=== PATIENT | male | born 1975 | race Caucasian/White ===

== ENCOUNTER 2022-03-07 11:14 | Inpatient (IN) | payer OTHER, SELFPAY ==
[2022-03-07] VITALS (17 sets, daily range): BP systolic 103–161; BP diastolic 59–112; PULSE 95–123; RESP 11–30; TEMP 36.6–37.6; O2SAT 84–98; BMI 68.5; BMI 60.7
--- NOTE | 2022-03-07 11:27 | PC.NURSE ---
CORETTA Isaacs at
--- NOTE | 2022-03-07 11:46 | ECG_ITS ---
APPROVED REPORT Exam: Resting ECG HR:116 bpm ECG Measurements Heart Rate 116 AXES QRSd 102 QRS -34 QT 336 T 86 QTc 405 Conclusion ATRIAL FIBRILLATION WITH RAPID VENTRICULAR RESPONSE LEFT AXIS DEVIATION [QRS AXIS < -30] POSSIBLE ANTERIOR MYOCARDIAL INFARCTION , OF INDETERMINATE AGE [30 ms Q WAVE IN V3/V4, OR R < 0.2 mV IN V4] ABNORMAL ECG UNCONFIRMED REPORT Electronically signed by : Aba Acevedo MD 03/11/2022 10:15:51
--- NOTE | 2022-03-07 11:49 | HMH.EDGENADL ---
ED Disposition Clinical Impression: Septic shock, Cellulitis of leg, right, Rapid atrial fibrillation, Hyperglycemia Disposition: Admitted As Inpatient Condition on Discharge: Serious Referrals: Provider,Referral, [Primary Care Provider] - - Critical Care Critical Care Time: Yes Attestation: On 03/07/22, the high probability of a clinically significant, sudden or life threatening deterioration of the following system(s) required my full and direct attention, intervention and personal management. The time I documented below is in addition to time spent performing reported procedures but includes the following listed in this critical care notation. Total Critical Care Time: 40 Vital system(s) involved:: Circulatory Failure, Shock (Septic) My critical care processes included: Assessment & monitoring of V/S, Initial and Re-exams, Data Review/Interpretation, Coordinating Care, Medication Orders and management, Documentation Medical Decision Making - Tj Inquiry Pt receiving controlled substance: No Vital Signs: 03/07/22 11:15 03/07/22 12:00 03/07/22 12:21 Temperature 99.6 F Temperature Source Oral Pulse Rate 107 H Pulse Rate [Radial] 123 H Respiratory Rate 30 H Blood Pressure 134/85 Blood Pressure [Right Arm] 116/62 Blood Pressure Mean [Right Arm] 80 Blood Pressure Position [Right Arm] Sitting 02 Sat by Pulse Oximetry 98 92 L 84 L Oxygen Delivery Method Room Air Room Air Room Air Oxygen Flow Rate (LPM) 03/07/22 12:22 03/07/22 12:32 03/07/22 13:16 Temperature Temperature Source Pulse Rate 100 H 97 H Pulse Rate [Radial] Respiratory Rate 24 Blood Pressure 155/112 H 122/71 Blood Pressure [Right Arm] Blood Pressure Mean [Right Arm] Blood Pressure Position [Right Arm] 02 Sat by Pulse Oximetry 95 96 98 Oxygen Delivery Method Nasal Cannula Room Air Nasal Cannula Oxygen Flow Rate (LPM) 3 3 03/07/22 13:30 Temperature Temperature Source Pulse Rate 110 H Pulse Rate [Radial] Respiratory Rate 11 L Blood Pressure 131/94 H Blood Pressure [Right Arm] Blood Pressure Mean [Right Arm] Blood Pressure Position [Right Arm] 02 Sat by Pulse Oximetry 98 Oxygen Delivery Method Nasal Cannula Oxygen Flow Rate (LPM) 3 - Lab Data Lab Results 03/07/22 11:36: WBC 10.3, RBC 4.58 L, Hgb 14.5, Hct 44.2, MCV 96.5 H, MCH 31.7 H, MCHC 32.8, RDW 14.6, Plt Count 228, MPV 8.6, Neut % (Auto) 84.5 H, Lymph % (Auto) 8.9 L, [place] % (Auto) 5.5, Eos % (Auto) 0.1, Baso % (Auto) 1.0, Neut # (Auto) 8.7 H, Lymph # (Auto) 0.9, [place] # (Auto) 0.6, Eos # (Auto) 0.0, Baso # (Auto) 0.1 03/07/22 11:36: Sodium 137, Potassium 3.5, Chloride 100, Carbon Dioxide 26, Anion Gap 14.5, BUN 22 H, Creatinine 1.30 H, Estimated Creat Clear 62, Estimated GFR 59, Est GFR ( Amer) 71, Glucose 194 H, Calcium 7.5 L, Total Bilirubin 2.6 H, AST 36, ALT 36, Alkaline Phosphatase 82, Total Protein 7.6, Albumin 3.3 L, Globulin 4.3 H, Albumin/Globulin Ratio 0.8 L 03/07/22 11:36: Lactate 5.0 H 03/07/22 11:36: Procalcitonin 6.66 H 03/07/22 11:49: SARS-CoV-2 (PCR) Not detected, Influenza A Untype (PCR) Not detected, Influenza Type B (PCR) Not detected Result diagrams: 03/07/22 11:36 03/07/22 11:36 Orders (Tests/Meds): ED MEDICATIONS Generic Name Dose Route Start Last Admin Trade Name Freq PRN Reason Stop Dose Admin Diltiazem HCl 60 mg 03/07/22 14:15 Diltiazem 60mg Tablet PO 04/06/22 14:14 Q8H BLANCA Enoxaparin Sodium 40 mg 03/07/22 14:06 Enoxaparin 40mg/0.4ml Syringe SQ 04/06/22 14:05 BID BLANCA Vancomycin HCl 2,250 mg/ 250 mls @ 125 mls/hr 03/07/22 12:15 03/07/22 12:39 Sodium Chloride IV 03/07/22 14:14 125 mls/hr ONCE ONE Administration Ertapenem 1 gm/ Sodium 50 mls @ 100 mls/hr 03/07/22 14:15 Chloride IV 03/21/22 14:14 Q24H BLANCA Discontinued Medications Generic Name Dose Route Start Last Admin Trade Name Freq PRN Reason Stop Dose Admin Lactated Ringer's
[2022-03-07 11:50] LABS: Basophils # 0.1 K/mm3 (0-0.2); Eosinophils % 0.1 % (0.1-12.0); Hematocrit 44.2 % (42.0-52.0); Hemoglobin 14.5 g/dL (14.1-18.0); Lymphocytes # 0.9 K/mm3 (0.7-4.5); Lymphocytes % 8.9 % (10-50); Mean Corpuscular HGB Conc 32.8 g/dL (31.8-35.4); Mean Corpuscular Hemoglobin 31.7 pg (27.0-31.2); Mean Corpuscular Volume 96.5 fl (80-94); Mean Platelet Volume 8.6 fl (7.4-10.4); Monocytes # 0.6 K/mm3 (0.1-1.0); Monocytes % 5.5 % (1.7-9.3); Neutrophils # 8.7 K/mm3 (1.8-7.8); Neutrophils % 84.5 % (37.0-80.0); Platelet Count 228 K/mm3 (142-424); Red Blood Count 4.58 M/mm3 (4.60-6.20); Red Cell Distribution Width 14.6 % (11.5-17.5); White Blood Count 10.3 K/mm3 (4.8-10.8)
--- NOTE | 2022-03-07 11:50 | PC.NURSE ---
Patient states he has no needs at this time; call light within reach
[2022-03-07 11:52] LABS: Coronavirus 19, PCR Not Detected (NotDetected); Influenza A, PCR Not Detected (NotDetected); Influenza B, PCR Not Detected (NotDetected)
[2022-03-07 11:56] LABS: Chloride 100 mmol/L (98-107)
[2022-03-07 11:57] LABS: Potassium 3.5 mmoL/L (3.5-5.1); Sodium 137 mmol/L (136-145)
--- NOTE | 2022-03-07 11:58 | CA_ITS ---
FINAL REPORT TECHNIQUE: Color Doppler, duplex Doppler and compression sonography of the right lower extremity venous system was performed. CLINICAL HISTORY: swelling, pain, redness right leg, Morbid obesity, Afib FINDINGS: There is no evidence of deep venous thrombosis from the level of the groin to the calf. The veins are patent and compressible. IMPRESSION: No evidence of deep venous thrombosis right lower extremity. Reviewed, Interpreted and Dictated by Parminder Arrieta III, MD Transcribed by Christiano Carias Authenticated by Parminder Arrieta III, MD on 03/09/2022 07:11:52 AM [facility]
[2022-03-07 11:59] LABS: Alanine Aminotransferase 36 U/L (12-78); Alkaline Phosphatase 82 U/L (38-126); Anion Gap 14.5 mEq/L (5-15); Aspartate Amino Transferase 36 U/L (17-59); Bilirubin,Total 2.6 mg/dl (0.2-1.3); Blood Urea Nitrogen 22 mg/dl (9-20); Carbon Dioxide 26 mmol/L (22.0-30.0); Creatinine Clearance Estimated 62 mL/min (50-200); Estimated Glomerular Filt Rate 59 ml/min (>60); GFR (African American) 71 ML/MIN (>60)
[2022-03-07 12:00] LABS: Albumin Level 3.3 g/dl (3.5-5.0); Albumin/Globulin Ratio 0.8 (1.1-1.8); Calcium 7.5 mg/dl (8.4-10.2); Globulin 4.3 g/dL (1.3-3.2); Glucose 194 mg/dl (74-100); Total Protein,Serum 7.6 g/dl (6.3-8.2)
--- NOTE | 2022-03-07 12:00 | PC.NURSE ---
RESP CALLED TO [facility] RADIOLOGIC TECHNOLOGIST
[2022-03-07 12:17] LABS: Procalcitonin 6.66 ng/mL (0.0-2.0)
--- NOTE | 2022-03-07 12:21 | XR_ITS ---
PROCEDURE INFORMATION: Exam: XR Chest Exam date and time: 03/07/2022 12:26 PM Age: 47 years old Clinical indication: Shortness of breath; Additional info: SOB TECHNIQUE: Imaging protocol: XR of the chest. Views: 1 view. COMPARISON: No relevant prior studies available. FINDINGS: Lungs: Unremarkable. No consolidation. Pleural spaces: Unremarkable. No pleural effusion. No pneumothorax. Heart/Mediastinum: Unremarkable. No cardiomegaly. Bones/joints: Unremarkable. IMPRESSION: No acute findings.
--- NOTE | 2022-03-07 12:27 | PC.NURSE ---
Radiology bedside at this time.
--- NOTE | 2022-03-07 12:50 | PC.NURSE ---
VASCULAR AT BEDSIDE
--- NOTE | 2022-03-07 12:50 | PC.NURSE ---
VASCULAR AT BEDSIDE
--- NOTE | 2022-03-07 12:58 | PC.NURSE ---
Vascular at BS
--- NOTE | 2022-03-07 13:01 | PC.NURSE ---
Tech is bedside doing venous doppler US.
--- NOTE | 2022-03-07 13:16 | PC.NURSE ---
called pile driver operator helper for Dr. Argueta for possible inpatient admission on patient.
--- NOTE | 2022-03-07 13:22 | PC.NURSE ---
Family brought in an overnight bag for the patient. Patient resting in bed at this time. nothing needed. call light within reach.
--- NOTE | 2022-03-07 13:35 | PC.NURSE ---
REPAGED DR GRIMES
--- NOTE | 2022-03-07 13:39 | PC.NURSE ---
called double surface operator again about re-paging Dr. Argueta. Awaiting call back at this time.
--- NOTE | 2022-03-07 13:47 | PC.NURSE ---
Still awaiting call back from Dr. Argueta; Radio Time Buyer called back here to see if had called back yet, but he hasn't she said that she was going to page him again.
--- NOTE | 2022-03-07 13:56 | PC.NURSE ---
Textile Designer called back to state that she paged Dr. Argueta again, stated that if we didn't hear from him in the next 15 mins to call her back and she would try something different in getting in touch with him. Dr. Corbin made aware.
--- NOTE | 2022-03-07 13:57 | PC.NURSE ---
Dr. Argueta returned call to the ER at this time. Speaking with Dr. Corbin
--- NOTE | 2022-03-07 14:09 | PC.NURSE ---
Called powerhouse operator for admission. she stated she would call back once she got to the office.
--- NOTE | 2022-03-07 14:12 | PC.NURSE ---
Cahrito meat supervisor called back and took information about needing bed for inpatient admission. stated she would get a bed. Telemetry bed
--- NOTE | 2022-03-07 14:15 | HMH.PHAVTE ---
[facility] Pharmacy VTE Monitoring - Patient Demographics Admission date: 03/07/22 Report Date: 03/07/22 Time: 14:15 Allergies/Adverse Reactions: Patient Allergies No Known Allergies Allergy (Verified 03/07/22 11:36) Height: 1.68 m Weight: 192.777 kg Patient Problems: Current Active Problems Septic shock (Acute) Cellulitis of leg, right (Acute) Rapid atrial fibrillation (Acute) Hyperglycemia (Acute) - VTE Risk Labs: VTE Related Lab Results Hgb 14.5 g/dL (14.1-18.0) 03/07/22 11:36 Hct 44.2 % (42.0-52.0) 03/07/22 11:36 Plt Count 228 K/mm3 (142-424) 03/07/22 11:36 BUN 22 mg/dl (9-20) H 03/07/22 11:36 Creatinine 1.30 mg/dl (0.66-1.25) H 03/07/22 11:36 Estimated Creat Clear 62 mL/min (50-200) 03/07/22 11:36 Was VTE Risk Assessment Performed: No Clinical Trial Participant: No - Prophylaxis VTE Prophylaxis Ordered?: Yes Types of VTE Prophylaxis: TEDS Knee High, Pharmacological Location of Applied Device: Bilateral Lower Extremeties Pharmacologic Type: Enoxaparin
--- NOTE | 2022-03-07 14:16 | HMH.PHACONS ---
- Pharmacy Consult Date: 03/07/22 Time: 14:16 Referring provider: DR SEGURA Reason for Consult:: VANCOMYCIN DOSING CONSULT Allergies and ADEs:: Allergies Allergy/AdvReac Type Severity Reaction Status Date / Time No Known Allergies Allergy Verified 03/07/22 11:36 Home Medications:: Home Medications Medication Instructions Recorded Confirmed Type No Known Home Medications 03/07/22 03/07/22 History Height: 1.68 m Weight: 192.777 kg Laboratory Results:: Laboratory Results - last 24 hr 03/07/22 11:36: WBC 10.3, RBC 4.58 L, Hgb 14.5, Hct 44.2, MCV 96.5 H, MCH 31.7 H, MCHC 32.8, RDW 14.6, Plt Count 228, MPV 8.6, Neut % (Auto) 84.5 H, Lymph % (Auto) 8.9 L, [place] % (Auto) 5.5, Eos % (Auto) 0.1, Baso % (Auto) 1.0, Neut # (Auto) 8.7 H, Lymph # (Auto) 0.9, [place] # (Auto) 0.6, Eos # (Auto) 0.0, Baso # (Auto) 0.1 03/07/22 11:36: Sodium 137, Potassium 3.5, Chloride 100, Carbon Dioxide 26, Anion Gap 14.5, BUN 22 H, Creatinine 1.30 H, Estimated Creat Clear 62, Estimated GFR 59, Est GFR ( Amer) 71, Glucose 194 H, Calcium 7.5 L, Total Bilirubin 2.6 H, AST 36, ALT 36, Alkaline Phosphatase 82, Total Protein 7.6, Albumin 3.3 L, Globulin 4.3 H, Albumin/Globulin Ratio 0.8 L 03/07/22 11:36: Lactate 5.0 H 03/07/22 11:36: Procalcitonin 6.66 H 03/07/22 11:49: SARS-CoV-2 (PCR) Not detected, Influenza A Untype (PCR) Not detected, Influenza Type B (PCR) Not detected Assessment and Plan - Assessment and plan all Dx Assessment and Plan for all problems:: Pharmacokinetic dosing service Objective: Age: 47 yo Serum creatinine: 1.3 mg/dL Height: 66.0 Inches Weight (kg): 192.77 Diagnosis: CELLULITIS Assessment: IBW (kg): 63.80 Dosing wt(kg): 115.4 Estimated Creatinine clearance (ml/min): 112.2 CRCL method: Cockcroft and Gault using adjusted body weight Drug selected: Vancomycin Loading dose (mg): Vd (liters): 80.8 (factor used: 0.7 L/kg) Ryan (hr-1): 0.098 Half life (hrs): 7.07 CLvanco=?? 7.918 L/hr Recommended dose: 2250 mg Interval: 12 hrs Infusion time (hrs): 2.0 Predicted peak (mcg/mL): 36.6 Predicted trough (mcg/mL): 13.74 Adjusted body weight was selected for vancomycin dosing. To switch back, select the total body weight option above. Recommendations: Give Vancomycin 2250 mg q 12 hrs with an expected Cpeak of 36.6 mcg/ml and an expected Ctrough of 13.74 mcg/ml AUC 0-24 /BHARATI Data: BHARATI 0.5 mcg/mL:?? AUC/BHARATI:? 1136.7 BHARATI 1.0 mcg/mL:?? AUC/BHARATI:? 568.3 --------- BHARATI 1.5 mcg/mL:?? AUC/BHARATI:? 378.9 BHARATI 2.0 mcg/mL:?? AUC/BHARATI:? 284.2 Thank you for the consult, will continue to follow.
[2022-03-07 15:44] LABS: Reflex Lactic Add Lactic Reflex
--- NOTE | 2022-03-07 15:59 | PC.NURSE ---
Med surg staff down here to transport patient upstairs to inpatient room.
[2022-03-07 16:45] LABS: Lactic Acid Follow Up (RFLX 1) 1.4 mmol/L (0.7-2.1)
--- NOTE | 2022-03-07 17:44 | PC.NURSE ---
PT IS RESTING IN BED. NO COMPLAINTS OF DISCOMFORT. ALERT AND ORIENTED X4. LUNG SOUNDS DIMINISHED. ABDOMEN LARGE /SOFT WITH HYPOACTIVE BOWEL SOUNDS. REDNESS/SWELLING NOTED TO RLE. O2 SATURATION HAS MAINTAINED 90-95% ON 3 L NC. VSS. WILL CONTINUE TO MONITOR.
[2022-03-08] VITALS (10 sets, daily range): BP systolic 132–170; BP diastolic 74–94; PULSE 80–125; RESP 1–26; TEMP 36.4–37.2; O2SAT 83–100; BMI 60.7
--- NOTE | 2022-03-08 06:47 | PC.NURSE ---
pt has rested t/o shift, has been a fib on tele, HR increased to 120-130 and sustained, production assembler notified, new orders received and carried out, pt states that he has sleep apnea but doesn't wear his cpap at home, O2 sats have been 92-96 and is currently on 4L NC
[2022-03-08 07:19] LABS: POC Glucose,Bedside 195 (70-110)
[2022-03-08 07:40] LABS: MANUAL DIFFERENTIAL MANUAL DIFFERENTIAL (MANUAL DIFF)
--- NOTE | 2022-03-08 07:49 | HMH.HP ---
*Admission Date: 03/07/22 *Chief complaint: Reddness and swelling of right leg *History of present illness: 47 year old former patient of Dr. Jose Tomas who presented to [facility] ER yesterday complaining of a several day history of chills and nausea associated with some swelling and redness of the right leg. Patient stated he had not had any medical care in the past 5 years. He has a history of cellulitis of both legs and had taken Eliquis due to A. fib. History obtained from discussion with the ER doctor as patient is obtunded at this time and can not answer questions. [facility] History Medical History: Reports:: Atrial Fibrillation, Hyperlipidemia, Hypertension Denies:: Cancer, Diabetes Mellitus Type 1, Diabetes Mellitus Type 2, MRSA *Have you ever received a pneumonia vaccine?: No *Have you received a flu vaccine this season?: No Other Medical History: Reports: Other (sleep apnea, obesity) Amputation: No Fractures: No - *Social History Last grade of school completed: Advanced degree Smoking Status: Never smoker Alcohol Intake: never *Occupational Status:: unemployed Housing: house Household Members: family *Travel in the last 8 weeks: None Family Hx:: Unable to obtain Review of Systems - Review of Systems Review of systems:: unable to obtain - *Neurologic Reports headache(s) Meds Home Medications Medication Instructions Recorded Confirmed Type No Known Home Medications 03/07/22 03/07/22 History Allergies Allergy/AdvReac Type Severity Reaction Status Date / Time No Known Allergies Allergy Verified 03/07/22 11:36 Exam Vital signs and Labs for Last 24 Hours: Temp Pulse Resp BP Pulse Ox 99.0 F 117 H 26 H 170/94 H 92 L 03/08/22 04:00 03/08/22 04:00 03/08/22 04:00 03/08/22 04:00 03/08/22 04:00 Laboratory Results - last 24 hr 03/07/22 11:36: WBC 10.3, RBC 4.58 L, Hgb 14.5, Hct 44.2, MCV 96.5 H, MCH 31.7 H, MCHC 32.8, RDW 14.6, Plt Count 228, MPV 8.6, Neut % (Auto) 84.5 H, Lymph % (Auto) 8.9 L, [place] % (Auto) 5.5, Eos % (Auto) 0.1, Baso % (Auto) 1.0, Neut # (Auto) 8.7 H, Lymph # (Auto) 0.9, [place] # (Auto) 0.6, Eos # (Auto) 0.0, Baso # (Auto) 0.1 03/07/22 11:36: Sodium 137, Potassium 3.5, Chloride 100, Carbon Dioxide 26, Anion Gap 14.5, BUN 22 H, Creatinine 1.30 H, Estimated Creat Clear 62, Estimated GFR 59, Est GFR ( Amer) 71, Glucose 194 H, Calcium 7.5 L, Total Bilirubin 2.6 H, AST 36, ALT 36, Alkaline Phosphatase 82, Total Protein 7.6, Albumin 3.3 L, Globulin 4.3 H, Albumin/Globulin Ratio 0.8 L 03/07/22 11:36: Lactate 5.0 H 03/07/22 11:36: Procalcitonin 6.66 H 03/07/22 11:49: SARS-CoV-2 (PCR) Not detected, Influenza A Untype (PCR) Not detected, Influenza Type B (PCR) Not detected 03/07/22 16:05: Lactate 1.4 03/08/22 07:09: POC Glucose 195 H Vital Signs - 24 hr 03/07/22 11:15 03/07/22 12:00 03/07/22 12:21 Temperature 99.6 F Pulse Rate 107 H Pulse Rate [Radial] 123 H Respiratory Rate 30 H Blood Pressure 134/85 Blood Pressure [Right Arm] 116/62 02 Sat by Pulse Oximetry 98 92 L 84 L 03/07/22 12:22 03/07/22 12:32 03/07/22 13:16 Temperature Pulse Rate 100 H 97 H Pulse Rate [Radial] Respiratory Rate 24 Blood Pressure 155/112 H 122/71 Blood Pressure [Right Arm] 02 Sat by Pulse Oximetry 95 96 98 03/07/22 13:30 03/07/22 14:00 03/07/22 14:31 Temperature Pulse Rate 110 H 102 H 115 H Pulse Rate [Radial] Respiratory Rate 11 L 20 Blood Pressure 131/94 H 114/77 121/81 Blood Pressure [Right Arm] 02 Sat by Pulse Oximetry 98 95 96 03/07/22 15:01 03/07/22 15:30 03/07/22 16:00 Temperature 99.7 F H Pulse Rate 116 H 109 H Pulse Rate [Radial] 114 H Respiratory Rate 22 Blood Pressure 103/59 L 109/68 L Blood Pressure [Right Arm] 125/69 02 Sat by Pulse Oximetry 95 92 L 95 03/07/22 16:02 03/07/22 16:22 03/07/22 16:46 Temperature 98 F Pulse Rate 104 H 100 H 108 H Pulse Rate [Radial] Respiratory Rate 24 Blood Pressure 125/69 125/69
[2022-03-08 08:01] LABS: Basophils # 0.1 K/mm3 (0-0.2); Basophils % 0.6 % (0.1-2.0); Eosinophils # 0.1 K/mm3 (0.0-0.4); Eosinophils % 0.3 % (0.1-12.0); Hematocrit 40.4 % (42.0-52.0); Lymphocytes # 0.9 K/mm3 (0.7-4.5); Lymphocytes % 6.1 % (10-50); Mean Corpuscular HGB Conc 32.1 g/dL (31.8-35.4); Mean Corpuscular Hemoglobin 30.6 pg (27.0-31.2); Mean Corpuscular Volume 95.2 fl (80-94); Mean Platelet Volume 9.3 fl (7.4-10.4); Monocytes % 6.4 % (1.7-9.3); Neutrophils # 13.2 K/mm3 (1.8-7.8); Neutrophils % 86.5 % (37.0-80.0); Platelet Count 261 K/mm3 (142-424); Red Blood Count 4.24 M/mm3 (4.60-6.20); Red Cell Distribution Width 14.4 % (11.5-17.5); White Blood Count 15.2 K/mm3 (4.8-10.8)
[2022-03-08 08:25] LABS: Chloride 103 mmol/L (98-107); Sodium 138 mmol/L (136-145)
[2022-03-08 08:26] LABS: Potassium 5.1 mmoL/L (3.5-5.1)
[2022-03-08 08:28] LABS: Blood Urea Nitrogen 22 mg/dl (9-20); Creatinine Clearance Estimated 81 mL/min (50-200); Estimated Glomerular Filt Rate 79 ml/min (>60); GFR (African American) 96 ML/MIN (>60)
[2022-03-08 08:29] LABS: Calcium 7.4 mg/dl (8.4-10.2); Carbon Dioxide 29 mmol/L (22.0-30.0); Glucose 202 mg/dl (74-100)
[2022-03-08 08:36] LABS: Anion Gap 11.1 mEq/L (5-15)
[2022-03-08 10:10] LABS: Lymphocytes % 7 % (10-50); Monocytes % 7 % (2-9); Neutrophils % 86 % (42-76); Total Cells Counted 100
[2022-03-08 10:11] LABS: Platelet Estimate Normal; RBC Morphology Normal
[2022-03-08 10:34] LABS: Hemoglobin 14.2 g/dL (14.1-18.0)
[2022-03-08 12:20] LABS: ABG Base Excess 2.1 mmol/L (-2.4-2.3); ABG HCO3 32.6 mmhg (22.0-26.0); ABG Oxygen Saturation 76 % (90-100); ABG TCO2 36.3 mmhg (23-27)
[2022-03-08 12:22] LABS: Allen's Test Acceptable
[2022-03-08 12:23] LABS: Source Left Radial
[2022-03-08 12:31] LABS: ABG PH 7.05 mmol/L (7.35-7.45)
[2022-03-08 12:32] LABS: ABG PCO2 120.5 mmhg (35.0-45.0); ABG PO2 40.3 mmhg (80-100)
[2022-03-08 14:42] LABS: Microscopic, Urine URINE MICROSCOPIC (MICROSCOPIC)
[2022-03-08 14:44] LABS: Appearance,Urine CLOUDY (Clear); Blood, Urine 3+ (Negative); Color,Urine YELLOW (Yellow); Glucose,Urine (UA) TRACE (Negative); Ketones,Urine Negative (Negative); Leukocyte Esterase,Urine Negative (Negative); Nitrate,Urine Negative (Negative); PH,Urine 5.5 (5.0-8.5); Protein,Urine 1+ (Negative); Specific Gravity, Urine >= 1.030 (1.005-1.030)
[2022-03-08 14:47] LABS: Bilirubin,Urine 1+ (Negative)
[2022-03-08 15:02] LABS: Amorphous Sediment,Urine 1+ /lpf; Bacteria,Urine 1+ /lpf; Squamous Epithelial Cell,Urine Occasional #/hpf (0-5); WBC,Urine Occasional #/hpf (0-3)
[2022-03-08 15:35] LABS: ABG Base Excess -1.8 mmol/L (-2.4-2.3); ABG HCO3 27.2 mmhg (22.0-26.0); ABG Oxygen Saturation 99 % (90-100); ABG PO2 133.3 mmhg (80-100); ABG TCO2 29.8 mmhg (23-27)
[2022-03-08 15:38] LABS: Oxygen 80% %
[2022-03-08 15:39] LABS: Allen's Test Acceptable; Source Left Radial; Vent Rate 20
[2022-03-08 15:40] LABS: ABG PCO2 82.2 mmhg (35.0-45.0); ABG PH 7.14 mmol/L (7.35-7.45)
[2022-03-09] VITALS (8 sets, daily range): BP systolic 110–140; BP diastolic 65–87; PULSE 78–99; RESP 20–24; TEMP 36.4–37.2; O2SAT 96–100; BMI 61.2; BMI 60.9
[2022-03-09 01:27] LABS: Vancomycin,Trough 31.8 ug/mL (5.0-10.0)
--- NOTE | 2022-03-09 01:30 | PC.NURSE ---
Nightwatch contacted at this time with vanc trough result, stated to hold 0100 dose
--- NOTE | 2022-03-09 04:48 | PC.NURSE ---
pt has rested well t/o shift, bipap has remained in place t/o shift, O2 sats 96-98%, telemetry shows a.fib, HR 84-99, no complaints of pain or SOA this shift, river remains in place, 375 mL out so far this shift
[2022-03-09 07:19] LABS: MANUAL DIFFERENTIAL MANUAL DIFFERENTIAL (MANUAL DIFF)
[2022-03-09 09:24] LABS: Basophils # 0.1 K/mm3 (0-0.2); Basophils % 0.5 % (0.1-2.0); Eosinophils % 0.2 % (0.1-12.0); Hematocrit 41.3 % (42.0-52.0); Hemoglobin 13.4 g/dL (14.1-18.0); Lymphocytes # 0.8 K/mm3 (0.7-4.5); Lymphocytes % 7.4 % (10-50); Mean Corpuscular HGB Conc 32.5 g/dL (31.8-35.4); Mean Corpuscular Hemoglobin 31.2 pg (27.0-31.2); Mean Corpuscular Volume 96.2 fl (80-94); Mean Platelet Volume 8.2 fl (7.4-10.4); Monocytes # 0.7 K/mm3 (0.1-1.0); Monocytes % 6.4 % (1.7-9.3); Neutrophils # 9.1 K/mm3 (1.8-7.8); Neutrophils % 85.6 % (37.0-80.0); Platelet Count 199 K/mm3 (142-424); Red Cell Distribution Width 14.2 % (11.5-17.5); White Blood Count 10.7 K/mm3 (4.8-10.8)
--- NOTE | 2022-03-09 09:27 | HMH.ACPN2 ---
<Shital Mcpherson - Last Filed: 03/09/22 09:27> Internal Medicine - PN: Subj *Date: 03/09/22 *Time: 09:27 Interval history: Patient remains on BiPAP with an FiO2 of 60%. He states he is not short of breath and is not having any pain. Laboratory data this morning showed an improved white blood cell count of 10,700 with a hemoglobin of 13.4 hematocrit 41.3. O2 sats have been 98% on the BiPAP. Exam Vital signs and Labs for Last 24 Hours: Temp Pulse Resp BP Pulse Ox 97.6 F 78 20 112/87 98 03/09/22 08:00 03/09/22 08:00 03/09/22 08:00 03/09/22 08:00 03/09/22 08:00 Laboratory Results - last 24 hr 03/08/22 06:44: Hgb 14.2, Total Counted 100, Neutrophils % (Manual) 86 H, Lymphocytes % (Manual) 7 L, Monocytes % (Manual) 7, Platelet Estimate Normal, RBC Morphology Normal 03/08/22 12:15: Specimen Source Left radial, O2 % 3lnc, ABG pH 7.05 L*, ABG pCO2 120.5 H, ABG pO2 40.3 L, ABG HCO3 32.6 H, ABG Total CO2 36.3 H, ABG O2 Saturation 76 L*, ABG Base Excess 2.1, [place] Test Acceptable 03/08/22 14:31: Urine Color Yellow, Urine Appearance Cloudy, Urine pH 5.5, Ur Specific Jean >= 1.030, Urine Protein 1+, Urine Glucose (UA) Trace, Urine Ketones Negative, Urine Blood 3+, Urine Nitrate Negative, Urine Bilirubin 1+ A, Urine Urobilinogen 4.0, Ur Leukocyte Esterase Negative, Urine RBC 5-10, Urine WBC Occasional, Ur Squamous Epith Cells Occasional, Amorphous Sediment 1+, Urine Bacteria 1+ 03/08/22 15:32: Specimen Source Left radial, O2 % 80%, ABG pH 7.14 L*, ABG pCO2 82.2 H, ABG pO2 133.3 H, ABG HCO3 27.2 H, ABG Total CO2 29.8 H, ABG O2 Saturation 99, ABG Base Excess -1.8, [place] Test Acceptable, Vent Rate 20 03/09/22 00:23: Vancomycin Trough 31.8 H 03/09/22 08:45: WBC 10.7 D, RBC 4.30 L, Hgb 13.4 L, Hct 41.3 L, MCV 96.2 H, MCH 31.2, MCHC 32.5, RDW 14.2, Plt Count 199, MPV 8.2, Neut % (Auto) 85.6 H, Lymph % (Auto) 7.4 L, [place] % (Auto) 6.4, Eos % (Auto) 0.2, Baso % (Auto) 0.5, Neut # (Auto) 9.1 H, Lymph # (Auto) 0.8, [place] # (Auto) 0.7, Eos # (Auto) 0.0, Baso # (Auto) 0.1 I & O for Last 24 hours: Intake & Output 03/06/22 03/07/22 03/08/22 03/09/22 11:59 11:59 11:59 11:59 Intake Total 1549 / 1549 1993 Output Total 100 / 100 775 / 775 Balance 1449 / 1449 1219 / 1219 Weight 425 lb 378 lb 1.484 oz 380 lb 11.813 oz Microbiology Reports for the Last 24 Hours: Microbiology 03/08/22 15:10 Groin - Drainage Gram Stain - Final - Constitutional no acute distress Comments: Awakens easily during assessment but then sleeps when left alone. - *Routine Respiratory Exam Present: CTA bilaterally (Anteriorly and posteriorly) Comments: Remains on BiPAP - *Routine Cardiovascular Exam Present: irregular rhythm Comments: Monitor showing atrial fib with a controlled ventricular response in the 70s - *Routine Abdominal Exam Present: normoactive bowel sounds, obese. Absent: tenderness Comments: Draining wound in left pannus. - *Routine Extremities Exam Present: edema (Bilateral legs) Comments: Discoloration of left lower leg. Right lower extremity with erythema and multiple abrasive-like wounds. Right foot also with erythema. - *Routine Neurological Exam Present: alert, altered mental status Assessment and Plan (1) HTN (hypertension) Status: Acute Category: Medical Code(s): I10 - Essential (primary) hypertension (2) Septic shock Status: Acute Category: Medical Code(s): A41.9 - Sepsis, unspecified organism; R65.21 - Severe sepsis with septic shock (3) Cellulitis of leg, right Status: Acute Category: Medical Code(s): L03.115 - Cellulitis of right lower limb (4) Rapid atrial fibrillation Status: Acute Category: Medical Code(s): I48.91 - Unspecified atrial fibrillation (5) Hyperglycemia Status: Acute Category: Medical Code(s): R73.9 - Hyperglycemia, unspecified (6) Respiratory acidosis Status: Acute Category: Medical Code(s): E87.2 - Acidosis (7) Mor
[2022-03-09 09:41] LABS: Chloride 101 mmol/L (98-107); Potassium 4.8 mmoL/L (3.5-5.1); Sodium 136 mmol/L (136-145)
[2022-03-09 09:44] LABS: Anion Gap 10.8 mEq/L (5-15); Blood Urea Nitrogen 36 mg/dl (9-20); Carbon Dioxide 29 mmol/L (22.0-30.0); Creatinine Clearance Estimated 38 mL/min (50-200); Estimated Glomerular Filt Rate 34 ml/min (>60); GFR (African American) 41 ML/MIN (>60)
[2022-03-09 09:45] LABS: Calcium 7.1 mg/dl (8.4-10.2); Glucose 124 mg/dl (74-100)
[2022-03-09 13:38] LABS: Hypochromasia 1+; Lymphocytes % 14 % (10-50); Macrocytosis 1+; Monocytes % 4 % (2-9); Neutrophils % 82 % (42-76); Platelet Estimate Normal; Total Cells Counted 100
[2022-03-09 21:52] LABS: Anion Gap 7.3 mEq/L (5-15); Blood Urea Nitrogen 39 mg/dl (9-20); Calcium 7.5 mg/dl (8.4-10.2); Carbon Dioxide 31 mmol/L (22.0-30.0); Chloride 100 mmol/L (98-107); Creatinine Clearance Estimated 26 mL/min (50-200); Estimated Glomerular Filt Rate 22 ml/min (>60); GFR (African American) 26 ML/MIN (>60); Glucose 108 mg/dl (74-100); Potassium 4.3 mmoL/L (3.5-5.1); Sodium 134 mmol/L (136-145)
[2022-03-09 22:14] LABS: Vancomycin,Trough 21.3 ug/mL (5.0-10.0)
--- NOTE | 2022-03-09 22:18 | PC.NURSE ---
nightwatch contacted at this time about vanc trough, stated to hold dose for 2200
[2022-03-10] VITALS (9 sets, daily range): BP systolic 122–154; BP diastolic 63–84; PULSE 70–95; RESP 18–22; TEMP 36.3–36.8; O2SAT 93–100; BMI 61.2
--- NOTE | 2022-03-10 05:20 | PC.NURSE ---
pt has rested t/o shift, has remained on Bipap with O2 sats 93-100%, pt has some edema noted to BUE and BLE, RLE is very red, scaly and swollen, telemetry continues to show a. fib with a rate of 81-92, pt has not complained of pain or SOA this shift, river remains in place with 500 mL out so far this shift
[2022-03-10 07:20] LABS: Basophils # 0.1 K/mm3 (0-0.2); Basophils % 0.8 % (0.1-2.0); Mean Corpuscular HGB Conc 31.8 g/dL (31.8-35.4); Monocytes # 0.5 K/mm3 (0.1-1.0); Red Cell Distribution Width 14.3 % (11.5-17.5)
[2022-03-10 07:22] LABS: Chloride 100 mmol/L (98-107); Potassium 4.1 mmoL/L (3.5-5.1); Sodium 133 mmol/L (136-145)
[2022-03-10 07:25] LABS: Alanine Aminotransferase 13 U/L (12-78); Albumin Level 2.5 g/dl (3.5-5.0); Albumin/Globulin Ratio 0.7 (1.1-1.8); Alkaline Phosphatase 75 U/L (38-126); Anion Gap 7.1 mEq/L (5-15); Aspartate Amino Transferase 23 U/L (17-59); Bilirubin,Total 1.3 mg/dl (0.2-1.3); Blood Urea Nitrogen 44 mg/dl (9-20); Carbon Dioxide 30 mmol/L (22.0-30.0); Creatinine Clearance Estimated 24 mL/min (50-200); Estimated Glomerular Filt Rate 20 ml/min (>60); GFR (African American) 24 ML/MIN (>60); Globulin 3.5 g/dL (1.3-3.2)
[2022-03-10 07:26] LABS: Calcium 7.2 mg/dl (8.4-10.2); Eosinophils % 0.5 % (0.1-12.0); Glucose 99 mg/dl (74-100); Hematocrit 38.6 % (42.0-52.0); Lymphocytes % 13.1 % (10-50); Mean Corpuscular Hemoglobin 31.2 pg (27.0-31.2); Mean Corpuscular Volume 98.1 fl (80-94); Mean Platelet Volume 7.8 fl (7.4-10.4); Monocytes % 6.8 % (1.7-9.3); Neutrophils % 78.8 % (37.0-80.0); Platelet Count 218 K/mm3 (142-424); Red Blood Count 3.93 M/mm3 (4.60-6.20); White Blood Count 7.7 K/mm3 (4.8-10.8)
[2022-03-10 07:29] LABS: Hemoglobin 12.3 g/dL (14.1-18.0)
--- NOTE | 2022-03-10 08:33 | HMH.ACPN2 ---
<Shital Mcpherson - Last Filed: 03/10/22 08:33> Internal Medicine - PN: Subj *Date: 03/10/22 *Time: 08:33 Interval history: Patient states he is not short of breath. He denies pain. He is hungry and wants to eat. Remains on BiPAP with FiO2 at 60%. He has a Marie catheter to bedside drainage. Exam Vital signs and Labs for Last 24 Hours: Temp Pulse Resp BP Pulse Ox 97.4 F L 82 19 142/78 H 100 03/10/22 08:00 03/10/22 08:00 03/10/22 08:00 03/10/22 08:00 03/10/22 08:00 Laboratory Results - last 24 hr 03/09/22 08:45: WBC 10.7 D, RBC 4.30 L, Hgb 13.4 L, Hct 41.3 L, MCV 96.2 H, MCH 31.2, MCHC 32.5, RDW 14.2, Plt Count 199, MPV 8.2, Neut % (Auto) 85.6 H, Lymph % (Auto) 7.4 L, [place] % (Auto) 6.4, Eos % (Auto) 0.2, Baso % (Auto) 0.5, Neut # (Auto) 9.1 H, Lymph # (Auto) 0.8, [place] # (Auto) 0.7, Eos # (Auto) 0.0, Baso # (Auto) 0.1, Total Counted 100, Neutrophils % (Manual) 82 H, Lymphocytes % (Manual) 14, Monocytes % (Manual) 4, Platelet Estimate Normal, Hypochromasia 1+, Macrocytosis 1+ 03/09/22 08:45: Sodium 136, Potassium 4.8, Chloride 101, Carbon Dioxide 29, Anion Gap 10.8, BUN 36 H D, Creatinine 2.10 H D, Estimated Creat Clear 38, Estimated GFR 34 L, Est GFR ( Amer) 41 L D, Glucose 124 H, Calcium 7.1 L 03/09/22 21:32: Sodium 134 L, Potassium 4.3, Chloride 100, Carbon Dioxide 31 H, Anion Gap 7.3, BUN 39 H, Creatinine 3.10 H D, Estimated Creat Clear 26, Estimated GFR 22 L, Est GFR ( Amer) 26 L D, Glucose 108 H, Calcium 7.5 L 03/09/22 21:32: Vancomycin Trough 21.3 H 03/10/22 06:54: WBC 7.7 D, RBC 3.93 L, Hgb 12.3 L, Hct 38.6 L, MCV 98.1 H, MCH 31.2, MCHC 31.8, RDW 14.3, Plt Count 218, MPV 7.8, Neut % (Auto) 78.8, Lymph % (Auto) 13.1, [place] % (Auto) 6.8, Eos % (Auto) 0.5, Baso % (Auto) 0.8, Neut # (Auto) 6.0, Lymph # (Auto) 1.0, [place] # (Auto) 0.5, Eos # (Auto) 0.0, Baso # (Auto) 0.1 03/10/22 06:54: Sodium 133 L, Potassium 4.1, Chloride 100, Carbon Dioxide 30, Anion Gap 7.1, BUN 44 H, Creatinine 3.30 H, Estimated Creat Clear 24, Estimated GFR 20 L, Est GFR ( Amer) 24 L, Glucose 99, Calcium 7.2 L, Total Bilirubin 1.3, AST 23 D, ALT 13 D, Alkaline Phosphatase 75, Total Protein 6.0 L, Albumin 2.5 L, Globulin 3.5 H, Albumin/Globulin Ratio 0.7 L I & O for Last 24 hours: Intake & Output 03/07/22 03/08/22 03/09/22 03/10/22 11:59 11:59 11:59 11:59 Intake Total 1549 / 1549 2354 / 2354 2841 / 2841 Output Total 100 / 100 775 / 775 500 / 500 Balance 1449 / 1449 1579 / 1579 2341 / 2341 Weight 425 lb 378 lb 1.484 oz 379 lb 3.121 oz 380 lb 11.813 oz Microbiology Reports for the Last 24 Hours: Microbiology 03/08/22 15:10 Groin - Drainage Gram Stain - Final 03/08/22 15:10 Groin - Drainage Wound Culture - Preliminary NO GROWTH AFTER 24 HOURS 03/07/22 11:40 Blood Blood Culture - Preliminary NO GROWTH AFTER 48 HOURS 03/07/22 11:40 Blood Blood Culture - Preliminary NO GROWTH AFTER 48 HOURS - Constitutional no acute distress, morbidly obese - *Routine Respiratory Exam Present: CTA bilaterally (Anteriorly bilaterally) - *Routine Cardiovascular Exam Present: irregular rhythm - *Routine Abdominal Exam Present: normoactive bowel sounds, obese. Absent: tenderness - *Routine Extremities Exam Comments: May be slight erythema of the right leg. Appears more localized. Sores noted on both legs. - *Routine Skin Exam Present: lesions (On anterior abdomen), wounds (Left skin fold inguinal wound continues to drain. Area is erythemic. Padding in place) - *Routine Neurological Exam Present: alert Assessment and Plan (1) HTN (hypertension) Status: Acute Category: Medical Code(s): I10 - Essential (primary) hypertension (2) Septic shock Status: Acute Category: Medical Code(s): A41.9 - Sepsis, unspecified organism; R65.21 - Severe sepsis with septic shock (3) Cellulitis of leg, right Status: Acut
[2022-03-10 08:34] LABS: Vancomycin,Trough 17.6 ug/mL (5.0-10.0)
--- NOTE | 2022-03-10 09:02 | PC.NURSE ---
Try to wean pt to high flow 40L/80% he desated to 78%. Returned pt to bipap. Reducing the pt ipap and epap throughout the day to wean him off the bipap.
--- NOTE | 2022-03-10 10:07 | HMH.PHACONS ---
- Pharmacy Consult Date: 03/10/22 Time: 10:07 Referring provider: DR. GRIMES Reason for Consult:: VANCOMYCIN LEVELS AND DOSE CHANGE Allergies and ADEs:: Allergies Allergy/AdvReac Type Severity Reaction Status Date / Time No Known Allergies Allergy Verified 03/07/22 11:36 Home Medications:: Home Medications Medication Instructions Recorded Confirmed Type No Known Home Medications 03/07/22 03/07/22 History Height: 1.68 m Weight: 172.7 kg Laboratory Results:: Laboratory Results - last 24 hr 03/09/22 08:45: Total Counted 100, Neutrophils % (Manual) 82 H, Lymphocytes % (Manual) 14, Monocytes % (Manual) 4, Platelet Estimate Normal, Hypochromasia 1+, Macrocytosis 1+ 03/09/22 21:32: Sodium 134 L, Potassium 4.3, Chloride 100, Carbon Dioxide 31 H, Anion Gap 7.3, BUN 39 H, Creatinine 3.10 H D, Estimated Creat Clear 26, Estimated GFR 22 L, Est GFR ( Amer) 26 L D, Glucose 108 H, Calcium 7.5 L 03/09/22 21:32: Vancomycin Trough 21.3 H 03/10/22 06:50: Vancomycin Trough 17.6 H 03/10/22 06:54: WBC 7.7 D, RBC 3.93 L, Hgb 12.3 L, Hct 38.6 L, MCV 98.1 H, MCH 31.2, MCHC 31.8, RDW 14.3, Plt Count 218, MPV 7.8, Neut % (Auto) 78.8, Lymph % (Auto) 13.1, [place] % (Auto) 6.8, Eos % (Auto) 0.5, Baso % (Auto) 0.8, Neut # (Auto) 6.0, Lymph # (Auto) 1.0, [place] # (Auto) 0.5, Eos # (Auto) 0.0, Baso # (Auto) 0.1 03/10/22 06:54: Sodium 133 L, Potassium 4.1, Chloride 100, Carbon Dioxide 30, Anion Gap 7.1, BUN 44 H, Creatinine 3.30 H, Estimated Creat Clear 24, Estimated GFR 20 L, Est GFR ( Amer) 24 L, Glucose 99, Calcium 7.2 L, Total Bilirubin 1.3, AST 23 D, ALT 13 D, Alkaline Phosphatase 75, Total Protein 6.0 L, Albumin 2.5 L, Globulin 3.5 H, Albumin/Globulin Ratio 0.7 L Medical History: Reports:: Atrial Fibrillation, Hyperlipidemia, Hypertension Denies:: Cancer, Diabetes Mellitus Type 1, Diabetes Mellitus Type 2, MRSA Assessment and Plan (1) HTN (hypertension) Status: Acute Category: Medical Code(s): I10 - Essential (primary) hypertension (2) Septic shock Status: Acute Category: Medical Code(s): A41.9 - Sepsis, unspecified organism; R65.21 - Severe sepsis with septic shock (3) Cellulitis of leg, right Status: Acute Category: Medical Code(s): L03.115 - Cellulitis of right lower limb (4) Rapid atrial fibrillation Status: Acute Category: Medical Code(s): I48.91 - Unspecified atrial fibrillation (5) Hyperglycemia Status: Acute Category: Medical Code(s): R73.9 - Hyperglycemia, unspecified (6) Respiratory acidosis Status: Acute Category: Medical Code(s): E87.2 - Acidosis (7) Morbid obesity Status: Acute Category: Medical Code(s): E66.01 - Morbid (severe) obesity due to excess calories (8) Open wound of abdominal wall Status: Acute Category: Medical Code(s): S31.109A - Unspecified open wound of abdominal wall, unspecified quadrant without penetration into peritoneal cavity, initial encounter (9) ROXANA (acute kidney injury) Status: Acute Category: Medical Code(s): N17.9 - Acute kidney failure, unspecified - Assessment and plan all Dx Assessment and Plan for all problems:: Age: 47 yo Serum creatinine: 3.3 mg/dL Height: 66.1 Inches Weight (kg): 172.7 Assessment: IBW (kg): 64.03 Dosing wt(kg): 172.7 Estimated Creatinine clearance (ml/min): 24.5 CRCL method: Cockcroft and Gault using ibw(default). Drug selected: Vancomycin Loading dose (mg): 0 Vd (liters): 138.2 (factor used: 0.8 L/kg) Ryan (hr-1): 0.025 Half life (hrs): 27.73 Recommended dose: 1750 mg Interval: 24 hrs Infusion time (hrs): 2.0 Predicted peak (mcg/mL): 27.4 Predicted trough (mcg/mL): 15.81 Total body weight is being used for vancomycin dosing. Renal function is stable [ ] /unstable [ X ] Recommendations: Patient's last vancomycin dose was given on 03/08/22 about 1300. Level
[2022-03-11] VITALS (12 sets, daily range): BP systolic 107–161; BP diastolic 61–84; PULSE 65–80; RESP 7–26; TEMP 36.3–36.9; O2SAT 99–100
--- NOTE | 2022-03-11 04:50 | PC.NURSE ---
Pt has rested most of the shift. Remains on bipap with O2 98-100%. HR has ranged from 70-95. Pt has voiced no c/o of SOA, or pain. Cleansed inguinal wound and BLE with hibiclens. Pt has had 1,200ml in output so far this shift.
[2022-03-11 07:21] LABS: Basophils # 0.1 K/mm3 (0-0.2); Basophils % 1.2 % (0.1-2.0); Eosinophils # 0.1 K/mm3 (0.0-0.4); Hematocrit 36.8 % (42.0-52.0); Hemoglobin 11.9 g/dL (14.1-18.0); Lymphocytes # 0.9 K/mm3 (0.7-4.5); Lymphocytes % 12.8 % (10-50); Mean Corpuscular HGB Conc 32.3 g/dL (31.8-35.4); Mean Corpuscular Hemoglobin 31.4 pg (27.0-31.2); Mean Corpuscular Volume 97.3 fl (80-94); Mean Platelet Volume 7.8 fl (7.4-10.4); Monocytes # 0.4 K/mm3 (0.1-1.0); Monocytes % 5.8 % (1.7-9.3); Neutrophils # 5.3 K/mm3 (1.8-7.8); Neutrophils % 79.1 % (37.0-80.0); Platelet Count 248 K/mm3 (142-424); Red Blood Count 3.78 M/mm3 (4.60-6.20); Red Cell Distribution Width 14.3 % (11.5-17.5); White Blood Count 6.7 K/mm3 (4.8-10.8)
[2022-03-11 07:47] LABS: Chloride 100 mmol/L (98-107); Potassium 3.9 mmoL/L (3.5-5.1); Sodium 132 mmol/L (136-145)
[2022-03-11 07:50] LABS: Anion Gap 8.9 mEq/L (5-15); Blood Urea Nitrogen 47 mg/dl (9-20); Carbon Dioxide 27 mmol/L (22.0-30.0); Creatinine Clearance Estimated 22 mL/min (50-200); Estimated Glomerular Filt Rate 18 ml/min (>60); GFR (African American) 22 ML/MIN (>60); Glucose 83 mg/dl (74-100)
--- NOTE | 2022-03-11 08:42 | HMH.ACPN2 ---
<Shital Mcpherson - Last Filed: 03/11/22 08:42> Internal Medicine - PN: Subj *Date: 03/11/22 *Time: 08:42 Interval history: Patient feels she is doing okay this morning. He denies shortness of breath. He remains on BiPAP at 60% FiO2. He continues to be hungry. Weaning was did yesterday but he did not tolerate. PO 2 today is 100% on 60% FiO2. He continues with Marie catheter to bedside drainage. He has had an improved urinary output. Laboratory data this morning show a hemoglobin 11.9 hematocrit 36.8 white blood cell count normal at 6700. Blood chemistries show sodium 132 potassium 3.9 BUN is 47 and creatinine has increased to 3.6. Exam Vital signs and Labs for Last 24 Hours: Temp Pulse Resp BP Pulse Ox 97.9 F 77 26 H 161/84 H 100 03/11/22 08:00 03/11/22 08:00 03/11/22 08:00 03/11/22 08:00 03/11/22 08:00 Laboratory Results - last 24 hr 03/11/22 06:34: WBC 6.7, RBC 3.78 L, Hgb 11.9 L, Hct 36.8 L, MCV 97.3 H, MCH 31.4 H, MCHC 32.3, RDW 14.3, Plt Count 248, MPV 7.8, Neut % (Auto) 79.1, Lymph % (Auto) 12.8, [place] % (Auto) 5.8, Eos % (Auto) 1.0, Baso % (Auto) 1.2, Neut # (Auto) 5.3, Lymph # (Auto) 0.9, [place] # (Auto) 0.4, Eos # (Auto) 0.1, Baso # (Auto) 0.1 03/11/22 06:34: Sodium 132 L, Potassium 3.9, Chloride 100, Carbon Dioxide 27, Anion Gap 8.9, BUN 47 H, Creatinine 3.60 H, Estimated Creat Clear 22, Estimated GFR 18 L*, Est GFR ( Amer) 22 L, Glucose 83, Calcium 7.0 L I & O for Last 24 hours: Intake & Output 04/17/22 04/18/22 04/19/22 04/20/22 11:59 11:59 11:59 11:59 Intake Total 1549 / 1549 2354 / 2354 2841 / 2841 6215 / 6215 Output Total 100 / 100 775 / 775 500 / 500 1550 / 1550 Balance 1449 / 1449 1579 / 1579 2341 / 2341 4665 / 4665 Weight 378 lb 1.484 oz 379 lb 3.121 oz 380 lb 11.813 oz Microbiology Reports for the Last 24 Hours: Microbiology 03/08/22 15:10 Groin - Drainage Gram Stain - Final 03/08/22 15:10 Groin - Drainage Wound Culture - Preliminary - Constitutional no acute distress, obese - *Routine Respiratory Exam Present: CTA bilaterally - *Routine Cardiovascular Exam Present: RRR Comments: Monitor continues to show atrial flutter with controlled ventricular response in the 70s. - *Routine Abdominal Exam Present: normoactive bowel sounds, obese. Absent: tenderness - *Routine Extremities Exam Present: edema (Bilateral leg) - *Routine Skin Exam Present: erythema Comments: Wound in left groin appears paper cleaner and was less than 3 erythema today. Right lower extremity also with more localized erythema. He has bilateral leg edema. - *Routine Neurological Exam Present: alert, oriented X3 Assessment and Plan (1) HTN (hypertension) Status: Acute Category: Medical Code(s): I10 - Essential (primary) hypertension (2) Septic shock Status: Acute Category: Medical Code(s): A41.9 - Sepsis, unspecified organism; R65.21 - Severe sepsis with septic shock (3) Cellulitis of leg, right Status: Acute Category: Medical Code(s): L03.115 - Cellulitis of right lower limb (4) Rapid atrial fibrillation Status: Acute Category: Medical Code(s): I48.91 - Unspecified atrial fibrillation (5) Hyperglycemia Status: Acute Category: Medical Code(s): R73.9 - Hyperglycemia, unspecified (6) Respiratory acidosis Status: Acute Category: Medical Code(s): E87.2 - Acidosis (7) Morbid obesity Status: Acute Category: Medical Code(s): E66.01 - Morbid (severe) obesity due to excess calories (8) Open wound of abdominal wall Status: Acute Category: Medical Code(s): S31.109A - Unspecified open wound of abdominal wall, unspecified quadrant without penetration into peritoneal cavity, initial encounter (9) ROXANA (acute kidney injury) Status: Acute Category: Medical Code(s): N17.9 - Acute kidney failure, unspecified - Assessment and plan all Dx Assessment and Plan for all problems:: Continue with current pulmonary care. Pul
--- NOTE | 2022-03-11 09:29 | HMH.PULMCON ---
*Admission Date: 03/07/22 *Reason for consult:: Acute hypoxic hypercarbic respiratory failure *History of present illness: Mr. Grant is a 47-year-old male presented to the ER on 03/07/2022 complaining of subjective fevers chills along with swelling and redness in lower extremity, has been managed for cellulitis since then and also found to be in hypercarbic respiratory failure, patient on BiPAP since admission no follow-up ABGs available to review from 03/08 and pulmonary was called for further management today. [facility] History Medical History: Reports:: Atrial Fibrillation, Hyperlipidemia, Hypertension Denies:: Cancer, Diabetes Mellitus Type 1, Diabetes Mellitus Type 2, MRSA *Have you ever received a pneumonia vaccine?: No *Have you received a flu vaccine this season?: No Other Medical History: Reports: Other (sleep apnea, obesity) Amputation: No Fractures: No - *Social History Last grade of school completed: Advanced degree Smoking Status: Never smoker Alcohol Intake: never *Occupational Status:: unemployed Housing: house Household Members: family *Travel in the last 8 weeks: None Family Hx:: Unable to obtain ROS - Review of Systems Limited given patient was placed on BiPAP. Denies any significant respiratory distress. Complains of lower extremity pain. - Card Reports shortness of breath, Reports shortness of breath with activity - Resp Respiratory: Reports chest congestion, Reports dyspnea on exertion - GI Gastrointestingal: Denies: abdominal pain - [place] Musculoskeletal: Reports back pain, Reports muscle aches - Psych Denies thoughts of hurting/killing others, Denies thoughts of hurting/killing yourself Meds Home Medications Medication Instructions Recorded Confirmed Type No Known Home Medications 03/07/22 03/07/22 History Allergies Allergy/AdvReac Type Severity Reaction Status Date / Time No Known Allergies Allergy Verified 03/07/22 11:36 Exam - Constitutional Constitutional:: Absent: no acute distress - HENMT Exam HENMT: Present: normocephalic - Eye Exam Eyes:: Present: normal appearance both eyes and related structures - Neck Exam Neck:: Present: normal visual inspection - Respiratory Exam Respiratory:: Present: respiratory distress, decreased breath sounds. Absent: wheezing - Cardiovascular Exam Cardiac:: Present: S1, S2 - GI Exam GI:: Present: soft, obese - Skin Exam Skin: Present: diaphoresis - Neurological Exam Neurological: Present: alert, awake - Extremities Exam Extremities: Present: no cyanosis, no clubbing Internal Medicine - CN: Reslt - Labs CBC & Chem 7: 03/11/22 06:34 03/11/22 06:34 Labs: Short CBC 03/11/22 Range/Units 06:34 WBC 6.7 (4.8-10.8) K/mm3 Hgb 11.9 L (14.1-18.0) g/dL Hct 36.8 L (42.0-52.0) % Plt Count 248 (142-424) K/mm3 BMP 03/11/22 06:34 Sodium 132 L Potassium 3.9 Chloride 100 Carbon Dioxide 27 BUN 47 H Creatinine 3.60 H Glucose 83 Calcium 7.0 L - ABG Interpretation ABG results: 03/08/22 03/08/22 12:15 15:32 ABG pH 7.05 L* 7.14 L* ABG pCO2 120.5 H 82.2 H ABG pO2 40.3 L 133.3 H ABG HCO3 32.6 H 27.2 H ABG Total CO2 36.3 H 29.8 H ABG O2 Saturation 76 L* 99 ABG Base Excess 2.1 -1.8 Assessment and Plan (1) HTN (hypertension) Status: Acute Category: Medical Code(s): I10 - Essential (primary) hypertension (2) Septic shock Status: Acute Category: Medical Code(s): A41.9 - Sepsis, unspecified organism; R65.21 - Severe sepsis with septic shock (3) Cellulitis of leg, right Status: Acute Category: Medical Code(s): L03.115 - Cellulitis of right lower limb (4) Rapid atrial fibrillation Status: Acute Category: Medical Code(s): I48.91 - Unspecified atrial fibrillation (5) Hyperglycemia Status: Acute Category: Medical Code(s): R73.9 - Hyperglycemia, unspecified (6) Respiratory acidosis Status: Acute Category: Medica
--- NOTE | 2022-03-11 09:32 | XR_ITS ---
FINAL REPORT CLINICAL HISTORY: Hypoxia COMPARISON: March 07, 2022 FINDINGS: SINGLE VIEW CHEST The heart size is enlarged. The mediastinum is within normal limits. There is a worsening bibasilar atelectasis or pneumonia. There is no evidence of pneumothorax. The bony thorax is intact. IMPRESSION: Worsening bibasilar atelectasis or pneumonia. Reviewed, Interpreted and Dictated by Parminder Arrieta III, MD Transcribed by Christiano Carias Authenticated by Parminder Arrieta III, MD on 03/11/2022 10:51:24 AM [facility]
--- NOTE | 2022-03-11 11:05 | DIET.NUTRFU ---
RD rounded with Dr. farmer today, patient continues on BiPap and unable to off long enough for meals. Hasent been drinking much either. Continues on IVF
--- NOTE | 2022-03-11 11:06 | DIET.NUTRFU ---
RD rounded with Dr. Argueta today, patient continues on BiPap and unable to be off long enough for meals. Hasn't been drinking much either. Continues on IVF for hydration needs and ABT tx for infection. Pulmonary consult in place. Renal albs continue to elevated at BUN 47/Cr 3.6 with GFR 18L. Wt is up 2kg possibly d/t fluid, BLE edema. Receiving topical tx for cellulites and scaly skin on R LE. Urine output yesterday was good at 1550ml. Will continue to follow meal intake/tolerates oral intake
[2022-03-11 12:03] LABS: ABG Base Excess -2.6 mmol/L (-2.4-2.3); ABG HCO3 24.3 mmhg (22.0-26.0); ABG Oxygen Saturation 98 % (90-100); ABG PH 7.27 mmol/L (7.35-7.45); ABG PO2 101.5 mmhg (80-100)
[2022-03-11 12:07] LABS: ABG Methemoglobin 0.3 % (0.4-1.5); Chloride, Arterial 100 mmol/L (98-107); Sodium Arterial 131 mmol/L (137-145)
[2022-03-11 12:08] LABS: Lactate Arterial 1.1 mmol/L (0.4-2.0)
[2022-03-11 12:09] LABS: Allen's Test ACCEPTABLE; Oxygen 40 %; Pressure Support BIPAP 18/12; Source Left Radial
[2022-03-11 12:12] LABS: Vancomycin,Trough 25.4 ug/mL (5.0-10.0)
--- NOTE | 2022-03-11 12:17 | PC.NURSE ---
Notified Meir in pharmacy that pt's vanc trough was 25.4, he instructed not give the vanc at this time
--- NOTE | 2022-03-11 13:00 | PC.NURSE ---
RESP CARE NOTE: Pt settings increased per Dr Jeong, IPAP 22 cmH2O, EPAP 12 cmH2O to aid in Hypercapnia and Hypoxia. Will continue to monitor.
--- NOTE | 2022-03-11 13:10 | P.CONPHA_ITS ---
- Pharmacy Consult Date: 03/11/22 Time: 13:10 Referring provider: DR. GRIMES Reason for Consult:: VANCOMYCIN TROUGH LEVEL Allergies and ADEs:: Allergies Allergy/AdvReac Type Severity Reaction Status Date / Time No Known Allergies Allergy Verified 03/07/22 11:36 Home Medications:: Home Medications Medication Instructions Recorded Confirmed Type No Known Home Medications 03/07/22 03/07/22 History Height: 1.68 m Weight: 172.7 kg Laboratory Results:: Laboratory Results - last 24 hr 03/11/22 06:34: WBC 6.7, RBC 3.78 L, Hgb 11.9 L, Hct 36.8 L, MCV 97.3 H, MCH 31.4 H, MCHC 32.3, RDW 14.3, Plt Count 248, MPV 7.8, Neut % (Auto) 79.1, Lymph % (Auto) 12.8, [place] % (Auto) 5.8, Eos % (Auto) 1.0, Baso % (Auto) 1.2, Neut # (Auto) 5.3, Lymph # (Auto) 0.9, [place] # (Auto) 0.4, Eos # (Auto) 0.1, Baso # (Auto) 0.1 03/11/22 06:34: Sodium 132 L, Potassium 3.9, Chloride 100, Carbon Dioxide 27, Anion Gap 8.9, BUN 47 H, Creatinine 3.60 H, Estimated Creat Clear 22, Estimated GFR 18 L*, Est GFR ( Amer) 22 L, Glucose 83, Calcium 7.0 L 03/11/22 09:32: Specimen Source Left radial, O2 % 40, ABG pH 7.27 L, ABG pCO2 54.0 H, ABG pO2 101.5 H, ABG HCO3 24.3, ABG Total CO2 26.0, ABG O2 Saturation 98, ABG Base Excess -2.6 L, [place] Test Acceptable 03/11/22 10:40: Vancomycin Trough 25.4 H Medical History: Reports:: Atrial Fibrillation, Hyperlipidemia, Hypertension Denies:: Cancer, Diabetes Mellitus Type 1, Diabetes Mellitus Type 2, MRSA Assessment and Plan (1) HTN (hypertension) Status: Acute Category: Medical Code(s): I10 - Essential (primary) hypertension (2) Septic shock Status: Acute Category: Medical Code(s): A41.9 - Sepsis, unspecified organism; R65.21 - Severe sepsis with septic shock (3) Cellulitis of leg, right Status: Acute Category: Medical Code(s): L03.115 - Cellulitis of right lower limb (4) Rapid atrial fibrillation Status: Acute Category: Medical Code(s): I48.91 - Unspecified atrial fibrillation (5) Hyperglycemia Status: Acute Category: Medical Code(s): R73.9 - Hyperglycemia, unspecified (6) Respiratory acidosis Status: Acute Category: Medical Code(s): E87.2 - Acidosis (7) Morbid obesity Status: Acute Category: Medical Code(s): E66.01 - Morbid (severe) obesity due to excess calories (8) Open wound of abdominal wall Status: Acute Category: Medical Code(s): S31.109A - Unspecified open wound of abdominal wall, unspecified quadrant without penetration into peritoneal cavity, initial encounter (9) ROXANA (acute kidney injury) Status: Acute Category: Medical Code(s): N17.9 - Acute kidney failure, unspecified (10) Hypercapnic respiratory failure Status: Acute Category: Medical Code(s): J96.92 - Respiratory failure, unspecified with hypercapnia - Assessment and plan all Dx Assessment and Plan for all problems:: BASED ON PATIENT FACTORS AND VANCOMYCIN TROUGH LEVEL OF 25.4 TODAY, WILL HOLD TODAY'S DOSE AND OBTAIN TROUGH LEVEL TOMORROW PRIOR TO DOSE. AT THAT POINT PHARMACY WILL ADJUST DOSE APPROPRIATE. -CHRIS YBARRA PHARMD
--- NOTE | 2022-03-11 18:50 | PC.NURSE ---
Pt has rested in bed all shift. Hibiclens applied to area of cellulitis on RLE up to the groin and to left side of groin fold. BLE are scaly. He's remained on bipap all shift. No change from morning assessment. No complaints verbalized. Bed locked and in the lowest position, call light within reach.
[2022-03-12] VITALS (14 sets, daily range): BP systolic 133–171; BP diastolic 79–89; PULSE 48–80; RESP 20–23; TEMP 36.6–38.1; O2SAT 98–100
--- NOTE | 2022-03-12 02:02 | PC.NURSE ---
0000 Hibiclens applied to area of cellulitis on RLE up to the groin and to left side of groin fold.
[2022-03-12 07:08] LABS: Basophils # 0.1 K/mm3 (0-0.2); Basophils % 1.3 % (0.1-2.0); Eosinophils # 0.1 K/mm3 (0.0-0.4); Eosinophils % 0.9 % (0.1-12.0); Hematocrit 37.6 % (42.0-52.0); Hemoglobin 11.9 g/dL (14.1-18.0); Lymphocytes % 16.4 % (10-50); Mean Corpuscular HGB Conc 31.8 g/dL (31.8-35.4); Mean Corpuscular Hemoglobin 31.2 pg (27.0-31.2); Mean Corpuscular Volume 98.3 fl (80-94); Mean Platelet Volume 8.3 fl (7.4-10.4); Monocytes # 0.3 K/mm3 (0.1-1.0); Monocytes % 5.4 % (1.7-9.3); Neutrophils # 4.4 K/mm3 (1.8-7.8); Neutrophils % 75.9 % (37.0-80.0); Platelet Count 259 K/mm3 (142-424); Red Blood Count 3.82 M/mm3 (4.60-6.20); Red Cell Distribution Width 14.4 % (11.5-17.5); White Blood Count 5.8 K/mm3 (4.8-10.8)
[2022-03-12 07:18] LABS: Chloride 102 mmol/L (98-107); Potassium 3.8 mmoL/L (3.5-5.1); Sodium 132 mmol/L (136-145)
[2022-03-12 07:20] LABS: Blood Urea Nitrogen 53 mg/dl (9-20); Creatinine Clearance Estimated 23 mL/min (50-200); Estimated Glomerular Filt Rate 19 ml/min (>60); GFR (African American) 23 ML/MIN (>60)
[2022-03-12 07:21] LABS: Alanine Aminotransferase 12 U/L (12-78); Albumin Level 2.5 g/dl (3.5-5.0); Albumin/Globulin Ratio 0.7 (1.1-1.8); Alkaline Phosphatase 77 U/L (38-126); Anion Gap 11.8 mEq/L (5-15); Aspartate Amino Transferase 29 U/L (17-59); Carbon Dioxide 22 mmol/L (22.0-30.0); Globulin 3.5 g/dL (1.3-3.2); Glucose 77 mg/dl (74-100)
--- NOTE | 2022-03-12 08:56 | HMH.ACPN2 ---
Internal Medicine - PN: Subj *Date: 03/12/22 *Time: 08:56 Interval history: Patient with no new complaints today. Exam Vital signs and Labs for Last 24 Hours: Temp Pulse Resp BP Pulse Ox 98.4 F 73 21 160/79 H 100 03/12/22 08:00 03/12/22 08:00 03/12/22 08:00 03/12/22 08:00 03/12/22 08:00 Laboratory Results - last 24 hr 03/11/22 09:32: Specimen Source Left radial, O2 % 40, ABG pH 7.27 L, ABG pCO2 54.0 H, ABG pO2 101.5 H, ABG HCO3 24.3, ABG Total CO2 26.0, ABG O2 Saturation 98, ABG Base Excess -2.6 L, Wilmar Test Acceptable 03/11/22 10:40: Vancomycin Trough 25.4 H 03/12/22 06:26: WBC 5.8, RBC 3.82 L, Hgb 11.9 L, Hct 37.6 L, MCV 98.3 H, MCH 31.2, MCHC 31.8, RDW 14.4, Plt Count 259, MPV 8.3, Neut % (Auto) 75.9, Lymph % (Auto) 16.4, [place] % (Auto) 5.4, Eos % (Auto) 0.9, Baso % (Auto) 1.3, Neut # (Auto) 4.4, Lymph # (Auto) 1.0, [place] # (Auto) 0.3, Eos # (Auto) 0.1, Baso # (Auto) 0.1 03/12/22 06:26: Sodium 132 L, Potassium 3.8, Chloride 102, Carbon Dioxide 22, Anion Gap 11.8, BUN 53 H, Creatinine 3.50 H, Estimated Creat Clear 23, Estimated GFR 19 L*, Est GFR ( Amer) 23 L, Glucose 77, Calcium 7.0 L, Total Bilirubin 1.0, AST 29 D, ALT 12, Alkaline Phosphatase 77, Total Protein 6.0 L, Albumin 2.5 L, Globulin 3.5 H, Albumin/Globulin Ratio 0.7 L Vital Signs - 24 hr 03/11/22 12:00 03/11/22 16:00 03/11/22 18:54 Temperature 98.5 F 97.5 F L Pulse Rate 70 70 70 Pulse Rate [Radial] 71 65 Respiratory Rate 16 22 Blood Pressure [Right Arm] 107/61 L 136/84 02 Sat by Pulse Oximetry 100 100 03/11/22 20:00 03/11/22 22:04 03/12/22 00:00 Temperature 98.2 F 98.3 F Pulse Rate 70 70 Pulse Rate [Radial] 73 48 L Respiratory Rate 20 20 Blood Pressure [Right Arm] 135/77 133/82 02 Sat by Pulse Oximetry 100 100 99 03/12/22 01:14 03/12/22 04:00 03/12/22 06:11 Temperature 98.1 F Pulse Rate 70 72 80 Pulse Rate [Radial] 74 Respiratory Rate 20 Blood Pressure [Right Arm] 148/84 H 02 Sat by Pulse Oximetry 100 03/12/22 08:00 Temperature 98.4 F Pulse Rate Pulse Rate [Radial] 73 Respiratory Rate 21 Blood Pressure [Right Arm] 160/79 H 02 Sat by Pulse Oximetry 100 I & O for Last 24 hours: Intake & Output 03/09/22 03/10/22 03/11/22 03/12/22 23:59 23:59 23:59 23:59 Intake Total 3944 / 3944 3901 / 3901 5814 / 5814 Output Total 375 / 875 500 / 1700 3375 / 4075 1750 / 1750 Balance 3569 / 3069 3401 / 2201 2439 / 1739 -1750 / -1750 Weight 379 lb 3.121 oz 380 lb 11.813 oz Microbiology Reports for the Last 24 Hours: Microbiology 03/08/22 15:10 Groin - Drainage Gram Stain - Final 03/08/22 15:10 Groin - Drainage Wound Culture - Preliminary Gram Positive Cocci Gram Positive Cocci#2 - Constitutional no acute distress - *Routine Respiratory Exam Present: rhonchi (few). Absent: wheezes - *Routine Cardiovascular Exam Present: RRR - *Routine Extremities Exam Present: edema - *Routine Skin Exam Present: rash (redness on right leg has improved minimally) Assessment and Plan (1) HTN (hypertension) Status: Acute Category: Medical Code(s): I10 - Essential (primary) hypertension (2) Septic shock Status: Acute Category: Medical Code(s): A41.9 - Sepsis, unspecified organism; R65.21 - Severe sepsis with septic shock (3) Cellulitis of leg, right Status: Acute Category: Medical Code(s): L03.115 - Cellulitis of right lower limb (4) Rapid atrial fibrillation Status: Acute Category: Medical Code(s): I48.91 - Unspecified atrial fibrillation (5) Hyperglycemia Status: Acute Category: Medical Code(s): R73.9 - Hyperglycemia, unspecified (6) Respiratory acidosis Status: Acute Category: Medical Code(s): E87.2 - Acidosis (7) Morbid obesity Status: Acute Category: Medical Code(s): E66.01 - Morbid (severe) obesity due to excess calories (8) Open wound of abdominal wall Status: Ac
--- NOTE | 2022-03-12 09:24 | HMH.PULMPN ---
Internal Medicine - PN: Subj *Date: 03/12/22 *Time: 11:47 Interval history: Patient admits improvement in his symptoms. Appears more awake than yesterday. No new respiratory complaints Exam - Constitutional Constitutional:: Present: no acute distress, comfortable - HENMT Exam HENMT: Present: normocephalic - Eye Exam Eyes:: Present: normal appearance both eyes and related structures - Neck Exam Neck:: Present: normal visual inspection - Respiratory Exam Respiratory:: Present: able to speak in complete sentences, respiratory distress, decreased breath sounds - Cardiovascular Exam Cardiac:: Present: S1, S2 - GI Exam GI:: Present: soft, obese - Skin Exam Skin: Present: warm - Neurological Exam Neurological: Present: awake. Absent: alert, normal cognition - Extremities Exam Extremities: Present: no cyanosis Assessment and Plan (1) HTN (hypertension) Status: Acute Category: Medical Code(s): I10 - Essential (primary) hypertension (2) Septic shock Status: Acute Category: Medical Code(s): A41.9 - Sepsis, unspecified organism; R65.21 - Severe sepsis with septic shock (3) Cellulitis of leg, right Status: Acute Category: Medical Code(s): L03.115 - Cellulitis of right lower limb (4) Rapid atrial fibrillation Status: Acute Category: Medical Code(s): I48.91 - Unspecified atrial fibrillation (5) Hyperglycemia Status: Acute Category: Medical Code(s): R73.9 - Hyperglycemia, unspecified (6) Respiratory acidosis Status: Acute Category: Medical Code(s): E87.2 - Acidosis (7) Morbid obesity Status: Acute Category: Medical Code(s): E66.01 - Morbid (severe) obesity due to excess calories (8) Open wound of abdominal wall Status: Acute Category: Medical Code(s): S31.109A - Unspecified open wound of abdominal wall, unspecified quadrant without penetration into peritoneal cavity, initial encounter (9) ROXANA (acute kidney injury) Status: Acute Category: Medical Code(s): N17.9 - Acute kidney failure, unspecified (10) Hypercapnic respiratory failure Status: Acute Category: Medical Code(s): J96.92 - Respiratory failure, unspecified with hypercapnia - Assessment and plan all Dx Assessment and Plan for all problems:: #Acute on Chronic hypercarbic respiratory failure: Mr. Grant is a 47-year-old male presented to the ER on 03/07/2022 complaining of subjective fevers chills along with swelling and redness in lower extremity, has been managed for cellulitis since then and also found to be in hypercarbic respiratory failure, patient on BiPAP since admission no follow-up ABGs available to review from 03/08 and pulmonary was called for further management today. Chest x-ray admission left lower lobe pulmonary disease, no follow-up imaging available for review. No respiratory cultures available for review Patient has been receiving vancomycin and ertapenem. Patient on my initial examinaiton appears somnolent, however appropriately responding to questions and following commands but denies any smoking history. Denies any prior respiratory complaints. No prior history of asthma. Saturating 100% on 60% FiO2. chest x-ray worsening lower lobe airspace disease/atelectasis. Interval update: Continue to remain on BiPAP with no issues with oxygenation. Afebrile. Currently receiving vancomycin and ertapenem was escalated to meropenem. ABG from yesterday continue to show respiratory acidosis improving from prior. Have discussed with the patient's brother this morning, patient is baseline sedentary and has been somnolent for very long time. It is likely this patient is having severe sleep apnea and will need noninvasive ventilator therapy when lying down or with sleep upon discharge and needing close sleep clinic follow-up for further management. Plan: -Continue BiPAP, mask and settings changed. Improved VT and MV. -Continue meropenem x7 days for possible pneumonia. Meropenem can be we
--- NOTE | 2022-03-12 11:33 | HMH.OTEV ---
OT Inpatient Evaluation Rehab OT IP Evaluation Start: 03/12/22 10:27 Freq: ONCE Status: Complete Protocol: Document 03/12/22 11:15 [facility] CENTERKristien (Rec: 03/12/22 11:32 [facility] [id number]) Rehab OT IP Assessment Subjective History Pt oriented x 3 on arrival. Pt agreeable to engage in therapy evalaution. Pt admitted via ED on 03/07/22 due to Septic shock, Cellulitis of leg, right, Rapid atrial fibrillation, Hyperglycemia. Pt reports prior to being in the hospital he lived at home with his mother and uncle. Pt claims he was able to complete all ADLs and IADLs independently. However, pt also reports he did not ambulate (for over 6 years). He used a rolling chair to get around his house, but was able to transfer himself from surface to surface. Subjective I could do what I needed. Pt required max assist x 2 to complete bed mobility and go from supine to sitting at eob. While sitting pt required mod/max assist to maintain sitting position. Max assist x 2 required to go from sitting to supine. Objective Patient Orientation Person,Place,Birthday Upper Extremity Gross ROM Mod Limitation 50% Shoulder ROM Limitations Muscle Weakness Elbow ROM Limitations Muscle Weakness Wrist Limitations of Range of Motion Muscle Weakness Bed Mobility bed mobility-scooting,bed mobility - supine/sit,bed mobility - rolling Assist Level Maximum x 2 (75% assist) Rehab OT IP prob,goals,plan Problems Date of Evaluation: 03/12/22 OT IP Problems Bed Mobility,Transfers,Gait, Balance,Self care,Safety Rehab Potential Rehab Potential Good Equipment Needs Assistive Devices Wheelchair Plan OT Plan Frequency BID Duration LOS Discharge Goals Bed Mobility Ability Assistance x1 Sit to Stand Chair Transfer Ability Moderate x 1 (50% assist) Chair Transfer Ability Maximum x 1 (75% assist)
--- NOTE | 2022-03-12 11:42 | PC.WOUNDNOTE ---
LLE LLE LLE RLE
--- NOTE | 2022-03-12 11:43 | HMH.PTEV ---
Physical Therapy Evaluation Rehab PT IP Evaluation Start: 03/12/22 10:27 Freq: .once Status: Active Protocol: Document 03/12/22 11:37 PWSURYA (Rec: 03/12/22 11:43 [email or web address] [id number]) Subjective/History History History This is the initial IP PT evaluation for Mulugeta Grant. Pt is a 47 y/p male admitted to [facility] for sepsis and severe respiratory issues. Pt also has cellulitis of RLE. Subjective Subjective Pt s/o TTP along R lower leg and pain in R hip w/ mvmnt. Pt reports to therapist he has not ambulated in 6 years, due to arthritis and he uses an office chair to scoot around his house. Pt was difficult to understand due to Bi-Pap volume Rehab PT IP Eval Objective Appearance Patient Behavior Cooperative,Fatigued Patient Orientation Place,Name,Birthday Difficulty following instructions none Speech Pattern Appropriate,Artificially Ventilated Ambulation Patient Able to Ambulate No Balance Ability to Arise Unable Sitting Balance Leans or slides in chair Dynamic Sitting Balance Ability Poor Transfers Bed Transfer Ability Maximum x 2 (75% assist) Rehab PT IP prob,goals,plan Problems Date of Evaluation: 03/12/22 PT IP Problems Bed Mobility,Transfers,Gait, Balance,Self care,Safety Rehab Potential Rehab Potential Fair Plan PT Intervention Plan Bed Mobility,Transfers, Therapeutic Exercise PT Plan Frequency BID Duration LOS Discharge Goals Bed Transfer Ability Maximum x 2 (75% assist) Discharge Plan PT Discharge Plan Pt will need skilled rehab to allow return to PLOF and PLOI. Without skilled therapy pt is at risk for coninued loss of function and loss of self care. Pt is also at risk for wounds. G -code Required No Eval Complexity Eval Charge Codes 07914 - High Complexity PHYSICIAN CERTIFICATION: I certify the specified therapy services for Mulugeta Grant are required, authorized, and reviewed every 30 days.
--- NOTE | 2022-03-12 11:50 | HMH.PTWOUND ---
Rehab Inpt Wound Evaluation Rehab IP Wound Evaluation Start: 03/12/22 10:27 Freq: ONCE Status: Active Protocol: Document 03/12/22 11:47 PWSURYA (Rec: 03/12/22 11:50 PWSURYA [id number]) Rehab PT Wound Assessment Patient Status Premedicated Prior to Dressing Change No Subjective Subjective Pt c/o TTP along R lower leg - pt has large area of cellulitis w/ multiple blister w/ purulent cloudy fluid, errythemia and edema Wound Right Lower Leg Wound Type cellulitis Is This a Chronic Wound Yes Wound Bed Appearance Blisters Wound Margins Description Indistinct Surrounding Tissue Appearance Bright Red,Dark Red Edema Degree 4+ Query Text:1+ Trace, Barely Detectable, Rebound 15-30 seconds 2+ Moderate, Slight Indentation, Rebound 10-20 seconds 3+ Deep, Deeper Indentation, Rebound > 30 seconds 4+ Very Deep, Rebound > 60 seconds Edema Appearance Tight,Stretched Looking,Open Sores,Red,Purple Surrounding Tissue Temperature Hot Wound Drainage Description Purulent Drainage Amount Large Dressing Status Open to Air Primary Dressing Medicated Gauze Pad Comment vaseline gauze Wound Secondary Dressing Type Gauze Roll/Wrap Comment kerlix Wound Debridement Amount of Tissue None Removed Dressing Change Date 03/12/22 Dressing Change Patient Tolerance Tolerated Poorly Plan/Recommendation Comment No debridement necessary - nursing to provide PRN or daily dressing changes - Wound care will continue to be available for consult for dressing recommendations and care. Eval Complexity Eval Charge Codes 62320 - High Complexity PHYSICIAN CERTIFICATION: I certify the specified therapy services for Mulugeta Grant are required, authorized, and reviewed every 30 days.
--- NOTE | 2022-03-12 13:13 | P.CONPHA_ITS ---
- Pharmacy Consult Date: 03/12/22 Time: 13:13 Referring provider: DR. GRIMES Reason for Consult:: VANCOMYCIN LEVEL AND DOSING CHANGE Allergies and ADEs:: Allergies Allergy/AdvReac Type Severity Reaction Status Date / Time No Known Allergies Allergy Verified 03/07/22 11:36 Home Medications:: Home Medications Medication Instructions Recorded Confirmed Type No Known Home Medications 03/07/22 03/07/22 History Height: 1.68 m Weight: 172.7 kg Laboratory Results:: Laboratory Results - last 24 hr 03/12/22 06:26: WBC 5.8, RBC 3.82 L, Hgb 11.9 L, Hct 37.6 L, MCV 98.3 H, MCH 31.2, MCHC 31.8, RDW 14.4, Plt Count 259, MPV 8.3, Neut % (Auto) 75.9, Lymph % (Auto) 16.4, [place] % (Auto) 5.4, Eos % (Auto) 0.9, Baso % (Auto) 1.3, Neut # (Auto) 4.4, Lymph # (Auto) 1.0, [place] # (Auto) 0.3, Eos # (Auto) 0.1, Baso # (Auto) 0.1 03/12/22 06:26: Sodium 132 L, Potassium 3.8, Chloride 102, Carbon Dioxide 22, Anion Gap 11.8, BUN 53 H, Creatinine 3.50 H, Estimated Creat Clear 23, Estimated GFR 19 L*, Est GFR ( Amer) 23 L, Glucose 77, Calcium 7.0 L, Total Bilirubin 1.0, AST 29 D, ALT 12, Alkaline Phosphatase 77, Total Protein 6.0 L, Albumin 2.5 L, Globulin 3.5 H, Albumin/Globulin Ratio 0.7 L 03/12/22 10:51: Vancomycin Trough 19.0 H Medical History: Reports:: Atrial Fibrillation, Hyperlipidemia, Hypertension Denies:: Cancer, Diabetes Mellitus Type 1, Diabetes Mellitus Type 2, MRSA Assessment and Plan (1) HTN (hypertension) Status: Acute Category: Medical Code(s): I10 - Essential (primary) hypertension (2) Septic shock Status: Acute Category: Medical Code(s): A41.9 - Sepsis, unspecified organism; R65.21 - Severe sepsis with septic shock (3) Cellulitis of leg, right Status: Acute Category: Medical Code(s): L03.115 - Cellulitis of right lower limb (4) Rapid atrial fibrillation Status: Acute Category: Medical Code(s): I48.91 - Unspecified atrial fibrillation (5) Hyperglycemia Status: Acute Category: Medical Code(s): R73.9 - Hyperglycemia, unspecified (6) Respiratory acidosis Status: Acute Category: Medical Code(s): E87.2 - Acidosis (7) Morbid obesity Status: Acute Category: Medical Code(s): E66.01 - Morbid (severe) obesity due to excess calories (8) Open wound of abdominal wall Status: Acute Category: Medical Code(s): S31.109A - Unspecified open wound of abdominal wall, unspecified quadrant without penetration into peritoneal cavity, initial encounter (9) ROXANA (acute kidney injury) Status: Acute Category: Medical Code(s): N17.9 - Acute kidney failure, unspecified (10) Hypercapnic respiratory failure Status: Acute Category: Medical Code(s): J96.92 - Respiratory failure, unspecified with hypercapnia - Assessment and plan all Dx Assessment and Plan for all problems:: RECOMMEND HOLDING VANCOMYCIN FOR ANOTHER 24H AT THIS TIME. VANCOMCYIN TROUGH LEVEL WAS 19.0 MCG/ML THIS AM. LEVEL IS DOWN FROM THE 25.4 MCG/ML YESTERDAY AT 48H POST INFUSION. WILL RECHECK VANCOMYCIN LEVEL AND CRCL TOMORROW BEFORE DOSE DUE TO POOR RENAL FUNCTION.
--- NOTE | 2022-03-12 14:27 | DIET.NUTRFU ---
RD consulted secondary to jason score, patient has scaly breakdown to R calf. Receiving tx, cleansing tx. Patient continues on BiPap, unable to eat and get his nutrition. Continues on IVF for hydration. Once diet upgraded will evaluate rosalia need of supplements.
--- NOTE | 2022-03-12 18:13 | PC.NURSE ---
Pt has been stable this shift. MIVF d/c per MD Jeong. Dressing applied to RLE by PT this shift. Dressing is vasoline gauze and then wrapped in kerlix. No drainage noted from area. Telfa applied to rt inguinal fold wound. Towel applied to abd fold to keep area dry. Pt has been NPO this shift. Active bowel sounds, no BM noted. Pt has diuresed 3+ liters this shift. No other acute changes or complaints, will continue to monitor.
[2022-03-13] VITALS (12 sets, daily range): BP systolic 114–160; BP diastolic 66–96; PULSE 65–103; RESP 18–22; TEMP 36–37.5; O2SAT 97–100
--- NOTE | 2022-03-13 01:20 | PC.NURSE ---
0110 Hibiclens applied to area of cellulites on RLE up to the groin and to left side of groin fold. Dressing (Vaseline gauze with kerlix) applied to RLE. No drainage noted from area. Patient tolerated well.
--- NOTE | 2022-03-13 08:12 | HMH.ACPN2 ---
Internal Medicine - PN: Subj *Date: 03/13/22 *Time: 08:12 Interval history: Patient with no new complaints today. Exam Vital signs and Labs for Last 24 Hours: Temp Pulse Resp BP Pulse Ox 96.8 F L 80 20 154/96 H 100 03/13/22 04:00 03/13/22 06:04 03/13/22 04:00 03/13/22 04:00 03/13/22 06:04 Laboratory Results - last 24 hr 03/12/22 10:51: Vancomycin Trough 19.0 H Vital Signs - 24 hr 03/12/22 11:07 03/12/22 12:00 03/12/22 15:43 Temperature 97.8 F 98.5 F Pulse Rate 76 77 Pulse Rate [Radial] 76 73 Respiratory Rate 23 20 Blood Pressure [Right Arm] 171/89 H 149/86 H 02 Sat by Pulse Oximetry 99 98 03/12/22 16:00 03/12/22 17:35 03/12/22 20:00 Temperature 100.6 F H Pulse Rate 80 75 80 Pulse Rate [Radial] 72 Respiratory Rate 20 Blood Pressure [Right Arm] 146/89 H 02 Sat by Pulse Oximetry 99 03/12/22 23:13 03/13/22 00:00 03/13/22 04:00 Temperature 98.9 F 96.8 F L Pulse Rate 80 76 Pulse Rate [Radial] 68 77 Respiratory Rate 20 20 Blood Pressure [Right Arm] 114/84 154/96 H 02 Sat by Pulse Oximetry 98 98 100 03/13/22 06:04 Temperature Pulse Rate 80 Pulse Rate [Radial] Respiratory Rate Blood Pressure [Right Arm] 02 Sat by Pulse Oximetry 100 I & O for Last 24 hours: Intake & Output 03/10/22 03/11/22 03/12/22 03/13/22 23:59 23:59 23:59 23:59 Intake Total 3901 / 3901 5814 / 5814 100 / 100 Output Total 500 / 1700 3375 / 4075 3750 / 5350 2099 / 2099 Balance 3401 / 2201 2439 / 1739 -3650 / -5250 -2099 / Weight 380 lb 11.813 oz Microbiology Reports for the Last 24 Hours: Microbiology 03/07/22 11:40 Blood Blood Culture - Final NO GROWTH AFTER 5 DAYS 03/07/22 11:40 Blood Blood Culture - Final NO GROWTH AFTER 5 DAYS 03/08/22 15:10 Groin - Drainage Gram Stain - Final 03/08/22 15:10 Groin - Drainage Wound Culture - Final Corynebacterium amycolatum - Constitutional no acute distress - *Routine Respiratory Exam Present: rhonchi (occasional), diminished air movement. Absent: wheezes - *Routine Cardiovascular Exam Present: RRR - *Routine Extremities Exam Present: edema (both legs). Absent: cyanosis, clubbing - *Routine Skin Exam Comments: dressing in place over wounds on right leg Assessment and Plan (1) HTN (hypertension) Status: Acute Category: Medical Code(s): I10 - Essential (primary) hypertension (2) Septic shock Status: Acute Category: Medical Code(s): A41.9 - Sepsis, unspecified organism; R65.21 - Severe sepsis with septic shock (3) Cellulitis of leg, right Status: Acute Category: Medical Code(s): L03.115 - Cellulitis of right lower limb (4) Rapid atrial fibrillation Status: Acute Category: Medical Code(s): I48.91 - Unspecified atrial fibrillation (5) Hyperglycemia Status: Acute Category: Medical Code(s): R73.9 - Hyperglycemia, unspecified (6) Respiratory acidosis Status: Acute Category: Medical Code(s): E87.2 - Acidosis (7) Morbid obesity Status: Acute Category: Medical Code(s): E66.01 - Morbid (severe) obesity due to excess calories (8) Open wound of abdominal wall Status: Acute Category: Medical Code(s): S31.109A - Unspecified open wound of abdominal wall, unspecified quadrant without penetration into peritoneal cavity, initial encounter (9) ROXANA (acute kidney injury) Status: Acute Category: Medical Code(s): N17.9 - Acute kidney failure, unspecified (10) Hypercapnic respiratory failure Status: Acute Category: Medical Code(s): J96.92 - Respiratory failure, unspecified with hypercapnia - Assessment and plan all Dx Assessment and Plan for all problems:: Plan to wean off of Bipap today.
--- NOTE | 2022-03-13 08:16 | HMH.PULMPN ---
Internal Medicine - PN: Subj *Date: 03/13/22 *Time: 11:27 Interval history: No acute respiratory vents overnight. Weaned to room air this morning. Saturating well. Exam - Constitutional Constitutional:: Present: no acute distress, comfortable - HENMT Exam HENMT: Present: normocephalic - Eye Exam Eyes:: Present: normal appearance both eyes and related structures - Neck Exam Neck:: Present: normal visual inspection - Respiratory Exam Respiratory:: Present: able to speak in complete sentences, decreased breath sounds. Absent: crackles, wheezing - Cardiovascular Exam Cardiac:: Present: regular rhythm - GI Exam GI:: Present: soft - Skin Exam Skin: Present: warm, no rash - Neurological Exam Neurological: Present: alert, awake - Extremities Exam Extremities: Present: no cyanosis, no clubbing Assessment and Plan (1) HTN (hypertension) Status: Acute Category: Medical Code(s): I10 - Essential (primary) hypertension (2) Septic shock Status: Acute Category: Medical Code(s): A41.9 - Sepsis, unspecified organism; R65.21 - Severe sepsis with septic shock (3) Cellulitis of leg, right Status: Acute Category: Medical Code(s): L03.115 - Cellulitis of right lower limb (4) Rapid atrial fibrillation Status: Acute Category: Medical Code(s): I48.91 - Unspecified atrial fibrillation (5) Hyperglycemia Status: Acute Category: Medical Code(s): R73.9 - Hyperglycemia, unspecified (6) Respiratory acidosis Status: Acute Category: Medical Code(s): E87.2 - Acidosis (7) Morbid obesity Status: Acute Category: Medical Code(s): E66.01 - Morbid (severe) obesity due to excess calories (8) Open wound of abdominal wall Status: Acute Category: Medical Code(s): S31.109A - Unspecified open wound of abdominal wall, unspecified quadrant without penetration into peritoneal cavity, initial encounter (9) ROXANA (acute kidney injury) Status: Acute Category: Medical Code(s): N17.9 - Acute kidney failure, unspecified (10) Hypercapnic respiratory failure Status: Acute Category: Medical Code(s): J96.92 - Respiratory failure, unspecified with hypercapnia - Assessment and plan all Dx Assessment and Plan for all problems:: #Acute on Chronic hypercarbic respiratory failure: Mr. Grant is a 47-year-old male presented to the ER on 03/07/2022 complaining of subjective fevers chills along with swelling and redness in lower extremity, has been managed for cellulitis since then and also found to be in hypercarbic respiratory failure, patient on BiPAP since admission no follow-up ABGs available to review from 03/08 and pulmonary was called for further management today. Chest x-ray admission left lower lobe pulmonary disease, no follow-up imaging available for review. No respiratory cultures available for review Patient has been receiving vancomycin and ertapenem. Patient on my initial examinaiton appears somnolent, however appropriately responding to questions and following commands but denies any smoking history. Denies any prior respiratory complaints. No prior history of asthma. Saturating 100% on 60% FiO2. chest x-ray worsening lower lobe airspace disease/atelectasis. Interval update: Patient respiratory status and mentation continued to improve. He was weaned to room air this morning. It is likely this patient is having ROBIN/OHS and will need noninvasive ventilator therapy when lying down or with sleep. Upon discharge he needs close sleep clinic follow-up for further evaluation for ROBIN and management. Plan: -Continue oxygen on as-needed basis, weaned to room air this morning -Continue BiPAP at 14/, RR20 and FiO2 30% while supine and asleep -Continue meropenem x7 days for possible pneumonia. Meropenem can be weaned to cefepime as no evidence of multidrug-resistant organisms at this point. Day 6 of vancomycin. Thank you for involving pulmonary in this patient care. We will continue to follow
--- NOTE | 2022-03-13 09:07 | PC.NURSE ---
Noted IV was red and puffy around site, pt stated it Has hurting. Iv noted to be infiltrated, removed catheters and applied a dressing. Attempted to obtain new IV access with no success, notified dr farmer office for PICC line consult. Pt currently eating breakfast with no complaints at this time.
--- NOTE | 2022-03-13 09:59 | XR_ITS ---
FINAL REPORT CLINICAL HISTORY: Confirm PICC line placement COMPARISON: 03/11/2022 FINDINGS: SINGLE-VIEW CHEST There is cardiomegaly. The mediastinum is normal. Right PICC line tip terminates in the mid SVC. There are left base opacities which are stable, may represent atelectasis or pneumonia. There is no pneumothorax. IMPRESSION: Right PICC line terminates in the mid SVC. Stable atelectasis or pneumonia. Reviewed, Interpreted and Dictated by Parminder Arrieta III, MD Transcribed by Shital Null Authenticated by Parminder Arrieta III, MD on 03/13/2022 12:49:04 PM [facility]
--- NOTE | 2022-03-13 10:23 | PC.NURSE ---
Notified Infusion for order for PICC line insertion
[2022-03-13 11:32] LABS: Vancomycin,Trough 16.3 ug/mL (5.0-10.0)
[2022-03-13 12:23] LABS: Chloride 105 mmol/L (98-107); Potassium 3.6 mmoL/L (3.5-5.1); Sodium 137 mmol/L (136-145)
[2022-03-13 12:26] LABS: Anion Gap 11.6 mEq/L (5-15); Blood Urea Nitrogen 57 mg/dl (9-20); Calcium 7.5 mg/dl (8.4-10.2); Carbon Dioxide 24 mmol/L (22.0-30.0); Creatinine Clearance Estimated 20 mL/min (50-200); Estimated Glomerular Filt Rate 16 ml/min (>60); GFR (African American) 19 ML/MIN (>60); Glucose 117 mg/dl (74-100)
--- NOTE | 2022-03-13 13:06 | SW/DCPLANNER ---
Addendum entered by [facility] 03/20/22 09:38: The plan for this patient is to discharge home today. Patient stated that he prefers to discharge home via family vehicle. Addendum entered by [facility] 03/19/22 14:34: Patient and his mother engaged in conversation today regarding discharge plans. I spoke with patient and his mother and they have decided to discharge home once medically stable for discharge. I will continue to follow up with patient and MD. Addendum entered by [facility] 03/18/22 15:47: [facility] has denied this patient. Shira with [facility] has stated that she can accept this patient but not till mid of next week. Addendum entered by [facility] 03/18/22 15:21: Currently the following facilities are reviewing patient information: Bj [facility], [facility] (I have asked to review again), [facility] (I have asked to review again), [facility], [facility] and [facility]. I will continue to follow up with patient, facilities and MD. Addendum entered by [facility] 03/17/22 14:13: At this time the following facilities have denied this patient: [facility], [facility], [facility] and [facility]. I am currently waiting to hear back from [facility] and [facility]. Addendum entered by [facility] 03/16/22 15:35: Patient information has also been faxed to the following facilities: [facility] and [facility]. I have a message out to [facility], [facility], [facility] in [place] and [facility]. Addendum entered by [facility] 03/16/22 14:34: Patient is now agreeable to placement at this time. Breonna dhillon/ [facility] does not have any beds available. Jessy dhillon/ [facility] has requested that patient information be faxed at this time. I will follow up with Jessy once patient information is reviewed. Original Note: I spoke with this patient regarding discharge plans. Patient stated that she resides at home with his mother and nephew. Patient stated that he is able to care for himself at home: transfer from bed to wheelchair and is able to bathe himself at home independently. I did discuss placement options with this patient for MARTA pending: patient stated that he intends on returning home at time of discharge. I also discussed with patient the possible need for IV antibiotics at time of discharge. I explained the different options of receiving IV antibiotics: return to [facility] outpatient daily vs placement: patient stated that he would prefer to return to [facility] daily if IV antibiotics are needed at time of discharge. Patient did confirm that he would have daily transportation if needed. I will continue to follow up with this patient until medically stable for discharge. Discharge date is unknown at this time.
--- NOTE | 2022-03-13 13:22 | HMH.PHACONS ---
- Pharmacy Consult Date: 03/13/22 Time: 13:22 Referring provider: DR. GRIMES Reason for Consult:: VANCOMYCIN LEVELS Allergies and ADEs:: Allergies Allergy/AdvReac Type Severity Reaction Status Date / Time No Known Allergies Allergy Verified 03/07/22 11:36 Home Medications:: Home Medications Medication Instructions Recorded Confirmed Type No Known Home Medications 03/07/22 03/07/22 History Height: 1.68 m Weight: 172.7 kg Laboratory Results:: Laboratory Results - last 24 hr 03/13/22 10:24: Sodium 137, Potassium 3.6, Chloride 105, Carbon Dioxide 24, Anion Gap 11.6, BUN 57 H, Creatinine 4.10 H, Estimated Creat Clear 20, Estimated GFR 16 L*, Est GFR ( Amer) 19 L*, Glucose 117 H, Calcium 7.5 L 03/13/22 10:24: Vancomycin Trough 16.3 H Medical History: Reports:: Atrial Fibrillation, Hyperlipidemia, Hypertension Denies:: Cancer, Diabetes Mellitus Type 1, Diabetes Mellitus Type 2, MRSA Assessment and Plan (1) HTN (hypertension) Status: Acute Category: Medical Code(s): I10 - Essential (primary) hypertension (2) Septic shock Status: Acute Category: Medical Code(s): A41.9 - Sepsis, unspecified organism; R65.21 - Severe sepsis with septic shock (3) Cellulitis of leg, right Status: Acute Category: Medical Code(s): L03.115 - Cellulitis of right lower limb (4) Rapid atrial fibrillation Status: Acute Category: Medical Code(s): I48.91 - Unspecified atrial fibrillation (5) Hyperglycemia Status: Acute Category: Medical Code(s): R73.9 - Hyperglycemia, unspecified (6) Respiratory acidosis Status: Acute Category: Medical Code(s): E87.2 - Acidosis (7) Morbid obesity Status: Acute Category: Medical Code(s): E66.01 - Morbid (severe) obesity due to excess calories (8) Open wound of abdominal wall Status: Acute Category: Medical Code(s): S31.109A - Unspecified open wound of abdominal wall, unspecified quadrant without penetration into peritoneal cavity, initial encounter (9) ROXANA (acute kidney injury) Status: Acute Category: Medical Code(s): N17.9 - Acute kidney failure, unspecified (10) Hypercapnic respiratory failure Status: Acute Category: Medical Code(s): J96.92 - Respiratory failure, unspecified with hypercapnia - Assessment and plan all Dx Assessment and Plan for all problems:: PATIENT'S VANCOMYCIN LEVELS WITH VANCOMYCIN DOSE OF 1750 MG GIVEN ON 03/10 WERE: 25.4 MCG/ML AT 24 HR POST INFUSION 03/11/22 19.0 MCG/ML AT 48 HR POST INFUSION 03/12/22 16.3 MCG/ML AT 72 HR POST INFUSION 03/13/22 DOSE WILL CONTINUE TO BE HELD AT THIS TIME DUE TO DECREASE IN CLEARANCE AND INCREASE IN SRCR TO 4.10 MG/DL TODAY. WHILE LEVEL IS NOT ELEVATED AT THIS POINT, CONCERNED WITH RE-DOSING AT THIS TIME DUE TO WORSENING CRCL. WILL RECHECK LEVEL WITH TOMORROW MORNING'S AM LABS TO DETERMINE IF DOSE CAN BE GIVEN TOMORROW. VANCOMCYIN LEVEL AND BMP ORDERED FOR 0600 ON 03/14/22.
--- NOTE | 2022-03-13 17:09 | PC.NURSE ---
Pt has had minimal complaints today. No need for pain medication. Pt dressing changed today, cleaned right leg with hibiclens then applied Vaseline gauze and kerlex to wounds, pt tolerated fairly. Pt continues to be on 3-4L NC and tolerating well. PICC line insertion today, PICC flushes well and draws back blood. VSS, call light in reach, will continue to monitor.
[2022-03-14] VITALS (13 sets, daily range): BP systolic 136–170; BP diastolic 70–98; PULSE 80–107; RESP 18–25; TEMP 36.7–37.5; O2SAT 89–97; BMI 61.2
--- NOTE | 2022-03-14 03:00 | PC.NURSE ---
Pt started shift on 4L NC and tolerated well. Bipap reapplied to patient before going to bed. Patient tolerating Bipap. Dressing changed per orders after bath this evening. No complaints of pain. PICC flushes well and draws back blood fluids infusing per mar. VSS, call light in reach, will continue to monitor.
--- NOTE | 2022-03-14 04:37 | PC.NURSE ---
Pt started shift on 4L NC and tolerated well sating low 90's. Dressing changed per orders after bath this evening. Medicated per jan for pain. PICC flushes well and draws back blood fluids infusing per mar. VSS, call light in reach, will continue to monitor.
[2022-03-14 06:32] LABS: Chloride 109 mmol/L (98-107); Potassium 3.8 mmoL/L (3.5-5.1); Sodium 139 mmol/L (136-145)
[2022-03-14 06:35] LABS: Anion Gap 7.8 mEq/L (5-15); Blood Urea Nitrogen 54 mg/dl (9-20); Calcium 7.4 mg/dl (8.4-10.2); Carbon Dioxide 26 mmol/L (22.0-30.0); Creatinine Clearance Estimated 20 mL/min (50-200); Estimated Glomerular Filt Rate 16 ml/min (>60); GFR (African American) 19 ML/MIN (>60); Glucose 177 mg/dl (74-100)
[2022-03-14 06:59] LABS: Vancomycin,Trough 13.1 ug/mL (5.0-10.0)
[2022-03-14 07:19] LABS: ABG Base Excess -2.8 mmol/L (-2.4-2.3); ABG HCO3 22.6 mmhg (22.0-26.0); ABG Oxygen Saturation 94 % (90-100); ABG PCO2 40.2 mmhg (35.0-45.0); ABG PH 7.37 mmol/L (7.35-7.45); ABG PO2 71.3 mmhg (80-100); ABG TCO2 23.8 mmhg (23-27)
[2022-03-14 07:21] LABS: Allen's Test Acceptable; Oxygen 4 LNC %; Source Left Radial
--- NOTE | 2022-03-14 08:42 | HMH.ACPN2 ---
Internal Medicine - PN: Subj *Date: 03/14/22 *Time: 08:42 Interval history: Pt weaned off of Bipap yesterday, PICC line was placed, he has no new complaints today. Exam Vital signs and Labs for Last 24 Hours: Temp Pulse Resp BP Pulse Ox 98.2 F 97 H 18 136/70 96 03/14/22 07:45 03/14/22 07:45 03/14/22 07:45 03/14/22 07:45 03/14/22 07:45 Laboratory Results - last 24 hr 03/13/22 10:24: Sodium 137, Potassium 3.6, Chloride 105, Carbon Dioxide 24, Anion Gap 11.6, BUN 57 H, Creatinine 4.10 H, Estimated Creat Clear 20, Estimated GFR 16 L*, Est GFR ( Amer) 19 L*, Glucose 117 H, Calcium 7.5 L 03/13/22 10:24: Vancomycin Trough 16.3 H 03/14/22 06:10: Vancomycin Trough 13.1 H 03/14/22 06:10: Sodium 139, Potassium 3.8, Chloride 109 H, Carbon Dioxide 26, Anion Gap 7.8, BUN 54 H, Creatinine 4.00 H, Estimated Creat Clear 20, Estimated GFR 16 L*, Est GFR ( Amer) 19 L*, Glucose 177 H D, Calcium 7.4 L 03/14/22 07:05: Specimen Source Left radial, O2 % 4 lnc, ABG pH 7.37, ABG pCO2 40.2, ABG pO2 71.3 L, ABG HCO3 22.6, ABG Total CO2 23.8, ABG O2 Saturation 94, ABG Base Excess -2.8 L, Wilmar Test Acceptable Vital Signs - 24 hr 03/13/22 11:49 03/13/22 12:00 03/13/22 16:00 Temperature 99.2 F 99.5 F Pulse Rate 88 100 H Pulse Rate [Radial] 99 H 89 Respiratory Rate 22 22 Blood Pressure [Right Arm] 160/70 H 157/77 H 02 Sat by Pulse Oximetry 97 97 03/13/22 19:12 03/13/22 20:00 03/14/22 00:00 Temperature 98.6 F 98.1 F Pulse Rate 88 96 H 80 Pulse Rate [Radial] 103 H 97 H Respiratory Rate 18 20 Blood Pressure [Right Arm] 134/66 156/98 H 02 Sat by Pulse Oximetry 98 98 96 03/14/22 04:00 03/14/22 06:01 03/14/22 07:45 Temperature 98.5 F 98.2 F Pulse Rate 100 H 100 H Pulse Rate [Radial] 103 H 97 H Respiratory Rate 21 18 Blood Pressure [Right Arm] 144/87 H 136/70 02 Sat by Pulse Oximetry 97 97 96 I & O for Last 24 hours: Intake & Output 03/11/22 03/12/22 03/13/22 03/14/22 23:59 23:59 23:59 23:59 Intake Total 5814 / 5814 100 / 100 645 / 645 300 / 300 Output Total 3375 / 4075 3750 / 5350 2100 / 3850 1750 / 1750 Balance 2439 / 1739 -3650 / -5250 -1455 / -3205 -1450 / -1450 Weight 380 lb 11.813 oz - Constitutional no acute distress - *Routine HEENT Exam Head: Present: normocephalic Eye: Present: EOMI, PERRL ENT: Present: mucous membranes moist - *Routine Neck Exam Present: supple. Absent: lymphadenopathy - *Routine Respiratory Exam Present: CTA bilaterally, distant breath sounds - *Routine Cardiovascular Exam Present: RRR - *Routine Abdominal Exam Present: soft, normoactive bowel sounds, obese. Absent: tenderness - *Routine Extremities Exam Absent: cyanosis, clubbing, edema - *Routine Skin Exam Present: warm, rash (dressings in place over right leg wounds) - *Routine Neurological Exam Present: alert, oriented X3 Assessment and Plan (1) HTN (hypertension) Status: Acute Category: Medical Code(s): I10 - Essential (primary) hypertension (2) Septic shock Status: Acute Category: Medical Code(s): A41.9 - Sepsis, unspecified organism; R65.21 - Severe sepsis with septic shock (3) Cellulitis of leg, right Status: Acute Category: Medical Code(s): L03.115 - Cellulitis of right lower limb (4) Rapid atrial fibrillation Status: Acute Category: Medical Code(s): I48.91 - Unspecified atrial fibrillation (5) Hyperglycemia Status: Acute Category: Medical Code(s): R73.9 - Hyperglycemia, unspecified (6) Respiratory acidosis Status: Acute Category: Medical Code(s): E87.2 - Acidosis (7) Morbid obesity Status: Acute Category: Medical Code(s): E66.01 - Morbid (severe) obesity due to excess calories (8) Open wound of abdominal wall Status: Acute Category: Medical Code(s): S31.109A - Unspecified open wound of abdominal wall, unspecified quadrant without penetration into peritoneal cavity, initial encounter (9) ROXANA (acute kid
--- NOTE | 2022-03-14 09:29 | HMH.PHACONS ---
- Pharmacy Consult Date: 03/14/22 Time: 09:29 Referring provider: Reason for Consult:: VANCOMYCIN LEVEL Allergies and ADEs:: Allergies Allergy/AdvReac Type Severity Reaction Status Date / Time No Known Allergies Allergy Verified 03/07/22 11:36 Home Medications:: Home Medications Medication Instructions Recorded Confirmed Type No Known Home Medications 03/07/22 03/07/22 History Height: 1.68 m Weight: 172.7 kg Laboratory Results:: Laboratory Results - last 24 hr 03/13/22 10:24: Sodium 137, Potassium 3.6, Chloride 105, Carbon Dioxide 24, Anion Gap 11.6, BUN 57 H, Creatinine 4.10 H, Estimated Creat Clear 20, Estimated GFR 16 L*, Est GFR ( Amer) 19 L*, Glucose 117 H, Calcium 7.5 L 03/13/22 10:24: Vancomycin Trough 16.3 H 03/14/22 06:10: Vancomycin Trough 13.1 H 03/14/22 06:10: Sodium 139, Potassium 3.8, Chloride 109 H, Carbon Dioxide 26, Anion Gap 7.8, BUN 54 H, Creatinine 4.00 H, Estimated Creat Clear 20, Estimated GFR 16 L*, Est GFR ( Amer) 19 L*, Glucose 177 H D, Calcium 7.4 L 03/14/22 07:05: Specimen Source Left radial, O2 % 4 lnc, ABG pH 7.37, ABG pCO2 40.2, ABG pO2 71.3 L, ABG HCO3 22.6, ABG Total CO2 23.8, ABG O2 Saturation 94, ABG Base Excess -2.8 L, Wilmar Test Acceptable Medical History: Reports:: Atrial Fibrillation, Hyperlipidemia, Hypertension Denies:: Cancer, Diabetes Mellitus Type 1, Diabetes Mellitus Type 2, MRSA Assessment and Plan (1) HTN (hypertension) Status: Acute Category: Medical Code(s): I10 - Essential (primary) hypertension (2) Septic shock Status: Acute Category: Medical Code(s): A41.9 - Sepsis, unspecified organism; R65.21 - Severe sepsis with septic shock (3) Cellulitis of leg, right Status: Acute Category: Medical Code(s): L03.115 - Cellulitis of right lower limb (4) Rapid atrial fibrillation Status: Acute Category: Medical Code(s): I48.91 - Unspecified atrial fibrillation (5) Hyperglycemia Status: Acute Category: Medical Code(s): R73.9 - Hyperglycemia, unspecified (6) Respiratory acidosis Status: Acute Category: Medical Code(s): E87.2 - Acidosis (7) Morbid obesity Status: Acute Category: Medical Code(s): E66.01 - Morbid (severe) obesity due to excess calories (8) Open wound of abdominal wall Status: Acute Category: Medical Code(s): S31.109A - Unspecified open wound of abdominal wall, unspecified quadrant without penetration into peritoneal cavity, initial encounter (9) ROXANA (acute kidney injury) Status: Acute Category: Medical Code(s): N17.9 - Acute kidney failure, unspecified (10) Hypercapnic respiratory failure Status: Acute Category: Medical Code(s): J96.92 - Respiratory failure, unspecified with hypercapnia - Assessment and plan all Dx Assessment and Plan for all problems:: - Assessment and plan all Dx Assessment and Plan for all problems:: PATIENT'S VANCOMYCIN LEVELS WITH VANCOMYCIN DOSE OF 1750 MG GIVEN ON 03/10 WERE: 25.4 MCG/ML AT 24 HR POST INFUSION 03/11/22 19.0 MCG/ML AT 48 HR POST INFUSION 03/12/22 16.3 MCG/ML AT 72 HR POST INFUSION 03/13/22 DOSE WILL CONTINUE TO BE HELD AT THIS TIME DUE TO DECREASE IN CLEARANCE AND INCREASE IN SRCR TO 4.10 MG/DL TODAY. WHILE LEVEL IS NOT ELEVATED AT THIS POINT, CONCERNED WITH RE-DOSING AT THIS TIME DUE TO WORSENING CRCL. WILL RECHECK LEVEL WITH TOMORROW MORNING'S AM LABS TO DETERMINE IF DOSE CAN BE GIVEN TOMORROW. VANCOMCYIN LEVEL AND BMP ORDERED FOR 0600 ON 03/14/22. 03/14/22-VANCOMYCIN LEVEL AT 0600 WAS 13.1 MCG/ML. RECOMMEND HOLDING AT THIS TIME AND RECHECKING IN THE AM DUE TO PATIENT'S RENAL FUNCTION AT THIS TIME. SRCR 4.00 MG/DL THIS AM.
--- NOTE | 2022-03-14 16:41 | PC.NURSE ---
1430- RLE and groin washed w/ hibiclens. New dressing applied. Pt tolerated fair. 1445- Pt PICC line dressing was changed using sterile technique. Pt tolerated well, PICC line able to flush and has blood return. Site initialed and dated by NEY Crook
--- NOTE | 2022-03-14 16:44 | PC.NURSE ---
Pt has been on room air majority of the day, o2 sats >90%. Marie draining cloudy, dark yellow urine w/ sediment. Family has been in and out of room all day. Pt was asked if he wanted to get OOB this shift but has refused. No other acute changes or complaints.
[2022-03-15] VITALS (15 sets, daily range): BP systolic 126–151; BP diastolic 77–93; PULSE 84–120; RESP 20–22; TEMP 37.2–38.4; O2SAT 93–97; BMI 61.2
--- NOTE | 2022-03-15 04:12 | PC.NURSE ---
No acute episodes or changes thus far during my shift. Pt has been on RA while awake and tolerating well with O2 sat >90%. Pt wearing bipap when sleeping. Dressing changed to RLL and groin per order. Pt has had no c/o of pain this shift. Voiding per river catheter with adequate urine output (see I&O). BP at beginning of shift was on the higher side - but came down after evening dose of diltiazem. Pt is being monitored via tele and continuous pulse ox. Pt has been A-fib on monitor w/ rate between 90-109. IVF infusing per order. No complaints or needs at this time. Call light in reach.
--- NOTE | 2022-03-15 06:35 | HMH.ACPN2 ---
Internal Medicine - PN: Subj *Date: 03/15/22 *Time: 06:35 Interval history: Pt with no new complaints today. Exam Vital signs and Labs for Last 24 Hours: Temp Pulse Resp BP Pulse Ox 100.1 F H 114 H 20 146/87 H 94 L 03/15/22 04:00 03/15/22 06:31 03/15/22 04:00 03/15/22 04:00 03/15/22 06:31 Laboratory Results - last 24 hr 03/14/22 06:10: Vancomycin Trough 13.1 H 03/14/22 06:10: Sodium 139, Potassium 3.8, Chloride 109 H, Carbon Dioxide 26, Anion Gap 7.8, BUN 54 H, Creatinine 4.00 H, Estimated Creat Clear 20, Estimated GFR 16 L*, Est GFR ( Amer) 19 L*, Glucose 177 H D, Calcium 7.4 L 03/14/22 07:05: Specimen Source Left radial, O2 % 4 lnc, ABG pH 7.37, ABG pCO2 40.2, ABG pO2 71.3 L, ABG HCO3 22.6, ABG Total CO2 23.8, ABG O2 Saturation 94, ABG Base Excess -2.8 L, Wilmar Test Acceptable Vital Signs - 24 hr 03/14/22 07:45 03/14/22 08:00 03/14/22 11:09 Temperature 98.2 F 99.2 F Pulse Rate 99 H Pulse Rate [Radial] 97 H 82 Respiratory Rate 18 18 Blood Pressure [Right Arm] 136/70 137/76 02 Sat by Pulse Oximetry 96 95 03/14/22 12:00 03/14/22 13:16 03/14/22 15:11 Temperature 99.5 F Pulse Rate 89 107 H Pulse Rate [Radial] 100 H Respiratory Rate 18 Blood Pressure [Right Arm] 165/91 H 02 Sat by Pulse Oximetry 89 L 93 L 03/14/22 16:00 03/14/22 19:02 03/14/22 20:00 Temperature 98.9 F Pulse Rate 100 H 97 H 100 H Pulse Rate [Radial] 100 H Respiratory Rate 20 Blood Pressure [Right Arm] 170/95 H 02 Sat by Pulse Oximetry 90 L 93 L 03/15/22 00:00 03/15/22 04:00 03/15/22 06:31 Temperature 99.3 F 100.1 F H Pulse Rate 109 H 109 H 114 H Pulse Rate [Radial] 105 H 106 H Respiratory Rate 21 20 Blood Pressure [Right Arm] 140/93 H 146/87 H 02 Sat by Pulse Oximetry 93 L 94 L 94 L I & O for Last 24 hours: Intake & Output 03/12/22 03/13/22 03/14/22 03/15/22 23:59 23:59 23:59 23:59 Intake Total 100 / 100 645 / 645 780 / 900 120 / 120 Output Total 3750 / 5350 2100 / 3850 2875 / 3475 600 / 600 Balance -3650 / -5250 -1455 / -3205 -2095 / -2575 -480 / -480 Weight 380 lb 11.813 oz 380 lb 11.813 oz - Constitutional no acute distress - *Routine Respiratory Exam Present: distant breath sounds. Absent: rhonchi, wheezes - *Routine Cardiovascular Exam Present: RRR - *Routine Skin Exam Comments: dressings in place over right leg wounds Assessment and Plan (1) HTN (hypertension) Status: Acute Category: Medical Code(s): I10 - Essential (primary) hypertension (2) Septic shock Status: Acute Category: Medical Code(s): A41.9 - Sepsis, unspecified organism; R65.21 - Severe sepsis with septic shock (3) Cellulitis of leg, right Status: Acute Category: Medical Code(s): L03.115 - Cellulitis of right lower limb (4) Rapid atrial fibrillation Status: Acute Category: Medical Code(s): I48.91 - Unspecified atrial fibrillation (5) Hyperglycemia Status: Acute Category: Medical Code(s): R73.9 - Hyperglycemia, unspecified (6) Respiratory acidosis Status: Acute Category: Medical Code(s): E87.2 - Acidosis (7) Morbid obesity Status: Acute Category: Medical Code(s): E66.01 - Morbid (severe) obesity due to excess calories (8) Open wound of abdominal wall Status: Acute Category: Medical Code(s): S31.109A - Unspecified open wound of abdominal wall, unspecified quadrant without penetration into peritoneal cavity, initial encounter (9) ROXANA (acute kidney injury) Status: Acute Category: Medical Code(s): N17.9 - Acute kidney failure, unspecified (10) Hypercapnic respiratory failure Status: Acute Category: Medical Code(s): J96.92 - Respiratory failure, unspecified with hypercapnia - Assessment and plan all Dx Assessment and Plan for all problems:: No change in treatment, continue antibiotics and wound care.
--- NOTE | 2022-03-15 07:21 | PC.NURSE ---
Dr. Reagan called d/t to pt sustaining 112-117 on monitor, A-fib. Orders received.
--- NOTE | 2022-03-15 07:50 | PC.NURSE ---
Paged Pharmacist weapons and tactics instructor for night watch
[2022-03-15 08:02] LABS: Chloride 110 mmol/L (98-107); Potassium 4.1 mmoL/L (3.5-5.1); Sodium 140 mmol/L (136-145)
[2022-03-15 08:05] LABS: Anion Gap 8.1 mEq/L (5-15); Blood Urea Nitrogen 51 mg/dl (9-20); Calcium 7.4 mg/dl (8.4-10.2); Carbon Dioxide 26 mmol/L (22.0-30.0); Creatinine Clearance Estimated 22 mL/min (50-200); Estimated Glomerular Filt Rate 18 ml/min (>60); GFR (African American) 21 ML/MIN (>60); Glucose 166 mg/dl (74-100)
--- NOTE | 2022-03-15 08:05 | PC.NURSE ---
Called and spoke with dale MEDRANO. He is going to put the order in for me once I get it I will give medication.
[2022-03-15 08:27] LABS: Vancomycin,Trough 9.8 ug/mL (5.0-10.0)
--- NOTE | 2022-03-15 09:17 | P.CONPHA_ITS ---
- Pharmacy Consult Date: 03/15/22 Time: 09:17 Referring provider: DR. GRIMES Reason for Consult:: VANCOMYCIN DOSING Allergies and ADEs:: Allergies Allergy/AdvReac Type Severity Reaction Status Date / Time No Known Allergies Allergy Verified 03/07/22 11:36 Home Medications:: Home Medications Medication Instructions Recorded Confirmed Type No Known Home Medications 03/07/22 03/07/22 History Height: 1.68 m Weight: 172.7 kg Laboratory Results:: Laboratory Results - last 24 hr 03/15/22 06:20: Sodium 140, Potassium 4.1, Chloride 110 H, Carbon Dioxide 26, Anion Gap 8.1, BUN 51 H, Creatinine 3.70 H, Estimated Creat Clear 22, Estimated GFR 18 L*, Est GFR ( Amer) 21 L, Glucose 166 H, Calcium 7.4 L 03/15/22 06:20: Vancomycin Trough 9.8 Medical History: Reports:: Atrial Fibrillation, Hyperlipidemia, Hypertension Denies:: Cancer, Diabetes Mellitus Type 1, Diabetes Mellitus Type 2, MRSA Assessment and Plan (1) HTN (hypertension) Status: Acute Category: Medical Code(s): I10 - Essential (primary) hypertension (2) Septic shock Status: Acute Category: Medical Code(s): A41.9 - Sepsis, unspecified organ ism; R65.21 - Severe sepsis with septic shock (3) Cellulitis of leg, right Status: Acute Category: Medical Code(s): L03.115 - Cellulitis of right lower limb (4) Rapid atrial fibrillation Status: Acute Category: Medical Code(s): I48.91 - Unspecified atrial fibrillation (5) Hyperglycemia Status: Acute Category: Medical Code(s): R73.9 - Hyperglycemia, unspecified (6) Respiratory acidosis Status: Acute Category: Medical Code(s): E87.2 - Acidosis (7) Morbid obesity Status: Acute Category: Medical Code(s): E66.01 - Morbid (severe) obesity due to excess calories (8) Open wound of abdominal wall Status: Acute Category: Medical Code(s): S31.109A - Unspecified open wound of abdominal wall, unspecified quadrant without penetration into peritoneal cavity, initial encounter (9) ROXANA (acute kidney injury) Status: Acute Category: Medical Code(s): N17.9 - Acute kidney failure, unspecified (10) Hypercapnic respiratory failure Status: Acute Category: Medical Code(s): J96.92 - Respiratory failure, unspecified with hypercapnia - Assessment and plan all Dx Assessment and Plan for all problems:: PATIENT'S VANCOMYCIN LEVELS WITH VANCOMYCIN DOSE OF 1750 MG GIVEN ON 03/10 WERE: 25.4 MCG/ML AT 24 HR POST INFUSION 03/11/22 19.0 MCG/ML AT 48 HR POST INFUSION 03/12/22 16.3 MCG/ML AT 72 HR POST INFUSION 03/13/22 DOSE WILL CONTINUE TO BE HELD AT THIS TIME DUE TO DECREASE IN CLEARANCE AND INCREASE IN SRCR TO 4.10 MG/DL TODAY. WHILE LEVEL IS NOT ELEVATED AT THIS POINT, CONCERNED WITH RE-DOSING AT THIS TIME DUE TO WORSENING CRCL. WILL RECHECK LEVEL WITH TOMORROW MORNING'S AM LABS TO DETERMINE IF DOSE CAN BE GIVEN TOMORROW. VANCOMCYIN LEVEL AND BMP ORDERED FOR 0600 ON 03/14/22. 03/14/22-VANCOMYCIN LEVEL AT 0600 WAS 13.1 MCG/ML. RECOMMEND HOLDING AT THIS TIME AND RECHECKING IN THE AM DUE TO PATIENT'S RENAL FUNCTION AT THIS TIME. SRCR 4.00 MG/DL THIS AM. 03/15/22-VANCOMYCIN LEVEL AT 0600 THIS AM WAS 9.8 MG/ML. RECOMMEND RESTARTING VANCOMYCIN 1750 MG Q72H THIS AM.
--- NOTE | 2022-03-15 09:49 | PC.NURSE ---
Spoke with Dr. Reagan. Pt's blood sugar via lab chemistry and been a little high. I did a finger stick at 0940 and it was 198. He wanted to order a A1C on the pt. He is aware of pts trending glucose labs.
[2022-03-15 10:51] LABS: Hemoglobin A1C 6.4 % (4.0-6.0)
[2022-03-15 15:13] LABS: ABG Base Excess -0.8 mmol/L (-2.4-2.3); ABG HCO3 23.8 mmhg (22.0-26.0); ABG Oxygen Saturation 94 % (90-100); ABG PCO2 38.2 mmhg (35.0-45.0); ABG PH 7.41 mmol/L (7.35-7.45)
[2022-03-15 15:14] LABS: Oxygen RA %
[2022-03-15 15:15] LABS: Allen's Test Acceptable; Source Left Radial
[2022-03-16] VITALS (10 sets, daily range): BP systolic 144–173; BP diastolic 89–96; PULSE 92–112; RESP 20–24; TEMP 36.5–37.4; O2SAT 93–97; BMI 61.2
--- NOTE | 2022-03-16 05:27 | PC.NURSE ---
Pt is A&O x 4. On room air while awake and sitting up. Pt is being monitored via tele and continuous pulse ox. Pt has been controlled A-fib on monitor. O2 sat >90 on room air while awake. Pt wore bipap tonight while sleeping. Pt did take bipap off early this morning and fell asleep with no O2 on, O2 sat dropped to 85%. Placed pt on his 2 L NC, oxygen came back up >90%. Hibiclens wash to RLL and open area on L groin - drsgs changed per order. Pt is voiding per river cath with good urine output. IV infusing per order via PICC line. PICC flushes well and draws blood with ease. No other needs or complaints voiced at this time. Call light in reach.
[2022-03-16 06:40] LABS: Basophils # 0.1 K/mm3 (0-0.2); Basophils % 0.4 % (0.1-2.0); Eosinophils # 0.1 K/mm3 (0.0-0.4); Eosinophils % 0.7 % (0.1-12.0); Hematocrit 35.2 % (42.0-52.0); Hemoglobin 11.3 g/dL (14.1-18.0); Lymphocytes # 0.9 K/mm3 (0.7-4.5); Lymphocytes % 7.9 % (10-50); Mean Corpuscular HGB Conc 32.1 g/dL (31.8-35.4); Mean Corpuscular Hemoglobin 29.8 pg (27.0-31.2); Mean Corpuscular Volume 92.9 fl (80-94); Mean Platelet Volume 6.8 fl (7.4-10.4); Monocytes # 0.8 K/mm3 (0.1-1.0); Monocytes % 7.3 % (1.7-9.3); Neutrophils # 9.3 K/mm3 (1.8-7.8); Neutrophils % 83.7 % (37.0-80.0); Platelet Count 327 K/mm3 (142-424); Red Blood Count 3.78 M/mm3 (4.60-6.20); Red Cell Distribution Width 13.9 % (11.5-17.5); White Blood Count 11.2 K/mm3 (4.8-10.8)
[2022-03-16 07:00] LABS: Chloride 111 mmol/L (98-107); Sodium 140 mmol/L (136-145)
[2022-03-16 07:01] LABS: Potassium 4.8 mmoL/L (3.5-5.1)
[2022-03-16 07:03] LABS: Blood Urea Nitrogen 50 mg/dl (9-20); Creatinine Clearance Estimated 22 mL/min (50-200); Estimated Glomerular Filt Rate 18 ml/min (>60); GFR (African American) 22 ML/MIN (>60)
[2022-03-16 07:04] LABS: Anion Gap 7.8 mEq/L (5-15); Calcium 8.2 mg/dl (8.4-10.2); Carbon Dioxide 26 mmol/L (22.0-30.0); Glucose 158 mg/dl (74-100)
--- NOTE | 2022-03-16 08:30 | HMH.ACPN2 ---
<Shital Mcpherson - Last Filed: 03/16/22 08:30> Internal Medicine - PN: Subj *Date: 03/16/22 *Time: 08:30 Interval history: States breathing is going okay. Feels he is eating without difficulty. He denies pain. He slept last night. CBC this morning shows white count 11,200. Blood chemistries with a sodium of 140 and potassium of 4.8. Exam Vital signs and Labs for Last 24 Hours: Temp Pulse Resp BP Pulse Ox 99.4 F 101 H 20 152/89 H 96 03/16/22 04:00 03/16/22 05:49 03/16/22 04:00 03/16/22 04:00 03/16/22 05:49 Laboratory Results - last 24 hr 03/15/22 06:20: Vancomycin Trough 9.8 03/15/22 06:30: Hemoglobin A1c 6.4 H 03/15/22 15:00: Specimen Source Left radial, O2 % Ra, ABG pH 7.41, ABG pCO2 38.2, ABG pO2 69.0 L, ABG HCO3 23.8, ABG Total CO2 25.0, ABG O2 Saturation 94, ABG Base Excess -0.8, Wilmar Test Acceptable 03/16/22 06:30: WBC 11.2 H, RBC 3.78 L, Hgb 11.3 L, Hct 35.2 L, MCV 92.9, MCH 29.8, MCHC 32.1, RDW 13.9, Plt Count 327, MPV 6.8 L, Neut % (Auto) 83.7 H, Lymph % (Auto) 7.9 L, Benson % (Auto) 7.3, Eos % (Auto) 0.7, Baso % (Auto) 0.4, Neut # (Auto) 9.3 H, Lymph # (Auto) 0.9, Benson # (Auto) 0.8, Eos # (Auto) 0.1, Baso # (Auto) 0.1 03/16/22 06:30: Sodium 140, Potassium 4.8, Chloride 111 H, Carbon Dioxide 26, Anion Gap 7.8, BUN 50 H, Creatinine 3.60 H, Estimated Creat Clear 22, Estimated GFR 18 L*, Est GFR ( Amer) 22 L, Glucose 158 H, Calcium 8.2 L I & O for Last 24 hours: Intake & Output 03/13/22 03/14/22 03/15/22 03/16/22 11:59 11:59 11:59 11:59 Intake Total 100 / 100 945 / 945 2280 / 2280 1979 / 1979 Output Total 4100 / 4100 1750 / 1750 2225 / 2225 1875 / 1875 Balance -4000 / -4000 -805 / -805 55 / 55 105 / 105 Weight 380 lb 11.813 oz 380 lb 11.813 oz 380 lb 11.813 oz - Constitutional no acute distress Comments: Lying comfortably in the bed. - *Routine Respiratory Exam Present: CTA bilaterally, diminished air movement (Posteriorly bilaterally) - *Routine Cardiovascular Exam Present: RRR - *Routine Abdominal Exam Present: normoactive bowel sounds, obese. Absent: tenderness - *Routine Extremities Exam Present: edema Comments: Right lower extremity with clean dressing. Much less erythema. - *Routine Skin Exam Comments: Has lower abdominal erythema. Wound in left groin area is minimal and without erythema or drainage. - *Routine Neurological Exam Present: alert, oriented X3 Assessment and Plan (1) HTN (hypertension) Status: Acute Category: Medical Code(s): I10 - Essential (primary) hypertension (2) Septic shock Status: Acute Category: Medical Code(s): A41.9 - Sepsis, unspecified organism; R65.21 - Severe sepsis with septic shock (3) Cellulitis of leg, right Status: Acute Category: Medical Code(s): L03.115 - Cellulitis of right lower limb (4) Rapid atrial fibrillation Status: Acute Category: Medical Code(s): I48.91 - Unspecified atrial fibrillation (5) Hyperglycemia Status: Acute Category: Medical Code(s): R73.9 - Hyperglycemia, unspecified (6) Respiratory acidosis Status: Acute Category: Medical Code(s): E87.2 - Acidosis (7) Morbid obesity Status: Acute Category: Medical Code(s): E66.01 - Morbid (severe) obesity due to excess calories (8) Open wound of abdominal wall Status: Acute Category: Medical Code(s): S31.109A - Unspecified open wound of abdominal wall, unspecified quadrant without penetration into peritoneal cavity, initial encounter (9) ROXANA (acute kidney injury) Status: Acute Category: Medical Code(s): N17.9 - Acute kidney failure, unspecified (10) Hypercapnic respiratory failure Status: Acute Category: Medical Code(s): J96.92 - Respiratory failure, unspecified with hypercapnia - Assessment and plan all Dx Assessment and Plan for all problems:: Increase in white blood cell count today. We will continue current pulmonary care. <Hilario Argueta - Last Filed: 03/16/22 08:58>
--- NOTE | 2022-03-16 09:12 | HMH.PULMPN ---
Internal Medicine - PN: Subj *Date: 03/16/22 *Time: 12:53 Interval history: No acute respiratory events overnight. Exam - Constitutional Constitutional:: Present: no acute distress, comfortable - HENMT Exam HENMT: Present: normocephalic - Eye Exam Eyes:: Present: normal appearance both eyes and related structures - Neck Exam Neck:: Present: normal visual inspection - Respiratory Exam Respiratory:: Present: able to speak in complete sentences, no respiratory distress, decreased breath sounds - Cardiovascular Exam Cardiac:: Present: S1, S2 - GI Exam GI:: Present: soft, obese - Skin Exam Skin: Present: warm - Neurological Exam Neurological: Present: alert, awake, normal cognition - Extremities Exam Extremities: Present: no cyanosis Assessment and Plan (1) HTN (hypertension) Status: Acute Category: Medical Code(s): I10 - Essential (primary) hypertension (2) Septic shock Status: Acute Category: Medical Code(s): A41.9 - Sepsis, unspecified organism; R65.21 - Severe sepsis with septic shock (3) Cellulitis of leg, right Status: Acute Category: Medical Code(s): L03.115 - Cellulitis of right lower limb (4) Rapid atrial fibrillation Status: Acute Category: Medical Code(s): I48.91 - Unspecified atrial fibrillation (5) Hyperglycemia Status: Acute Category: Medical Code(s): R73.9 - Hyperglycemia, unspecified (6) Respiratory acidosis Status: Acute Category: Medical Code(s): E87.2 - Acidosis (7) Morbid obesity Status: Acute Category: Medical Code(s): E66.01 - Morbid (severe) obesity due to excess calories (8) Open wound of abdominal wall Status: Acute Category: Medical Code(s): S31.109A - Unspecified open wound of abdominal wall, unspecified quadrant without penetration into peritoneal cavity, initial encounter (9) ROXANA (acute kidney injury) Status: Acute Category: Medical Code(s): N17.9 - Acute kidney failure, unspecified (10) Hypercapnic respiratory failure Status: Acute Category: Medical Code(s): J96.92 - Respiratory failure, unspecified with hypercapnia - Assessment and plan all Dx Assessment and Plan for all problems:: #Acute on Chronic hypercarbic respiratory failure: Mr. Grant is a 47-year-old male presented to the ER on 03/07/2022 complaining of subjective fevers chills along with swelling and redness in lower extremity, has been managed for cellulitis since then and also found to be in hypercarbic respiratory failure, patient on BiPAP since admission no follow-up ABGs available to review from 03/08 and pulmonary was called for further management today. Chest x-ray admission left lower lobe pulmonary disease, no follow-up imaging available for review. No respiratory cultures available for review Patient has been receiving vancomycin and ertapenem. Patient on my initial examinaiton appears somnolent, however appropriately responding to questions and following commands but denies any smoking history. Denies any prior respiratory complaints. No prior history of asthma. Saturating 100% on 60% FiO2. chest x-ray worsening lower lobe airspace disease/atelectasis. Patient BiPAP settings changed that eventually improved, weaned to room air. Patient has been relatively stable on room air. He continued to receive BiPAP at night. ABG during the daytime did not show any evidence of hypercarbic respiratory failure. Interval update: Patient continued to use BiPAP at night. Saturating 98% on 2 L, weaned to room air. Patient upon further questioning stated that he has been using nocturnal noninvasive ventilatory therapy for the last 6 to [address] 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 However he recently received a new NIV machine without any supplies and has not been using it for the last month which might be contributing to his current hypercarbic respiratory failure admission. Plan: -Continue oxygen on as-needed basis, weaned to room air this
--- NOTE | 2022-03-16 10:57 | DIET.NUTRFU ---
Addendum entered by Gayatri Bronson RD, LD 03/16/22 12:29: Upon visit patient had his lunch at bedside. Reported he ate a good breakfast with cereal, eggs, toast and juice. Reviewed carbohydrates and portion sizes. Patient indicated breakfast is best meal. Left handouts and encouraged follow as needed Original Note: RD reviewed meal intake, only consuming 25% of most meals. Currently on cardiac diet, had A1c pulled 03/15 at 6.44 with elevated BS >150 last couple days. No dx of DM previous, he is prediabetic and would benefit form diet changes. He is morbid obese at 172kg. Will change diet and offer diet education.
--- NOTE | 2022-03-16 14:35 | PC.NURSE ---
patient requested pain medication. stated he was hurting all over. after giving patient medication dressing changed on r leg. tolerated well. started to sleep and noticed a decrease in o2 sats into the low 80s. placed 2l back on patient at this time.
--- NOTE | 2022-03-16 14:46 | CARE MANAGER ---
Addendum entered by Shannon Cross RN 03/19/22 14:50: Sonya in pulmonology states the original order came from Dr. Winchester in [place] and the supplies will need to be renewed through them. I contacted Dr. Winchester' office and they state they haven't seen the patient in 4 years and would have to establish him as a new patient before they could order anything. Let Sonya know so she could pass information to Dr. Jeong that patient would not have supplies for his BiPap when he goes home. Original Note: Patient states that he has BIPAP and no supplies. Contacted [facility] who stated that they need updated demographics and a new order. Relayed message to Dr. Damian's office and sent updated demographic sheet. CORETTA Weiner
--- NOTE | 2022-03-16 14:47 | PC.NURSE ---
patient has done okay this shift. a little teary eyed after pt worked with him. did require pain medication after that. encouraged to turn, but is slightly resistant. needs assistance with movement of legs. redness noted to groin and folds. small area with telfa placed to under skin fold on left side. dressing changed cleaned with hibiclense and vaseline dressing placed over area and kerlex wrapped. redness is minimal to that part of leg. rings out as needed. lung novak diminished. o2 while asleep. did speak with case management about possible placement. vitals stable. river continues to drain dark urine
[2022-03-17] VITALS (7 sets, daily range): BP systolic 138–169; BP diastolic 80–95; PULSE 65–110; RESP 18–22; TEMP 36.5–37.1; O2SAT 94–98; BMI 61.3
[2022-03-17 06:31] LABS: Chloride 110 mmol/L (98-107); Sodium 139 mmol/L (136-145)
[2022-03-17 06:32] LABS: Potassium 5.1 mmoL/L (3.5-5.1)
[2022-03-17 06:34] LABS: Blood Urea Nitrogen 51 mg/dl (9-20); Creatinine Clearance Estimated 24 mL/min (50-200); Estimated Glomerular Filt Rate 19 ml/min (>60); GFR (African American) 23 ML/MIN (>60)
[2022-03-17 06:35] LABS: Anion Gap 8.1 mEq/L (5-15); Calcium 8.1 mg/dl (8.4-10.2); Carbon Dioxide 26 mmol/L (22.0-30.0); Glucose 149 mg/dl (74-100)
[2022-03-17 07:14] LABS: Vancomycin,Trough 14.3 ug/mL (5.0-10.0)
--- NOTE | 2022-03-17 08:57 | HMH.ACPN2 ---
Internal Medicine - PN: Subj *Date: 03/17/22 *Time: 08:57 Interval history: Patient with no new complaints today, he has been considering his rehab options. Exam Vital signs and Labs for Last 24 Hours: Temp Pulse Resp BP Pulse Ox 98.2 F 97 H 18 149/88 H 97 03/17/22 04:00 03/17/22 04:00 03/17/22 04:00 03/17/22 04:00 03/17/22 05:55 Laboratory Results - last 24 hr 03/17/22 06:13: Vancomycin Trough 14.3 H 03/17/22 06:13: Sodium 139, Potassium 5.1, Chloride 110 H, Carbon Dioxide 26, Anion Gap 8.1, BUN 51 H, Creatinine 3.40 H, Estimated Creat Clear 24, Estimated GFR 19 L*, Est GFR ( Amer) 23 L, Glucose 149 H, Calcium 8.1 L Vital Signs - 24 hr 03/16/22 12:00 03/16/22 13:10 03/16/22 16:00 Temperature 98.3 F 99.0 F Pulse Rate 100 H 98 H Pulse Rate [Radial] 101 H 112 H Respiratory Rate 24 24 Blood Pressure [Right Arm] 157/96 H 154/91 H 02 Sat by Pulse Oximetry 96 96 03/16/22 19:55 03/16/22 20:00 03/16/22 23:45 Temperature 99.3 F Pulse Rate 92 H 105 H Pulse Rate [Radial] 97 H Respiratory Rate 20 Blood Pressure [Right Arm] 157/91 H 02 Sat by Pulse Oximetry 93 L 94 L 97 03/17/22 00:00 03/17/22 04:00 03/17/22 05:55 Temperature 98.6 F 98.2 F Pulse Rate Pulse Rate [Radial] 108 H 97 H Respiratory Rate 20 18 Blood Pressure [Right Arm] 138/84 149/88 H 02 Sat by Pulse Oximetry 97 98 97 I & O for Last 24 hours: Intake & Output 03/14/22 03/15/22 03/16/22 03/17/22 23:59 23:59 23:59 23:59 Intake Total 780 / 900 2280 / 2280 2988 / 2988 1534 / 1534 Output Total 2875 / 3475 2325 / 2975 2350 / 3550 1200 / 1200 Balance -2095 / -2575 -45 / -695 638 / -562 334 / 334 Weight 380 lb 11.813 oz 380 lb 11.813 oz 380 lb 11.813 oz 381 lb 9.922 oz Microbiology Reports for the Last 24 Hours: Microbiology 03/12/22 10:30 Nose - Nasal MRSA Culture - Final Negative - Constitutional no acute distress - *Routine HEENT Exam Head: Present: normocephalic Eye: Present: EOMI, PERRL ENT: Present: mucous membranes moist - *Routine Neck Exam Present: supple. Absent: lymphadenopathy - *Routine Respiratory Exam Present: distant breath sounds - *Routine Cardiovascular Exam Present: RRR - *Routine Abdominal Exam Present: soft, normoactive bowel sounds. Absent: tenderness - *Routine Extremities Exam Absent: cyanosis, clubbing, edema - *Routine Skin Exam Present: warm, rash (much less redness on the right leg) - *Routine Neurological Exam Present: alert, oriented X3 Assessment and Plan (1) HTN (hypertension) Status: Acute Category: Medical Code(s): I10 - Essential (primary) hypertension (2) Septic shock Status: Acute Category: Medical Code(s): A41.9 - Sepsis, unspecified organism; R65.21 - Severe sepsis with septic shock (3) Cellulitis of leg, right Status: Acute Category: Medical Code(s): L03.115 - Cellulitis of right lower limb (4) Rapid atrial fibrillation Status: Acute Category: Medical Code(s): I48.91 - Unspecified atrial fibrillation (5) Hyperglycemia Status: Acute Category: Medical Code(s): R73.9 - Hyperglycemia, unspecified (6) Respiratory acidosis Status: Acute Category: Medical Code(s): E87.2 - Acidosis (7) Morbid obesity Status: Acute Category: Medical Code(s): E66.01 - Morbid (severe) obesity due to excess calories (8) Open wound of abdominal wall Status: Acute Category: Medical Code(s): S31.109A - Unspecified open wound of abdominal wall, unspecified quadrant without penetration into peritoneal cavity, initial encounter (9) ROXANA (acute kidney injury) Status: Acute Category: Medical Code(s): N17.9 - Acute kidney failure, unspecified (10) Hypercapnic respiratory failure Status: Acute Category: Medical Code(s): J96.92 - Respiratory failure, unspecified with hypercapnia - Assessment and plan all Dx Assessment and Plan for all problems:: Sarai
--- NOTE | 2022-03-17 09:15 | HMH.PULMPN ---
Internal Medicine - PN: Subj *Date: 03/17/22 *Time: 12:24 Interval history: No acute respiratory events overnight Exam - Constitutional Constitutional:: Present: no acute distress - HENMT Exam HENMT: Present: normocephalic - Eye Exam Eyes:: Present: normal appearance both eyes and related structures - Neck Exam Neck:: Present: normal visual inspection - Respiratory Exam Respiratory:: Present: able to speak in complete sentences, no respiratory distress, decreased breath sounds - Cardiovascular Exam Cardiac:: Present: S1, S2 - GI Exam GI:: Present: soft - Skin Exam Skin: Present: warm - Neurological Exam Neurological: Present: alert, awake - Extremities Exam Extremities: Present: no cyanosis, no clubbing Assessment and Plan (1) HTN (hypertension) Status: Acute Category: Medical Code(s): I10 - Essential (primary) hypertension (2) Septic shock Status: Acute Category: Medical Code(s): A41.9 - Sepsis, unspecified organism; R65.21 - Severe sepsis with septic shock (3) Cellulitis of leg, right Status: Acute Category: Medical Code(s): L03.115 - Cellulitis of right lower limb (4) Rapid atrial fibrillation Status: Acute Category: Medical Code(s): I48.91 - Unspecified atrial fibrillation (5) Hyperglycemia Status: Acute Category: Medical Code(s): R73.9 - Hyperglycemia, unspecified (6) Respiratory acidosis Status: Acute Category: Medical Code(s): E87.2 - Acidosis (7) Morbid obesity Status: Acute Category: Medical Code(s): E66.01 - Morbid (severe) obesity due to excess calories (8) Open wound of abdominal wall Status: Acute Category: Medical Code(s): S31.109A - Unspecified open wound of abdominal wall, unspecified quadrant without penetration into peritoneal cavity, initial encounter (9) ROXANA (acute kidney injury) Status: Acute Category: Medical Code(s): N17.9 - Acute kidney failure, unspecified (10) Hypercapnic respiratory failure Status: Acute Category: Medical Code(s): J96.92 - Respiratory failure, unspecified with hypercapnia - Assessment and plan all Dx Assessment and Plan for all problems:: #Acute on Chronic hypercarbic respiratory failure: # H/O ROBIN Mr. Grant is a 47-year-old male presented to the ER on 03/07/2022 complaining of subjective fevers chills along with swelling and redness in lower extremity, has been managed for cellulitis since then and also found to be in hypercarbic respiratory failure, patient on BiPAP since admission no follow-up ABGs available to review from 03/08 and pulmonary was called for further management today. Chest x-ray admission left lower lobe pulmonary disease, no follow-up imaging available for review. No respiratory cultures available for review Patient has been receiving vancomycin and ertapenem. Patient on my initial examinaiton appears somnolent, however appropriately responding to questions and following commands but denies any smoking history. Denies any prior respiratory complaints. No prior history of asthma. Saturating 100% on 60% FiO2. chest x-ray worsening lower lobe airspace disease/atelectasis. Patient BiPAP settings changed that eventually improved, weaned to room air. Patient has been relatively stable on room air. He continued to receive BiPAP at night. ABG during the daytime did not show any evidence of hypercarbic respiratory failure. 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 Sleep study not available for review at this point of time. Plan: -Daytime ABG to evaluate for OHS -Continue oxygen on as-needed basis -trolley worker following with the DME to provide adequate supplies for his noninvasive ventilation -For pneumonia, recommend to wean antibiotics to levofloxacin to complete a total of 7-day course from initiation of meropenem. However patient has also been receiving antibiotics for cellulitis, will defer final antibiotic regimen to
--- NOTE | 2022-03-17 10:02 | PC.NURSE ---
per dr. jarquin instructed that patient was to remain OFF of bipap tonight. if desats can place on a couple of liters o2
--- NOTE | 2022-03-17 14:32 | PC.NURSE ---
patient has done okay this shift. did require pain medication after being up in chair, received a bath and had dressing change to r leg. has remained on room air as of now. has had no other complaints noted. did sit up in chair for a couple of hours via lift in room. rings out as needed. picc in place, noted dressing change on 03/14. vitals stable. states appetite has been poor.
[2022-03-18] VITALS (10 sets, daily range): BP systolic 142–173; BP diastolic 77–98; PULSE 90–107; RESP 18–22; TEMP 36.7–37.7; O2SAT 94–100; BMI 61.2
--- NOTE | 2022-03-18 05:06 | PC.NURSE ---
pt rested well t/o the night. pt had no complaints of pain this shift. pt has remained on RA, and sats have been 94-95%. Marie catheter draining yellow clear urine, has had 2150 mls out so far this shift.
[2022-03-18 06:51] LABS: Basophils # 0.1 K/mm3 (0-0.2); Basophils % 0.4 % (0.1-2.0); Eosinophils # 0.2 K/mm3 (0.0-0.4); Eosinophils % 1.8 % (0.1-12.0); Hemoglobin 11.3 g/dL (14.1-18.0); Lymphocytes % 9.4 % (10-50); Mean Corpuscular HGB Conc 32.3 g/dL (31.8-35.4); Mean Corpuscular Hemoglobin 29.9 pg (27.0-31.2); Mean Corpuscular Volume 92.6 fl (80-94); Mean Platelet Volume 7.3 fl (7.4-10.4); Monocytes # 0.7 K/mm3 (0.1-1.0); Monocytes % 6.8 % (1.7-9.3); Neutrophils # 8.8 K/mm3 (1.8-7.8); Neutrophils % 81.6 % (37.0-80.0); Platelet Count 304 K/mm3 (142-424); Red Blood Count 3.78 M/mm3 (4.60-6.20); Red Cell Distribution Width 13.4 % (11.5-17.5); White Blood Count 10.7 K/mm3 (4.8-10.8)
[2022-03-18 06:53] LABS: Chloride 108 mmol/L (98-107); Potassium 5.4 mmoL/L (3.5-5.1); Sodium 138 mmol/L (136-145)
[2022-03-18 06:56] LABS: Anion Gap 8.4 mEq/L (5-15); Blood Urea Nitrogen 47 mg/dl (9-20); Calcium 8.3 mg/dl (8.4-10.2); Carbon Dioxide 27 mmol/L (22.0-30.0); Creatinine Clearance Estimated 26 mL/min (50-200); Estimated Glomerular Filt Rate 22 ml/min (>60); GFR (African American) 26 ML/MIN (>60); Glucose 137 mg/dl (74-100)
--- NOTE | 2022-03-18 08:05 | HMH.ACPN ---
Internal Medicine - PN: Subj *Date: 03/18/22 *Time: 08:05 Exam Vital signs and Labs for Last 24 Hours: Temp Pulse Resp BP Pulse Ox 98.3 F 96 H 20 142/94 H 95 03/18/22 07:37 03/18/22 07:37 03/18/22 07:37 03/18/22 07:37 03/18/22 07:37 Laboratory Results - last 24 hr 03/18/22 06:25: WBC Cancelled, Corrected WBC Cancelled, RBC Cancelled, Hgb Cancelled, Hct Cancelled, MCV Cancelled, MCH Cancelled, MCHC Cancelled, RDW Cancelled, Plt Count Cancelled, MPV Cancelled, Neut % (Auto) Cancelled, Lymph % (Auto) Cancelled, [place] % (Auto) Cancelled, Eos % (Auto) Cancelled, Baso % (Auto) Cancelled, Neut # (Auto) Cancelled, Lymph # (Auto) Cancelled, [place] # (Auto) Cancelled, Eos # (Auto) Cancelled, Baso # (Auto) Cancelled, Total Counted Cancelled, Neutrophils % (Manual) Cancelled, Band Neutrophils % Cancelled, Lymphocytes % (Manual) Cancelled, Atypical Lymphs % Cancelled, Monocytes % (Manual) Cancelled, Eosinophils % (Manual) Cancelled, Basophils % (Manual) Cancelled, Metamyelocytes % Cancelled, Myelocytes % Cancelled, Promyelocytes % Cancelled, Blast Cells % Cancelled, Nucleated RBCs Cancelled, Differential Comment Cancelled, Hypersegmented Neuts Cancelled, Toxic Granulation Cancelled, Toxic Vacuolation Cancelled, Dohle Bodies Cancelled, Saloni Rods Cancelled, Platelet Estimate Cancelled, Giant Platelets Cancelled, RBC Morphology Cancelled, Polychromasia Cancelled, Hypochromasia Cancelled, Poikilocytosis Cancelled, Basophilic Stippling Cancelled, Anisocytosis Cancelled, Microcytosis Cancelled, Macrocytosis Cancelled, Spherocytes Cancelled, Pappenheimer Bodies Cancelled, Sickle Cells Cancelled, Target Cells Cancelled, Tear Drop Cells Cancelled, Ovalocytes Cancelled, Stomatocytes Cancelled, Helmet Cells Cancelled, [place] Bodies Cancelled, [place] Rings Cancelled, Karen Cells Cancelled, Acanthocytes (Spur) Cancelled, Rouleaux Cancelled, Schistocytes Cancelled 03/18/22 06:25: Sodium 138, Potassium 5.4 H, Chloride 108 H, Carbon Dioxide 27, Anion Gap 8.4, BUN 47 H, Creatinine 3.10 H, Estimated Creat Clear 26, Estimated GFR 22 L, Est GFR ( Amer) 26 L, Glucose 137 H, Calcium 8.3 L 03/18/22 06:25: WBC 10.7, RBC 3.78 L, Hgb 11.3 L, Hct 35.0 L, MCV 92.6, MCH 29.9, MCHC 32.3, RDW 13.4, Plt Count 304, MPV 7.3 L, Neut % (Auto) 81.6 H, Lymph % (Auto) 9.4 L, [place] % (Auto) 6.8, Eos % (Auto) 1.8, Baso % (Auto) 0.4, Neut # (Auto) 8.8 H, Lymph # (Auto) 1.0, [place] # (Auto) 0.7, Eos # (Auto) 0.2, Baso # (Auto) 0.1 I & O for Last 24 hours: Intake & Output 03/15/22 03/16/22 03/17/22 03/18/22 23:59 23:59 23:59 23:59 Intake Total 2280 / 2280 2988 / 2988 3417 / 3417 1718 / 1718 Output Total 2325 / 2975 2350 / 3550 2600 / 3300 1750 / 1750 Balance -45 / -695 638 / -562 817 / 117 -32 / -32 Weight 172.7 kg 172.7 kg 173.1 kg 172.8 kg Assessment and Plan (1) HTN (hypertension) Status: Acute Category: Medical Code(s): I10 - Essential (primary) hypertension (2) Septic shock Status: Acute Category: Medical Code(s): A41.9 - Sepsis, unspecified organism; R65.21 - Severe sepsis with septic shock (3) Cellulitis of leg, right Status: Acute Category: Medical Code(s): L03.115 - Cellulitis of right lower limb (4) Rapid atrial fibrillation Status: Acute Category: Medical Code(s): I48.91 - Unspecified atrial fibrillation (5) Hyperglycemia Status: Acute Category: Medical Code(s): R73.9 - Hyperglycemia, unspecified (6) Respiratory acidosis Status: Acute Category: Medical Code(s): E87.2 - Acidosis (7) Morbid obesity Status: Acute Category: Medical Code(s): E66.01 - Morbid (severe) obesity due to excess calories (8) Open wound of abdominal wall Status: Acute Category: Medical Code(s): S31.109A - Unspecified open wound of abdominal wall, unspecified quadrant without penetration into peritoneal cavity, initial encounter (9) ROXANA (acute kidney injury) Status: Acute Category: Medical Code(s): N17.9 - Acute kidney failur
--- NOTE | 2022-03-18 08:21 | HMH.ACPN2 ---
<Shital Mcpherson - Last Filed: 03/18/22 08:21> Internal Medicine - PN: Subj *Date: 03/18/22 *Time: 08:21 Interval history: Using the left patient was moved to bedside chair. He has had cramping since this activity. He is eating his usual. Bowels have not moved. He continues with Marie catheter bedside drainage. He denies shortness of breath and chest pain. Laboratory data this morning shows normal white blood cell count at 10,700 with a hemoglobin of 11.3 hematocrit of 35. Chemistries: sodium is 138 and potassium is 5.4 with chloride 108. Renal function has had some improvement with a BUN is 47 and creatinine is 3.10. Exam Vital signs and Labs for Last 24 Hours: Temp Pulse Resp BP Pulse Ox 98.3 F 96 H 20 142/94 H 95 03/18/22 07:37 03/18/22 07:37 03/18/22 07:37 03/18/22 07:37 03/18/22 07:37 Laboratory Results - last 24 hr 03/18/22 06:25: WBC Cancelled, Corrected WBC Cancelled, RBC Cancelled, Hgb Cancelled, Hct Cancelled, MCV Cancelled, MCH Cancelled, MCHC Cancelled, RDW Cancelled, Plt Count Cancelled, MPV Cancelled, Neut % (Auto) Cancelled, Lymph % (Auto) Cancelled, [place] % (Auto) Cancelled, Eos % (Auto) Cancelled, Baso % (Auto) Cancelled, Neut # (Auto) Cancelled, Lymph # (Auto) Cancelled, [place] # (Auto) Cancelled, Eos # (Auto) Cancelled, Baso # (Auto) Cancelled, Total Counted Cancelled, Neutrophils % (Manual) Cancelled, Band Neutrophils % Cancelled, Lymphocytes % (Manual) Cancelled, Atypical Lymphs % Cancelled, Monocytes % (Manual) Cancelled, Eosinophils % (Manual) Cancelled, Basophils % (Manual) Cancelled, Metamyelocytes % Cancelled, Myelocytes % Cancelled, Promyelocytes % Cancelled, Blast Cells % Cancelled, Nucleated RBCs Cancelled, Differential Comment Cancelled, Hypersegmented Neuts Cancelled, Toxic Granulation Cancelled, Toxic Vacuolation Cancelled, Dohle Bodies Cancelled, Saloni Rods Cancelled, Platelet Estimate Cancelled, Giant Platelets Cancelled, RBC Morphology Cancelled, Polychromasia Cancelled, Hypochromasia Cancelled, Poikilocytosis Cancelled, Basophilic Stippling Cancelled, Anisocytosis Cancelled, Microcytosis Cancelled, Macrocytosis Cancelled, Spherocytes Cancelled, Pappenheimer Bodies Cancelled, Sickle Cells Cancelled, Target Cells Cancelled, Tear Drop Cells Cancelled, Ovalocytes Cancelled, Stomatocytes Cancelled, Helmet Cells Cancelled, [place]ug[place] Bodies Cancelled, [place] Rings Cancelled, Karen Cells Cancelled, Acanthocytes (Spur) Cancelled, Rouleaux Cancelled, Schistocytes Cancelled 03/18/22 06:25: Sodium 138, Potassium 5.4 H, Chloride 108 H, Carbon Dioxide 27, Anion Gap 8.4, BUN 47 H, Creatinine 3.10 H, Estimated Creat Clear 26, Estimated GFR 22 L, Est GFR ( Amer) 26 L, Glucose 137 H, Calcium 8.3 L 03/18/22 06:25: WBC 10.7, RBC 3.78 L, Hgb 11.3 L, Hct 35.0 L, MCV 92.6, MCH 29.9, MCHC 32.3, RDW 13.4, Plt Count 304, MPV 7.3 L, Neut % (Auto) 81.6 H, Lymph % (Auto) 9.4 L, [place] % (Auto) 6.8, Eos % (Auto) 1.8, Baso % (Auto) 0.4, Neut # (Auto) 8.8 H, Lymph # (Auto) 1.0, [place] # (Auto) 0.7, Eos # (Auto) 0.2, Baso # (Auto) 0.1 I & O for Last 24 hours: Intake & Output 03/15/22 03/16/22 03/17/22 03/18/22 11:59 11:59 11:59 11:59 Intake Total 2280 / 2280 2099 / 2099 3885 / 3885 2618 / 2618 Output Total 2225 / 2225 2275 / 2275 3500 / 3500 2150 / 2150 Balance 55 / 55 -175 / -175 385 / 385 468 / 468 Weight 380 lb 11.813 oz 380 lb 11.813 oz 381 lb 9.922 oz 380 lb 15.34 oz - Constitutional no acute distress Comments: On his side completing breakfast. Appears comfortable - *Routine Respiratory Exam Present: CTA bilaterally - *Routine Cardiovascular Exam Present: RRR - *Routine Abdominal Exam Present: normoactive bowel sounds, obese. Absent: tenderness - *Routine Extremities Exam Present: edema. Absent: calf tenderness Comments: Less erythema and edema of the right lower extremity. - *Routine Neurological Exam Present: alert, oriented X3 Assessment and Plan (1) HTN (hypertension) Status: Acu
--- NOTE | 2022-03-18 09:27 | HMH.PULMPN ---
Internal Medicine - PN: Subj *Date: 03/18/22 *Time: 10:51 Interval history: No acute respiratory events overnight. Exam - Constitutional Constitutional:: Present: no acute distress, comfortable - HENMT Exam HENMT: Present: normocephalic - Eye Exam Eyes:: Present: normal appearance both eyes and related structures - Neck Exam Neck:: Present: normal visual inspection - Respiratory Exam Respiratory:: Present: able to speak in complete sentences, no respiratory distress, decreased breath sounds - Cardiovascular Exam Cardiac:: Present: S1, S2 - GI Exam GI:: Present: soft - Skin Exam Skin: Present: warm - Neurological Exam Neurological: Present: alert, awake - Extremities Exam Extremities: Present: no cyanosis, no clubbing Assessment and Plan (1) HTN (hypertension) Status: Acute Category: Medical Code(s): I10 - Essential (primary) hypertension (2) Septic shock Status: Acute Category: Medical Code(s): A41.9 - Sepsis, unspecified organism; R65.21 - Severe sepsis with septic shock (3) Cellulitis of leg, right Status: Acute Category: Medical Code(s): L03.115 - Cellulitis of right lower limb (4) Rapid atrial fibrillation Status: Acute Category: Medical Code(s): I48.91 - Unspecified atrial fibrillation (5) Hyperglycemia Status: Acute Category: Medical Code(s): R73.9 - Hyperglycemia, unspecified (6) Respiratory acidosis Status: Acute Category: Medical Code(s): E87.2 - Acidosis (7) Morbid obesity Status: Acute Category: Medical Code(s): E66.01 - Morbid (severe) obesity due to excess calories (8) Open wound of abdominal wall Status: Acute Category: Medical Code(s): S31.109A - Unspecified open wound of abdominal wall, unspecified quadrant without penetration into peritoneal cavity, initial encounter (9) ROXANA (acute kidney injury) Status: Acute Category: Medical Code(s): N17.9 - Acute kidney failure, unspecified (10) Hypercapnic respiratory failure Status: Acute Category: Medical Code(s): J96.92 - Respiratory failure, unspecified with hypercapnia - Assessment and plan all Dx Assessment and Plan for all problems:: #Acute on Chronic hypercarbic respiratory failure - resolved: # H/O ROBIN # HAP Mr. Grant is a 47-year-old male presented to the ER on 03/07/2022 complaining of subjective fevers chills along with swelling and redness in lower extremity, has been managed for cellulitis since then and also found to be in hypercarbic respiratory failure, patient on BiPAP since admission no follow-up ABGs available to review from 03/08 and pulmonary was called for further management today. Chest x-ray admission left lower lobe pulmonary disease, no follow-up imaging available for review. No respiratory cultures available for review Patient has been receiving vancomycin and ertapenem. Patient on my initial examinaiton appears somnolent, however appropriately responding to questions and following commands but denies any smoking history. Denies any prior respiratory complaints. No prior history of asthma. Saturating 100% on 60% FiO2. chest x-ray worsening lower lobe airspace disease/atelectasis. Patient BiPAP settings changed that eventually improved, weaned to room air. Patient has been relatively stable on room air. He continued to receive BiPAP at night. ABG during the daytime did not show any evidence of hypercarbic respiratory failure. Patient using home AutoPap for his obstructive sleep apnea, prescribed by his bariatric nurse. Sleep study not available for review at this point of time. Interval update: No acute respiratory events overnight. Completed 7-day course of antibiotics with no need of further antibiotics from pulmonary standpoint for this patient's pneumonia. 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
[2022-03-18 10:54] LABS: Vancomycin,Trough 10.8 ug/mL (5.0-10.0)
--- NOTE | 2022-03-18 12:49 | HMH.PHACONS ---
- Pharmacy Consult Date: 03/18/22 Time: 12:50 Referring provider: DR. GRIMES Reason for Consult:: VANCOMCYIN LEVEL Allergies and ADEs:: Allergies Allergy/AdvReac Type Severity Reaction Status Date / Time No Known Allergies Allergy Verified 03/07/22 11:36 Home Medications:: Home Medications Medication Instructions Recorded Confirmed Type No Known Home Medications 03/07/22 03/07/22 History Height: 1.68 m Weight: 172.8 kg Laboratory Results:: Laboratory Results - last 24 hr 03/18/22 06:25: WBC Cancelled, Corrected WBC Cancelled, RBC Cancelled, Hgb Cancelled, Hct Cancelled, MCV Cancelled, MCH Cancelled, MCHC Cancelled, RDW Cancelled, Plt Count Cancelled, MPV Cancelled, Neut % (Auto) Cancelled, Lymph % (Auto) Cancelled, [place] % (Auto) Cancelled, Eos % (Auto) Cancelled, Baso % (Auto) Cancelled, Neut # (Auto) Cancelled, Lymph # (Auto) Cancelled, [place] # (Auto) Cancelled, Eos # (Auto) Cancelled, Baso # (Auto) Cancelled, Total Counted Cancelled, Neutrophils % (Manual) Cancelled, Band Neutrophils % Cancelled, Lymphocytes % (Manual) Cancelled, Atypical Lymphs % Cancelled, Monocytes % (Manual) Cancelled, Eosinophils % (Manual) Cancelled, Basophils % (Manual) Cancelled, Metamyelocytes % Cancelled, Myelocytes % Cancelled, Promyelocytes % Cancelled, Blast Cells % Cancelled, Nucleated RBCs Cancelled, Differential Comment Cancelled, Hypersegmented Neuts Cancelled, Toxic Granulation Cancelled, Toxic Vacuolation Cancelled, Dohle Bodies Cancelled, Saloni Rods Cancelled, Platelet Estimate Cancelled, Giant Platelets Cancelled, RBC Morphology Cancelled, Polychromasia Cancelled, Hypochromasia Cancelled, Poikilocytosis Cancelled, Basophilic Stippling Cancelled, Anisocytosis Cancelled, Microcytosis Cancelled, Macrocytosis Cancelled, Spherocytes Cancelled, Pappenheimer Bodies Cancelled, Sickle Cells Cancelled, Target Cells Cancelled, Tear Drop Cells Cancelled, Ovalocytes Cancelled, Stomatocytes Cancelled, Helmet Cells Cancelled, Nugent-[place] Bodies Cancelled, [place] Rings Cancelled, [place] Cells Cancelled, Acanthocytes (Spur) Cancelled, Rouleaux Cancelled, Schistocytes Cancelled 03/18/22 06:25: Sodium 138, Potassium 5.4 H, Chloride 108 H, Carbon Dioxide 27, Anion Gap 8.4, BUN 47 H, Creatinine 3.10 H, Estimated Creat Clear 26, Estimated GFR 22 L, Est GFR ( Amer) 26 L, Glucose 137 H, Calcium 8.3 L 03/18/22 06:25: WBC 10.7, RBC 3.78 L, Hgb 11.3 L, Hct 35.0 L, MCV 92.6, MCH 29.9, MCHC 32.3, RDW 13.4, Plt Count 304, MPV 7.3 L, Neut % (Auto) 81.6 H, Lymph % (Auto) 9.4 L, [place] % (Auto) 6.8, Eos % (Auto) 1.8, Baso % (Auto) 0.4, Neut # (Auto) 8.8 H, Lymph # (Auto) 1.0, [place] # (Auto) 0.7, Eos # (Auto) 0.2, Baso # (Auto) 0.1 03/18/22 09:45: Vancomycin Trough 10.8 H Medical History: Reports:: Atrial Fibrillation, Hyperlipidemia, Hypertension Denies:: Cancer, Diabetes Mellitus Type 1, Diabetes Mellitus Type 2, MRSA Assessment and Plan (1) HTN (hypertension) Status: Acute Category: Medical Code(s): I10 - Essential (primary) hypertension (2) Septic shock Status: Acute Category: Medical Code(s): A41.9 - Sepsis, unspecified organism; R65.21 - Severe sepsis with septic shock (3) Cellulitis of leg, right Status: Acute Category: Medical Code(s): L03.115 - Cellulitis of right lower limb (4) Rapid atrial fibrillation Status: Acute Category: Medical Code(s): I48.91 - Unspecified atrial fibrillation (5) Hyperglycemia Status: Acute Category: Medical Code(s): R73.9 - Hyperglycemia, unspecified (6) Respiratory acidosis Status: Acute Category: Medical Code(s): E87.2 - Acidosis (7) Morbid obesity Status: Acute Category: Medical Code(s): E66.01 - Morbid (severe) obesity due to excess calories (8) Open wound of abdominal wall Status: Acute Category: Medical Code(s): S31.109A - Unspecified open wound of abdominal wall, unspecified quadrant without penetration into peritoneal cavity, initial encounter (9) ROXANA (acute kid
--- NOTE | 2022-03-18 14:23 | PC.NURSE ---
Pt is alert and oriented x4. Lungs are clear but diminished. He's tolerated RA with O2 saturations measuring > 95%. His river is draining to gravity at bedside. 1800 mls of clear, pale urine out thus far. Dressing change done this morning with assist from John Paniagua RN. Open area to left groin fold cleansed w/hibiclens and covered with dry gauze. Rt groin fold and redness to upper thigh/groin cleansed with hibiclens and dried. RLE cleansed w/hibiclens, covered with vaseline gauze and kerlix. He was pre medicated with prn morphine due to extreme pain with movement; leg pad and lift used. Pt tolerated well. He's been afebrile and denied any complaints. Bed is locked and in the lowest position, call light in reach.
[2022-03-19] VITALS (8 sets, daily range): BP systolic 107–159; BP diastolic 75–86; PULSE 75–100; RESP 15–21; TEMP 36.6–37.3; O2SAT 94–98; BMI 61.2
--- NOTE | 2022-03-19 01:00 | PC.NURSE ---
Placed patient on 2L NC at this time due to o2 sats remaining mid to high 80s.
[2022-03-19 06:46] LABS: Chloride 108 mmol/L (98-107)
[2022-03-19 06:47] LABS: Potassium 5.6 mmoL/L (3.5-5.1); Sodium 139 mmol/L (136-145)
[2022-03-19 06:49] LABS: Blood Urea Nitrogen 46 mg/dl (9-20); Creatinine Clearance Estimated 27 mL/min (50-200); Estimated Glomerular Filt Rate 22 ml/min (>60); GFR (African American) 27 ML/MIN (>60)
[2022-03-19 06:50] LABS: Anion Gap 8.6 mEq/L (5-15); Calcium 8.5 mg/dl (8.4-10.2); Carbon Dioxide 28 mmol/L (22.0-30.0); Glucose 141 mg/dl (74-100)
--- NOTE | 2022-03-19 08:42 | HMH.ACPN2 ---
<Chacha Trivedi - Last Filed: 03/19/22 08:42> Internal Medicine - PN: Subj *Date: 03/19/22 *Time: 08:42 Interval history: Patient denies any pain today. He states he did eat some breakfast this morning. His oxygen apparently dropped during the night and he had oxygen placed. Exam Vital signs and Labs for Last 24 Hours: Temp Pulse Resp BP Pulse Ox 97.9 F 86 16 130/75 96 03/19/22 08:00 03/19/22 08:00 03/19/22 08:00 03/19/22 08:00 03/19/22 08:00 Laboratory Results - last 24 hr 03/18/22 09:45: Vancomycin Trough 10.8 H 03/19/22 05:47: Sodium 139, Potassium 5.6 H, Chloride 108 H, Carbon Dioxide 28, Anion Gap 8.6, BUN 46 H, Creatinine 3.00 H, Estimated Creat Clear 27, Estimated GFR 22 L, Est GFR ( Amer) 27 L, Glucose 141 H, Calcium 8.5 I & O for Last 24 hours: Intake & Output 03/16/22 03/17/22 03/18/22 03/19/22 11:59 11:59 11:59 11:59 Intake Total 2100 / 2100 3885 / 3885 2618 / 2618 1008 / 1008 Output Total 2275 / 2275 3500 / 3500 2150 / 2150 5200 / 5200 Balance -175 / -175 385 / 385 468 / 468 -4192 / -4192 Weight 380 lb 11.813 oz 381 lb 9.922 oz 380 lb 15.34 oz 380 lb 15.34 oz - Constitutional no acute distress - *Routine Respiratory Exam Present: CTA bilaterally - *Routine Cardiovascular Exam Present: RRR - *Routine Abdominal Exam Present: soft, normoactive bowel sounds. Absent: tenderness - *Routine Extremities Exam Present: edema (Less edema bilaterally). Absent: cyanosis, clubbing - *Routine Skin Exam Present: warm. Absent: rash - *Routine Neurological Exam Present: alert, oriented X3 Assessment and Plan (1) HTN (hypertension) Status: Acute Category: Medical Code(s): I10 - Essential (primary) hypertension (2) Septic shock Status: Acute Category: Medical Code(s): A41.9 - Sepsis, unspecified organism; R65.21 - Severe sepsis with septic shock (3) Cellulitis of leg, right Status: Acute Category: Medical Code(s): L03.115 - Cellulitis of right lower limb (4) Rapid atrial fibrillation Status: Acute Category: Medical Code(s): I48.91 - Unspecified atrial fibrillation (5) Hyperglycemia Status: Acute Category: Medical Code(s): R73.9 - Hyperglycemia, unspecified (6) Respiratory acidosis Status: Acute Category: Medical Code(s): E87.2 - Acidosis (7) Morbid obesity Status: Acute Category: Medical Code(s): E66.01 - Morbid (severe) obesity due to excess calories (8) Open wound of abdominal wall Status: Acute Category: Medical Code(s): S31.109A - Unspecified open wound of abdominal wall, unspecified quadrant without penetration into peritoneal cavity, initial encounter (9) ROXANA (acute kidney injury) Status: Acute Category: Medical Code(s): N17.9 - Acute kidney failure, unspecified (10) Hypercapnic respiratory failure Status: Acute Category: Medical Code(s): J96.92 - Respiratory failure, unspecified with hypercapnia - Assessment and plan all Dx Assessment and Plan for all problems:: We will try to wean oxygen today. Will discuss further care with Dr. Argueta. <Hilario Argueta - Last Filed: 03/19/22 08:57> Internal Medicine - PN: Subj *Date: 03/19/22 *Time: 08:55 Exam Vital signs and Labs for Last 24 Hours: Temp Pulse Resp BP Pulse Ox 97.9 F 86 16 130/75 96 03/19/22 08:00 03/19/22 08:00 03/19/22 08:00 03/19/22 08:00 03/19/22 08:00 Laboratory Results - last 24 hr 03/18/22 09:45: Vancomycin Trough 10.8 H 03/19/22 05:47: Sodium 139, Potassium 5.6 H, Chloride 108 H, Carbon Dioxide 28, Anion Gap 8.6, BUN 46 H, Creatinine 3.00 H, Estimated Creat Clear 27, Estimated GFR 22 L, Est GFR ( Amer) 27 L, Glucose 141 H, Calcium 8.5 I & O for Last 24 hours: Intake & Output 04/2503/17/22 03/18/22 03/19/22 23:59 23:59 23:59 23:59 Intake Total 2988 / 2988 3417 / 3417 2726 / 2726 Output Total 2350 / 3550 2600 / 3300 4350 / 5550 2600 / 2600 Balance 638 / -562 817 / 117
--- NOTE | 2022-03-19 10:32 | HMH.PULMPN ---
Internal Medicine - PN: Subj *Date: 03/19/22 *Time: 10:32 Interval history: No acute respiratory events overnight. Patient have not used his BiPAP. Nocturnal hypoxia episodes noted. Patient denies any respiratory distress. Exam - Constitutional Constitutional:: Present: no acute distress, comfortable - HENMT Exam HENMT: Present: normocephalic - Eye Exam Eyes:: Present: normal appearance both eyes and related structures - Neck Exam Neck:: Present: normal visual inspection - Respiratory Exam Respiratory:: Present: able to speak in complete sentences, normal respiratory effort, decreased breath sounds. Absent: wheezing - Cardiovascular Exam Cardiac:: Present: S1, S2 - GI Exam GI:: Present: soft - Skin Exam Skin: Present: warm - Neurological Exam Neurological: Present: alert, awake - Extremities Exam Extremities: Present: no cyanosis, no clubbing, no edema - Psychiatric Exam Psychiatric: Present: normal affect Assessment and Plan (1) HTN (hypertension) Status: Acute Category: Medical Code(s): I10 - Essential (primary) hypertension (2) Septic shock Status: Acute Category: Medical Code(s): A41.9 - Sepsis, unspecified organism; R65.21 - Severe sepsis with septic shock (3) Cellulitis of leg, right Status: Acute Category: Medical Code(s): L03.115 - Cellulitis of right lower limb (4) Rapid atrial fibrillation Status: Acute Category: Medical Code(s): I48.91 - Unspecified atrial fibrillation (5) Hyperglycemia Status: Acute Category: Medical Code(s): R73.9 - Hyperglycemia, unspecified (6) Respiratory acidosis Status: Acute Category: Medical Code(s): E87.2 - Acidosis (7) Morbid obesity Status: Acute Category: Medical Code(s): E66.01 - Morbid (severe) obesity due to excess calories (8) Open wound of abdominal wall Status: Acute Category: Medical Code(s): S31.109A - Unspecified open wound of abdominal wall, unspecified quadrant without penetration into peritoneal cavity, initial encounter (9) ROXANA (acute kidney injury) Status: Acute Category: Medical Code(s): N17.9 - Acute kidney failure, unspecified (10) Hypercapnic respiratory failure Status: Acute Category: Medical Code(s): J96.92 - Respiratory failure, unspecified with hypercapnia - Assessment and plan all Dx Assessment and Plan for all problems:: #Acute on Chronic hypercarbic respiratory failure - resolved: # H/O ROBIN # HAP Mr. Grant is a 47-year-old male presented to the ER on 03/07/2022 complaining of subjective fevers chills along with swelling and redness in lower extremity, has been managed for cellulitis since then and also found to be in hypercarbic respiratory failure, patient on BiPAP since admission no follow-up ABGs available to review from 03/08 and pulmonary was called for further management today. Chest x-ray admission left lower lobe pulmonary disease, no follow-up imaging available for review. No respiratory cultures available for review Patient has been receiving vancomycin and ertapenem. Patient on my initial examinaiton appears somnolent, however appropriately responding to questions and following commands but denies any smoking history. Denies any prior respiratory complaints. No prior history of asthma. Saturating 100% on 60% FiO2. chest x-ray worsening lower lobe airspace disease/atelectasis. Patient BiPAP settings changed that eventually improved, weaned to room air. Patient has been relatively stable on room air. He continued to receive BiPAP at night. ABG during the daytime did not show any evidence of hypercarbic respiratory failure. 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 Sleep study not available for review at this point of time. Completed 7-day course of antibiotics with no need of further antibiotics from pulmonary standpoint for this patient's pneumonia. Plan: -Daytime ABG todayto evaluate for OHS -Con
[2022-03-19 16:18] LABS: ABG Base Excess -1.5 mmol/L (-2.4-2.3); ABG HCO3 23.7 mmhg (22.0-26.0); ABG Oxygen Saturation 91 % (90-100); ABG PCO2 41.7 mmhg (35.0-45.0); ABG PH 7.37 mmol/L (7.35-7.45); ABG PO2 59.6 mmhg (80-100)
[2022-03-19 16:22] LABS: Allen's Test Acceptable; Oxygen 3L NC %; Source Right Radial
--- NOTE | 2022-03-19 18:41 | PC.NURSE ---
aox4, has tolerated ra well this shift. denies n/v/d. has not voiced any complaints of pain
[2022-03-20] VITALS: PULSE 95
[2022-03-20 01:47] VITALS: RESP 20
--- NOTE | 2022-03-20 03:39 | PC.NURSE ---
Pt a&o, no complaints of n/v/d. Dressing change to right lower leg this shift, patient tolerated well.
[2022-03-20 04:00] VITALS: BP 146/88; PULSE 81; PULSE 95; RESP 18; TEMP 37.4; O2SAT 99
[2022-03-20 05:00] VITALS: BMI 61.2
[2022-03-20 06:00] LABS: Basophils # 0.1 K/mm3 (0-0.2); Basophils % 1.1 % (0.1-2.0); Eosinophils # 0.2 K/mm3 (0.0-0.4); Hematocrit 33.3 % (42.0-52.0); Hemoglobin 10.9 g/dL (14.1-18.0); Lymphocytes # 1.1 K/mm3 (0.7-4.5); Lymphocytes % 10.4 % (10-50); Mean Corpuscular HGB Conc 32.7 g/dL (31.8-35.4); Mean Corpuscular Hemoglobin 30.9 pg (27.0-31.2); Mean Corpuscular Volume 94.5 fl (80-94); Mean Platelet Volume 7.6 fl (7.4-10.4); Monocytes # 0.7 K/mm3 (0.1-1.0); Monocytes % 6.3 % (1.7-9.3); Neutrophils # 8.2 K/mm3 (1.8-7.8); Neutrophils % 80.1 % (37.0-80.0); Platelet Count 285 K/mm3 (142-424); Red Blood Count 3.53 M/mm3 (4.60-6.20); Red Cell Distribution Width 13.9 % (11.5-17.5); White Blood Count 10.3 K/mm3 (4.8-10.8)
[2022-03-20 06:08] LABS: Chloride 108 mmol/L (98-107); Sodium 139 mmol/L (136-145)
[2022-03-20 06:11] LABS: Anion Gap 8.3 mEq/L (5-15); Blood Urea Nitrogen 49 mg/dl (9-20); Calcium 8.5 mg/dl (8.4-10.2); Carbon Dioxide 28 mmol/L (22.0-30.0); Creatinine Clearance Estimated 28 mL/min (50-200); Estimated Glomerular Filt Rate 23 ml/min (>60); GFR (African American) 28 ML/MIN (>60); Glucose 118 mg/dl (74-100); Potassium 5.3 mmoL/L (3.5-5.1)
[2022-03-20 08:00] VITALS: BP 159/97; PULSE 93; RESP 20; TEMP 37; O2SAT 95
--- NOTE | 2022-03-20 08:26 | HMH.ACPN2 ---
<Chacha Trivedi - Last Filed: 03/20/22 08:26> Internal Medicine - PN: Subj *Date: 03/20/22 *Time: 08:26 Interval history: Patient states he is feeling better today. His Marie was removed and he is urinating. He is eating well and sleeping well. He is off of oxygen with satisfactory room air sats. He wants to go home. Exam Vital signs and Labs for Last 24 Hours: Temp Pulse Resp BP Pulse Ox 99.3 F 81 18 146/88 H 99 03/20/22 04:00 03/20/22 04:00 03/20/22 04:00 03/20/22 04:00 03/20/22 04:00 Laboratory Results - last 24 hr 03/19/22 16:00: Specimen Source Right radial, O2 % 3l nc, ABG pH 7.37, ABG pCO2 41.7, ABG pO2 59.6 L, ABG HCO3 23.7, ABG Total CO2 25.0, ABG O2 Saturation 91, ABG Base Excess -1.5, [place] Test Acceptable 03/20/22 05:52: Sodium 139, Potassium 5.3 H, Chloride 108 H, Carbon Dioxide 28, Anion Gap 8.3, BUN 49 H, Creatinine 2.90 H, Estimated Creat Clear 28, Estimated GFR 23 L, Est GFR ( Amer) 28 L, Glucose 118 H, Calcium 8.5 03/20/22 05:52: WBC 10.3, RBC 3.53 L, Hgb 10.9 L, Hct 33.3 L, MCV 94.5 H, MCH 30.9, MCHC 32.7, RDW 13.9, Plt Count 285, MPV 7.6, Neut % (Auto) 80.1 H, Lymph % (Auto) 10.4, [place] % (Auto) 6.3, Eos % (Auto) 2.0, Baso % (Auto) 1.1, Neut # (Auto) 8.2 H, Lymph # (Auto) 1.1, [place] # (Auto) 0.7, Eos # (Auto) 0.2, Baso # (Auto) 0.1 I & O for Last 24 hours: Intake & Output 03/17/22 03/18/22 03/19/22 03/20/22 11:59 11:59 11:59 11:59 Intake Total 3885 / 3885 2618 / 2618 1008 / 1008 360 / 360 Output Total 3500 / 3500 2150 / 2150 5200 / 5200 2500 / 2500 Balance 385 / 385 468 / 468 -4192 / -4192 -2140 / -2140 Weight 381 lb 9.922 oz 380 lb 15.34 oz 380 lb 15.34 oz 380 lb 15.34 oz - Constitutional no acute distress - *Routine Respiratory Exam Present: CTA bilaterally - *Routine Cardiovascular Exam Present: RRR - *Routine Abdominal Exam Present: soft, normoactive bowel sounds. Absent: tenderness - *Routine Extremities Exam Present: edema (Bilateral lower extremities, slightly less, bandage on the right lower leg). Absent: cyanosis, clubbing - *Routine Skin Exam Present: warm. Absent: rash - *Routine Neurological Exam Present: alert, oriented X3 Assessment and Plan (1) HTN (hypertension) Status: Acute Category: Medical Code(s): I10 - Essential (primary) hypertension (2) Septic shock Status: Acute Category: Medical Code(s): A41.9 - Sepsis, unspecified organism; R65.21 - Severe sepsis with septic shock (3) Cellulitis of leg, right Status: Acute Category: Medical Code(s): L03.115 - Cellulitis of right lower limb (4) Rapid atrial fibrillation Status: Acute Category: Medical Code(s): I48.91 - Unspecified atrial fibrillation (5) Hyperglycemia Status: Acute Category: Medical Code(s): R73.9 - Hyperglycemia, unspecified (6) Respiratory acidosis Status: Acute Category: Medical Code(s): E87.2 - Acidosis (7) Morbid obesity Status: Acute Category: Medical Code(s): E66.01 - Morbid (severe) obesity due to excess calories (8) Open wound of abdominal wall Status: Acute Category: Medical Code(s): S31.109A - Unspecified open wound of abdominal wall, unspecified quadrant without penetration into peritoneal cavity, initial encounter (9) ROXANA (acute kidney injury) Status: Acute Category: Medical Code(s): N17.9 - Acute kidney failure, unspecified (10) Hypercapnic respiratory failure Status: Acute Category: Medical Code(s): J96.92 - Respiratory failure, unspecified with hypercapnia - Assessment and plan all Dx Assessment and Plan for all problems:: Patient is stable to be discharged home today. He will have to go by ambulance. He has refused a rehab bed. <Hilario Argueta - Last Filed: 03/20/22 08:48> Internal Medicine - PN: Subj *Date: 03/20/22 *Time: 08:47 Exam Vital signs and Labs for Last 24 Hours: Temp Pulse Resp BP Pulse Ox 99.3 F 81 18 146/88 H 99 03/20/22 04:00 03/20/22 0
--- NOTE | 2022-03-20 09:19 | HMH.PULMPN ---
Internal Medicine - PN: Subj *Date: 03/20/22 *Time: 10:42 Interval history: No acute respiratory events overnight Exam - Constitutional Constitutional:: Present: no acute distress, comfortable - HENMT Exam HENMT: Present: normocephalic - Eye Exam Eyes:: Present: normal appearance both eyes and related structures - Neck Exam Neck:: Present: normal visual inspection - Respiratory Exam Respiratory:: Present: able to speak in complete sentences, no respiratory distress - Cardiovascular Exam Cardiac:: Present: S1, S2 - GI Exam GI:: Present: soft, obese - Skin Exam Skin: Present: warm - Neurological Exam Neurological: Present: alert, awake, normal cognition Assessment and Plan (1) HTN (hypertension) Status: Acute Category: Medical Code(s): I10 - Essential (primary) hypertension (2) Septic shock Status: Acute Category: Medical Code(s): A41.9 - Sepsis, unspecified organism; R65.21 - Severe sepsis with septic shock (3) Cellulitis of leg, right Status: Acute Category: Medical Code(s): L03.115 - Cellulitis of right lower limb (4) Rapid atrial fibrillation Status: Acute Category: Medical Code(s): I48.91 - Unspecified atrial fibrillation (5) Hyperglycemia Status: Acute Category: Medical Code(s): R73.9 - Hyperglycemia, unspecified (6) Respiratory acidosis Status: Acute Category: Medical Code(s): E87.2 - Acidosis (7) Morbid obesity Status: Acute Category: Medical Code(s): E66.01 - Morbid (severe) obesity due to excess calories (8) Open wound of abdominal wall Status: Acute Category: Medical Code(s): S31.109A - Unspecified open wound of abdominal wall, unspecified quadrant without penetration into peritoneal cavity, initial encounter (9) ROXANA (acute kidney injury) Status: Acute Category: Medical Code(s): N17.9 - Acute kidney failure, unspecified (10) Hypercapnic respiratory failure Status: Acute Category: Medical Code(s): J96.92 - Respiratory failure, unspecified with hypercapnia - Assessment and plan all Dx Assessment and Plan for all problems:: #Acute on Chronic hypercarbic respiratory failure - resolved: # H/O ROBIN #OHS Mr. Grant is a 47-year-old male presented to the ER on 03/07/2022 complaining of subjective fevers chills along with swelling and redness in lower extremity, has been managed for cellulitis since then and also found to be in hypercarbic respiratory failure, patient on BiPAP since admission no follow-up ABGs available to review from 03/08 and pulmonary was called for further management today. Chest x-ray admission left lower lobe pulmonary disease, no follow-up imaging available for review. No respiratory cultures available for review Patient has been receiving vancomycin and ertapenem. Patient on my initial examinaiton appears somnolent, however appropriately responding to questions and following commands but denies any smoking history. Denies any prior respiratory complaints. No prior history of asthma. Saturating 100% on 60% FiO2. chest x-ray worsening lower lobe airspace disease/atelectasis. Patient BiPAP settings changed that eventually improved, weaned to room air. Daytime ABG from 03/08 on 03/11 showed hypercarbic respiratory failure concerning for obesity hypoventilation syndrome that have improved with BiPAP therapy. Etiology of this patient's hypercarbic respiratory failure is likely a combination of obesity hypoventilation syndrome along with possible obstructive sleep apnea. Patient previously was initiated on CPAP at 15/5 auto for his sleep apnea. Plan: -Initiate auto level CPAP for his obesity hypoventilation syndrome (07/09). Please schedule a sleep clinic follow-up postdischarge -Continue oxygen on as-needed basis -health service worker following with the DME to provide adequate supplies for his noninvasive ventilation. Previously receiving CPAP order from [facility]. Thank you for involving pulmonary in
--- NOTE | 2022-03-23 21:47 | HMH.DCSUM ---
General - General Admission date:: 03/07/22 Discharge date: 03/20/22 HPI HPI: 47 year old former patient of Dr. Jose Tomas who presented to [facility] ER yesterday complaining of a several day history of chills and nausea associated with some swelling and redness of the right leg. Patient stated he had not had any medical care in the past 5 years. He has a history of cellulitis of both legs and had taken Eliquis due to A. fib. History obtained from discussion with the ER doctor as patient is obtunded at this time and can not answer questions. Hospital Course Hospital Course: An ABG was ordered due to the patient's sedation. It showed a respiratory acidosis and he was started on BiPAP. He was also started on IV antibiotics. His heart rate was controlled with Cardizem. He had a venous Doppler showing no evidence of DVT. His mental status did improve with BiPAP and his oxygen levels improved as well. His blood culture showed no growth. He was started on Hibiclens washes of the inguinal wound, right and left legs, and abdomen. Respiratory try to wean his BiPAP, but he did not tolerate this. Pulmonology was therefore consulted. The ambulatory care coordinator ordered a repeat chest x-ray which showed worsening lower lobe airspace disease/atelectasis. He changed his BiPAP settings and recommended a change from ertapenem to meropenem. The patient continued to receive vancomycin and meropenem. Repeat ABGs showed respiratory acidosis improving from prior ABGs. Pulmonology felt the patient likely had severe sleep apnea and would need invasive ventilator therapy when lying down or with sleep upon discharge. The patient was finally weaned to room air and removed from BiPAP. Pulmonology wanted to continue BiPAP while supine and asleep. He had another chest x-ray on 03/13/2022 after a PICC line was placed for continued IV antibiotics. He was continued on antibiotics and wound care. His cellulitis improved as did his mentation. His oxygen was weaned and he was saturating 98% on 2 L. The patient did state that he had been using nocturnal noninvasive ventilatory therapy for the last 6 to [address] Rowe, building maintenance custodian from [place]. He had recently received a new NIV machine without any supplies and had not been using it for the past month. Pulmonology felt this might be contributing to his current hypercarbic respiratory failure. He was going to contact [facility] regarding the patient's noninvasive ventilation therapy status. He felt the patient could be weaned to Levaquin to complete a 7-day course from initiation of meropenem. The patient was able to be weaned to room air. He continued to receive BiPAP at night. By 03/18/2022, a lift was used to move him to a bedside chair. He did have some cramping after that activity. His IV fluids were decreased as his oral intake had improved. Dr. Argueta discussed discharge planning with the patient and his mother. His Marie was removed and he was able to urinate. He and his mother decided he wanted to go home. He refused a rehab bed. He had to be transported by ambulance and will follow up with pulmonology. He completed his antibiotic course. Objective Vital signs: Temp Pulse Resp BP Pulse Ox 98.6 F 93 H 20 159/97 H 95 03/20/22 08:00 03/20/22 08:00 03/20/22 08:00 03/20/22 08:00 03/20/22 08:00 Narrative: - Constitutional obtunded Comments: Will awaken to voice but goes back to sleep - *Routine HEENT Exam Head: Present: normocephalic Eye: Present: PERRL ENT: Present: mucous membranes moist - *Routine Neck Exam Present: supple - *Routine Respiratory Exam Present: rhonchi, wheezes Comments: tachypenic - *Routine Cardiovascular Exam Present: tachycardia, irregular rhythm - *Routine Abdominal Exam Present: obese. Absent: guarding - *Routine Rectal Exam Rectal:: deferred - *Routine Genitalia Exam Genitalia:: deferred - *Routine Extremities Exam Pr
== END 2022-03-20 12:42 | disposition home or self-care (01) | DRG 871 ==
LOC: ER 14:09 → 2ND 03-08 00:54
PROVIDERS: Family Medicine; Internal Medicine Pulmonary Disease; Admitting Provider Family Medicine; Emergency Provider Emergency Medicine; Visit Provider Family Medicine
DX: A41.9 Sepsis, unspecified organism (principal); J96.02 Acute respiratory failure with hypercapnia; R65.21 Severe sepsis with septic shock; L03.115 Cellulitis of right lower limb; Z68.44 Body mass index [BMI] 60.0-69.9, adult; N17.9 Acute kidney failure, unspecified; E87.2 Acidosis; I10 Essential (primary) hypertension; E66.01 Morbid (severe) obesity due to excess calories; E78.5 Hyperlipidemia, unspecified; G47.30 Sleep apnea, unspecified; R73.9 Hyperglycemia, unspecified; S31.109A Unspecified open wound of abdominal wall, unspecified quadrant without penetration into peritoneal cavity, initial encounter; Y95 Nosocomial condition; I48.91 Unspecified atrial fibrillation
CPT/HCPCS: 36415; 36569; 71045; 80048; 80051; 80053; 80202; 81001; 82803; 82962; 83036; 83050; 83605; 84145; 85007; 85014; 85018; 85025; 85048; 85049; 87040; 87070; 87077; 87081; 87205; 93005; 93971; 94640; 94660; 94761; 96365; 96367; 96375; 97110; 97163; 97166; 97530; 97535; 99291; C1751; C9803; G0238; J1335; J2185; J2405; J3370; U0003; U0005

== ENCOUNTER 2022-03-20 15:42 | Observation (INO) | payer OTHER, SELFPAY ==
[2022-03-20] VITALS (10 sets, daily range): BP systolic 134–184; BP diastolic 90–105; PULSE 90–108; RESP 16–22; TEMP 36.7–37.1; O2SAT 96–98; BMI 64.5; BMI 60.2
--- NOTE | 2022-03-20 16:03 | CT_ITS ---
PROCEDURE INFORMATION: Exam: CT Head Without Contrast Exam date and time: 03/20/2022 4:13 PM Age: 47 years old Clinical indication: Injury or trauma; Fall; Blunt trauma (contusions or hematomas); Additional info: Fall on blood thinner TECHNIQUE: Imaging protocol: Computed tomography of the head without contrast. Radiation optimization: All CT scans at this facility use at least one of these dose optimization techniques: automated exposure control; mA and/or kV adjustment per patient size (includes targeted exams where dose is matched to clinical indication); or iterative reconstruction. COMPARISON: No relevant prior studies available. FINDINGS: Brain: No acute intracranial hemorrhage, cerebral edema, or midline shift. Cerebral ventricles: No hydrocephalus. Paranasal sinuses: There is no acute sinusitis. Mastoid air cells: Visualized mastoid air cells are well aerated. Orbital cavities: The visualized orbits appear unremarkable. Bones/joints: No acute fracture. Soft tissues: Unremarkable. IMPRESSION: No acute intracranial abnormality.
--- NOTE | 2022-03-20 16:03 | CT_ITS ---
PROCEDURE INFORMATION: Exam: CT Cervical Spine Without Contrast Exam date and time: 03/20/2022 4:15 PM Age: 47 years old Clinical indication: Injury or trauma; Fall; Blunt trauma; Additional info: Fall on blood thinner TECHNIQUE: Imaging protocol: Computed tomography images of the cervical spine without contrast. Radiation optimization: All CT scans at this facility use at least one of these dose optimization techniques: automated exposure control; mA and/or kV adjustment per patient size (includes targeted exams where dose is matched to clinical indication); or iterative reconstruction. COMPARISON: CT HEAD/BRAIN WO CON 03/20/2022 4:13 PM FINDINGS: Limitations: The study is limited due to patient body habitus. Bones/joints: No acute fracture. Normal alignment. Discs/Spinal canal/Neural foramina: Mild degenerative changes of the cervical spine are present. There is no definite severe spinal canal stenosis. Lungs: Lung apices are clear. Soft tissues: Unremarkable. IMPRESSION: 1. Mildly limited exam due to patient body habitus 2. No definite acute cervical spine abnormality
--- NOTE | 2022-03-20 16:03 | CT_ITS ---
PROCEDURE INFORMATION: Exam: CT Pelvis Without Contrast; Skeletal Exam date and time: 03/20/2022 4:18 PM Age: 47 years old Clinical indication: Injury or trauma; Fall; Blunt trauma (contusions or hematomas); Right; Hip; Additional info: Fall on bt's, right hip pain TECHNIQUE: Imaging protocol: Computed tomography images of the pelvis without contrast. Exam focused on the skeletal structures. Radiation optimization: All CT scans at this facility use at least one of these dose optimization techniques: automated exposure control; mA and/or kV adjustment per patient size (includes targeted exams where dose is matched to clinical indication); or iterative reconstruction. COMPARISON: CA VENOUS DOPPLER LE RT 03/07/2022 12:58 PM FINDINGS: Mild bilateral hip osteoarthritis. Mild degenerative changes of the bilateral sacroiliac joints. No acute fracture, dislocation, or aggressive osseous lesion. No acute findings in the visualized intra-abdominal/pelvic organs. Incidental note of a horseshoe kidney, a anatomical variant. No acute soft tissue findings are appreciated. IMPRESSION: No acute skeletal pathology.
--- NOTE | 2022-03-20 16:05 | XR_ITS ---
PROCEDURE INFORMATION: Exam: XR Chest Exam date and time: 03/20/2022 4:25 PM Age: 47 years old Clinical indication: Injury or trauma; Fall; Blunt trauma (contusions or hematomas); Additional info: Fall, SOA TECHNIQUE: Imaging protocol: XR of the chest. Views: 1 view. COMPARISON: CR XR CHEST PORTABLE PICC PLAC 03/13/2022 11:24 AM FINDINGS: Crowding due to low lung volumes. No acute interstitial or airspace disease. No pleural effusion or pneumothorax. Cardiomediastinal silhouette is magnified due to technique. Patent central airways. No acute skeletal abnormality or aggressive osseous lesion. IMPRESSION: No acute thoracic pathology.
[2022-03-20 17:19] LABS: Basophils # 0.1 K/mm3 (0-0.2); Eosinophils # 0.1 K/mm3 (0.0-0.4); Eosinophils % 1.1 % (0.1-12.0); Hematocrit 36.4 % (42.0-52.0); Lymphocytes # 0.8 K/mm3 (0.7-4.5); Lymphocytes % 6.4 % (10-50); Mean Corpuscular HGB Conc 32.9 g/dL (31.8-35.4); Mean Corpuscular Hemoglobin 30.9 pg (27.0-31.2); Mean Corpuscular Volume 93.9 fl (80-94); Monocytes # 0.8 K/mm3 (0.1-1.0); Monocytes % 6.2 % (1.7-9.3); Neutrophils # 10.3 K/mm3 (1.8-7.8); Neutrophils % 85.4 % (37.0-80.0); Platelet Count 340 K/mm3 (142-424); Red Blood Count 3.88 M/mm3 (4.60-6.20); Red Cell Distribution Width 13.8 % (11.5-17.5); White Blood Count 12.1 K/mm3 (4.8-10.8)
[2022-03-20 17:20] LABS: MANUAL DIFFERENTIAL MANUAL DIFFERENTIAL (MANUAL DIFF)
[2022-03-20 17:26] LABS: Hemoglobin 10.5 g/dL (14.1-18.0); INR 1.26 (0.9-1.1)
[2022-03-20 17:27] LABS: Alanine Aminotransferase 23 U/L (12-78); Albumin Level 3.1 g/dl (3.5-5.0); Albumin/Globulin Ratio 0.6 (1.1-1.8); Alkaline Phosphatase 79 U/L (38-126); Anion Gap 11.1 mEq/L (5-15); Aspartate Amino Transferase 35 U/L (17-59); Blood Urea Nitrogen 48 mg/dl (9-20); Calcium 8.6 mg/dl (8.4-10.2); Carbon Dioxide 29 mmol/L (22.0-30.0); Chloride 104 mmol/L (98-107); Creatinine Clearance Estimated 29 mL/min (50-200); Estimated Glomerular Filt Rate 24 ml/min (>60); GFR (African American) 29 ML/MIN (>60); Globulin 4.9 g/dL (1.3-3.2); Glucose 144 mg/dl (74-100); Potassium 5.1 mmoL/L (3.5-5.1); Sodium 139 mmol/L (136-145)
[2022-03-20 17:52] LABS: Troponin I < 0.01 ng/ml (0.00-0.034)
[2022-03-20 18:00] LABS: Lymphocytes % 13 % (10-50); Monocytes % 2 % (2-9); Neutrophils % 85 % (42-76); Platelet Estimate Normal; RBC Morphology Normal; Total Cells Counted 100
[2022-03-20 19:54] LABS: Troponin I < 0.01 ng/ml (0.00-0.034)
--- NOTE | 2022-03-20 19:59 | HMH.EDGENADL ---
ED Disposition Clinical Impression: Atrial fibrillation with RVR Fall Qualifiers: Encounter type: initial encounter Qualified Code(s): W19.XXXA - Unspecified fall, initial encounter Disposition: Admitted As Inpatient Condition on Discharge: Good Referrals: Provider,Referral, [Primary Care Provider] - - Critical Care Critical Care Time: No Attestation: On 03/20/22, the high probability of a clinically significant, sudden or life threatening deterioration of the following system(s) required my full and direct attention, intervention and personal management. The time I documented below is in addition to time spent performing reported procedures but includes the following listed in this critical care notation. Medical Decision Making - Medical Records Medical records reviewed: Yes: I reviewed the patient's medical records. - Tj Inquiry Pt receiving controlled substance: No Vital Signs: 03/20/22 15:42 03/20/22 16:32 03/20/22 17:03 Temperature 98.1 F Temperature Source Oral Pulse Rate 90 100 H Pulse Rate [Left Radial] 100 H Respiratory Rate 20 16 21 Blood Pressure 160/94 H 171/92 H Blood Pressure [Right Arm] 176/105 H Blood Pressure Mean 111 Blood Pressure Mean [Right Arm] 128 Blood Pressure Source [Right Arm] Automatic Cuff Blood Pressure Position [Right Arm] Sitting 02 Sat by Pulse Oximetry 96 97 98 Oxygen Delivery Method Room Air 03/20/22 17:31 03/20/22 18:00 03/20/22 18:31 Temperature Temperature Source Pulse Rate 92 H 99 H 97 H Pulse Rate [Left Radial] Respiratory Rate 16 16 Blood Pressure 183/98 H 184/98 H 160/96 H Blood Pressure [Right Arm] Blood Pressure Mean 120 140 127 Blood Pressure Mean [Right Arm] Blood Pressure Source [Right Arm] Blood Pressure Position [Right Arm] 02 Sat by Pulse Oximetry 97 97 98 Oxygen Delivery Method - Lab Data Lab Results 03/20/22 17:04: WBC 12.1 H, RBC 3.88 L, Hgb 10.5 L, Hct 36.4 L, MCV 93.9, MCH 30.9, MCHC 32.9, RDW 13.8, Plt Count 340, MPV 8.0, Neut % (Auto) 85.4 H, Lymph % (Auto) 6.4 L, [place] % (Auto) 6.2, Eos % (Auto) 1.1, Baso % (Auto) 1.0, Neut # (Auto) 10.3 H, Lymph # (Auto) 0.8, [place] # (Auto) 0.8, Eos # (Auto) 0.1, Baso # (Auto) 0.1, Total Counted 100, Neutrophils % (Manual) 85 H, Lymphocytes % (Manual) 13, Monocytes % (Manual) 2, Platelet Estimate Normal, RBC Morphology Normal 03/20/22 17:04: PT 14.0 H, INR 1.26 H 03/20/22 17:04: Sodium 139, Potassium 5.1, Chloride 104, Carbon Dioxide 29, Anion Gap 11.1, BUN 48 H, Creatinine 2.80 H, Estimated Creat Clear 29, Estimated GFR 24 L, Est GFR ( Amer) 29 L, Glucose 144 H D, Calcium 8.6, Total Bilirubin 1.0, AST 35, ALT 23, Alkaline Phosphatase 79, Troponin I < 0.01, Total Protein 8.0 D, Albumin 3.1 L, Globulin 4.9 H, Albumin/Globulin Ratio 0.6 L 03/20/22 19:17: Troponin I < 0.01 Result diagrams: 03/20/22 17:04 03/20/22 17:04 Orders (Tests/Meds): ED MEDICATIONS Generic Name Dose Route Start Last Admin Trade Name Freq PRN Reason Stop Dose Admin Diltiazem HCl 180 mg 03/21/22 20:53 Diltiazem Hcl 180mg Cap.Er.24h PO 03/21/22 20:54 ONCE ONE Ondansetron HCl 4 mg 03/20/22 16:08 Ondansetron 4mg/2ml Vial IV 04/19/22 16:07 Q6 PRN Nausea And Vomiting Discontinued Medications Generic Name Dose Route Start Last Admin Trade Name Freq PRN Reason Stop Dose Admin Diltiazem HCl 20 mg 03/20/22 20:10 03/20/22 20:15 Diltiazem 125mg/25ml Vial IV 03/20/22 20:11 20 mg ONCE ONE Administration Metoprolol Tartrate 5 mg 03/20/22 20:55 03/20/22 20:58 Metoprolol Tartrate 5mg/5ml Vial IV 03/20/22 20:56 5 mg ONCE ONE Administration Morphine Sulfate 4 mg 03/20/22 16:07 03/20/22 17:07 Morphine 4mg/Ml Syringe IV 03/20/22 16:08 4 mg ONCE ONE Administration ORDERS Category Date Time Status Rapid PCR Covid and Flu A/B Stat Lab 03/20/22 20:38 Ordered Troponin I Q3H Lab 03/20/22 22:15 Ordered EC
--- NOTE | 2022-03-20 20:07 | ECG_ITS ---
APPROVED REPORT Exam: Resting ECG HR:131 bpm ECG Measurements Heart Rate 131 AXES QRSd 102 QRS -39 QT 289 T 59 QTc 366 Conclusion ATRIAL FIBRILLATION WITH RAPID VENTRICULAR RESPONSE LEFT AXIS DEVIATION [QRS AXIS < -30] MODERATE VOLTAGE CRITERIA FOR LVH, CONSIDER NORMAL VARIANT [MEETS CRITERIA IN ONE OF: R(aVL), S(V1), R(V5), R(V5/V6)+S(V1)] POSSIBLE ANTERIOR MYOCARDIAL INFARCTION , OF INDETERMINATE AGE [30 ms Q WAVE IN V3/V4, OR R < 0.2 mV IN V4] ABNORMAL ECG UNCONFIRMED REPORT Electronically signed by : Aba Acevedo MD 03/22/2022 20:15:12
[2022-03-20 22:08] LABS: Coronavirus 19, PCR Not Detected (NotDetected); Influenza A, PCR Not Detected (NotDetected); Influenza B, PCR Not Detected (NotDetected)
--- NOTE | 2022-03-20 22:59 | PC.NURSE ---
patient up to floor via stretcher @ this time.
[2022-03-21] VITALS (13 sets, daily range): BP systolic 141–201; BP diastolic 86–132; PULSE 80–100; RESP 18–23; TEMP 36.7–37; O2SAT 95–100; BMI 60.2
--- NOTE | 2022-03-21 05:45 | PC.NURSE ---
Pt a + o x4. Pt tolerating RA well while awake with sats >95%. When asleep, pt will drop down into 70s. MD notified, Bipap ordered PRN. Pt agreeable to wear Bipap while asleep. Pt has not voiced any concerns to staff. Call light within reach.
--- NOTE | 2022-03-21 08:44 | PC.NURSE ---
Spoke with Dr. Argueta and made him aware of the Pt's BP. He was going to give him some medication. I am waiting on it to be brought up by pharmacy.
--- NOTE | 2022-03-21 09:16 | HMH.HP ---
*Admission Date: 03/20/22 *Chief complaint: Right hip pain after falling *History of present illness: Patient is a 47 year old male who was discharged from [facility] yesterday after being hospitalized for over a week with cellulitis of right leg, Morbid obesity and A. fib with RVR. He was brought to [facility] ER yesterday afternoon after falling at home. He had been home from the hospital for about 3 hours when he was trying to transfer from a chair to his couch. He was unable to complete the transfer and fell to the floor. His mother was unable to help him up so she called 911 for assistance. Patient reports having right hip pain after falling and had movement in all extremities. Prior to patient's hospital discharge yesterday he was offered half-way rehab and a facility had agreed to accept him but he refused the service. He now says he is reconsidering that decision and wants to discuss placement options with care management. [facility] History Medical History: Reports:: Atrial Fibrillation, Hyperlipidemia, Hypertension, Renal Insufficiency Denies:: Cancer, Diabetes Mellitus Type 1, Diabetes Mellitus Type 2, MRSA *Have you ever received a pneumonia vaccine?: No *Have you received a flu vaccine this season?: No Other Medical History: Reports: Other (sleep apnea, morbid obesity) Amputation: No Fractures: No - *Social History Last grade of school completed: Advanced degree Smoking Status: Never smoker Alcohol Intake: never *Occupational Status:: unemployed Housing: house Household Members: family *Travel in the last 8 weeks: None Family Hx:: Unable to obtain Review of Systems - Constitutional Denies chills, Denies fever(s) - Eyes Denies double vision - ENT Denies dry mouth - *Cardiovascular Denies chest pain - *Respiratory Denies cough - *Gastrointestinal Denies abdominal pain - *Genitourinary Denies difficulty urinating - *Musculoskeletal Reports joint pain - Integumentary/Breasts Reports dry skin, Reports wounds (legs and left inguinal fold) - *Neurologic Denies abnormal hearing - Psychiatric Denies behavioral changes Meds Home Medications Medication Instructions Recorded Confirmed Type Rivaroxaban [Xarelto 15mg tablet] 15 mg PO QPMWITHMEAL 03/20/22 03/20/22 History dilTIAZem HCL [Cardizem 180mg ER 180 mg PO DAILY 03/20/22 03/20/22 History capsule] Allergies Allergy/AdvReac Type Severity Reaction Status Date / Time No Known Allergies Allergy Verified 03/07/22 11:36 Exam Vital signs and Labs for Last 24 Hours: Temp Pulse Resp BP Pulse Ox 98.1 F 81 23 201/132 H 100 03/21/22 08:00 03/21/22 08:00 03/21/22 08:00 03/21/22 08:00 03/21/22 08:00 Laboratory Results - last 24 hr 03/20/22 17:04: WBC 12.1 H, RBC 3.88 L, Hgb 10.5 L, Hct 36.4 L, MCV 93.9, MCH 30.9, MCHC 32.9, RDW 13.8, Plt Count 340, MPV 8.0, Neut % (Auto) 85.4 H, Lymph % (Auto) 6.4 L, [place] % (Auto) 6.2, Eos % (Auto) 1.1, Baso % (Auto) 1.0, Neut # (Auto) 10.3 H, Lymph # (Auto) 0.8, [place] # (Auto) 0.8, Eos # (Auto) 0.1, Baso # (Auto) 0.1, Total Counted 100, Neutrophils % (Manual) 85 H, Lymphocytes % (Manual) 13, Monocytes % (Manual) 2, Platelet Estimate Normal, RBC Morphology Normal 03/20/22 17:04: PT 14.0 H, INR 1.26 H 03/20/22 17:04: Sodium 139, Potassium 5.1, Chloride 104, Carbon Dioxide 29, Anion Gap 11.1, BUN 48 H, Creatinine 2.80 H, Estimated Creat Clear 29, Estimated GFR 24 L, Est GFR ( Amer) 29 L, Glucose 144 H D, Calcium 8.6, Total Bilirubin 1.0, AST 35, ALT 23, Alkaline Phosphatase 79, Troponin I < 0.01, Total Protein 8.0 D, Albumin 3.1 L, Globulin 4.9 H, Albumin/Globulin Ratio 0.6 L 03/20/22 19:17: Troponin I < 0.01 03/20/22 22:00: SARS-CoV-2 (PCR) Not detected, Influenza A Untype (PCR) Not detected, Influenza Type B (PCR) Not detected Vital Signs - 24 hr 03/20/22 15:42 03/20/22 16:32 03/20/22 17:03 Temperature 98.1 F Pulse Rate 90 100 H Pulse Rate [Left Radial] 100 H Respiratory Rate 20
--- NOTE | 2022-03-21 09:33 | HMH.PHAVTE ---
[facility] Pharmacy VTE Monitoring - Patient Demographics Admission date: 03/20/22 Report Date: 03/21/22 Time: 09:33 Allergies/Adverse Reactions: Patient Allergies No Known Allergies Allergy (Verified 03/07/22 11:36) Height: 1.68 m Weight: 170 kg Patient Problems: Current Active Problems HTN (hypertension) (Acute) Morbid obesity (Acute) Open wound of abdominal wall (Acute) ROXANA (acute kidney injury) (Acute) Atrial fibrillation with RVR (Acute) Fall (Acute) A-fib (Acute) Debility (Acute) - VTE Risk Labs: VTE Related Lab Results Hgb 10.5 g/dL (14.1-18.0) L 03/20/22 17:04 Hct 36.4 % (42.0-52.0) L 03/20/22 17:04 Plt Count 340 K/mm3 (142-424) 03/20/22 17:04 PT 14.0 seconds (10.1-12.5) H 03/20/22 17:04 INR 1.26 (0.9-1.1) H 03/20/22 17:04 BUN 48 mg/dl (9-20) H 03/20/22 17:04 Creatinine 2.80 mg/dl (0.66-1.25) H 03/20/22 17:04 Estimated Creat Clear 29 mL/min (50-200) 03/20/22 17:04 - Prophylaxis VTE Prophylaxis Ordered?: Yes Types of VTE Prophylaxis: TEDS Knee High Location of Applied Device: Bilateral Lower Extremeties
--- NOTE | 2022-03-21 09:33 | HMH.PHAINT ---
MEDICATION RECONCILIATION COMPLETED ON PATIENT USING DISCHARGE SUMMARY FROM PREVIOUS ADMISSION. -CHRIS YBARRA, VALENCIAD
--- NOTE | 2022-03-21 10:35 | PC.NURSE ---
Paged Dr. Argueta to verify if he wanted me to still give medication.
--- NOTE | 2022-03-21 13:27 | PC.NURSE ---
Changed Pt's dressing on his right leg. Cleaned it with hib, and wrapped it in kerlix. There is dome weeping coming from the leg. We did a bed change and placed a wendy under the leg.
--- NOTE | 2022-03-21 13:46 | PC.NURSE ---
Addendum entered by Dayanna Henderson RN 03/21/22 13:48: The time of the call with Dr. Mahoney was 1215. Original Note: Spoke with Dr. mahoney He wanted me to still give the one time dose of the cardizem. I told him that the pts BP was 154/86.
[2022-03-22] VITALS (8 sets, daily range): BP systolic 146–175; BP diastolic 80–96; PULSE 76–94; RESP 16–26; TEMP 36.4–37.2; O2SAT 95–99
--- NOTE | 2022-03-22 05:47 | PC.NURSE ---
Patient is A/O x3. Pt has remained on RA while awake with O2 sats >90%, placed on bipap to sleep and tolerated well. Pt's dressing to right leg is C/D/I. Pt has voiced no c/o of N/V or SOA this shift. Tolerated a full bed bath, and linen change.
--- NOTE | 2022-03-22 08:35 | HMH.ACPN2 ---
Internal Medicine - PN: Subj *Date: 03/22/22 *Time: 08:35 Interval history: Patient with no new complaints today. Exam Vital signs and Labs for Last 24 Hours: Temp Pulse Resp BP Pulse Ox 97.5 F L 80 24 146/96 H 99 03/22/22 08:00 03/22/22 08:00 03/22/22 08:00 03/22/22 08:00 03/22/22 08:00 Vital Signs - 24 hr 03/21/22 10:18 03/21/22 10:35 03/21/22 12:00 Temperature 98.2 F Pulse Rate 90 Pulse Rate [Left Radial] 94 H Respiratory Rate 20 Blood Pressure [Right Arm] 154/86 H 172/96 H 02 Sat by Pulse Oximetry 95 97 03/21/22 15:30 03/21/22 16:00 03/21/22 19:21 Temperature 98.2 F 98.6 F Pulse Rate 83 Pulse Rate [Left Radial] 82 86 Respiratory Rate 20 18 Blood Pressure [Right Arm] 175/94 H 180/95 H 02 Sat by Pulse Oximetry 98 03/21/22 20:00 03/22/22 00:00 03/22/22 04:00 Temperature 98.7 F 98.5 F Pulse Rate 80 90 90 Pulse Rate [Left Radial] 88 76 Respiratory Rate 16 19 Blood Pressure [Right Arm] 165/80 H 163/94 H 02 Sat by Pulse Oximetry 96 99 03/22/22 07:03 03/22/22 08:00 Temperature 97.5 F L Pulse Rate Pulse Rate [Left Radial] 80 Respiratory Rate 24 Blood Pressure [Right Arm] 146/96 H 02 Sat by Pulse Oximetry 98 99 I & O for Last 24 hours: Intake & Output 03/19/22 03/20/22 03/21/22 03/22/22 23:59 23:59 23:59 23:59 Intake Total 720 / 720 480 / 480 Output Total 2400 / 3150 750 / 750 Balance -1680 / -2430 -270 / -270 Weight 374 lb 12.573 oz 374 lb 12.573 oz - Constitutional no acute distress - *Routine HEENT Exam Head: Present: normocephalic Eye: Present: EOMI, PERRL ENT: Present: mucous membranes moist - *Routine Neck Exam Present: supple. Absent: lymphadenopathy - *Routine Respiratory Exam Present: CTA bilaterally - *Routine Cardiovascular Exam Present: RRR - *Routine Abdominal Exam Present: soft, normoactive bowel sounds. Absent: tenderness - *Routine Extremities Exam Present: edema (both legs). Absent: cyanosis, clubbing - *Routine Skin Exam Present: warm, wounds (on right leg) - *Routine Neurological Exam Present: alert, oriented X3 Assessment and Plan (1) Debility Status: Acute Category: Medical Code(s): R53.81 - Other malaise (2) Atrial fibrillation with RVR Status: Acute Category: Medical Code(s): I48.91 - Unspecified atrial fibrillation (3) Fall Status: Acute Qualifiers: Encounter type: initial encounter Qualified Code(s): W19.XXXA - Unspecified fall, initial encounter Category: Medical Code(s): W19.XXXA - Unspecified fall, initial encounter (4) ROXANA (acute kidney injury) Status: Acute Category: Medical Code(s): N17.9 - Acute kidney failure, unspecified (5) HTN (hypertension) Status: Acute Category: Medical Code(s): I10 - Essential (primary) hypertension (6) Morbid obesity Status: Acute Category: Medical Code(s): E66.01 - Morbid (severe) obesity due to excess calories (7) Open wound of abdominal wall Status: Acute Category: Medical Code(s): S31.109A - Unspecified open wound of abdominal wall, unspecified quadrant without penetration into peritoneal cavity, initial encounter - Assessment and plan all Dx Assessment and Plan for all problems:: BP elevated overnight, will raise diltiazem dose today.
--- NOTE | 2022-03-22 17:07 | PC.NURSE ---
PT IS SITTING UP IN THE CHAIR (PER LIFT). ALERT AND ORIENTED X4. EATING AND DRINKING WELL. AFIB ON TELEMETRY. LUNG SOUND CLEAR. ABDOMEN SOFT/OBESE WITH HYPOACTIVE BOWEL SOUNDS. DRESSING NOTED TO THE RLE. 3+ PITTING EDEMA NOTED BLE. REDNESS NOTED TO THE BUTTOCKS/SKIN FOLDS. SMALL AREA NOTED TO THE LEFT GROIN. WILL CONTINUE TO MONITOR.
[2022-03-23] VITALS (9 sets, daily range): BP systolic 132–160; BP diastolic 77–101; PULSE 62–92; RESP 15–26; TEMP 36.7–37; O2SAT 94–99; BMI 59.9; BMI 59.8
--- NOTE | 2022-03-23 04:33 | PC.NURSE ---
Patient alert and oriented x4 this shift. Right leg wound dressing c/d/i, patient placed on bipap to sleep and is tolerating well. Patient on room air prior to sleep and maintained O2 sats >90%. No c/o pain or discomfort.
[2022-03-23 06:45] LABS: Basophils # 0.1 K/mm3 (0-0.2); Basophils % 1.3 % (0.1-2.0); Eosinophils # 0.1 K/mm3 (0.0-0.4); Eosinophils % 2.4 % (0.1-12.0); Hematocrit 33.8 % (42.0-52.0); Lymphocytes # 1.2 K/mm3 (0.7-4.5); Lymphocytes % 19.4 % (10-50); Mean Corpuscular HGB Conc 32.6 g/dL (31.8-35.4); Mean Corpuscular Hemoglobin 31.1 pg (27.0-31.2); Mean Corpuscular Volume 95.3 fl (80-94); Mean Platelet Volume 7.9 fl (7.4-10.4); Monocytes # 0.4 K/mm3 (0.1-1.0); Neutrophils # 4.3 K/mm3 (1.8-7.8); Neutrophils % 70.9 % (37.0-80.0); Platelet Count 262 K/mm3 (142-424); Red Blood Count 3.54 M/mm3 (4.60-6.20); Red Cell Distribution Width 13.9 % (11.5-17.5)
[2022-03-23 06:56] LABS: Anion Gap 11.6 mEq/L (5-15); Blood Urea Nitrogen 47 mg/dl (9-20); Calcium 8.4 mg/dl (8.4-10.2); Carbon Dioxide 27 mmol/L (22.0-30.0); Chloride 106 mmol/L (98-107); Creatinine Clearance Estimated 32 mL/min (50-200); Estimated Glomerular Filt Rate 28 ml/min (>60); GFR (African American) 33 ML/MIN (>60); Glucose 111 mg/dl (74-100); Potassium 4.6 mmoL/L (3.5-5.1); Sodium 140 mmol/L (136-145)
--- NOTE | 2022-03-23 08:31 | HMH.ACPN2 ---
<Shital Mcpherson - Last Filed: 03/23/22 08:31> Internal Medicine - PN: Subj *Date: 03/23/22 *Time: 08:31 Interval history: States his hips are sore. He slept with BiPAP on last night. Denies shortness of breath and chest pain. Thinks his bowels have not moved in 2 weeks. Exam Vital signs and Labs for Last 24 Hours: Temp Pulse Resp BP Pulse Ox 98.5 F 92 H 18 143/101 H 99 03/23/22 04:00 03/23/22 04:00 03/23/22 04:00 03/23/22 04:00 03/23/22 04:00 Laboratory Results - last 24 hr 03/23/22 06:25: WBC 6.0 D, RBC 3.54 L, Hgb 11.0 L, Hct 33.8 L, MCV 95.3 H, MCH 31.1, MCHC 32.6, RDW 13.9, Plt Count 262, MPV 7.9, Neut % (Auto) 70.9, Lymph % (Auto) 19.4, [place] % (Auto) 6.0, Eos % (Auto) 2.4, Baso % (Auto) 1.3, Neut # (Auto) 4.3, Lymph # (Auto) 1.2, [place] # (Auto) 0.4, Eos # (Auto) 0.1, Baso # (Auto) 0.1 03/23/22 06:25: Sodium 140, Potassium 4.6, Chloride 106, Carbon Dioxide 27, Anion Gap 11.6, BUN 47 H, Creatinine 2.50 H, Estimated Creat Clear 32, Estimated GFR 28 L, Est GFR ( Amer) 33 L, Glucose 111 H, Calcium 8.4 I & O for Last 24 hours: Intake & Output 03/20/22 03/21/22 03/22/22 03/23/22 11:59 11:59 11:59 11:59 Intake Total 240 / 240 960 / 960 840 / 840 Output Total 1050 / 1050 2950 / 2950 2475 / 2475 Balance -810 / -810 -1989 / -1989 -1635 / -1635 Weight 374 lb 12.573 oz 373 lb 0.354 oz - Constitutional no acute distress - *Routine Respiratory Exam Present: CTA bilaterally - *Routine Cardiovascular Exam Present: RRR - *Routine Abdominal Exam Present: normoactive bowel sounds, obese. Absent: tenderness - *Routine Extremities Exam Present: edema (Improved) - *Routine Skin Exam Present: erythema (Groin areas: Dry rash on right lower extremity.) - *Routine Neurological Exam Present: alert, oriented X3 Assessment and Plan (1) Debility Status: Acute Category: Medical Code(s): R53.81 - Other malaise (2) Atrial fibrillation with RVR Status: Acute Category: Medical Code(s): I48.91 - Unspecified atrial fibrillation (3) Fall Status: Acute Qualifiers: Encounter type: initial encounter Qualified Code(s): W19.XXXA - Unspecified fall, initial encounter Category: Medical Code(s): W19.XXXA - Unspecified fall, initial encounter (4) ROXANA (acute kidney injury) Status: Acute Category: Medical Code(s): N17.9 - Acute kidney failure, unspecified (5) HTN (hypertension) Status: Acute Category: Medical Code(s): I10 - Essential (primary) hypertension (6) Morbid obesity Status: Acute Category: Medical Code(s): E66.01 - Morbid (severe) obesity due to excess calories (7) Open wound of abdominal wall Status: Acute Category: Medical Code(s): S31.109A - Unspecified open wound of abdominal wall, unspecified quadrant without penetration into peritoneal cavity, initial encounter (8) Cellulitis and abscess of right leg Status: Acute Category: Medical Code(s): L03.115 - Cellulitis of right lower limb; L02.415 - Cutaneous abscess of right lower limb (9) Constipation Status: Acute Category: Medical Code(s): K59.00 - Constipation, unspecified - Assessment and plan all Dx Assessment and Plan for all problems:: Wound care. MiraLAX. Care management has been consulted. <Hilario Argueta - Last Filed: 03/23/22 09:07> Internal Medicine - PN: Subj *Date: 03/23/22 *Time: 09:06 Exam Vital signs and Labs for Last 24 Hours: Temp Pulse Resp BP Pulse Ox 98.5 F 92 H 18 143/101 H 99 03/23/22 04:00 03/23/22 04:00 03/23/22 04:00 03/23/22 04:00 03/23/22 04:00 Laboratory Results - last 24 hr 03/23/22 06:25: WBC 6.0 D, RBC 3.54 L, Hgb 11.0 L, Hct 33.8 L, MCV 95.3 H, MCH 31.1, MCHC 32.6, RDW 13.9, Plt Count 262, MPV 7.9, Neut % (Auto) 70.9, Lymph % (Auto) 19.4, [place] % (Auto) 6.0, Eos % (Auto) 2.4, Baso % (Auto) 1.3, Neut # (Auto) 4.3, Lymph # (Auto) 1.2, [place] # (Auto) 0.4, Eos # (Auto) 0.1, Baso # (Auto) 0.1 03/23/22 06:2
--- NOTE | 2022-03-23 10:18 | SW/DCPLANNER ---
Addendum entered by [facility] 03/25/22 09:53: The plan for this patient is to discharge to [facility] level of care today. COVID swab has been collected and is negative. I have faxed discharge summary and COVID swab to [facility]. I did attempt to contact Jigna: no answer at this time/VM left. Addendum entered by [facility] 03/24/22 11:51: Per Jigna dhillon/ [facility] this patient will require a COVID swab prior to discharge tomorrow. Jigna has asked that all medications be sent to [facility] in [facility] aside from narcotics. I have also informed Aditi w/ EMS that this patient will need transportation tomorrow. Aditi stated a transport truck will be available. Addendum entered by [facility] 03/24/22 08:01: Jigna with [facility] has stated they will purchase CPAP supplies for this patient. Addendum entered by [facility] 03/23/22 15:54: I spoke with Talya at [facility] regarding CPAP machine at home. Talya stated that order was received but due to patient going to LTC facility they could not bill for mask and [facility] would need to cover expense for mask. Talya with [facility] stated that she will call and speak with Jigna from [facility]. I will continue to follow up with: patient, MD, [facility] and [facility]. The reason why mask was not delivered last week at discharge was because patient did not answer [facility] phone call or call them back. Addendum entered by [facility] 03/23/22 15:36: Jigna with [facility] has stated that she can accept this patient on Wednesday. I will update patient regarding situation and MD in the AM. Addendum entered by [facility] 03/23/22 12:57: Updated patient information has been faxed to [facility]. Original Note: I spoke with [facility] this AM: she has stated that she will call me back regarding a bed for this patient after morning rounds. I will follow up with patient once I hear back from [facility]ign[facility].
[2022-03-24] VITALS (8 sets, daily range): BP systolic 118–155; BP diastolic 77–96; PULSE 73–90; RESP 18–21; TEMP 36.4–36.9; O2SAT 94–99; BMI 54.9
--- NOTE | 2022-03-24 03:00 | PC.NURSE ---
No acute events occurred. Patient remains in controlled A-fib on telemetry.
--- NOTE | 2022-03-24 08:38 | HMH.ACPN2 ---
<Shital Mcpherson - Last Filed: 03/24/22 08:38> Internal Medicine - PN: Subj *Date: 03/24/22 *Time: 08:38 Interval history: States he is doing okay this morning. Is already eaten breakfast. He was also up in a chair yesterday via left and tolerated well. He states after he sits up for a while his left hip and knee hurt. He denies chest pain and shortness of breath. Bowels did move x3 yesterday. Wound care being. Exam Vital signs and Labs for Last 24 Hours: Temp Pulse Resp BP Pulse Ox 97.8 F 89 18 141/96 H 99 03/24/22 04:00 03/24/22 04:00 03/24/22 04:00 03/24/22 04:00 03/24/22 04:00 I & O for Last 24 hours: Intake & Output 03/21/22 03/22/22 03/23/22 03/24/22 11:59 11:59 11:59 11:59 Intake Total 240 / 240 960 / 960 1080 / 1080 600 / 600 Output Total 1050 / 1050 2950 / 2950 3300 / 3300 2049 / 2049 Balance -810 / -810 -1990 / -1989 -2220 / -2220 -1450 / -1450 Weight 374 lb 12.573 oz 372 lb 9.299 oz 341 lb 14.991 oz - Constitutional no acute distress - *Routine Respiratory Exam Present: CTA bilaterally - *Routine Cardiovascular Exam Present: irregular rhythm Comments: Monitor shows atrial fibrillation - *Routine Abdominal Exam Present: soft, normoactive bowel sounds. Absent: tenderness - *Routine Extremities Exam Present: edema - *Routine Skin Exam Present: rash (Right lower leg with drying rash. Minimal erythema.) - *Routine Neurological Exam Present: alert, oriented X3 Assessment and Plan (1) Debility Status: Acute Category: Medical Code(s): R53.81 - Other malaise (2) Atrial fibrillation with RVR Status: Acute Category: Medical Code(s): I48.91 - Unspecified atrial fibrillation (3) Fall Status: Acute Qualifiers: Encounter type: initial encounter Qualified Code(s): W19.XXXA - Unspecified fall, initial encounter Category: Medical Code(s): W19.XXXA - Unspecified fall, initial encounter (4) ROXANA (acute kidney injury) Status: Acute Category: Medical Code(s): N17.9 - Acute kidney failure, unspecified (5) HTN (hypertension) Status: Acute Category: Medical Code(s): I10 - Essential (primary) hypertension (6) Morbid obesity Status: Acute Category: Medical Code(s): E66.01 - Morbid (severe) obesity due to excess calories (7) Open wound of abdominal wall Status: Acute Category: Medical Code(s): S31.109A - Unspecified open wound of abdominal wall, unspecified quadrant without penetration into peritoneal cavity, initial encounter (8) Cellulitis and abscess of right leg Status: Acute Category: Medical Code(s): L03.115 - Cellulitis of right lower limb; L02.415 - Cutaneous abscess of right lower limb (9) Constipation Status: Acute Category: Medical Code(s): K59.00 - Constipation, unspecified - Assessment and plan all Dx Assessment and Plan for all problems:: Continue wound care. Out of bed today. Plan is for patient to be discharged tomorrow a.m. to rehab facility. <Hilario Argueta - Last Filed: 03/24/22 08:48> Internal Medicine - PN: Subj *Date: 03/24/22 *Time: 08:47 Exam Vital signs and Labs for Last 24 Hours: Temp Pulse Resp BP Pulse Ox 97.8 F 89 18 141/96 H 99 03/24/22 04:00 03/24/22 04:00 03/24/22 04:00 03/24/22 04:00 03/24/22 04:00 I & O for Last 24 hours: Intake & Output 03/21/22 03/22/22 03/23/22 03/24/22 23:59 23:59 23:59 23:59 Intake Total 720 / 720 1320 / 1320 840 / 840 Output Total 2400 / 3150 2425 / 3700 3875 / 4125 650 / 650 Balance -1680 / -2430 -1105 / -2380 -3035 / -3285 -650 / -650 Weight 374 lb 12.573 oz 372 lb 9.299 oz 341 lb 14.991 oz Assessment and Plan (1) Debility Status: Acute Category: Medical Code(s): R53.81 - Other malaise (2) Atrial fibrillation with RVR Status: Acute Category: Medical Code(s): I48.91 - Unspecified atrial fibrillation (3) Fall Status: Acute Qualifiers: Encounter type: initial encounte
--- NOTE | 2022-03-24 10:04 | HMH.PTEV ---
Physical Therapy Evaluation Rehab PT IP Evaluation Start: 03/24/22 08:49 Freq: ONCE Status: Active Protocol: Document 03/24/22 09:59 CECIL (Rec: 03/24/22 10:04 PHOLAURA [id number]) Subjective/History History History 47 yowm adm to [facility] with a-fib. He lives with his mother and was non-ambulatory prior to adm for ~ past 4 yrs. Subjective Subjective Pt reports feeling some better today, but R hip and knee remain sore after fall at home prior to adm. Rehab PT IP Eval Objective Appearance Patient Behavior Appropriate Patient Orientation Person,Place,Time Difficulty following instructions none Speech Pattern Clear Ambulation Patient Able to Ambulate No Balance Ability to Arise Able, uses arms to help Sitting Balance Steady, safe Dynamic Sitting Balance Ability Fair Transfers Bed Transfer Ability Moderate x 1 (50% assist) Rehab PT IP prob,goals,plan Problems Date of Evaluation: 03/24/22 PT IP Problems Bed Mobility,Transfers,Self care Rehab Potential Rehab Potential Good Plan PT Intervention Plan Bed Mobility,Transfers,Self care PT Plan Frequency BID Duration LOS Discharge Goals Bed Transfer Ability Minimal x 2 (25% assist) Discharge Plan PT Discharge Plan Pt is most appropriate for rehab placement once medically stable. If he does return home he will be at EXTREME risk for further falls, wounds , or debility. G -code Required No Eval Complexity Eval Charge Codes 48720 - High Complexity PHYSICIAN CERTIFICATION: I certify the specified therapy services for Mulugeta Grant are required, authorized, and reviewed every 30 days.
--- NOTE | 2022-03-24 10:10 | HMH.OTEV ---
OT Inpatient Evaluation Rehab OT IP Evaluation Start: 03/24/22 08:49 Freq: ONCE Status: Complete Protocol: Document 03/24/22 10:[address] [facility] (Rec: 03/24/22 10:[address] [facility] [id number]) Rehab OT IP Assessment Subjective History Pt oriented x 3 on arrival. Pt agreeable to engage in therapy evaluations. Pt was seen previously by therapy ( last week) upon first hospital admission. Pt was discharged home with family and had a fall resulting in a re- admission to hospital. Pt was re-admitted on 03/20/22. Prior to being in the hospital pt lived at home with mother and uncle. Pt has been non ambulatory for 6 years and used a wheelchair/rolling chair to get around his home. Pt claims he was able to complete sliding transfers independently. Pt also reports he was able to complete all ADLs and IADLs in his home independently. Subjective I had a fall as soon as I got home. Pt resting in bed. Pt polite and cooperative. Pt completed bed mobility and went from supine to sitting at eob with mod assist. Pt was able to sit at eob with good static sitting balance for ~3 minutes with cga. Pt then required mod assist to go from sitting to supine. Pt was left with call blanco and all other needs in reach. Objective Patient Orientation Person,Place,Birthday Upper Extremity Gross ROM WFL Bed Mobility bed mobility-scooting,bed mobility - supine/sit,bed mobility - rolling Assist Level Moderate x 2 (50% assist) Rehab OT IP prob,goals,plan Problems Date of Evaluation: 03/24/22 OT IP Problems Bed Mobility,Transfers,Balance ,Self care,Safety Rehab Potential Rehab Potential Good Equipment Needs Assistive Devices
--- NOTE | 2022-03-24 14:07 | PC.NURSE ---
Pt is alert and oriented x4. He's utilized a urinal with assist x1. Dressing to RLE changed this morning. Leg cleansed with hibiclens and covered with kerlix. Nystatin applied to excoriation in skin folds. He's been Sinus arrhythmia on telemetry. No complaints voiced as of yet. Bed locked and in the the lowest position, call light within reach.
[2022-03-24 18:40] LABS: Coronavirus 19, PCR Not Detected (NotDetected); Influenza A, PCR Not Detected (NotDetected); Influenza B, PCR Not Detected (NotDetected)
[2022-03-25] VITALS: BP 153/97; PULSE 70; PULSE 72; RESP 22; TEMP 37.3; O2SAT 100
[2022-03-25 02:00] VITALS: RESP 20; RESP 21
[2022-03-25 04:00] VITALS: BP 130/91; PULSE 75; PULSE 80; RESP 26; TEMP 37.2; O2SAT 99
--- NOTE | 2022-03-25 04:22 | PC.NURSE ---
Patient is alert and oriented x4, was placed on bipap and tolerating well. Patient received a bedbath, nystatin applied cream applied excoriation in folds, right lower leg cleansed with hibiclens and wrapped in kerlex. No c/o of pain, call light in reach and working appropriately.
[2022-03-25 04:33] VITALS: BMI 58.8
[2022-03-25 06:00] VITALS: RESP 20; RESP 22
--- NOTE | 2022-03-25 07:43 | HMH.ACPN2 ---
<Shital Mcpherson - Last Filed: 03/25/22 07:43> Internal Medicine - PN: Subj *Date: 03/25/22 *Time: 07:43 Interval history: Patient slept and had a good night. He denies shortness of breath. He continues to use BiPAP at night. He is eating without difficulty. He continues with the right hip and leg pain at times. Exam Vital signs and Labs for Last 24 Hours: Temp Pulse Resp BP Pulse Ox 98.9 F 75 26 H 130/91 H 99 03/25/22 04:00 03/25/22 04:00 03/25/22 04:00 03/25/22 04:00 03/25/22 04:00 Laboratory Results - last 24 hr 03/24/22 18:29: SARS-CoV-2 (PCR) Not detected, Influenza A Untype (PCR) Not detected, Influenza Type B (PCR) Not detected I & O for Last 24 hours: Intake & Output 03/22/22 03/23/22 03/24/22 03/25/22 11:59 11:59 11:59 11:59 Intake Total 960 / 960 1080 / 1080 840 / 840 640 / 640 Output Total 2950 / 2950 3300 / 3300 2500 / 2500 2600 / 2600 Balance -1989 / -1989 -2219 / -2219 -1659 / -1659 -1959 / -1959 Weight 372 lb 9.299 oz 341 lb 14.991 oz 365 lb 11.95 oz - Constitutional no acute distress, morbidly obese - *Routine Respiratory Exam Present: CTA bilaterally - *Routine Cardiovascular Exam Present: irregular rhythm (Remains in atrial fibrillation with a controlled ventricular response) - *Routine Abdominal Exam Present: soft, normoactive bowel sounds, obese. Absent: tenderness - *Routine Extremities Exam Present: edema (Bilateral lower extremities much improved). Absent: calf tenderness - *Routine Skin Exam Present: erythema (Abdominal folds. Area is dry.), rash (Right lower leg; minimal erythema and dry scales.) - *Routine Neurological Exam Present: alert, oriented X3 Assessment and Plan (1) Debility Status: Acute Category: Medical Code(s): R53.81 - Other malaise (2) Atrial fibrillation with RVR Status: Acute Category: Medical Code(s): I48.91 - Unspecified atrial fibrillation (3) Fall Status: Acute Qualifiers: Encounter type: initial encounter Qualified Code(s): W19.XXXA - Unspecified fall, initial encounter Category: Medical Code(s): W19.XXXA - Unspecified fall, initial encounter (4) ROXANA (acute kidney injury) Status: Acute Category: Medical Code(s): N17.9 - Acute kidney failure, unspecified (5) HTN (hypertension) Status: Acute Category: Medical Code(s): I10 - Essential (primary) hypertension (6) Morbid obesity Status: Acute Category: Medical Code(s): E66.01 - Morbid (severe) obesity due to excess calories (7) Open wound of abdominal wall Status: Acute Category: Medical Code(s): S31.109A - Unspecified open wound of abdominal wall, unspecified quadrant without penetration into peritoneal cavity, initial encounter (8) Cellulitis and abscess of right leg Status: Acute Category: Medical Code(s): L03.115 - Cellulitis of right lower limb; L02.415 - Cutaneous abscess of right lower limb (9) Constipation Status: Acute Category: Medical Code(s): K59.00 - Constipation, unspecified - Assessment and plan all Dx Assessment and Plan for all problems:: Patient to be discharged to care home facility today for ongoing rehab. See discharge summary. <Hilario Argueta - Last Filed: 03/25/22 09:19> Internal Medicine - PN: Subj *Date: 03/25/22 *Time: 09:18 Exam Vital signs and Labs for Last 24 Hours: Temp Pulse Resp BP Pulse Ox 98.9 F 75 26 H 130/91 H 99 03/25/22 04:00 03/25/22 04:00 03/25/22 04:00 03/25/22 04:00 03/25/22 04:00 Laboratory Results - last 24 hr 03/24/22 18:29: SARS-CoV-2 (PCR) Not detected, Influenza A Untype (PCR) Not detected, Influenza Type B (PCR) Not detected I & O for Last 24 hours: Intake & Output 03/22/22 03/23/22 03/24/22 03/25/22 23:59 23:59 23:59 23:59 Intake Total 1320 / 1320 840 / 840 880 / 880 Output Total 2425 / 3700 3875 / 4125 2900 / 3200 800 / 800 Balance -1105 / -2380 -3035 / -3285 -2019 / -232 -800 / -800 Weight 372
--- NOTE | 2022-03-25 07:48 | HMH.DCSUM ---
General - General Admission date:: 03/20/22 <Hilario Argueta - 03/25/22 09:25> 03/20/22 <Shital Mcpherson - 03/25/22 08:16> Discharge date: 03/25/22 <Shital Mcpherson - 03/25/22 08:16> HPI HPI: Patient is a 47 year old male who was discharged from [facility] yesterday after being hospitalized for over a week with cellulitis of right leg, Morbid obesity and A. fib with RVR. He was brought to [facility] ER yesterday afternoon after falling at home. He had been home from the hospital for about 3 hours when he was trying to transfer from a chair to his couch. He was unable to complete the transfer and fell to the floor. His mother was unable to help him up so she called 911 for assistance. Patient reports having right hip pain after falling and had movement in all extremities. Prior to patient's hospital discharge yesterday he was offered shelter rehab and a facility had agreed to accept him but he refused the service. He now says he is reconsidering that decision and wants to discuss placement options with care management. <Shital Mcpherson - 03/25/22 08:16> Hospital Course Hospital Course: On admission patient had multiple imaging procedures which were all negative for fracture.See reports. Blood pressure and heart rate were elevated. He remained in atrial fibrillation. Diltiazem was increased. Patient did complain of some hip soreness. He continued to use his BiPAP at night and denied shortness of breath and chest pain. His bowels did eventually move. He was voiding QS. He was up in a chair using the lift machine. Laboratory data remained stable. Care management worked with patient on admission for placement at his request. On 03/25/2022 bed was obtained at [facility]. On this date he was stable for discharge. Patient will need the following ongoing care: 1 BiPAP at night. 2 oxygen as needed 3 wound care to right lower extremity?wash with Hibiclens daily and apply lotion for dry skin. 4 wound care for erythema of abdominal skin folds.?To wash with Hibiclens daily and use nystatin cream twice daily until redness resolved. 5 up in a chair daily--will need to use a lift. 6 PT and OT for muscle strengthening of arms and legs (especially in arms since he does mostly transfers at home). He has not walked in years. He states he cannot bear weight. Patient has lost weight during his 2 admissions. He will need to be on a regular controlled diet for ongoing weight loss. Medications as per medication reconciliation list. He will be followed by physician at [facility]. Please also refer to previous discharge summary from admission 03/07 to 03/20/2022. <Shital Mcpherson - 03/25/22 08:19> Objective Vital signs: Temp Pulse Resp BP Pulse Ox 98.9 F 75 26 H 130/91 H 99 03/25/22 04:00 03/25/22 04:00 03/25/22 04:00 03/25/22 04:00 03/25/22 04:00 <Hilario Argueta - 03/25/22 09:25> Temp Pulse Resp BP Pulse Ox 98.9 F 75 26 H 130/91 H 99 03/25/22 04:00 03/25/22 04:00 03/25/22 04:00 03/25/22 04:00 03/25/22 04:00 <Sihtal Mcpherson - 03/25/22 08:16> Narrative: Exam Vital signs and Labs for Last 24 Hours: Temp Pulse Resp BP Pulse Ox 98.9 F 75 26 H 130/91 H 99 03/25/22 04:00 03/25/22 04:00 03/25/22 04:00 03/25/22 04:00 03/25/22 04:00 Laboratory Results - last 24 hr 03/24/22 18:29: SARS-CoV-2 (PCR) Not detected, Influenza A Untype (PCR) Not detected, Influenza Type B (PCR) Not detected I & O for Last 24 hours: Intake & Output 03/22/22 03/23/22 03/24/22 03/25/22 11:59 11:59 11:59 11:59 Intake Total 960 / 960 1080 / 1080 840 / 840 640 / 640 Output Total 2950 / 2950 3300 / 3300 2500 / 2500 2600 / 2600 Balance -1989 / -1989 -2219 / -2219 -1659 / -1659 -1959 / -1959 Weight 372 lb 9.299 oz 341 lb 14.991 oz 365 lb 11.95 oz - Constitutional no acute distress, morbidly obese - *Routine Respiratory Exam Present: CTA bilaterally - *Routine Cardiovascular
[2022-03-25 08:00] VITALS: BP 147/94; PULSE 83; PULSE 84; RESP 20; TEMP 36.7; O2SAT 97
--- NOTE | 2022-03-26 15:56 | CARE MANAGER ---
Contacted Bj Trotter related to patient's follow up from hospital discharge. Shalonda states he has settled in well and denies any questions or concerns at this time.
== END 2022-03-25 11:55 ==
LOC: ER 21:40 → 2ND 22:06
PROVIDERS: Admitting Provider Family Medicine; Emergency Provider Emergency Medicine; Visit Provider Family Medicine
DX: L02.415 Cutaneous abscess of right lower limb (principal); L03.115 Cellulitis of right lower limb; I48.91 Unspecified atrial fibrillation; Z20.822 Contact with and (suspected) exposure to COVID-19; I10 Essential (primary) hypertension; E78.5 Hyperlipidemia, unspecified; E66.01 Morbid (severe) obesity due to excess calories; Z68.43 Body mass index [BMI] 50.0-59.9, adult; N17.9 Acute kidney failure, unspecified; K59.00 Constipation, unspecified; L53.8 Other specified erythematous conditions; W07.XXXA Fall from chair, initial encounter; Y92.019 Unspecified place in single-family (private) house as the place of occurrence of the external cause
CPT/HCPCS: 36415; 70450; 71045; 72125; 72192; 80048; 80053; 84484; 85007; 85025; 85610; 93005; 94660; 96375; 97110; 97163; 97166; 99285; C9803; G0378; U0003; U0005

== ENCOUNTER → 2022-06-02 10:15 | Outpatient (CLI) | payer OTHER, SELFPAY ==
--- NOTE | 2022-06-02 | CA_ITS ---
APPROVED REPORT Exam: Pharmacologic Technologist: Sweta Pyle, Ht: 5 ft 6 in Wt: 330 lbs BSA: 2.47 m2 HR: 67 bpm BP: 152/87 mmHg Rhythm: AFIB, LOW VOLTAGE QRS, POOR R WAVE PROGRESSION Medical History Medical History: HTN Medications: Irbesartan,,,,, Acetaminophen,,,,, DilTiazem,,,,, RIvaROXABAN,,,,, NYstatin,,,,, PolyethYLENE GLYCOL,,,,, Allergies: No known drug allergies Cardiac Risk Factors: HTN, Smoking Stress Test Details Test: LEXISCAN HR Resting HR: 64 bpm Max Heart Rate (APMHR): 171.792762 bpm Max HR Achieved: 97 bpm Target HR (85% APMHR): 145.249653 bpm % of APMHR: 56.73 Recovery HR: 74 bpm BP Resting BP: 152/87 mmHg Max BP: 152/87 mmHg ECG Resting ECG: AFIB, LOW VOLTAGE QRS, POOR R WAVE PROGRESSION Clinical Exercise duration: 04:00 min Highest Stage Achieved: Stress ECG Conclusion PT HAD MILD STOMACH DISCOMFORT. NO CP. AFIB THROUGHOUT. NO SIGNIFICANT CHANGES. UNREMARKABLE LEXISCAN STRESS. MYOVIEW IMAGES REPORTED SEPARATELY. Test Summary . . . . . Stop exercise at 04:00 . . . . Electronically signed by : Jairo Rodríguez MD 06/02/2022 20:06:52
--- NOTE | 2022-06-02 10:19 | CA_ITS ---
APPROVED REPORT EXAM: Comprehensive 2D, Doppler, and color-flow Echocardiogram Women'S Soccer Coach: Carmela Scott RDCS Ht: 5 ft 6 in Wt: 335lbs BSA: 2.49 BP: 150/97 mmHg Indications: SOA,EDEMA,MORBID OBESITY,EDEMA THIS IS AN EXTREMELY LIMITED EXAM SECONDARY TO HIS OBESITY WITH LIMITED IMAGES M-Mode Dimensions RVDd 2.18 cm (0.9-2.6) LA Diam 3.15 cm (1.9-4.0) LVDd 3.87 cm (3.5-5.7) Ao Diam 3.91 cm (2.0-3.7) LVDs 2.50 cm (3.5-5.7) IVSd 2.18 cm (0.6-1.1) PWd 1.09 cm (0.6-1.1) EF (Teich) 65.50% FS 35.40% EDV (Teich) 64.70 mL ESV (Teich) 22.30 mL Conclusion Technically difficult echocardiogram due to patient factors and poor acoustic windows, valvular structures endocardium is poorly visualized. Largely preserved left ventricular systolic function, estimated ejection fraction 55%. No significant pericardial effusion noted. Electronically signed by : Jairo Rodríguez MD 06/02/2022 19:10:47
--- NOTE | 2022-06-02 10:51 | NM_ITS ---
APPROVED REPORT Exam: Nuclear Stress Test Indication: chest pain,,short of breath Patient Location: Outpatient Stress Tech: Sweta Pyle [facility] Tech:Charity Barrera, ARRT, RT (R)(N) Ht: 5 ft 6 in Wt: 335 lbs HR: 64 bpm BP: 152/87 mmHg BSA: 2.49 m2 TID: 1.51 BMI: 54.0 History: chest pain,,short of breath Procedure: Patient received a 0.4 mg of intravenous Lexiscan, resting heart rate 64 bpm, resting blood pressure 152/87 mmHg, with Lexiscan maximum heart rate achived was 97 bpm which is Less than 85 % of the maximum predicted heart rate and blood pressure was 152/87 mmHg. pt was unable to lay on his belly for prone images. Electrocardiogram Resting electrocardiogram shows atrial fibrillation with Lexiscan there is less than 1.[address] segment depression from the baseline EKG. The EKG portion of the Lexiscan is nondiagnostic. Cardiac Stress and Resting SPECT Images: Cardiac Stress and Resting SPECT images were obtained using technetium 99m Myoview 30.9 mCi stress and 10.90 mCi at rest. Gated SPECT analysis of segmental wall motion and calculation of the ejection fraction also done. Cardiac stress and rest SPECT images show uniform myocardial activity without segmental perfusion abnormality, however there is transient ischemic dilatation of the left ventricle seen. Computer derived ejection fraction is 52% with no regional wall motion abnormality, right ventricle is normal size and contractility. Conclusion: 1. The EKG portion of the Lexiscan is nondiagnostic. 2. No scintigraphic evidence of reversible ischemia seen, there is transient ischemic dilatation of the left ventricle seen, raising the concerns for balanced ischemia or multivessel coronary artery disease, computer derived ejection fraction 52% with no regional wall motion abnormality, right ventricle is normal size and contractility. 3. Abnormal Lexiscan Myoview study. Electronically signed by : Jairo Rodríguez MD 06/02/2022 20:11:05
--- NOTE | 2022-06-02 13:29 | HMH.ITSHM ---
Current Home Medications as stated by this patient Mulugeta Grant or telephone services sales representative. []RIVAROXABAN MIRALAX IRBESARTAN DILTIAZEM NYSTATIN ACETAMINOPHEN
== END ==
PROVIDERS: PCP Family Medicine; Visit Provider Nurse Practitioner
DX: R06.00 Dyspnea, unspecified (principal); R07.89 Other chest pain; R42 Dizziness and giddiness; I48.20 Chronic atrial fibrillation, unspecified; I10 Essential (primary) hypertension; E66.01 Morbid (severe) obesity due to excess calories; R94.31 Abnormal electrocardiogram [ECG] [EKG]
CPT/HCPCS: 78452; 93017; 93306; A9502; J2785

== ENCOUNTER → 2022-06-15 16:18 | Outpatient (CLI) | payer OTHER, SELFPAY ==
[2022-06-15 17:05] LABS: Basophils # 0.1 K/mm3 (0-0.2); Basophils % 0.8 % (0.1-2.0); Eosinophils # 0.2 K/mm3 (0.0-0.4); Eosinophils % 2.2 % (0.1-12.0); Hematocrit 37.7 % (42.0-52.0); Hemoglobin 12.6 g/dL (14.1-18.0); Lymphocytes # 1.6 K/mm3 (0.7-4.5); Lymphocytes % 20.9 % (10-50); Mean Corpuscular HGB Conc 33.3 g/dL (31.8-35.4); Mean Corpuscular Hemoglobin 30.5 pg (27.0-31.2); Mean Corpuscular Volume 91.8 fl (80-94); Mean Platelet Volume 7.1 fl (7.4-10.4); Monocytes # 0.4 K/mm3 (0.1-1.0); Monocytes % 5.3 % (1.7-9.3); Neutrophils # 5.3 K/mm3 (1.8-7.8); Neutrophils % 70.8 % (37.0-80.0); Platelet Count 310 K/mm3 (142-424); Red Blood Count 4.11 M/mm3 (4.60-6.20); Red Cell Distribution Width 13.4 % (11.5-17.5); White Blood Count 7.5 K/mm3 (4.8-10.8)
[2022-06-15 17:33] LABS: Anion Gap 10.4 mEq/L (5-15); Blood Urea Nitrogen 19 mg/dl (9-20); Calcium 8.7 mg/dl (8.4-10.2); Carbon Dioxide 27 mmol/L (22.0-30.0); Chloride 110 mmol/L (98-107); Estimated Glomerular Filt Rate 64 ml/min (>60); GFR (African American) 78 ML/MIN (>60); Glucose 109 mg/dl (74-100); Potassium 4.4 mmoL/L (3.5-5.1); Sodium 143 mmol/L (136-145)
== END ==
PROVIDERS: PCP Family Medicine; Visit Provider Nurse Practitioner Family
DX: U07.1 COVID-19 (principal); R06.00 Dyspnea, unspecified; I20.9 Angina pectoris, unspecified; R94.39 Abnormal result of other cardiovascular function study
CPT/HCPCS: 36415; 80048; 85025; C9803; U0003; U0005

== ENCOUNTER 2022-06-16 08:50 | Day surgery (SDC) | payer OTHER, SELFPAY ==
[2022-06-16] VITALS (12 sets, daily range): BP systolic 126–156; BP diastolic 73–102; PULSE 48–91; RESP 15–18; O2SAT 94–98; BMI 54.1
--- NOTE | 2022-06-16 07:14 | IR_ITS ---
APPROVED REPORT Patient Location: Out[facility] Cashier: LEONARD Ren RT (R) PROCEDURES Left heart catheterization Left ventriculogram Selective coronary angiogram INDICATION Angina pectoris, Abnormal Myoview Informed consent was obtained prior to the procedure. COMPLICATIONS None Estimated Blood Loss: Less than 10 mls TECHNIQUE One percent lidocaine used to anesthetize the right anterior aspect of the wrist. The right radial artery was accessed via the Seldinger technique. A 6 Malay sheath was placed in the right radial artery. 2.5 mg of verapamil, 800 mcg of nitroglycerin, 1mg Lidocaine and 5000 U Heparin were given through the arterial sheath. The papa catheter was also used to perform left heart catheterization, left ventriculogram and selective coronary angiogram. At the end of the procedure the sheath was removed good hemostasis was achieved using Traclet band, patient was transferred to the postop holding area in stable condition. ANGIOGRAPHIC RESULTS The left main artery Normal The left anterior descending artery Mild proximal mid vessel 10% luminal irregularities The circumflex artery Codominant with mild 10% diffuse luminal regularities The right coronary artery Codominant with mild diffuse 10% luminal regularities The BANDA ventriculogram reveals Preserved at 60% The left ventricular end-diastolic pressure Severely elevated at 30 mmHg IMPRESSION Mild nonflow limiting coronary disease Evidence of severe diastolic dysfunction PLAN 1. Risk factor modification 2. Medical management 3. Treatment of diastolic dysfunction Electronically signed by : Sabas Jackson MD 06/18/2022 12:24:59
== END 2022-06-16 14:09 | disposition home or self-care (01) ==
LOC: CATHLAB 08:52
PROVIDERS: PCP Family Medicine; Visit Provider Internal Medicine
DX: I25.118 Atherosclerotic heart disease of native coronary artery with other forms of angina pectoris (principal); I48.20 Chronic atrial fibrillation, unspecified; I10 Essential (primary) hypertension; Z79.899 Other long term (current) drug therapy
CPT/HCPCS: 93458; 99152; C1725; C1760; C1769; J1644; Q9967

== ENCOUNTER → 2022-06-23 09:08 | Outpatient (CLI) | payer OTHER, SELFPAY ==
[2022-06-23 10:03] LABS: Basophils # 0.2 K/mm3 (0-0.2); Basophils % 1.2 % (0.1-2.0); Eosinophils # 0.1 K/mm3 (0.0-0.4); Eosinophils % 0.9 % (0.1-12.0); Hematocrit 45.3 % (42.0-52.0); Hemoglobin 14.4 g/dL (14.1-18.0); Lymphocytes # 2.3 K/mm3 (0.7-4.5); Lymphocytes % 18.6 % (10-50); Mean Corpuscular HGB Conc 31.7 g/dL (31.8-35.4); Mean Corpuscular Hemoglobin 30.8 pg (27.0-31.2); Mean Corpuscular Volume 97.1 fl (80-94); Mean Platelet Volume 7.4 fl (7.4-10.4); Monocytes # 0.9 K/mm3 (0.1-1.0); Monocytes % 7.1 % (1.7-9.3); Neutrophils % 72.2 % (37.0-80.0); Platelet Count 401 K/mm3 (142-424); Red Blood Count 4.66 M/mm3 (4.60-6.20); White Blood Count 12.5 K/mm3 (4.8-10.8)
[2022-06-23 10:32] LABS: Alanine Aminotransferase 28 U/L (12-78); Albumin Level 4.1 g/dl (3.5-5.0); Alkaline Phosphatase 104 U/L (38-126); Anion Gap 15.5 mEq/L (5-15); Aspartate Amino Transferase 29 U/L (17-59); Bilirubin,Direct 0.7 mg/dl (0.0-0.4); Bilirubin,Indirect 1.8 mg/dL (0.0-0.9); Bilirubin,Total 2.5 mg/dl (0.2-1.3); Bilirubin,Unconjugated 1.9 mg/dL (0.0-1.1); Blood Urea Nitrogen 26 mg/dl (9-20); Calcium 9.5 mg/dl (8.4-10.2); Carbon Dioxide 25 mmol/L (22.0-30.0); Chloride 103 mmol/L (98-107); Chol/HDL Ratio 5.7 (1-3.5); Cholesterol 234 mg/dl (140-200); Estimated Glomerular Filt Rate 46 ml/min (>60); GFR (African American) 56 ML/MIN (>60); Glucose 151 mg/dl (74-100); HDL Cholesterol 41 mg/dl (40-60); Magnesium 1.8 mg/dl (1.6-2.3); Potassium 4.5 mmoL/L (3.5-5.1); Sodium 139 mmol/L (136-145); Total Protein,Serum 8.6 g/dl (6.3-8.2); Triglycerides 154 mg/dl (30-150); VLDL Cholesterol 31 mg/dL (0-40)
[2022-06-23 10:43] LABS: Direct LDL Cholesterol 129.47 mg/dL (100-129)
== END ==
PROVIDERS: PCP Family Medicine; Visit Provider Nurse Practitioner
DX: I10 Essential (primary) hypertension (principal); E78.5 Hyperlipidemia, unspecified
CPT/HCPCS: 36415; 80048; 80061; 80076; 83735; 85025

== ENCOUNTER → 2022-09-15 11:13 | Outpatient (CLI) | payer OTHER, SELFPAY ==
--- NOTE | 2022-09-15 11:19 | US_ITS ---
FINAL REPORT CLINICAL HISTORY: discoloration of BLE,HTN,HLD,OBESITY,BLE PAIN, FINDINGS: COMPLETE ANKLE/BRACHIAL INDICES BILATERAL Complete ankle brachial indices were obtained. The right RICHY is 1.0. The left RICHY is 1.0. IMPRESSION: Normal ABIs bilaterally. Reviewed, Interpreted and Dictated by Parminder Arrieta III, MD Transcribed by Shital Null Authenticated and [facility]
== END ==
PROVIDERS: PCP Family Medicine; Visit Provider Nurse Practitioner
DX: L81.9 Disorder of pigmentation, unspecified (principal); I73.9 Peripheral vascular disease, unspecified; I10 Essential (primary) hypertension; E66.01 Morbid (severe) obesity due to excess calories; M79.604 Pain in right leg; M79.605 Pain in left leg
CPT/HCPCS: 93923

== ENCOUNTER → 2022-10-23 11:36 | Outpatient (CLI) | payer OTHER, SELFPAY ==
[2022-10-23 13:37] LABS: Anion Gap 14.2 mEq/L (5-15); Blood Urea Nitrogen 23 mg/dl (9-20); Calcium 9.4 mg/dl (8.4-10.2); Carbon Dioxide 29 mmol/L (22.0-30.0); Chloride 100 mmol/L (98-107); Estimated Glomerular Filt Rate 54 ml/min (>60); GFR (African American) 65 ML/MIN (>60); Glucose 172 mg/dl (74-100); Potassium 4.2 mmoL/L (3.5-5.1); Sodium 139 mmol/L (136-145)
== END ==
PROVIDERS: PCP Family Medicine; Visit Provider Physician Assistant
DX: R06.00 Dyspnea, unspecified (principal); I10 Essential (primary) hypertension; I25.10 Atherosclerotic heart disease of native coronary artery without angina pectoris; I48.20 Chronic atrial fibrillation, unspecified; R94.31 Abnormal electrocardiogram [ECG] [EKG]
CPT/HCPCS: 36415; 80048

== ENCOUNTER → 2022-10-27 11:03 | Outpatient (CLI) | payer OTHER, SELFPAY ==
[2022-10-27 11:12] LABS: Microscopic, Urine URINE MICROSCOPIC (MICROSCOPIC)
[2022-10-27 11:34] LABS: Appearance,Urine CLEAR (Clear); Bilirubin,Urine Negative (Negative); Blood, Urine 2+ (Negative); Color,Urine YELLOW (Yellow); Glucose,Urine (UA) Negative (Negative); Ketones,Urine Negative (Negative); Leukocyte Esterase,Urine 2+ (Negative); Nitrate,Urine POSITIVE (Negative); PH,Urine 6.5 (5.0-8.5); Protein,Urine Negative (Negative)
[2022-10-27 11:47] LABS: Basophils # 0.1 K/mm3 (0-0.2); Basophils % 1.3 % (0.1-2.0); Eosinophils # 0.3 K/mm3 (0.0-0.4); Eosinophils % 3.1 % (0.1-12.0); Hemoglobin 14.9 g/dL (14.1-18.0); Lymphocytes % 20.7 % (10-50); Mean Corpuscular HGB Conc 32.4 g/dL (31.8-35.4); Mean Corpuscular Hemoglobin 31.7 pg (27.0-31.2); Mean Corpuscular Volume 97.8 fl (80-94); Mean Platelet Volume 7.4 fl (7.4-10.4); Monocytes # 0.5 K/mm3 (0.1-1.0); Monocytes % 4.8 % (1.7-9.3); Neutrophils # 6.9 K/mm3 (1.8-7.8); Neutrophils % 70.2 % (37.0-80.0); Platelet Count 308 K/mm3 (142-424); Red Cell Distribution Width 13.4 % (11.5-17.5); White Blood Count 9.8 K/mm3 (4.8-10.8)
[2022-10-27 11:55] LABS: Creatinine,Urine Random 184 mg/dL (Not Estab.)
[2022-10-27 12:06] LABS: Bacteria,Urine 4+ /lpf; Squamous Epithelial Cell,Urine Occasional #/hpf (0-5); WBC,Urine TNTC #/hpf (0-3)
[2022-10-27 12:33] LABS: Anion Gap 13.4 mEq/L (5-15); Blood Urea Nitrogen 27 mg/dl (9-20); Calcium 9.5 mg/dl (8.4-10.2); Carbon Dioxide 29 mmol/L (22.0-30.0); Chloride 102 mmol/L (98-107); Estimated Glomerular Filt Rate 50 ml/min (>60); GFR (African American) 60 ML/MIN (>60); Glucose 168 mg/dl (74-100); Phosphorous 3.7 mg/dl (2.5-4.5); Potassium 4.4 mmoL/L (3.5-5.1); Sodium 140 mmol/L (136-145)
[2022-10-27 12:51] LABS: 25-OH Vitamin D, Total < 12.8 ng/mL (30-100)
== END ==
PROVIDERS: PCP Family Medicine; Visit Provider Internal Medicine Nephrology
DX: N28.9 Disorder of kidney and ureter, unspecified (principal); E55.9 Vitamin D deficiency, unspecified
CPT/HCPCS: 36415; 80069; 81001; 82306; 82570; 83970; 84155; 85025; 87086; 87088; 87186

== ENCOUNTER → 2022-11-02 15:09 | Outpatient (POV) | payer OTHER, SELFPAY | PROVIDERS: Visit Provider Internal Medicine Nephrology | DX: Z00.00 Encounter for general adult medical examination without abnormal findings (principal) ==

== ENCOUNTER 2022-12-18 10:43 | Emergency (ER) | payer OTHER, SELFPAY ==
[2022-12-18 10:43] VITALS: BP 121/84; PULSE 78; RESP 20; TEMP 37.1; O2SAT 97; BMI 56.5
[2022-12-18 11:00] VITALS: BP 143/65; PULSE 86; RESP 20; TEMP 36.6; O2SAT 98; BMI 56.5
--- NOTE | 2022-12-18 11:12 | EXP.UTC ---
Discharge Plan Disposition Patient Disposition: Home, Self-Care Condition: Good Prescriptions Prescriptions: New prednisone [prednisone] 20 mg tablet 20 mg PO BID 5 Days Qty: 10 0RF albuterol sulfate [Ventolin HFA] 90 mcg/actuation HFA aerosol inhaler 2 puffs inhalation QIDP PRN (Reason: Wheezing) 30 Days Qty: 1 0RF amoxicillin-pot clavulanate 875-125 mg Tablet 1 tab PO Q12H Qty: 20 0RF No Action rivaroxaban 15 mg tablet 15 mg PO QPMWITHMEAL Qty: 30 3RF acetaminophen 325 MG tablet 650 mg PO Q6HP PRN (Reason: Fever Or Mild Pain) 0RF polyethylene glycol 3350 17 GM powder in packet 17 gm PO DAILYP PRN (Reason: Constipation) 0RF nystatin 30 GM cream 0 gm TP BID 0RF probenecid-colchicine 500-0.5 mg tablet 1 tab PO DAILY Label Comments: TAKE ONE TABLET BY MOUTH EVERY DAY diltiazem HCl 180 mg capsule,extended release 24hr See Rx Instructions .ROUTE .COMPLEX Rx Instructions: TAKE TWO CAPSULES BY MOUTH EVERY DAY bumetanide 1 mg tablet 1 mg PO DAILY irbesartan 150 mg tablet 150 mg PO DAILY Referrals Follow up/Referrals: Hilario Argueta MD [Primary Care Provider] - See instructions Activity Restrictions/Add. Instructions Additional Instructions/Restrictions: Your COVID test is pending. Please act as if this is positive and isolate yourself until proven otherwise. Clinical Impressions Clinical Impression: Sinusitis Instructions Patient Instructions: DI for Sinusitis Discharge ED Provider: Shellie Keller [facility] [place] General Stated complaint: SOA Chest congestion drainage weakness headache Mode of Arrival: Ambulatory Source of Information: Patient Limitations: No Limitations Time Seen by Provider: 12/18/22 11:13 Description of Symptoms (Recalled from Triage Doc. by RN): feels like cannot take a full breath, cough, MARQUIS, and loss of taste. HEENT Symptoms (Recalled from RN notes): Yes Resp Symptoms (Recalled from RN notes): No Skin Symptoms (Recalled from RN notes): No MS Symptoms (Recalled from RN notes): No Functional Status (Recalled from RN notes): n/a History of Present Illness Provider Complaint: Cough, chest congestion, sore throat, headache X 3-4 days. Has had mild congestion and cough for 3 weeks prior. Has multiple medical comorbidities including CAD and HTN. Onset (ago): day(s) (4) Location: chest Relieving factors: none Exacerbating factors: none Associated symptoms: shortness of breath Treatments prior to arrival: none Related Data Home Medications Medication Instructions Recorded Confirmed bumetanide 1 mg tablet 1 mg PO DAILY . 12/18/22 12/18/22 diltiazem HCl 180 mg See Rx Instructions .Route 12/18/22 12/18/22 capsule,extended release 24 hr .COMPLEX . irbesartan 150 mg tablet 150 mg PO DAILY . 12/18/22 12/18/22 probenecid 500 mg-colchicine 0.5 1 tab PO DAILY . 12/18/22 12/18/22 mg tablet Previous Rx's Medication Instructions Recorded acetaminophen 325 mg tablet 650 mg PO Q6HP PRN Fever Or Mild 03/25/22 Pain nystatin 100,000 unit/gram topical 0 gm topical BID 03/25/22 cream polyethylene glycol 3350 17 gram 17 gm PO DAILYP PRN Constipation 03/25/22 oral powder packet rivaroxaban 15 mg tablet 15 mg PO QPMWITHMEAL BLOOD THINNER 06/23/22 FOR AFIB #30 tabs albuterol sulfate 90 mcg/actuation 2 puffs inhalation QIDP PRN 12/18/22 aerosol inhaler (Ventolin HFA) Wheezing 30 days #1 ea amoxicillin 875 mg-potassium 1 tab PO Q12H #20 tabs 12/18/22 clavulanate 125 mg tablet prednisone 20 mg tablet 20 mg PO BID 5 days #10 tabs 12/18/22 Allergies Allergy/AdvReac Type Severity Reaction Status Date / Time lasix Allergy Intermediate Rash Uncoded 12/18/22 11:09 Worker's Comp Is this a Worker's Comp case?: No [facility] Disclaimer: The information contained in this section may have been updated after the patient was seen, as this information can be updated by other users. Medical History (Review
[2022-12-18 11:15] LABS: UTC Influenza A Antigen Negative (Negative); UTC Influenza B Antigen Negative (Negative)
[2022-12-18 11:31] VITALS: BP 143/65; PULSE 86; RESP 20; TEMP 36.6; O2SAT 98
== END 2022-12-18 11:31 | disposition home or self-care (01) ==
PROVIDERS: Emergency Provider Physician Assistant; PCP Family Medicine
DX: U07.1 COVID-19 (principal); J32.9 Chronic sinusitis, unspecified; R06.02 Shortness of breath; R09.89 Other specified symptoms and signs involving the circulatory and respiratory systems; R53.1 Weakness; R51.9 Headache, unspecified
CPT/HCPCS: 87804; C9803; U0003; U0005

== ENCOUNTER → 2023-02-22 10:21 | Outpatient (CLI) | payer OTHER, SELFPAY ==
[2023-02-22 10:27] LABS: Microscopic, Urine URINE MICROSCOPIC (MICROSCOPIC)
[2023-02-22 11:11] LABS: Appearance,Urine CLOUDY (Clear); Bilirubin,Urine Negative (Negative); Blood, Urine 2+ (Negative); Color,Urine YELLOW (Yellow); Glucose,Urine (UA) Negative (Negative); Ketones,Urine Negative (Negative); Leukocyte Esterase,Urine 2+ (Negative); Nitrate,Urine POSITIVE (Negative); Protein,Urine TRACE (Negative); Specific Gravity, Urine 1.025 (1.005-1.030); Urobilinogen,Urine 0.2 EU/dl (0.2)
[2023-02-22 11:13] LABS: Hematocrit 46.3 % (42.0-52.0); Hemoglobin 15.3 g/dL (14.1-18.0); Mean Corpuscular Volume 96.8 fl (80-94); Platelet Count 269 K/mm3 (142-424); Red Blood Count 4.78 M/mm3 (4.60-6.20); Red Cell Distribution Width 13.4 % (11.5-17.5); White Blood Count 8.5 K/mm3 (4.8-10.8)
[2023-02-22 11:26] LABS: Creatinine,Urine Random 252 mg/dL (Not Estab.)
[2023-02-22 11:32] LABS: Bacteria,Urine 4+ /lpf; WBC,Urine TNTC #/hpf (0-3)
[2023-02-22 11:33] LABS: Squamous Epithelial Cell,Urine Occasional #/hpf (0-5)
[2023-02-22 11:53] LABS: Albumin Level 4.1 g/dl (3.5-5.0); Blood Urea Nitrogen 17 mg/dl (9-20); Calcium 8.9 mg/dl (8.4-10.2); Carbon Dioxide 29 mmol/L (22.0-30.0); Chloride 97 mmol/L (98-107); Estimated Glomerular Filt Rate 54 ml/min (>60); GFR (African American) 65 ML/MIN (>60); Glucose 176 mg/dl (74-100); Phosphorous 3.5 mg/dl (2.5-4.5); Sodium 135 mmol/L (136-145)
[2023-02-22 12:08] LABS: 25-OH Vitamin D, Total < 12.8 ng/mL (30-100)
== END ==
PROVIDERS: PCP Family Medicine; Visit Provider Internal Medicine Nephrology
DX: N17.9 Acute kidney failure, unspecified (principal); N18.30 Chronic kidney disease, stage 3 unspecified; E55.9 Vitamin D deficiency, unspecified
CPT/HCPCS: 36415; 80069; 81001; 82306; 82570; 84155; 85014; 85018; 85048; 85049; 87086; 87088; 87186

== ENCOUNTER 2023-04-29 13:57 | Inpatient (IN) | payer OTHER, SELFPAY ==
[2023-04-29] VITALS (12 sets, daily range): BP systolic 101–156; BP diastolic 57–87; PULSE 70–111; RESP 12–22; TEMP 36.4–37; O2SAT 90–99; BMI 59.9; BMI 58.7
--- NOTE | 2023-04-29 13:53 | ECG_ITS ---
APPROVED REPORT Exam: Resting ECG HR:116 bpm ECG Measurements Heart Rate 116 AXES QRSd 91 QRS -50 QT 329 T 72 QTc 398 Conclusion ATRIAL FIBRILLATION WITH RAPID VENTRICULAR RESPONSE LEFT ANTERIOR FASCICULAR BLOCK [QRS AXIS <= -45, QR IN I, RS IN II] POSSIBLE ANTERIOR MYOCARDIAL INFARCTION , PROBABLY OLD [30 ms Q WAVE IN V3/V4, OR R < 0.2 mV IN V4] ABNORMAL ECG UNCONFIRMED REPORT Electronically signed by : Aba Acevedo MD 04/30/2023 08:30:41
--- NOTE | 2023-04-29 14:00 | HMH.EDSOB ---
Discharge Plan Disposition Patient Disposition: Admitted Condition: Fair Clinical Impressions Clinical Impression: Community acquired pneumonia Pneumonia Qualifiers: Pneumonia type: due to unspecified organism Laterality: unspecified laterality Lung location: lower lobe of lung Qualified Code(s): J18.9 - Pneumonia, unspecified organism Discharge ED Provider: Cinthya Guzman Resp/SOB HPI General Chief Complaint: Shortness of Breath/Dyspnea Stated Complaint: soa Time Seen by Provider: 04/29/23 14:00 History of Present Illness The patient presents to the emergency department complaining of several days of shortness of breath with nonproductive coughing. He has a history of atrial fibrillation. He has not taken his diltiazem today. He is also on Xarelto. He denies chest pain. MD Complaint: shortness of breath Related Data Home Medications Medication Instructions Recorded Confirmed bumetanide 1 mg tablet 1 mg PO DAILY . 12/18/22 04/13/23 diltiazem HCl 180 mg See Rx Instructions .Route 12/18/22 04/13/23 capsule,extended release 24 hr .COMPLEX . irbesartan 150 mg tablet 150 mg PO DAILY . 12/18/22 04/13/23 probenecid 500 mg-colchicine 0.5 1 tab PO DAILY . 12/18/22 04/13/23 mg tablet Previous Rx's Medication Instructions Recorded acetaminophen 325 mg tablet 650 mg PO Q6HP PRN Fever Or Mild 03/25/22 Pain polyethylene glycol 3350 17 gram 17 gm PO DAILYP PRN Constipation 03/25/22 oral powder packet rivaroxaban 15 mg tablet 15 mg PO QPMWITHMEAL BLOOD THINNER 06/23/22 FOR AFIB #30 tabs albuterol sulfate 90 mcg/actuation 2 puffs inhalation QIDP PRN 12/18/22 aerosol inhaler (Ventolin HFA) Wheezing 30 days #1 ea prednisone 20 mg tablet 20 mg PO BID 5 days #10 tabs 12/18/22 azithromycin 250 mg tablet 250 mg PO DAILY 4 days #4 tabs 04/29/23 Allergies Allergy/AdvReac Type Severity Reaction Status Date / Time furosemide [From Lasix] Allergy Intermediate Rash Verified 04/29/23 14:08 [facility] Disclaimer: The information contained in this section may have been updated after the patient was seen, as this information can be updated by other users. Medical History (Updated 04/29/23 @ 17:13 by Cinthya Guzman MD) Abnormal electrocardiography Chest pain Dizziness Dyspnea Dyspnea on exertion History of 2019 novel coronavirus disease (COVID-19) Obstructive sleep apnea syndrome Surgical History (Updated 04/13/23 @ 11:33 by Gabriela Ott) History of surgery on lower extremity Family History Other COPD (chronic obstructive pulmonary disease) Diabetes Hypertension Social History (Updated 04/13/23 @ 11:31 by Gabriela Ott) Smoking Status: Never smoker alcohol intake: never current occupational status: unemployed Travel in the last 8 weeks: None household members: family housing: house current occupational exposures/hazards: No caffeine: Yes ROS Obtained: Yes All systems reviewed & no additional complaints except as documented Physical Exam General General appearance: alert Head Head exam: atraumatic Eye Eye exam: Present normal appearance ENT ENT exam: Present normal exam Neck Neck exam: Present normal inspection and full ROM; Absent tenderness or meningismus Chest Chest inspection: Present normal inspection and symmetric chest wall rise; Absent tenderness Respiratory Respiratory exam: Present normal lung sounds bilaterally; Absent respiratory distress or accessory muscle use Cardiovascular Cardiovascular exam: Present tachycardia, irregular rhythm and normal heart sounds; Absent regular rate or normal rhythm Abdominal Exam Abdominal exam: Present soft, normal bowel sounds and other (Obese); Absent distention, tenderness, heel tap sign, Mendoza's sign, Rovsing's sign, tenderness at McBurney's Point or mass Extremities Exam Extremities exam: Present normal inspection, full ROM, edema (Trace pitting) and other (All 4 extremities are
--- NOTE | 2023-04-29 14:04 | XR_ITS ---
FINAL REPORT CLINICAL HISTORY: Shortness of breath COMPARISON: 03/20/2022 FINDINGS: Mild right basilar atelectasis. Left lung is clear. There is no evidence of effusion or pneumothorax. Mediastinum is unremarkable. Heart size is normal. IMPRESSION: Mild right basilar atelectasis. Reviewed, Interpreted and Dictated by Nargis Dempsey MD Transcribed by Alma Vance Authenticated and [facility]
[2023-04-29 14:17] LABS: Basophils # 0.1 K/mm3 (0-0.2); Basophils % 0.7 % (0.1-2.0); Eosinophils # 0.1 K/mm3 (0.0-0.4); Eosinophils % 0.9 % (0.1-12.0); Hematocrit 46.7 % (42.0-52.0); Hemoglobin 14.6 g/dL (14.1-18.0); Lymphocytes # 2.5 K/mm3 (0.7-4.5); Lymphocytes % 18.9 % (10-50); Mean Corpuscular HGB Conc 31.3 g/dL (31.8-35.4); Mean Corpuscular Hemoglobin 30.7 pg (27.0-31.2); Mean Corpuscular Volume 98.1 fl (80-94); Mean Platelet Volume 7.8 fl (7.4-10.4); Monocytes % 7.5 % (1.7-9.3); Neutrophils # 9.5 K/mm3 (1.8-7.8); Neutrophils % 71.9 % (37.0-80.0); Platelet Count 321 K/mm3 (142-424); Red Blood Count 4.76 M/mm3 (4.60-6.20); Red Cell Distribution Width 13.5 % (11.5-17.5); White Blood Count 13.2 K/mm3 (4.8-10.8)
--- NOTE | 2023-04-29 14:23 | PC.NURSE ---
artificial insemination technician @ BS for XR
[2023-04-29 14:27] LABS: Chloride 99 mmol/L (98-107)
[2023-04-29 14:28] LABS: Potassium 4.5 mmoL/L (3.5-5.1); Sodium 141 mmol/L (136-145)
[2023-04-29 14:31] LABS: Anion Gap 16.5 mEq/L (5-15); Blood Urea Nitrogen 41 mg/dl (9-20); Calcium 8.8 mg/dl (8.4-10.2); Carbon Dioxide 30 mmol/L (22.0-30.0); Creatinine Clearance Estimated 42 mL/min (50-200); Estimated Glomerular Filt Rate 38 ml/min (>60); GFR (African American) 46 ML/MIN (>60); Glucose 153 mg/dl (74-100)
[2023-04-29 14:40] LABS: NT Pro Brain Natriuretic Pep. 674 pg/mL (0-125)
[2023-04-29 14:44] LABS: Troponin I < 0.01 ng/ml (0.00-0.034)
--- NOTE | 2023-04-29 15:41 | PC.NURSE ---
pt resting, oxygen sat 71, pt placed on 4 l nc, MD aware, pt denies any soa or issues at this time.
--- NOTE | 2023-04-29 17:54 | PC.NURSE ---
Rounded on patient; call blanco within reach of patient. Gave patient a grape juice.
--- NOTE | 2023-04-29 18:16 | PC.NURSE ---
has been paged
--- NOTE | 2023-04-29 18:17 | PC.NURSE ---
Attempted to wean patient on to RA @ rest. Patients sat's dropped to 88%. MD notified. Placed patient back on 4L of NC sat's back up to 95%
--- NOTE | 2023-04-29 18:19 | PC.NURSE ---
on the phone with
[2023-04-29 18:39] LABS: Troponin I < 0.01 ng/ml (0.00-0.034)
--- NOTE | 2023-04-29 18:41 | PC.NURSE ---
Attempted to mushtaq report on patient; Houses stated orders were not in and COVID swab was not resulted therefore not able to give report at this time
--- NOTE | 2023-04-29 18:41 | PC.NURSE ---
Meal tray provided.
[2023-04-29 18:42] LABS: Coronavirus 19, PCR Not Detected (NotDetected); Influenza A, PCR Not Detected (NotDetected); Influenza B, PCR Not Detected (NotDetected)
--- NOTE | 2023-04-29 18:43 | PC.NURSE ---
Rounded on patient; updated on plan. Provided a tray
--- NOTE | 2023-04-29 19:07 | PC.NURSE ---
Spoke with Rhianna Cobian about transfer orders, orders were transferred while on the phone and appeared ok. While going over orders it was noted that several had cancelled on transfer. I spoke with Rhianna Cobian again verified that it was ok to reorder the ones that were cancelled on transfer. orders: admit observation for hypoxia with possible pna, oxygen 4L NC titrate to keep > 92%, activity order and intermittent pneumatic device all reordered
--- NOTE | 2023-04-29 19:40 | PC.NURSE ---
Pt arrived to floor via stretcher @ 193
[2023-04-30] VITALS (11 sets, daily range): BP systolic 104–146; BP diastolic 48–87; PULSE 74–116; RESP 18–24; TEMP 36.1–36.7; O2SAT 92–98; BMI 58.8
--- NOTE | 2023-04-30 08:10 | EXP.HP ---
History of Present Illness *Admission Date: 04/30/23 *Reason for visit:: Shortness of breath and cough *History of present illness: Mr. Grant is a 48-year-old male with a history of chronic atrial fibrillation, hypertension, arthritis, kidney disease, and obesity who presented to [facility] emergency room yesterday via ambulance due to shortness of breath and cough. He reports having a fever a few days ago which has now resolved. He has a nonproductive cough. Due to the shortness of breath and increase in cough he decided he needed to be seen. He apparently had an appointment with [facility] in the future but currently was on no medicine or treatment for his respiratory infection. With evaluation in the emergency room he was found to have a white count of 13,000. O2 sats in the emergency room did drop to 71% and he was placed on oxygen. Nursing did try to wean him at which time his O2 sats did decrease to 88%. Since admission O2 sats ranged from 98 to 94%. He was given a DuoNeb treatment in the ambulance which he felt helped. Due to his decrease in O2 sats he was admitted for further evaluation and treatment. He was felt to have a pneumonia. He has experienced some nausea but no vomiting. He was able to eat a little breakfast this morning. He did sleep a little. Cough is about the same. He feels he has fluid in the bottom of his lungs. He denies chest pain. He is unaware of his atrial fibs. He has been on Xarelto for long-term. O2 is at 4 L today with O2 sats at 94%. 04/29/2023 CXR FINDINGS: Mild right basilar atelectasis.? Left lung is clear.? There is no evidence of effusion or pneumothorax.? Mediastinum is unremarkable.? ? Heart size is normal. IMPRESSION: Mild right basilar atelectasis. [facility] Disclaimer: The information contained in this section may have been updated after the patient was seen, as this information can be updated by other users. Medical History (Updated 04/30/23 @ 09:18 by Hilario Argeuta MD) A-fib Abnormal electrocardiography Arthritis Chest pain Chronic kidney disease (CKD) Dizziness Dyspnea Dyspnea on exertion History of 2019 novel coronavirus disease (COVID-19) HTN (hypertension) Morbid obesity Obstructive sleep apnea syndrome Surgical History (Updated 04/30/23 @ 08:33 by Shital Mcpherson APRN) History of right knee joint replacement History of surgery on lower extremity Family History (Updated 04/30/23 @ 08:34 by Shital Mcpherson APRN) Diabetes COPD (chronic obstructive pulmonary disease) Cancer Hypertension Stroke Social History (Updated 04/29/23 @ 20:01 by Mica Mota RN) Smoking Status: Never smoker alcohol intake: never current occupational status: unemployed Travel in the last 8 weeks: None household members: family housing: house current occupational exposures/hazards: No caffeine: Yes Review of Systems Constitutional Constitutional: Reports fatigue, Reports fever(s), Reports headache(s) and Reports poor appetite Eyes Eyes: Denies change in vision ENT Ears, Nose, Mouth, and Throat: Reports dizziness, Reports otalgia (right), Reports headache(s), Denies sore throat and Denies vertigo *Cardiovascular Cardiovascular: Reports acrocyanosis (bilateral lower legs), Denies chest pain, Reports dyspnea, Reports irregular heart rhythm and Reports pedal edema (bilateral) *Respiratory Respiratory: Reports chest congestion, Reports cough, Reports dyspnea, Denies excessive phlegm production and Denies hemoptysis *Gastrointestinal Gastrointestinal: Denies abdominal pain, Denies hematemesis, Reports nausea and Denies vomiting *Genitourinary Genitourinary: Denies difficulty urinating and Reports oliguria *Musculoskeletal Musculoskeletal: Denies myalgias *Neurologic Neurologic: Denies behavioral changes, Denies convulsions, Reports dizziness, Reports headache(s) and Denies vertigo Psychiatric Psychiatric: Denies behavioral changes E
--- NOTE | 2023-04-30 09:09 | PC.NURSE ---
COURTESY TECH NOTE; ROUNDED ON PT 0800, PT DENIED NEED FOR DRINK, ASSISTANCE WITH RESTROOM, NEED TO REPOSITION. CALL LIGHT WITHIN REACH, NO FURTHER REQUESTS AT THIS TIME Mathew MARTINS, JESSICA
--- NOTE | 2023-04-30 14:35 | PC.NURSE ---
COURTESY TECH NOTE; ROUNDED ON PT 1430, PT SLEEPING AT THIS TIME, CALL LIGHT WITHIN REACH, NO FURTHER REQUESTS Mathew MARTINS, SRNA
--- NOTE | 2023-04-30 16:23 | PC.NURSE ---
A&OX4. HAS BEEN WEANED TO 3LNC, TOLERATING WELL AT THIS TIME. DID COLLECT SPUTUM FROM PATIENT. MIDLINE PLACED THIS SHIFT, TOLERATED WELL. PT STATES HE HAS HAD TO HAVE ONE BEFORE. +2 PITTING EDEMA TO BLE, ALONG WITH DISCOLORATION. PT HAS HAD NO OTHER NEEDS OR C/O THUS FAR THIS SHIFT. VSS.
[2023-05-01] VITALS (10 sets, daily range): BP systolic 101–133; BP diastolic 54–80; PULSE 86–123; RESP 18–22; TEMP 36.4–36.8; O2SAT 94–99; BMI 59.1
[2023-05-01 07:17] LABS: Mean Corpuscular Volume 95.5 fl (80-94); Mean Platelet Volume 7.1 fl (7.4-10.4); Neutrophils % 61.1 % (37.0-80.0); Red Cell Distribution Width 14.7 % (11.5-17.5)
[2023-05-01 07:21] LABS: Hematocrit 46.2 % (42.0-52.0); Mean Corpuscular Hemoglobin 46.2 pg (27.0-31.2); Red Blood Count 4.72 M/mm3 (4.60-6.20); White Blood Count 13.1 K/mm3 (4.8-10.8)
[2023-05-01 07:22] LABS: Basophils # 0.1 K/mm3 (0-0.2); Basophils % 0.7 % (0.1-2.0); Eosinophils # 0.1 K/mm3 (0.0-0.4); Eosinophils % 0.8 % (0.1-12.0); Lymphocytes # 2.5 K/mm3 (0.7-4.5); Mean Corpuscular HGB Conc 48.3 g/dL (31.8-35.4); Neutrophils # 9.5 K/mm3 (1.8-7.8); Platelet Count 328 K/mm3 (142-424)
[2023-05-01 07:23] LABS: Lymphocytes % 18.2 % (10-50); Monocytes % 7.5 % (1.7-9.3)
[2023-05-01 07:27] LABS: Chloride 105 mmol/L (98-107); Potassium 5.1 mmoL/L (3.5-5.1); Sodium 138 mmol/L (136-145)
[2023-05-01 07:30] LABS: Blood Urea Nitrogen 45 mg/dl (9-20); Creatinine Clearance Estimated 44 mL/min (50-200); Estimated Glomerular Filt Rate 40 ml/min (>60); GFR (African American) 49 ML/MIN (>60)
[2023-05-01 07:31] LABS: Anion Gap 18.1 mEq/L (5-15); Calcium 8.3 mg/dl (8.4-10.2); Carbon Dioxide 20 mmol/L (22.0-30.0); Glucose 179 mg/dl (74-100)
--- NOTE | 2023-05-01 08:13 | EXP.ACUTE.PN ---
Subjective *Date: 05/01/23 *Time: 08:13 Interval history: Patient with no new complaints today, he was able to cough up some sputum for a culture yesterday. Medical Exam Vital signs and Labs for Last 24 Hours: Vital Signs Temp Pulse Pulse Resp BP Pulse Ox 05/01/23 07:24 98.3 F 103 H 20 101/54 L 94 L 05/01/23 06:41 101 H 05/01/23 06:41 96 H 05/01/23 04:00 100 H 05/01/23 04:00 97.6 F 86 20 133/74 98 05/01/23 00:04 123 H 04/30/23 23:53 97.6 F 106 H 20 139/82 98 04/30/23 19:54 98.1 F 104 H 20 104/48 L 93 L 04/30/23 18:55 109 H 04/30/23 18:55 109 H 04/30/23 18:55 92 L 04/30/23 16:00 98.1 F 74 24 112/63 94 L 04/30/23 13:20 87 18 04/30/23 13:08 83 04/30/23 13:08 81 04/30/23 12:00 97.8 F 105 H 18 113/73 94 L 04/30/23 10:19 88 04/30/23 10:19 82 04/30/23 10:19 96 Intake and Output 04/30/23 05/01/23 05/01/23 23:59 07:59 15:59 Intake Total 240 / 1331 971 / 971 Balance 240 / 1331 971 / 971 Intake: Intake, Oral Amount 240 / 600 240 / 240 Intake, Total IV Amount 731 / 731 0.9 % Sodium Chloride 1000ML 1, 681 / 681 000 ml @ 50 mls/hr IV .Q20H [facility]ANCA Rx#:[id number] Ceftriaxone Sodium 1 gm In 0.9 50 / 50 % Sodium Chloride 50 ml @ 100 mls/hr IV Q24H [facility]ANCA Rx#:[id number] Other: Weight 368 lb 2 oz Patient Weight 05/01/23 23:59 Weight 368 lb 2 oz Laboratory Results - last 24 hr 05/01/23 06:46: WBC 13.1 H, RBC 4.72, Hgb 14.0 L, Hct 46.2, MCV 95.5 H, MCH 46.2 H* D, MCHC 48.3 H* D, RDW 14.7, Plt Count 328, MPV 7.1 L, Neut % (Auto) 61.1, Lymph % (Auto) 18.2, [place] % (Auto) 7.5, Eos % (Auto) 0.8, Baso % (Auto) 0.7, Neut # (Auto) 9.5 H, Lymph # (Auto) 2.5, [place] # (Auto) 1.0, Eos # (Auto) 0.1, Baso # (Auto) 0.1 05/01/23 06:46: Sodium 138, Potassium 5.1, Chloride 105, Carbon Dioxide 20 L, Anion Gap 18.1 H, BUN 45 H, Creatinine 1.80 H, Estimated Creat Clear 44, Estimated GFR 40 L, Est GFR ( Amer) 49 L, Glucose 179 H, Calcium 8.3 L I & O for Labs for Last 24 Hours: Intake & Output 04/28/23 04/29/23 04/30/23 05/01/23 23:59 23:59 23:59 23:59 Intake Total 600 / 1331 971 / 971 Output Total 0 / 0 0 / 0 Balance 0 / 0 600 / 1331 971 / 971 Weight 365 lb 7 oz 365 lb 15.477 oz 368 lb 2 oz Microbiology Reports for the Last 24 Hours: Microbiology 04/30/23 16:23 Sputum - Expectorated Sputum Gram Stain - Final Constitutional: Present no acute distress Respiratory: Present distant breath sounds and normal respiratory effort Cardiac: Present Reg Rate and Rhythm GI: Present normal bowel sounds; Absent tenderness Extremities: Present normal inspection and edema (legs) Skin: Present dry Neuro: Present Grossly Intact and moves all extremities Assessment and Plan *Assessment and plan (1) Community acquired pneumonia: Status: Acute Category: Medical Code(s): J18.9 - Pneumonia, unspecified organism (2) Morbid obesity: Status: Chronic Category: Medical Code(s): E66.01 - Morbid (severe) obesity due to excess calories (3) A-fib: Status: Acute Qualifiers: Atrial fibrillation type: unspecified chronic Qualified Code(s): I48.20 - Chronic atrial fibrillation, unspecified Category: Medical Code(s): I48.91 - Unspecified atrial fibrillation (4) HTN (hypertension): Status: Chronic Qualifiers: Hypertension type: primary hypertension Qualified Code(s): I10 - Essential (primary) hypertension Category: Medical Code(s): I10 - Essential (primary) hypertension (5) Discoloration of skin of lower leg: Status: Acute Category: Medical Code(s): L81.9 - Disorder of pigmentation, unspecified (6) Chronic kidney disease: Status: Acute Category: Medical Code(s): N18.9 - Chronic kidney disease, unspecified (7) Obstructive
[2023-05-02] VITALS (14 sets, daily range): BP systolic 103–117; BP diastolic 51–89; PULSE 62–109; RESP 18; TEMP 36.4–36.9; O2SAT 93–100; BMI 59.8
--- NOTE | 2023-05-02 03:20 | PC.NURSE ---
PT PLACED ON VENTI MASK BY RT AT 30% DUE TO SEVER DROPS INTO THE 50'S WITH APNIC PAUSES WHILE ASLEEP. PT IS SATING IN THE MID 90'S WHILE AWAKE ON 2L NASAL CANNULA AND WHEN WOKEN UP. PT IS ALSO MOUTH BREATHING WHILE ASLEEP.
--- NOTE | 2023-05-02 06:50 | PC.NURSE ---
PT HAS HAD SEVERAL SEVER O2 DROPS IN THE 50'S WHILE ASLEEP AND HAVING APNIC PAUSES. PT HAS HAD NO COMPLAINTS OF SHORTNESS OF BREATH. O2 COMES BACK UP TO THE MID 90'S AFTER WAKING UP AND STAYS IN THE 90'S WHILE PT IS AWAKE DURING THE DAY ON 2L. VSS. NO COMPLAINTS THIS SHIFT. PT WAS PLACED ON A 30% VENTI MASK PER RT AROUND 3AM DUE TO DROP IN O2 STATUS. TRIED PUTTING OXYGEN IN NOSE AND MOUTH TO TRY TO BRING UP PT'S O2 AND SAT STAYED IN THE UPPER 50'S. PT MOUTH BREATHS WHILE ASLEEP. VENTI MASK DID KEEP PT'S O2 SAT ABOVE 90% WHILE ASLEEP.
--- NOTE | 2023-05-02 07:24 | PC.NURSE ---
per report pt has tolerated 2lnc since yesterday afternoon. He desats when sleeping. arrouses easily. Denies any increased SOA.
--- NOTE | 2023-05-02 07:27 | XR_ITS ---
PROCEDURE INFORMATION: Exam: XR Chest Exam date and time: 05/02/2023 7:45 AM Age: 48 years old Clinical indication: Device placement; Other: Midline placement; Additional info: Chest midline placement TECHNIQUE: Imaging protocol: Radiologic exam of the chest. Views: 1 view. COMPARISON: CR XR CHEST PORTABLE 04/29/2023 2:21 PM FINDINGS: Evaluation is limited due to patient body habitus. Lungs: Emphysematous change, interstitial prominence, chronic granulomatous disease, and mild basilar airspace disease. Pleural spaces: Incomplete visualization of the left costophrenic angle. Skin fold overlying the right costophrenic angle. No significant pneumothorax. Heart/Mediastinum: Epicardial fat accentuates the cardiac silhouette. Bones/joints: Degenerative change. Other: No radiopaque catheter is identified. IMPRESSION: Emphysematous change, interstitial prominence, chronic granulomatous disease, and mild basilar airspace disease.
--- NOTE | 2023-05-02 08:22 | EXP.ACUTE.PN ---
Subjective *Date: 05/02/23 *Time: 08:22 Interval history: Patient has no new complaints today. He was able to be weaned to 2 L of O2 per NC yesterday but nurses note O2 sat drops when he is sleeping. Medical Exam Vital signs and Labs for Last 24 Hours: Vital Signs Temp Pulse Pulse Resp BP Pulse Ox FiO2 05/02/23 07:16 97.5 F L 95 H 18 113/72 99 05/02/23 06:20 101 H 05/02/23 06:20 108 H 05/02/23 06:20 98 40 05/02/23 04:00 80 05/02/23 04:00 97.5 F L 98 H 18 117/89 99 05/02/23 00:00 80 05/02/23 00:00 97.8 F 109 H 18 107/74 L 94 L 05/01/23 20:00 100 H 05/01/23 20:00 98.1 F 100 H 22 130/80 95 05/01/23 20:02 32 05/01/23 20:01 93 H 05/01/23 20:01 94 H 05/01/23 16:00 91 H 05/01/23 15:43 98.0 F 96 H 19 115/74 94 L 05/01/23 12:00 100 H 05/01/23 10:57 97.9 F 89 18 119/77 99 Intake and Output 05/01/23 05/02/23 05/02/23 23:59 07:59 15:59 Intake Total 360 / 1691 600 / 600 Output Total 500 / 2250 500 / 500 Balance -140 / -559 100 / 100 Intake: Intake, Oral Amount 360 / 960 600 / 600 Output: Output, Urine Amount 500 / 2250 500 / 500 Other: Number of Unmeasured Voids 0 0 Weight 372 lb 3 oz Patient Weight 05/02/23 23:59 Weight 372 lb 3 oz I & O for Labs for Last 24 Hours: Intake & Output 04/29/23 04/30/23 05/01/23 05/02/23 23:59 23:59 23:59 23:59 Intake Total 600 / 1331 1691 / 1691 600 / 600 Output Total 0 / 0 0 / 0 2250 / 2250 500 / 500 Balance 0 / 0 600 / 1331 -559 / -559 100 / 100 Weight 365 lb 7 oz 365 lb 15.477 oz 368 lb 2 oz 372 lb 3 oz Microbiology Reports for the Last 24 Hours: Microbiology 04/30/23 16:23 Sputum - Expectorated Sputum Gram Stain - Final 04/30/23 16:23 Sputum - Expectorated Sputum Sputum Culture - Final Normal Respiratory Kasey Constitutional: Present no acute distress Respiratory: Present distant breath sounds and normal respiratory effort Cardiac: Present Reg Rate and Rhythm GI: Present normal bowel sounds; Absent tenderness Extremities: Present edema (legs); Absent normal inspection Skin: Present dry Neuro: Present Grossly Intact and moves all extremities Assessment and Plan *Assessment and plan (1) Community acquired pneumonia: Status: Acute Category: Medical Code(s): J18.9 - Pneumonia, unspecified organism (2) Morbid obesity: Status: Chronic Category: Medical Code(s): E66.01 - Morbid (severe) obesity due to excess calories (3) A-fib: Status: Acute Qualifiers: Atrial fibrillation type: unspecified chronic Qualified Code(s): I48.20 - Chronic atrial fibrillation, unspecified Category: Medical Code(s): I48.91 - Unspecified atrial fibrillation (4) HTN (hypertension): Status: Chronic Qualifiers: Hypertension type: primary hypertension Qualified Code(s): I10 - Essential (primary) hypertension Category: Medical Code(s): I10 - Essential (primary) hypertension (5) Discoloration of skin of lower leg: Status: Acute Category: Medical Code(s): L81.9 - Disorder of pigmentation, unspecified (6) Chronic kidney disease: Status: Acute Category: Medical Code(s): N18.9 - Chronic kidney disease, unspecified (7) Obstructive sleep apnea syndrome: Status: Chronic Category: Medical Code(s): G47.33 - Obstructive sleep apnea (adult) (pediatric) (8) Hypoxia: Status: Acute Category: Medical Code(s): R09.02 - Hypoxemia Plan Await culture results, continue current treatment, will attempt to wean O2 again today.
--- NOTE | 2023-05-02 09:30 | PC.NURSE ---
pt up in chair at this time
--- NOTE | 2023-05-02 11:01 | PC.NURSE ---
courtesy tech note: pt is up to chair and states he is comfortable. call light is within reach and no requests were voiced at this time.
--- NOTE | 2023-05-02 11:54 | PC.NURSE ---
got pt up to chair this am using the sascha lift. he tolerated it well. He reports being nonambulatory at home but uses an office chair to scoot around his home. He reports having a sleep study scheduled this wednesday but per scheduling his appointment is 05-20-23. pt states he has not used a cpap in two years. He is currently on RA while he is awake. tolerating well. saturation in the mid 90s
[2023-05-03] VITALS: BP 117/78; PULSE 70; PULSE 87; RESP 20; TEMP 36.8; O2SAT 98
--- NOTE | 2023-05-03 00:06 | PC.NURSE ---
Addendum entered by JESSICA Marie 05/03/23 00:08: nurse is aware. Original Note: courtesy note: asked pt about a bath, patient states he does not bathe every day, after just having a bath last night, states he might take one in the morning.
[2023-05-03 04:00] VITALS: BP 99/59; PULSE 100; PULSE 88; RESP 20; TEMP 36.4; O2SAT 97; BMI 59.8
--- NOTE | 2023-05-03 04:25 | PC.NURSE ---
NO ACUTE CHANGES THIS SHIFT. PT HAS BEEN ON ROOM AIR WHILE AWAKE AND SATING IN THE MID TO UPPER 90'S. WHILE PT IS ASLEEP PT HAS WORE A VENTI MASK AND HAS TOLERATED IT WELL WITH VERY FEW SIGNIFICANT DESATS. PT HAS HAD NO COMPLAINTS THIS SHIFT AND HAS RESTED BETTER THIS SHIFT. VSS. A-FIB ON TELE. CALL SANDOVAL WITHIN REACH.
[2023-05-03 06:20] LABS: Basophils # 0.1 K/mm3 (0-0.2); Basophils % 0.7 % (0.1-2.0); Eosinophils # 0.2 K/mm3 (0.0-0.4); Eosinophils % 2.3 % (0.1-12.0); Hematocrit 40.1 % (42.0-52.0); Hemoglobin 12.5 g/dL (14.1-18.0); Lymphocytes # 1.5 K/mm3 (0.7-4.5); Lymphocytes % 20.5 % (10-50); Mean Corpuscular HGB Conc 31.2 g/dL (31.8-35.4); Mean Corpuscular Hemoglobin 31.3 pg (27.0-31.2); Mean Corpuscular Volume 100.2 fl (80-94); Mean Platelet Volume 7.7 fl (7.4-10.4); Monocytes # 0.4 K/mm3 (0.1-1.0); Monocytes % 5.8 % (1.7-9.3); Neutrophils # 5.1 K/mm3 (1.8-7.8); Neutrophils % 70.7 % (37.0-80.0); Platelet Count 183 K/mm3 (142-424); Red Cell Distribution Width 13.4 % (11.5-17.5); White Blood Count 7.2 K/mm3 (4.8-10.8)
[2023-05-03 06:35] VITALS: PULSE 83; O2SAT 95
[2023-05-03 06:57] LABS: Chloride 106 mmol/L (98-107); Potassium 4.7 mmoL/L (3.5-5.1); Sodium 142 mmol/L (136-145)
[2023-05-03 07:00] LABS: Anion Gap 13.7 mEq/L (5-15); Blood Urea Nitrogen 27 mg/dl (9-20); Carbon Dioxide 27 mmol/L (22.0-30.0); Creatinine Clearance Estimated 61 mL/min (50-200); Estimated Glomerular Filt Rate 58 ml/min (>60); GFR (African American) 71 ML/MIN (>60)
[2023-05-03 07:01] LABS: Calcium 8.3 mg/dl (8.4-10.2); Glucose 163 mg/dl (74-100)
--- NOTE | 2023-05-03 07:35 | EXP.ACUTE.PN ---
Subjective *Date: 05/03/23 *Time: 09:06 Interval history: Patient states he is doing about the same. He denies chest pain and shortness of breath. He is eating without difficulty. He was up in a chair yesterday. He continues with a cough. Nursing documentation and notes O2 sats are good during the day on room air. During the night he was on a Venturi mask with satisfactory O2 sats. Medical Exam Vital signs and Labs for Last 24 Hours: Vital Signs Temp Pulse Pulse Resp BP Pulse Ox 05/03/23 06:35 83 05/03/23 06:35 83 05/03/23 06:35 95 05/03/23 04:00 97.5 F L 88 20 99/59 L 97 05/03/23 04:00 100 H 05/03/23 00:00 70 05/03/23 00:00 98.3 F 87 20 117/78 98 05/02/23 20:00 80 05/02/23 20:36 93 L 05/02/23 20:36 66 05/02/23 20:35 66 05/02/23 20:00 98.5 F 75 18 113/51 L 95 05/02/23 16:00 72 05/02/23 12:00 83 05/02/23 15:13 97.9 F 78 18 103/67 L 95 05/02/23 13:53 62 05/02/23 13:53 64 05/02/23 13:53 93 L 05/02/23 11:11 97.9 F 74 18 103/62 L 100 05/02/23 08:00 91 H 05/02/23 10:07 95 H 05/02/23 10:07 95 H 05/02/23 10:07 94 L Intake and Output 05/02/23 05/03/23 05/03/23 19:59 03:59 11:59 Intake Total 720 / 720 Output Total 450 / 450 400 / 850 400 / 1250 Balance 270 / 270 -400 / -130 -400 / -530 Intake: Intake, Oral Amount 720 / 720 Output: Output, Urine Amount 450 / 450 400 / 850 400 / 1250 Other: Number of Unmeasured Voids 0 0 0 Weight 372 lb 5 oz Patient Weight 05/03/23 11:59 Weight 372 lb 5 oz Laboratory Results - last 24 hr 05/03/23 05:39: WBC 7.2 D, RBC 4.00 L, Hgb 12.5 L, Hct 40.1 L, MCV 100.2 H, MCH 31.3 H D, MCHC 31.2 L D, RDW 13.4, Plt Count 183 D, MPV 7.7, Neut % (Auto) 70.7, Lymph % (Auto) 20.5, [place] % (Auto) 5.8, Eos % (Auto) 2.3, Baso % (Auto) 0.7, Neut # (Auto) 5.1, Lymph # (Auto) 1.5, [place] # (Auto) 0.4, Eos # (Auto) 0.2, Baso # (Auto) 0.1 05/03/23 05:39: Sodium 142, Potassium 4.7, Chloride 106, Carbon Dioxide 27, Anion Gap 13.7, BUN 27 H D, Creatinine 1.30 H D, Estimated Creat Clear 61, Estimated GFR 58 L, Est GFR ( Amer) 71 D, Glucose 163 H, Calcium 8.3 L I & O for Labs for Last 24 Hours: Intake & Output 04/30/23 05/01/23 05/02/23 05/03/23 11:59 11:59 11:59 11:59 Intake Total 120 / 120 1451 / 1451 1320 / 1320 720 / 720 Output Total 0 / 0 1250 / 1250 1500 / 1500 1250 / 1250 Balance 120 / 120 201 / 201 -180 / -180 -530 / -530 Weight 366 lb 7 oz 368 lb 2 oz 372 lb 3 oz 372 lb 5 oz Microbiology Reports for the Last 24 Hours: Microbiology 04/30/23 16:23 Sputum - Expectorated Sputum Gram Stain - Final 04/30/23 16:23 Sputum - Expectorated Sputum Sputum Culture - Final Normal Respiratory Kasey Constitutional: Present no acute distress Comment:: Sitting up in the bed and appears comfortable. No respiratory symptoms. Respiratory: Present decreased breath sounds and CTA bilaterally Cardiac: Present Irregularly Regular GI: Present soft; Absent distention or tenderness Extremities: Present edema (Trace to 1+ ankle edema.) Comment:: When lying in the bed edema is much decreased. Also no discoloration of lower extremities Neuro: Present alert and oriented x 3 Assessment and Plan *Assessment and plan (1) Community acquired pneumonia: Status: Acute Category: Medical Code(s): J18.9 - Pneumonia, unspecified organism (2) Morbid obesity: Status: Chronic Category: Medical Code(s): E66.01 - Morbid (severe) obesity due to excess calories (3) A-fib: Status: Acute Qualifiers: Atrial fibrillation type: unspecified chronic Qualified Code(s): I48.20 - Chronic atrial fibrillation, unspecified Category: Medical Code(s): I48.91 - Unspecified atrial fibrillation (4) HTN (hypertension): Status: Chronic
[2023-05-03 08:00] VITALS: BP 111/66; PULSE 69; PULSE 80; RESP 18; TEMP 36.6; O2SAT 96
--- NOTE | 2023-05-03 08:14 | EXP.PHA.PN ---
Subjective *Date: 05/03/23 *Time: 08:14 Medical Exam Vital signs and Labs for Last 24 Hours: Vital Signs Temp Pulse Pulse Resp BP Pulse Ox 05/03/23 08:00 97.9 F 80 18 111/66 96 05/03/23 06:35 83 05/03/23 06:35 83 05/03/23 06:35 95 05/03/23 04:00 97.5 F L 88 20 99/59 L 97 05/03/23 04:00 100 H 05/03/23 00:00 70 05/03/23 00:00 98.3 F 87 20 117/78 98 05/02/23 20:00 80 05/02/23 20:36 93 L 05/02/23 20:36 66 05/02/23 20:35 66 05/02/23 20:00 98.5 F 75 18 113/51 L 95 05/02/23 16:00 72 05/02/23 12:00 83 05/02/23 15:13 97.9 F 78 18 103/67 L 95 05/02/23 13:53 62 05/02/23 13:53 64 05/02/23 13:53 93 L 05/02/23 11:11 97.9 F 74 18 103/62 L 100 05/02/23 10:07 95 H 05/02/23 10:07 95 H 05/02/23 10:07 94 L Intake and Output 05/02/23 05/03/23 05/03/23 23:59 07:59 15:59 Intake Total 360 / 1320 Output Total 400 / 1350 400 / 400 0 / 400 Balance -40 / -30 -400 / -400 0 / -400 Intake: Intake, Oral Amount 360 / 1320 Output: Output, Urine Amount 400 / 1350 400 / 400 0 / 400 Other: Number of Unmeasured Voids 0 0 1 Weight 168.878 kg Patient Weight 05/03/23 23:59 Weight 168.878 kg Laboratory Results - last 24 hr 05/03/23 05:39: WBC 7.2 D, RBC 4.00 L, Hgb 12.5 L, Hct 40.1 L, MCV 100.2 H, MCH 31.3 H D, MCHC 31.2 L D, RDW 13.4, Plt Count 183 D, MPV 7.7, Neut % (Auto) 70.7, Lymph % (Auto) 20.5, [place] % (Auto) 5.8, Eos % (Auto) 2.3, Baso % (Auto) 0.7, Neut # (Auto) 5.1, Lymph # (Auto) 1.5, [place] # (Auto) 0.4, Eos # (Auto) 0.2, Baso # (Auto) 0.1 05/03/23 05:39: Sodium 142, Potassium 4.7, Chloride 106, Carbon Dioxide 27, Anion Gap 13.7, BUN 27 H D, Creatinine 1.30 H D, Estimated Creat Clear 61, Estimated GFR 58 L, Est GFR ( Amer) 71 D, Glucose 163 H, Calcium 8.3 L I & O for Labs for Last 24 Hours: Intake & Output 04/30/23 05/01/23 05/02/23 05/03/23 23:59 23:59 23:59 23:59 Intake Total 600 / 1331 1691 / 1691 1320 / 1320 Output Total 0 / 0 2250 / 2250 1350 / 1350 400 / 400 Balance 600 / 1331 -559 / -559 -30 / -30 -400 / -400 Weight 166 kg 166.979 kg 168.821 kg 168.878 kg Microbiology Reports for the Last 24 Hours: Microbiology 04/30/23 16:23 Sputum - Expectorated Sputum Gram Stain - Final 04/30/23 16:23 Sputum - Expectorated Sputum Sputum Culture - Final Normal Respiratory Kasey The patient's infection will respond to the chosen ABx?: Yes Is the patient receiving the right drug, dose, and route?: Yes Could a more targeted ABx be ordered?: No (EMPIRIC THERAPY)
--- NOTE | 2023-05-03 08:52 | PC.NURSE ---
award clerk called out d/t pt's sats being in the 70s on room air. upon entering room pt was noted to be sitting in bed resting. pt reports he had been sleeping.
--- NOTE | 2023-05-03 09:03 | HMH.PHAINT1 ---
Pharmacy Intervention Comments: Discharge medication counseling completed. Patient was starting azithromycin once daily and cefdinir twice daily. Warned of potential side effects of stomach upset and/or diarrhea and said to take with a meal to help prevent this. Med list said to discontinue prednisone, but patient said that was a rx he got for a gout flare up a couple of months ago and he was not taking it anymore. Patient verbalized understanding and had no questions.
--- NOTE | 2023-05-03 09:06 | PC.NURSE ---
railroad dining car steward/stewardess called out d/t pt sats being 78% on room air at rest.
[2023-05-03 09:54] VITALS: PULSE 81; PULSE 84; O2SAT 93
--- NOTE | 2023-05-04 12:54 | CARE MANAGER ---
Contacted patient related to hospital discharge. He states he is doing well and picked up all his medication. He is aware of follow up appointments and also got his Oxygen and CPAP as well. Denies questions or concerns. CORETTA Weiner
--- NOTE | 2023-05-05 07:53 | EXP.DC.SUM ---
General Admission date:: 04/29/23 Discharge date: 05/03/23 HPI HPI HPI: Mr. Grant is a 48-year-old male with a history of chronic atrial fibrillation, hypertension, arthritis, kidney disease, and obesity who presented to [facility] emergency room yesterday via ambulance due to shortness of breath and cough. He reports having a fever a few days ago which has now resolved. He has a nonproductive cough. Due to the shortness of breath and increase in cough he decided he needed to be seen. He apparently had an appointment with [facility] in the future but currently was on no medicine or treatment for his respiratory infection. With evaluation in the emergency room he was found to have a white count of 13,000. O2 sats in the emergency room did drop to 71% and he was placed on oxygen. Nursing did try to wean him at which time his O2 sats did decrease to 88%. Since admission O2 sats ranged from 98 to 94%. He was given a DuoNeb treatment in the ambulance which he felt helped. Due to his decrease in O2 sats he was admitted for further evaluation and treatment. He was felt to have a pneumonia. He has experienced some nausea but no vomiting. He was able to eat a little breakfast this morning. He did sleep a little. Cough is about the same. He feels he has fluid in the bottom of his lungs. He denies chest pain. He is unaware of his atrial fibs. He has been on Xarelto for long-term. O2 is at 4 L today with O2 sats at 94%. 04/29/2023 CXR FINDINGS: Mild right basilar atelectasis.? Left lung is clear.? There is no evidence of effusion or pneumothorax.? Mediastinum is unremarkable.? ? Heart size is normal. IMPRESSION: Mild right basilar atelectasis. Hospital Course Hospital Course Hospital Course: On admission patient was started on Rocephin and Zithromax. Duo nebs were added. Patient did desat during the night throughout his admission with normal O2 sats during the day. He denied any respiratory problems. He continued with infrequent productive cough. Sputum culture did eventually grow normal respiratory alvin. Patient is noted to not be able to walk. He does perform transfers at home. He was lifted to a chair and did sit up periodically during his stay. He ate without difficulty. And on 05/03/2023 patient was felt to be stable to be discharged home. Sleep study was planned. He will have home oxygen. Medications as per medication reconciliation sheet to include antibiotics of Zithromax and cefdinir. Exam Data for Last 24 hours Vital signs and Labs for Last 24 Hours: Temp Pulse Resp BP Pulse Ox FiO2 97.9 F 81 18 111/66 93 L 40 05/03/23 08:00 05/03/23 09:54 05/03/23 08:00 05/03/23 08:00 05/03/23 09:54 05/02/23 06:20 I & O for Last 24 hours: Intake & Output 05/02/23 05/03/23 05/04/23 05/05/23 11:59 11:59 11:59 11:59 Intake Total 1320 / 1320 960 / 960 Output Total 1500 / 1500 1250 / 1250 Balance -180 / -180 -290 / -290 Weight 372 lb 3 oz 372 lb 5 oz Narrative: Medical Exam Vital signs and Labs for Last 24 Hours: Vital Signs ? Temp Pulse Pulse Resp BP Pulse Ox ?05/03/23 06:35 ? ?83 ?05/03/23 06:35 ? ?83 ?05/03/23 06:35 ?95 ?05/03/23 04:00 ?97.5 F L ? ?88 ?20 ?99/59 L ?97 ?05/03/23 04:00 ? ?100 H ?05/03/23 00:00 ? ?70 ?05/03/23 00:00 ?98.3 F ? ?87 ?20 ?117/78 ?98 ?05/02/23 20:00 ? ?80 ?05/02/23 20:36 ?93 L ?05/02/23 20:36 ? ?66 ?05/02/23 20:35 ? ?66 ?05/02/23 20:00 ?98.5 F ? ?75 ?18 ?113/51 L ?95 ?05/02/23 16:00 ? ?72 ?05/02/23 12:00 ? ?83 ?05/02/23 15:13 ?97.9 F ? ?78 ?18 ?103/67 L ?95 ?05/02/23 13:53 ? ?62 ?05/02/23 13:53 ? ?64 ?05/02/23 13:53 ?93 L ?05/02/23 11:11 ?97.9 F ? ?74 ?18 ?103/62 L ?100 ?05/02/23 08:00 ? ?91 H ?05/02/23 10:07 ? ?95 H ?05/02/23 10:07 ? ?95 H ?05/02/23 10:07 ?94 L Intak
== END 2023-05-03 11:00 | disposition home or self-care (01) | DRG 194 ==
LOC: ER 18:16 → 2ND 04-30 06:20
PROVIDERS: Admitting Provider Family Medicine; Emergency Provider Emergency Medicine; PCP Family Medicine; Visit Provider Family Medicine
DX: J18.9 Pneumonia, unspecified organism (principal); I48.20 Chronic atrial fibrillation, unspecified; Z68.43 Body mass index [BMI] 50.0-59.9, adult; Z86.16 Personal history of COVID-19; G47.33 Obstructive sleep apnea (adult) (pediatric); I12.9 Hypertensive chronic kidney disease with stage 1 through stage 4 chronic kidney disease, or unspecified chronic kidney disease; N18.9 Chronic kidney disease, unspecified; Z96.651 Presence of right artificial knee joint; M19.90 Unspecified osteoarthritis, unspecified site; E66.9 Obesity, unspecified
CPT/HCPCS: 36410; 36415; 71045; 80048; 83880; 84484; 85025; 87070; 87205; 87636; 93005; 94640; 94761; 99285; C9803; J0456; J0696; U0003; U0005

== ENCOUNTER → 2023-06-09 10:56 | Outpatient (CLI) | payer OTHER, SELFPAY ==
[2023-06-09 11:17] LABS: Basophils # 0.1 K/mm3 (0-0.2); Eosinophils # 0.2 K/mm3 (0.0-0.4); Eosinophils % 2.6 % (0.1-12.0); Hematocrit 40.6 % (42.0-52.0); Hemoglobin 13.2 g/dL (14.1-18.0); Lymphocytes # 2.4 K/mm3 (0.7-4.5); Lymphocytes % 25.7 % (10-50); Mean Corpuscular HGB Conc 32.5 g/dL (31.8-35.4); Mean Corpuscular Hemoglobin 30.8 pg (27.0-31.2); Mean Corpuscular Volume 94.6 fl (80-94); Monocytes # 0.7 K/mm3 (0.1-1.0); Monocytes % 7.5 % (1.7-9.3); Neutrophils # 5.8 K/mm3 (1.8-7.8); Neutrophils % 63.3 % (37.0-80.0); Platelet Count 311 K/mm3 (142-424); Red Cell Distribution Width 13.3 % (11.5-17.5); White Blood Count 9.2 K/mm3 (4.8-10.8)
[2023-06-09 12:12] LABS: Alanine Aminotransferase 21 U/L (12-78); Albumin Level 3.9 g/dl (3.5-5.0); Alkaline Phosphatase 83 U/L (38-126); Anion Gap 18.9 mEq/L (5-15); Aspartate Amino Transferase 22 U/L (17-59); Bilirubin,Direct 0.2 mg/dl (0.0-0.4); Bilirubin,Indirect 1.8 mg/dL (0.0-0.9); Bilirubin,Unconjugated 1.8 mg/dL (0.0-1.1); Blood Urea Nitrogen 44 mg/dl (9-20); Calcium 9.2 mg/dl (8.4-10.2); Carbon Dioxide 22 mmol/L (22.0-30.0); Chloride 104 mmol/L (98-107); Cholesterol 161 mg/dl (140-200); Estimated Glomerular Filt Rate 24 ml/min (>60); GFR (African American) 29 ML/MIN (>60); Glucose 167 mg/dl (74-100); HDL Cholesterol 40 mg/dl (40-60); Potassium 4.9 mmoL/L (3.5-5.1); Sodium 140 mmol/L (136-145); Total Protein,Serum 7.5 g/dl (6.3-8.2); Triglycerides 184 mg/dl (30-150); VLDL Cholesterol 37 mg/dL (0-40)
[2023-06-09 12:23] LABS: Direct LDL Cholesterol 76.73 mg/dL (100-129)
[2023-06-09 12:29] LABS: Free T4 (Free Thyroxine) 1.28 ng/dl (0.78-2.19)
[2023-06-09 12:42] LABS: Thyroid Stimulating Hormone 4.44 uIU/mL (0.465-4.68)
== END ==
PROVIDERS: PCP Family Medicine; Visit Provider Nurse Practitioner
DX: R06.09 Other forms of dyspnea (principal); I48.91 Unspecified atrial fibrillation; I11.9 Hypertensive heart disease without heart failure; E11.9 Type 2 diabetes mellitus without complications; I63.9 Cerebral infarction, unspecified; G47.33 Obstructive sleep apnea (adult) (pediatric)
CPT/HCPCS: 36415; 80048; 80061; 80076; 84439; 84443; 85025

== ENCOUNTER 2023-06-11 15:36 | Observation (INO) | payer OTHER, SELFPAY ==
[2023-06-11] VITALS (11 sets, daily range): BP systolic 101–138; BP diastolic 59–79; PULSE 60–79; RESP 18–20; TEMP 36.6–36.8; O2SAT 94–97; BMI 56.5; BMI 59.4
--- NOTE | 2023-06-11 16:20 | HMH.EDGENADL ---
Discharge Plan Disposition Patient Disposition: Admitted Condition: Fair Chief Complaint: Recheck/Abnormal Lab/Rx Clinical Impressions Clinical Impression: ROXANA (acute kidney injury), Acute UTI Discharge ED Provider: John Muñoz General Adult HPI General Chief complaint: Recheck/Abnormal Lab/Rx Stated complaint: sent by Dr. Jackson Time Seen by Provider: 06/11/23 15:57 Mode of Arrival: Wheelchair Source of Information: Patient Limitations: No Limitations Description of Symptoms (Recalled from ER Triage Doc. by RN): Patient states he was seen by Dr. Jackson on Wednesday for a routine visit. States they francesca blood work and called him yesterday telling him to go to the er or get seen by a embosser apprentice. Patient has no complaints at this time. History of Present Illness HPI narrative: Patient is a 48-year-old male with past medical history of hypertension, dyspnea on exertion on diuretics at baseline, CKD, atrial fibrillation on anticoagulation, obstructive sleep apnea who presents emergency department for evaluation of abnormal labs. History is obtained by patient at bedside. Patient states he did routine cardiology follow-up where labs were obtained and he was contacted yesterday telling him to get to a kidney doctor or go to the emergency room . Patient states he has no acute complaints and feels at his baseline. Hematologic labs from clinic reviewed by me, patient has a baseline creatinine of approximately 1.5-1.8. Previous creatinine reads when he was critically ill are unreliable. Most recent creatinine is 2.8. He has no critical electrolyte abnormalities. He was reportedly instructed to stop taking his furosemide 20 mg daily and spironolactone 50 mg daily. He presents here for continued evaluation. Related Data Home Medications Medication Instructions Recorded Confirmed irbesartan 150 mg tablet 150 mg PO DAILY blood pressure 12/18/22 06/11/23 furosemide 20 mg tablet 20 mg PO DAILY diuretic 04/30/23 06/11/23 rivaroxaban 15 mg tablet 15 mg PO QPMWITHMEAL blood 04/30/23 06/11/23 thinner/atrial fib rosuvastatin 10 mg tablet 10 mg PO HS Cholesterol 04/30/23 06/11/23 spironolactone 50 mg tablet 50 mg PO DAILY diuretic 04/30/23 06/11/23 diltiazem HCl 180 mg See Rx Instructions .Route 06/11/23 06/11/23 capsule,extended release 24 hr .COMPLEX unknown Allergies Allergy/AdvReac Type Severity Reaction Status Date / Time No Known Allergies Allergy Verified 06/08/23 11:05 [facility] Disclaimer: The information contained in this section may have been updated after the patient was seen, as this information can be updated by other users. Medical History A-fib Abnormal cardiovascular stress test Abnormal electrocardiography ROXANA (acute kidney injury) Angina pectoris Arthritis Atrial fibrillation with RVR CAD (coronary atherosclerotic disease) Cellulitis and abscess of right leg Cellulitis of leg, right Chest pain Chronic kidney disease (CKD) Dizziness Dyspnea Dyspnea on exertion Fall History of 2019 novel coronavirus disease (COVID-19) HTN (hypertension) Hypercapnic respiratory failure Hyperglycemia Morbid obesity Obstructive sleep apnea syndrome Open wound of abdominal wall Rapid atrial fibrillation Respiratory acidosis Septic shock Sinusitis Surgical History History of right knee joint replacement History of surgery on lower extremity Family History Other COPD (chronic obstructive pulmonary disease) Cancer Diabetes Hypertension Stroke Social History Smoking Status: Never smoker alcohol intake: never current occupational status: unemployed Travel in the last 8 weeks: None household members: family housing: house current occupational exposures/hazards: No caffeine: Ye
[2023-06-11 16:41] LABS: Basophils # 0.1 K/mm3 (0-0.2); Basophils % 0.9 % (0.1-2.0); Eosinophils # 0.2 K/mm3 (0.0-0.4); Hematocrit 38.1 % (42.0-52.0); Hemoglobin 12.5 g/dL (14.1-18.0); Lymphocytes # 2.1 K/mm3 (0.7-4.5); Mean Corpuscular HGB Conc 32.7 g/dL (31.8-35.4); Mean Corpuscular Volume 94.8 fl (80-94); Mean Platelet Volume 7.8 fl (7.4-10.4); Monocytes # 0.6 K/mm3 (0.1-1.0); Monocytes % 5.7 % (1.7-9.3); Neutrophils # 7.5 K/mm3 (1.8-7.8); Neutrophils % 71.3 % (37.0-80.0); Platelet Count 297 K/mm3 (142-424); Red Blood Count 4.02 M/mm3 (4.60-6.20); Red Cell Distribution Width 13.3 % (11.5-17.5); White Blood Count 10.5 K/mm3 (4.8-10.8)
--- NOTE | 2023-06-11 16:41 | PC.NURSE ---
rounded on pt, no needs at this time
--- NOTE | 2023-06-11 16:42 | PC.NURSE ---
pt given urinal and aware of urine sample needed
[2023-06-11 16:48] LABS: Alanine Aminotransferase 20 U/L (12-78); Albumin Level 3.8 g/dl (3.5-5.0); Alkaline Phosphatase 74 U/L (38-126); Anion Gap 13.8 mEq/L (5-15); Aspartate Amino Transferase 23 U/L (17-59); Bilirubin,Total 1.1 mg/dl (0.2-1.3); Blood Urea Nitrogen 45 mg/dl (9-20); Calcium 9.2 mg/dl (8.4-10.2); Carbon Dioxide 23 mmol/L (22.0-30.0); Chloride 107 mmol/L (98-107); Creatine Kinase 30 U/L (55-170); Creatinine Clearance Estimated 33 mL/min (50-200); Estimated Glomerular Filt Rate 29 ml/min (>60); GFR (African American) 35 ML/MIN (>60); Globulin 3.9 g/dL (1.3-3.2); Glucose 152 mg/dl (74-100); Potassium 4.8 mmoL/L (3.5-5.1); Sodium 139 mmol/L (136-145); Total Protein,Serum 7.7 g/dl (6.3-8.2)
--- NOTE | 2023-06-11 16:59 | PC.NURSE ---
ROUNDED ON PT NOTHING NEEDED AT THIS TIME, CALL LIGHT AT BS
[2023-06-11 17:03] LABS: Microscopic, Urine URINE MICROSCOPIC (MICROSCOPIC)
[2023-06-11 17:25] LABS: Appearance,Urine SL CLOUDY (Clear); Bilirubin,Urine Negative (Negative); Blood, Urine 3+ (Negative); Color,Urine YELLOW (Yellow); Glucose,Urine (UA) Negative (Negative); Ketones,Urine Negative (Negative); Leukocyte Esterase,Urine 2+ (Negative); Nitrate,Urine POSITIVE (Negative); Protein,Urine 1+ (Negative); Specific Gravity, Urine 1.025 (1.005-1.030); Urobilinogen,Urine 0.2 EU/dl (0.2)
[2023-06-11 17:43] LABS: Bacteria,Urine 3+ /lpf; WBC,Urine TNTC #/hpf (0-3)
--- NOTE | 2023-06-11 18:39 | PC.NURSE ---
Dietary Tray ordered. Water provided, karen lopez MD.
--- NOTE | 2023-06-11 18:43 | PC.NURSE ---
Food tray provided. Pt updated on plan of care; admission. No further complaints at this time.
--- NOTE | 2023-06-11 18:54 | PC.NURSE ---
CALLED HOUSE FOR BED ASSIGNMENT
[2023-06-11 18:58] LABS: NT Pro Brain Natriuretic Pep. 596 pg/mL (0-125)
--- NOTE | 2023-06-11 19:47 | PC.NURSE ---
PT RESTING IN BED LET HIM KNOW SHOULDN'T BE MUCH LONGER UNTIL HE GOES TO HIS ROOM ON [facility], CALL LIGHT AT BS
--- NOTE | 2023-06-11 20:47 | PC.NURSE ---
Pt arrived to floor via stretcher @ 2022
[2023-06-12 04:00] VITALS: BP 116/66; PULSE 76; RESP 20; TEMP 36.4; O2SAT 100; BMI 59.3
--- NOTE | 2023-06-12 05:45 | PC.NURSE ---
A&OX4. RA during day, wears venturi mask @ 35% r/t ROBIN at night (normally wears CPAP at home, but unable to get it). 20 LAC NS @ 100. voids per urinal, can transfer with a sliding board or sascha lift. open wound under L belly fold (pt stated was a blister prior and has busted last week), abrasion on nose from nightly cpap mask, excoriation under mid belly fold (pt tx at home with cornstarch. Pt reports frequent diaphoresis daily, causing moist skin in folds. 1+ edema, roughness, and yellowing areas in bilateral LE. Kidney labs abn. Bed locked/lowest position, call light within reach. Pt stated he took a shower at home 06/11 prior to ED admission.
--- NOTE | 2023-06-12 06:41 | PC.NURSE ---
pt upset with lab per report of prestressed concrete laborer after 2 attempts. Marcos Nugent retrieved labs and sent down to lab at 0635. pt voice no complaints while i was with him.
[2023-06-12 06:42] LABS: Basophils # 0.1 K/mm3 (0-0.2); Basophils % 0.9 % (0.1-2.0); Eosinophils # 0.2 K/mm3 (0.0-0.4); Eosinophils % 2.5 % (0.1-12.0); Hematocrit 40.7 % (42.0-52.0); Hemoglobin 13.1 g/dL (14.1-18.0); Lymphocytes # 1.8 K/mm3 (0.7-4.5); Lymphocytes % 21.8 % (10-50); Mean Corpuscular HGB Conc 32.1 g/dL (31.8-35.4); Mean Corpuscular Hemoglobin 30.5 pg (27.0-31.2); Mean Corpuscular Volume 94.8 fl (80-94); Mean Platelet Volume 7.6 fl (7.4-10.4); Monocytes # 0.5 K/mm3 (0.1-1.0); Monocytes % 6.3 % (1.7-9.3); Neutrophils # 5.6 K/mm3 (1.8-7.8); Neutrophils % 68.5 % (37.0-80.0); Platelet Count 266 K/mm3 (142-424); Red Cell Distribution Width 13.2 % (11.5-17.5); White Blood Count 8.2 K/mm3 (4.8-10.8)
[2023-06-12 06:53] LABS: Anion Gap 14.5 mEq/L (5-15); Blood Urea Nitrogen 41 mg/dl (9-20); Calcium 8.9 mg/dl (8.4-10.2); Carbon Dioxide 23 mmol/L (22.0-30.0); Chloride 109 mmol/L (98-107); Creatinine Clearance Estimated 38 mL/min (50-200); Estimated Glomerular Filt Rate 34 ml/min (>60); GFR (African American) 41 ML/MIN (>60); Glucose 173 mg/dl (74-100); Potassium 5.5 mmoL/L (3.5-5.1); Sodium 141 mmol/L (136-145)
--- NOTE | 2023-06-12 07:51 | EXP.HPDC ---
General Admission date:: 06/11/23 Discharge date: 06/12/23 *Admission Date: 06/11/23 *Chief complaint: abnormal lab results *History of present illness: Patient is a 48 year old with chronic kidney disease who was seen in the [facility] cardiology office this week for a routine visit. Labs were drawn and his creatinine was 2.8. He states he received a call from the cardiology office telling him to, see a kidney doctor, his primary MD or go to the ER. He had an appointment to see me yesterday afternoon but states he could not get a ride to the office so he called for an ambulance to bring him tho the ER. While in the ER he was found to have an abnormal UA, likely a UTI and creatinine was down to 2.4. [facility] Disclaimer: The information contained in this section may have been updated after the patient was seen, as this information can be updated by other users. Medical History A-fib Abnormal cardiovascular stress test Abnormal electrocardiography ROXANA (acute kidney injury) Angina pectoris Arthritis Atrial fibrillation with RVR CAD (coronary atherosclerotic disease) Cellulitis and abscess of right leg Cellulitis of leg, right Chest pain Chronic kidney disease (CKD) Dizziness Dyspnea Dyspnea on exertion Fall History of 2019 novel coronavirus disease (COVID-19) HTN (hypertension) Hypercapnic respiratory failure Hyperglycemia Morbid obesity Obstructive sleep apnea syndrome Open wound of abdominal wall Rapid atrial fibrillation Respiratory acidosis Septic shock Sinusitis Surgical History History of right knee joint replacement History of surgery on lower extremity Family History Diabetes COPD (chronic obstructive pulmonary disease) Cancer Hypertension Stroke Social History Smoking Status: Never smoker alcohol intake: never current occupational status: unemployed Travel in the last 8 weeks: None household members: family housing: house current occupational exposures/hazards: No caffeine: Yes Review of Systems Constitutional Constitutional: Denies chills and Denies fever(s) Eyes Eyes: Denies blurry vision ENT Ears, Nose, Mouth, and Throat: Denies abnormal hearing *Cardiovascular Cardiovascular: Denies chest pain *Respiratory Respiratory: Denies cough *Gastrointestinal Gastrointestinal: Denies abdominal pain *Genitourinary Genitourinary: Denies difficulty urinating Integumentary/Breasts Skin/Breast: Denies nail changes *Neurologic Neurologic: Denies abnormal hearing Exam Data for Last 24 hours Vital signs and Labs for Last 24 Hours: Temp Pulse Resp BP Pulse Ox O2 Del Method O2 Flow Rate 97.5 F L 76 20 116/66 100 Venturi Mask 35 06/12/23 04:00 06/12/23 04:00 06/12/23 04:00 06/12/23 04:00 06/12/23 04:00 06/12/23 06:17 06/12/23 06:17 FiO2 35 06/11/23 20:00 Laboratory Results - last 24 hr 06/11/23 16:15: WBC 10.5, RBC 4.02 L, Hgb 12.5 L, Hct 38.1 L, MCV 94.8 H, MCH 31.0, MCHC 32.7, RDW 13.3, Plt Count 297, MPV 7.8, Neut % (Auto) 71.3, Lymph % (Auto) 20.0, [place] % (Auto) 5.7, Eos % (Auto) 2.0, Baso % (Auto) 0.9, Neut # (Auto) 7.5, Lymph # (Auto) 2.1, [place] # (Auto) 0.6, Eos # (Auto) 0.2, Baso # (Auto) 0.1, Sodium 139, Potassium 4.8, Chloride 107, Carbon Dioxide 23, Anion Gap 13.8, BUN 45 H, Creatinine 2.40 H, Estimated Creat Clear 33, Estimated GFR 29 L, Est GFR ( Amer) 35 L D, Glucose 152 H, Calcium 9.2, Total Bilirubin 1.1, AST 23, ALT 20, Alkaline Phosphatase 74, Total Creatine Kinase 30 L, NT-Pro-B Natriuret Pep 596 H, Total Protein 7.7, Albumin 3.8, Globulin 3.9 H, Albumin/Globulin Ratio 1.0 L 06/11/23 17:00: Urine Color Yellow, Urine Appearance Sl cloudy, Urine pH 6.0, Ur Specific [place] 1.025, Urine Protein 1+, Urine Glucose (UA) Negative, Urine Ketones Ne
[2023-06-12 08:00] VITALS: BP 106/61; PULSE 75; RESP 18; TEMP 36.5; O2SAT 99
--- NOTE | 2023-06-14 13:24 | CARE MANAGER ---
Attempted post-discharge phone call, left message.
--- NOTE | 2023-06-14 14:50 | CARE MANAGER ---
Spoke with patient regarding recent discharge. Patient stated that he is doing well. No issues at time of call.
== END 2023-06-12 10:21 | disposition home or self-care (01) ==
LOC: ER 16:51 → 2ND 19:15
PROVIDERS: Admitting Provider Internal Medicine Adolescent Medicine; Emergency Provider Emergency Medicine; PCP Family Medicine; Visit Provider Family Medicine
DX: N17.9 Acute kidney failure, unspecified (principal); N39.0 Urinary tract infection, site not specified; N18.9 Chronic kidney disease, unspecified; I12.9 Hypertensive chronic kidney disease with stage 1 through stage 4 chronic kidney disease, or unspecified chronic kidney disease; I48.20 Chronic atrial fibrillation, unspecified; E66.01 Morbid (severe) obesity due to excess calories; Z68.43 Body mass index [BMI] 50.0-59.9, adult; Z86.16 Personal history of COVID-19; Z79.899 Other long term (current) drug therapy; Z79.01 Long term (current) use of anticoagulants
CPT/HCPCS: 80048; 80053; 81001; 82550; 83880; 85025; 87086; 87088; 87186; 99285; G0378; J0696

== ENCOUNTER → 2023-06-24 11:30 | Outpatient (CLI) | payer OTHER, SELFPAY | PROVIDERS: PCP Family Medicine; Visit Provider Nurse Practitioner Family | DX: G47.33 Obstructive sleep apnea (adult) (pediatric) (principal) ==

== ENCOUNTER 2024-02-21 10:32 | Outpatient (CLI) | payer OTHER, SELFPAY ==
[2024-02-21 11:23] LABS: Albumin Level 3.7 g/dl (3.5-5.0); Anion Gap 11.9 mEq/L (5-15); Blood Urea Nitrogen 23 mg/dl (9-20); Calcium 9.2 mg/dl (8.4-10.2); Carbon Dioxide 25 mmol/L (22.0-30.0); Chloride 107 mmol/L (98-107); Estimated Glomerular Filt Rate 36 ml/min (>60); GFR (African American) 43 ML/MIN (>60); Glucose 222 mg/dl (74-100); Phosphorous 3.5 mg/dl (2.5-4.5); Potassium 3.9 mmoL/L (3.5-5.1); Sodium 140 mmol/L (136-145)
[2024-02-21 12:25] LABS: 25-OH Vitamin D, Total < 12.8 ng/mL (30-100)
== END 2024-02-21 23:59 ==
LOC: LAB 10:33
PROVIDERS: PCP Family Medicine; Visit Provider Internal Medicine Nephrology
DX: N17.9 Acute kidney failure, unspecified (principal); E55.9 Vitamin D deficiency, unspecified
CPT/HCPCS: 36415; 80069; 82306

== ENCOUNTER 2024-03-13 09:35 | Emergency (ER) | payer OTHER, SELFPAY ==
[2024-03-13] VITALS (7 sets, daily range): BP systolic 102–121; BP diastolic 62–75; PULSE 83–90; RESP 12–15; TEMP 36.7–37.1; O2SAT 94–98; BMI 51.5
--- NOTE | 2024-03-13 10:02 | CT_ITS ---
FINAL REPORT TECHNIQUE: Axial images through the abdomen and pelvis were performed without contrast. This study was performed with techniques to keep radiation doses as low as reasonably achievable, (ALARA). Individualized dose reduction techniques using automated exposure control or adjustment of mA and/or kV according to the patient's size were employed. CLINICAL HISTORY: lower abd pain, dark urine, h/o stones FINDINGS: Abdomen: There is scarring at the lung bases. The liver parenchyma is homogeneous. Multiple large calcified gallstones are seen in the gallbladder. The spleen, pancreas, and adrenal glands are without acute abnormality. A horseshoe kidney is identified. There is mild perinephric stranding surrounding the horseshoe kidney. No renal stones are identified. Pelvis: The GI tract demonstrates no acute abnormality. The urinary bladder is incompletely distended. No bladder stones are identified. The appendix is not identified. There is no free fluid or adenopathy. IMPRESSION: Horseshoe kidney with mild perinephric stranding. If pyelonephritis is a concern consider an infused CT abdomen and pelvis. Large gallstones in the gallbladder. No renal stones. Reviewed, Interpreted and Dictated by Cali Chaney MD Transcribed by Nae Silver Authenticated and [facility]
--- NOTE | 2024-03-13 10:04 | ED_ITS ---
Discharge Plan Disposition Patient Disposition: Home, Self-Care Prescriptions Prescriptions: New cefdinir 300 mg capsule 300 mg PO BID 10 Days Qty: 20 0RF No Action Jardiance 10 mg tablet PO DAILY febuxostat 40 mg tablet 40 mg PO DAILY diltiazem HCl 180 mg capsule,extended release 24hr See Rx Instructions .ROUTE .COMPLEX Qty: 180 4RF Dose Instruction: TAKE TWO CAPSULES BY MOUTH EVERY DAY Rx Instructions: TAKE TWO CAPSULES BY MOUTH EVERY DAY irbesartan 150 mg tablet 150 mg PO DAILY Qty: 90 2RF rosuvastatin 10 mg tablet 10 mg PO HS Patient Comments: TAKE ONE TABLET BY MOUTH EVERY DAY rivaroxaban 15 mg tablet 15 mg PO QPMWITHMEAL Referrals Follow up/Referrals: Hilario Argueta MD [Primary Care Provider] - See instructions Dave Aranda MD [Staff Physician] - See instructions Activity Restrictions/Add. Instructions Additional Instructions/Restrictions: You have mild worsening of your chronic kidney disease as well as pyelonephritis or an infection of your known horseshoe kidney. Please follow-up with urology as well as your director transition for the above reasons. Return with any significant worsening of her symptoms high fevers or other concerns. Clinical Impressions Clinical Impression: Pyelonephritis, CKD (chronic kidney disease), Horseshoe kidney Instructions Patient Instructions: DI for Urinary Tract Infection (UTI), DI for Urinary Tract Infection in Children Discharge ED Provider: Anna Moore General Adult HPI General Chief complaint: Urogenital-Male Stated complaint: dark urine, headaches, nausea, weakness Time Seen by Provider: 03/13/24 09:43 Mode of Arrival: Wheelchair Source of Information: Patient Limitations: No Limitations Description of Symptoms (Recalled from ER Triage Doc. by RN): pt presents to ED with c/o urinary symptoms. pt reports possible kidney stones. pt reports history of kidney stones and does have a urologist. pt reports symptoms ongoing for 3-4 days. History of Present Illness HPI narrative: Patient is a morbidly obese 49-year-old gentleman with a history of atrial fibrillation on Xarelto presenting today with very dark urine headache fever yesterday and low back discomfort. Does have a history of kidney stones but states this feels different. Has very mild lower back discomfort at this point. No significant injuries or exertional symptoms. Tmax was 100 he did not take any antipyretics yesterday. Headache is very mild at this point as well. Did have decreased urine output yesterday but that seems to have improved today. Related Data Home Medications Medication Instructions Recorded Confirmed rivaroxaban 15 mg tablet 15 mg PO QPMWITHMEAL blood 04/30/23 02/14/24 thinner/atrial fib rosuvastatin 10 mg tablet 10 mg PO HS Cholesterol 04/30/23 02/14/24 empagliflozin 10 mg tablet mg PO DAILY 02/14/24 02/14/24 (Jardiance) febuxostat 40 mg tablet 40 mg PO DAILY 02/14/24 02/14/24 Previous Rx's Medication Instructions Recorded diltiazem HCl 180 mg See Rx Instructions .Route 12/20/23 capsule,extended release 24 hr .COMPLEX #180 caps irbesartan 150 mg tablet 150 mg PO DAILY blood pressure #90 03/07/24 tabs cefdinir 300 mg capsule 300 mg PO BID 10 days #20 caps 03/13/24 Allergies Allergy/AdvReac Type Severity Reaction Status Date / Time No Known Allergies Allergy Verified 12/09/23 10:13 [facility] Disclaimer: The information contained in this section may have been updated after the patient was seen, as this information can be updated by other users. Medical History Arthritis Chronic kidney disease (CKD) History of 2019 novel coronavirus disease (COVID-19) Obstructive sleep apnea syndrome Dyspnea on exertion Sinusitis CAD (coronary atherosclerotic disease) Abnormal cardiovascular stress test Angina pectoris Dizziness Chest pain Dyspnea Abnormal electrocardiography Cellulitis and abscess of right leg A-fib Fall Atrial fibrillation with RVR Hypercapnic respiratory failure ROXANA (acute kidney injury) Open wound of abdominal wall Morbid obesity Respiratory acidosis HTN (hypertension) Hyperglycemia Rapid atrial fibrillation Cellulitis of leg, right Septic shock Surgical History History of right knee joint replacement History of surgery on lower extremity Family History Other COPD (chronic obstructive pulmonary disease) Cancer Diabetes Hypertension Stroke Social History Smoking Status: Never smoker alcohol intake: never current occupational status: unemployed Travel in the last 8 weeks: None household members: family housing: house current occupational exposures/hazards: No caffeine: Yes ROS Obtained: Yes All systems reviewed & no additional complaints except as documented Physical Exam General General appearance: alert and in no apparent distress Respiratory Respiratory exam: Present normal lung sounds bilaterally Cardiovascular Cardiovascular exam: Present regular rate and normal rhythm Abdominal Exam Abdominal exam: Present soft; Absent distention or tenderness Back Exam Back exam: Absent CVA tenderness (R) or CVA tenderness (L) Neurological Exam Neurological exam: Present alert and oriented X3 Medical Decision Making Tj Inquiry Pt receiving controlled substance: No Vital Signs: 03/13/24 09:38 03/13/24 10:00 03/13/24 10:30 Temperature 98.7 F Temperature Source Oral Pulse Rate 89 84 Pulse Rate [Left Radial] 85 Respiratory Rate 12 Blood Pressure 108/64 L 121/68 Blood Pressure [Right Arm] 104/63 L Blood Pressure Mean Blood Pressure Mean [Right Arm] 76 02 Sat by Pulse Oximetry 98 94 L 96 Oxygen Delivery Method Room Air Room Air Room Air 03/13/24 11:00 03/13/24 11:30 03/13/24 12:00 Temperature Temperature Source Pulse Rate 83 87 90 Pulse Rate [Left Radial] Respiratory Rate Blood Pressure 102/64 L 102/62 L 118/75 Blood Pressure [Right Arm] Blood Pressure Mean 76 70 82 Blood Pressure Mean [Right Arm] 02 Sat by Pulse Oximetry 95 96 95 Oxygen Delivery Method Room Air Room Air Lab Data Lab results reviewed: Yes I reviewed the patient's lab results. Lab Results 03/13/24 09:45: Urine Color Dark yellow, Urine Appearance Cloudy, Urine pH 5.5, Ur Specific [place] >= 1.030, Urine Protein 2+, Urine Glucose (UA) 3+, Urine Ketones Negative, Urine Blood 3+, Urine Nitrate Negative, Urine Bilirubin 1+ A, Urine Urobilinogen 1.0, Ur Leukocyte Esterase 2+ A, Urine RBC 20-50, Urine WBC Tntc, Ur Squamous Epith Cells 3-5, Urine Bacteria 4+ 03/13/24 09:55: WBC 11.6 H, RBC 4.22 L, Hgb 13.3 L, Hct 41.0 L, MCV 97.0 H, MCH 31.4 H, MCHC 32.4, RDW 14.2, Plt Count 292, MPV 8.0, Neut % (Auto) 83.7 H, Lymph % (Auto) 9.4 L, [place] % (Auto) 4.5, Eos % (Auto) 1.1, Baso % (Auto) 1.2, Neut # (Auto) 9.7 H, Lymph # (Auto) 1.1, [place] # (Auto) 0.5, Eos # (Auto) 0.1, Baso # (Auto) 0.1, PT 13.7 H, INR 1.29 H, APTT 36.9 H, Sodium 140, Potassium 4.0, C hloride 108 H, Carbon Dioxide 23, Anion Gap 13.0, BUN 28 H, Creatinine 2.70 H, Estimated Creat Clear 27, Estimated GFR 25 L, Est GFR ( Amer) 30 L, G lucose 227 H, Calcium 8.9, Total Bilirubin 1.6 H, AST 38, ALT 36, Alkaline Phosphatase 93, Total Creatine Kinase 34 L, Total Protein 7.6, Albumin 3.7, G lobulin 3.9 H, Albumin/Globulin Ratio 0.9 L 03/13/24 09:55 03/13/24 09:55 Orders (Tests/Meds): ED MEDICATIONS Generic Name Dose Route Start Last Admin Trade Name Freq PRN Reason Stop Dose Admin Cefdinir 300 mg 03/13/24 12:10 Cefdinir 300mg Capsule PO 03/13/24 12:11 ONCE ONE Discontinued Medications Generic Name Dose Route Start Last Admin Trade Name Freq PRN Reason Stop Dose Admin Acetaminophen 1,000 mg 03/13/24 10:02 03/13/24 10:06 Acetaminophen 1,000mg/100ml Vial IV 03/13/24 10:03 1,000 mg ONCE ONE Administration Lactated Ringer's 1,000 mls @ 999 mls/hr 03/13/24 10:15 03/13/24 10:06 Lactated Ringer's 1000 Ml Bag IV 03/13/24 11:15 999 mls/hr .[id number] BLANCA Administration ORDERS Category Date Time Status CT abdomen pelvis wo con Stat Cat Scan 03/13/24 10:02 Taken CBC w/Auto Diff [Complete Blood Count Auto Diff] Stat Lab 03/13/24 09:55 Completed CK [Creatine Kinase] Stat Lab 03/13/24 09:55 Completed CMP [Comprehensive Metabolic Panel] Stat Lab 03/13/24 09:55 Completed PT/PTT Stat Lab 03/13/24 09:55 Completed UA [Urinalysis and Microscopic] Stat Lab 03/13/24 09:45 Completed Urine Culture Stat Micro 03/13/24 09:45 Received Medical Decision Narrative: 49-year-old male presenting today with dark urine mild headache mild low back pain and mildly elevated temperature not objectively a fever. Vital signs are normal here. Will check a urinalysis differential includes hematuria malignancy kidney stone rhabdomyolysis dehydration,etc.. Will get a noncontrasted CT scan check basic blood work give IV fluids and Tylenol and reassess. CT scan performed which I personally interpreted which shows a horseshoe kidney and stranding around this consistent with pyelonephritis. Also multiple gallstones but no evidence of [place] cystitis. On reassessment patient does not have any right upper quadrant tenderness he is made aware of his cholelithiasis will follow-up with surgeon if he does not fact have symptoms in the future. He also is aware of his horseshoe kidney and has a director transition that he follows with at and will follow-up with them also regarding his mild worsening of his chronic kidney disease his creatinine is 2.7 which is low but higher than has been at her baseline at 2.0. A dose of cefdinir was given in the emergency department as well as a prescription. He is not septic he is well-appearing on reassessment no alternative diagnosis of patient's symptoms patient was discharged in a stable condition and is understanding of his follow-up and return precautions Critical Care Critical Care Time Critical Care Time: No
[2024-03-13] MEDS: ACETAMINOPHEN 1,000MG/100ML VIAL 1000 MG IV (10:06)
[2024-03-13] MEDS: LACTATED RINGERS 1000ML 1,000 ML 999 ML IV (10:06)
[2024-03-13 10:08] LABS: Microscopic, Urine URINE MICROSCOPIC (MICROSCOPIC)
[2024-03-13 10:10] LABS: Basophils # 0.1 K/mm3 (0-0.2); Basophils % 1.2 % (0.1-2.0); Eosinophils # 0.1 K/mm3 (0.0-0.4); Eosinophils % 1.1 % (0.1-12.0); Hemoglobin 13.3 g/dL (14.1-18.0); Lymphocytes # 1.1 K/mm3 (0.7-4.5); Lymphocytes % 9.4 % (10-50); Mean Corpuscular HGB Conc 32.4 g/dL (31.8-35.4); Mean Corpuscular Hemoglobin 31.4 pg (27.0-31.2); Monocytes # 0.5 K/mm3 (0.1-1.0); Monocytes % 4.5 % (1.7-9.3); Neutrophils # 9.7 K/mm3 (1.8-7.8); Neutrophils % 83.7 % (37.0-80.0); Platelet Count 292 K/mm3 (142-424); Red Blood Count 4.22 M/mm3 (4.60-6.20); Red Cell Distribution Width 14.2 % (11.5-17.5); White Blood Count 11.6 K/mm3 (4.8-10.8)
[2024-03-13 10:11] LABS: Chloride 108 mmol/L (98-107)
[2024-03-13 10:12] LABS: Sodium 140 mmol/L (136-145)
[2024-03-13 10:14] LABS: Alanine Aminotransferase 36 U/L (12-78); Alkaline Phosphatase 93 U/L (38-126); Aspartate Amino Transferase 38 U/L (17-59); Bilirubin,Total 1.6 mg/dl (0.2-1.3); Blood Urea Nitrogen 28 mg/dl (9-20); Creatinine Clearance Estimated 27 mL/min (50-200); Estimated Glomerular Filt Rate 25 ml/min (>60); GFR (African American) 30 ML/MIN (>60)
[2024-03-13 10:15] LABS: Albumin Level 3.7 g/dl (3.5-5.0); Albumin/Globulin Ratio 0.9 (1.1-1.8); Calcium 8.9 mg/dl (8.4-10.2); Carbon Dioxide 23 mmol/L (22.0-30.0); Creatine Kinase 34 U/L (55-170); Globulin 3.9 g/dL (1.3-3.2); Glucose 227 mg/dl (74-100); Total Protein,Serum 7.6 g/dl (6.3-8.2)
[2024-03-13 10:15] LABS: Blood, Urine 3+ (Negative); Glucose,Urine (UA) 3+ (Negative); Ketones,Urine Negative (Negative); Leukocyte Esterase,Urine 2+ (Negative); Nitrate,Urine Negative (Negative); PH,Urine 5.5 (5.0-8.5); Protein,Urine 2+ (Negative); Specific Gravity, Urine >= 1.030 (1.005-1.030)
[2024-03-13 10:19] LABS: Activated Partial Thrombo Time 36.9 seconds (22.8-30.6); INR 1.29 (0.9-1.1); Prothrombin Time 13.7 seconds (10.1-12.5)
[2024-03-13 10:49] LABS: Bilirubin,Urine 1+ (Negative); Color,Urine Dark Yellow (Yellow)
[2024-03-13 10:50] LABS: Appearance,Urine Cloudy (Clear); WBC,Urine TNTC #/hpf (0-3)
[2024-03-13 10:51] LABS: Bacteria,Urine 4+ /lpf
[2024-03-13 10:52] LABS: RBC,Urine 20-50 #/hpf (0-3)
--- NOTE | 2024-03-13 11:51 | PC.NURSE ---
ROUNDED ON PT. WATER PROVIDED. NO OTHER NEEDS VOICED AND CALL LIGHT WITHIN REACH
--- NOTE | 2024-03-13 12:08 | PC.NURSE ---
DR BARNES AT BS TO UPDATE PT ON RESULTS AND POC
[2024-03-13] MEDS: CEFDINIR 300MG CAPSULE 300 MG PO (12:15)
== END 2024-03-13 12:24 | disposition home or self-care (01) ==
PROVIDERS: Emergency Provider Student in an Organized Health Care Education/Training Program; PCP Family Medicine
DX: N10 Acute pyelonephritis (principal); B96.29 Other Escherichia coli [E. coli] as the cause of diseases classified elsewhere; R50.9 Fever, unspecified; R51.9 Headache, unspecified; M54.59 Other low back pain; N18.9 Chronic kidney disease, unspecified; I48.0 Paroxysmal atrial fibrillation; I11.9 Hypertensive heart disease without heart failure; I25.119 Atherosclerotic heart disease of native coronary artery with unspecified angina pectoris; Q63.1 Lobulated, fused and horseshoe kidney; Z79.01 Long term (current) use of anticoagulants
CPT/HCPCS: 74176; 80053; 81001; 82550; 85025; 85610; 85730; 87086; 96361; 96374; 99284; J0131

== ENCOUNTER 2024-05-04 09:26 | Outpatient (CLI) | payer OTHER, SELFPAY ==
[2024-05-04] MEDS: ALBUTEROL 0.083% 2.5 MG/3 ML NEB IH (09:52)
--- NOTE | 2024-05-04 09:53 | PC.NURSE ---
PFT complete without incident. Albuterol 0.083% given via HHN, per written protocol, Pt tolerated tx well.
== END 2024-05-04 23:59 | disposition home or self-care (01) ==
LOC: RT 09:26
PROVIDERS: PCP Family Medicine; Visit Provider Internal Medicine Pulmonary Disease
DX: R06.09 Other forms of dyspnea (principal)
CPT/HCPCS: 94060; 94726; 94729; J7613

== ENCOUNTER 2024-05-26 09:05 | Outpatient (CLI) | payer OTHER, SELFPAY ==
[2024-05-26 09:14] LABS: Microscopic, Urine URINE MICROSCOPIC (MICROSCOPIC)
[2024-05-26 09:47] LABS: Appearance,Urine CLEAR (Clear); Bilirubin,Urine Negative (Negative); Blood, Urine 3+ (Negative); Color,Urine YELLOW (Yellow); Glucose,Urine (UA) 3+ (Negative); Ketones,Urine Negative (Negative); Leukocyte Esterase,Urine 1+ (Negative); Nitrate,Urine Negative (Negative); Protein,Urine 1+ (Negative); Specific Gravity, Urine 1.015 (1.005-1.030); Urobilinogen,Urine 0.2 EU/dl (0.2)
[2024-05-26 09:49] LABS: Basophils # 0.1 K/mm3 (0-0.2); Basophils % 1.4 % (0.1-2.0); Eosinophils # 0.3 K/mm3 (0.0-0.4); Eosinophils % 3.6 % (0.1-12.0); Hematocrit 41.1 % (42.0-52.0); Hemoglobin 13.7 g/dL (14.1-18.0); Lymphocytes # 2.1 K/mm3 (0.7-4.5); Lymphocytes % 24.8 % (10-50); Mean Corpuscular HGB Conc 33.4 g/dL (31.8-35.4); Mean Corpuscular Volume 95.6 fl (80-94); Mean Platelet Volume 7.8 fl (7.4-10.4); Monocytes # 0.5 K/mm3 (0.1-1.0); Monocytes % 5.6 % (1.7-9.3); Neutrophils # 5.3 K/mm3 (1.8-7.8); Neutrophils % 64.6 % (37.0-80.0); Platelet Count 283 K/mm3 (142-424); Red Cell Distribution Width 14.5 % (11.5-17.5); White Blood Count 8.3 K/mm3 (4.8-10.8)
[2024-05-26 10:07] LABS: Albumin Level 3.8 g/dl (3.5-5.0); Anion Gap 13.7 mEq/L (5-15); Blood Urea Nitrogen 21 mg/dl (9-20); Calcium 9.3 mg/dl (8.4-10.2); Carbon Dioxide 24 mmol/L (22.0-30.0); Chloride 108 mmol/L (98-107); Estimated Glomerular Filt Rate 38 ml/min (>60); GFR (African American) 45 ML/MIN (>60); Glucose 192 mg/dl (74-100); Phosphorous 3.3 mg/dl (2.5-4.5); Potassium 3.7 mmoL/L (3.5-5.1); Sodium 142 mmol/L (136-145)
[2024-05-26 10:19] LABS: Intact Parathyroid Hormone 160.3 pg/mL (7.5-53.5)
[2024-05-26 10:59] LABS: Creatinine,Urine Random 136 mg/dL (Not Estab.)
[2024-05-26 11:02] LABS: 25-OH Vitamin D, Total < 12.8 ng/mL (30-100)
[2024-05-26 11:50] LABS: WBC,Urine 20-50 #/hpf (0-3)
[2024-05-26 11:51] LABS: Amorphous Sediment,Urine 1+ /lpf; Bacteria,Urine 1+ /lpf
== END 2024-05-26 23:59 | disposition home or self-care (01) ==
LOC: LAB 09:05
PROVIDERS: PCP Family Medicine; Visit Provider Internal Medicine Nephrology
DX: E55.9 Vitamin D deficiency, unspecified (principal); N18.32 Chronic kidney disease, stage 3b
CPT/HCPCS: 36415; 80069; 81001; 82043; 82306; 82570; 83970; 84156; 85025; 87086; 87088; 87186

== ENCOUNTER 2024-09-04 08:56 | Outpatient (CLI) | payer OTHER, SELFPAY ==
[2024-09-04 09:03] LABS: Microscopic, Urine URINE MICROSCOPIC (MICROSCOPIC)
[2024-09-04 09:28] LABS: Basophils # 0.1 K/mm3 (0-0.2); Basophils % 1.6 % (0.1-2.0); Eosinophils # 0.3 K/mm3 (0.0-0.4); Eosinophils % 3.2 % (0.1-12.0); Hematocrit 40.2 % (42.0-52.0); Hemoglobin 13.7 g/dL (14.1-18.0); Lymphocytes # 1.5 K/mm3 (0.7-4.5); Lymphocytes % 18.7 % (10-50); Mean Corpuscular HGB Conc 34.2 g/dL (31.8-35.4); Mean Corpuscular Hemoglobin 31.1 pg (27.0-31.2); Mean Corpuscular Volume 90.8 fl (80-94); Mean Platelet Volume 7.1 fl (7.4-10.4); Monocytes # 0.6 K/mm3 (0.1-1.0); Monocytes % 6.9 % (1.7-9.3); Neutrophils # 5.6 K/mm3 (1.8-7.8); Neutrophils % 69.7 % (37.0-80.0); Platelet Count 273 K/mm3 (142-424); Red Blood Count 4.43 M/mm3 (4.60-6.20); Red Cell Distribution Width 14.2 % (11.5-17.5); White Blood Count 8.1 K/mm3 (4.8-10.8)
[2024-09-04 09:47] LABS: Albumin Level 3.9 g/dl (3.5-5.0); Chloride 110 mmol/L (98-107); Potassium 4.8 mmoL/L (3.5-5.1); Sodium 141 mmol/L (136-145)
[2024-09-04 09:50] LABS: Anion Gap 11.8 mEq/L (5-15); Blood Urea Nitrogen 22 mg/dl (9-20); Carbon Dioxide 24 mmol/L (22.0-30.0); Estimated Glomerular Filt Rate 40 ml/min (>60); GFR (African American) 48 ML/MIN (>60); Phosphorous 3.1 mg/dl (2.5-4.5)
[2024-09-04 09:51] LABS: Calcium 9.4 mg/dl (8.4-10.2); Glucose 160 mg/dl (74-100)
[2024-09-04 10:05] LABS: Appearance,Urine CLOUDY (Clear); Bilirubin,Urine Negative (Negative); Blood, Urine 3+ (Negative); Color,Urine YELLOW (Yellow); Glucose,Urine (UA) 3+ (Negative); Ketones,Urine Negative (Negative); Leukocyte Esterase,Urine 1+ (Negative); Nitrate,Urine POSITIVE (Negative); Protein,Urine TRACE (Negative); Urobilinogen,Urine 0.2 EU/dl (0.2)
[2024-09-04 10:37] LABS: Bacteria,Urine 2+ /lpf; WBC,Urine 20-50 #/hpf (0-3)
[2024-09-04 10:53] LABS: Creatinine,Urine Random 116 mg/dL (Not Estab.)
== END 2024-09-04 23:59 | disposition home or self-care (01) ==
LOC: LAB 08:57
PROVIDERS: PCP Family Medicine; Visit Provider Internal Medicine Nephrology
DX: N18.32 Chronic kidney disease, stage 3b (principal)
CPT/HCPCS: 36415; 80069; 81001; 82570; 84156; 85025; 87086; 87088; 87186

== ENCOUNTER 2024-09-08 09:23 | Outpatient (POV) | payer OTHER, SELFPAY | END 2024-09-08 23:59 | disposition home or self-care (01) | LOC: SC 09:23 | PROVIDERS: Visit Provider Student in an Organized Health Care Education/Training Program | DX: Z00.00 Encounter for general adult medical examination without abnormal findings (principal) ==

== ENCOUNTER 2025-01-19 08:54 | Emergency (ER) | payer OTHER, SELFPAY ==
[2025-01-19] VITALS (8 sets, daily range): BP systolic 90–109; BP diastolic 48–69; PULSE 57–86; RESP 18; TEMP 36.7–36.8; O2SAT 95–98; BMI 54.8
--- NOTE | 2025-01-19 09:24 | PC.NURSE ---
DR BAUMAN AT BEDSIDE
--- NOTE | 2025-01-19 09:36 | HMH.EDGENADL ---
Discharge Plan Disposition Patient Disposition: Home, Self-Care Condition: Good Prescriptions Prescriptions: No Action febuxostat 40 mg tablet 40 mg PO DAILY Jardiance 25 mg tablet 25 mg PO DAILY Patient Comments: TAKE ONE TABLET BY MOUTH EVERY DAY cholecalciferol (vitamin D3) 50 mcg (2,000 unit) capsule 50 mcg PO DAILY Patient Comments: TAKE ONE CAPSULE BY MOUTH ONCE DAILY Ozempic 0.25 mg or 0.5 mg (2 mg/3 mL) pen injector 0.5 mg SQ QWEEK irbesartan 150 mg tablet 150 mg PO DAILY Qty: 90 3RF diltiazem HCl 180 mg capsule,extended release 24hr See Rx Instructions .ROUTE .COMPLEX Qty: 180 1RF Dose Instruction: TAKE TWO CAPSULES BY MOUTH EVERY DAY Rx Instructions: TAKE TWO CAPSULES BY MOUTH EVERY DAY rosuvastatin 10 mg tablet 10 mg PO HS Patient Comments: TAKE ONE TABLET BY MOUTH EVERY DAY rivaroxaban 15 mg tablet 15 mg PO QPMWITHMEAL Referrals Follow up/Referrals: Hilario Argueta MD [Primary Care Provider] - See instructions Activity Restrictions/Add. Instructions Additional Instructions/Restrictions: You were evaluated in the emergency department today. At this time, your lab evaluation is reassuring. I feel this is likely a manifestation of a side effect of your medication, Ozempic. Please follow-up closely with your primary care provider for further instruction. They may recommend changing or discontinuing this medication at their discretion. Make sure you stay hydrated. Eat a bland diet. Return to the emergency department right away for new or worsening symptoms. Clinical Impressions Clinical Impression: Diarrhea Stand Alone Forms Stand Alone Forms: Work/School Release Instructions Patient Instructions: DI for Diarrhea and Traveler's Diarrhea -- Adult Print Language Print Language: Slovenian Discharge ED Provider: Rosey Strong General Adult HPI General Chief complaint: Abdominal Pain Stated complaint: diarrhea, cramps, nausea Time Seen by Provider: 01/19/25 09:07 Mode of Arrival: Wheelchair Source of Information: Patient Limitations: No Limitations Description of Symptoms (Recalled from ER Triage Doc. by RN): PT REPORTS INTERMITTENT DIARRHEA X 6 WEEKS, PT CURRENTLY ON OZEMPIC AND NOTICED CHANGE IN STOOL WHEN DOSAGE WAS INCREASED ABOUT 6 WEEKS AGO. NO BLOOD IN STOOL, NO VOMITING. REPORTS OCCASIONAL ABDOMINAL CRAMPING History of Present Illness HPI narrative: This patient is a 49-year-old male with a history of morbid obesity, atrial fibrillation on Xarelto, hypertension, hyperlipidemia, type 2 diabetes on Ozempic, CKD presenting to the emergency department for evaluation with concern for diarrhea. Patient states that he was initially on 0.25 mg of Ozempic and tolerated that fine, but they increased his dose about 6 or 7 weeks ago to 0.5 mg and since then he has had profuse diarrhea. He notes that despite being on the increased dose for several weeks and making adjustments like his primary care provider instructed, such as taking it in the morning on an empty stomach, he symptoms continue to worsen. He notes that he was up last night 7 times with diarrhea and is concerned because his urine is starting to get dark. He has abdominal cramping intermittently. He has nausea but no vomiting. No fevers, blood in stools, or urinary symptoms. No localizable abdominal pain. Related Data Home Medications ?Medication ?Instructions ?Recorded ?Confirmed rivaroxaban 15 mg tablet 15 mg PO QPMWITHMEAL blood 04/30/23 01/19/25 thinner/atrial fib rosuvastatin 10 mg tablet 10 mg PO HS Cholesterol 04/30/23 01/19/25 febuxostat 40 mg tablet 40 mg PO DAILY 02/14/24 01/19/25 empagliflozin 25 mg tablet 25 mg PO DAILY 06/08/24 01/19/25 (Jardiance) cholecalciferol (vitamin D3) 50 50 mcg PO DAILY 12/19/24 01/19/25 mcg (2,000 unit) capsule semaglutide 0.25 mg or 0.5 mg (2 0.5 mg SQ QWEEK 12/19/24 01/19/25 mg/3 mL) subcutaneous pen injector (Ozempic) Previous Rx's ?Medication ?Instructions ?Recorded irbesartan 150 mg tablet 150 mg PO DAILY blood pressure #90 12/07/24 tabs diltiazem HCl 180 mg See Rx Instructions .Route 12/26/24 capsule,extended release 24 hr .COMPLEX #180 caps Allergies Allergy/AdvReac Type Severity Reaction Status Date / Time No Known Allergies Allergy Verified 01/19/25 09:22 [facility] Disclaimer: The information contained in this section may have been updated after the patient was seen, as this information can be updated by other users. Medical History Diabetes Hyperlipidemia Arthritis Chronic kidney disease (CKD) History of 2019 novel coronavirus disease (COVID-19) Obstructive sleep apnea syndrome Dyspnea on exertion Sinusitis CAD (coronary atherosclerotic disease) Abnormal cardiovascular stress test Angina pectoris Dizziness Chest pain Dyspnea Abnormal electrocardiography Cellulitis and abscess of right leg A-fib Fall Atrial fibrillation with RVR Hypercapnic respiratory failure ROXANA (acute kidney injury) Open wound of abdominal wall Morbid obesity Respiratory acidosis HTN (hypertension) Hyperglycemia Rapid atrial fibrillation Cellulitis of leg, right Septic shock Surgical History History of right knee joint replacement History of surgery on lower extremity Family History Other COPD (chronic obstructive pulmonary disease) Cancer Diabetes Hypertension Stroke Social History Smoking Status: Never smoker alcohol intake: never current occupational status: unemployed Travel in the last 8 weeks: None household members: family housing: house current occupational exposures/hazards: No caffeine: Yes Have you lived/traveled outside US in past 30 days?: No Contact w/someone who lives/traveled outside US past 30 days?: No Exposure to someone with infectious disease in past 14 days?: No Do you have a fever (greater than 100.4 F or 38 C)?: No Have you tested positive for COVID-19: No Exposed to someone with COVID-19 in past 14 days?: No Do you have a sore throat?: No Do you have a cough?: No Do you have any weakness?: No Do you have any diarrhea?: Yes Are you experiencing any unusual bleeding?: No Do you have any muscle aches/pain?: No Do you have any abdominal pain?: Yes Are you experiencing loss of taste or smell?: No Other Medical History Have you received the Flu Vaccine for this season: No Have you received the Pneumonia Vaccine: No ROS Obtained: Yes All systems reviewed & no additional complaints except as documented Physical Exam General General appearance: alert, in no apparent distress and obese Head Head exam: atraumatic and normocephalic Eye Eye exam: Present normal appearance, PERRL and EOMI ENT ENT exam: Present normal exam, normal oropharynx, mucous membranes moist and normal external ear exam Neck Neck exam: Present normal inspection, full ROM and trachea midline; Absent tenderness Chest Chest inspection: Present normal inspection and symmetric chest wall rise; Absent tenderness Respiratory Respiratory exam: Present normal lung sounds bilaterally; Absent respiratory distress, wheezes, stridor or accessory muscle use Cardiovascular Cardiovascular exam: Present regular rate and normal rhythm Abdominal Exam Abdominal exam: Present soft; Absent distention, tenderness or guarding Extremities Exam Extremities exam: Present normal inspection, full ROM and normal capillary refill; Absent tenderness or edema Back Exam Back exam: Present normal inspection and full ROM; Absent tenderness Neurological Exam Neurological exam: Present alert, oriented X3 and CN II-XII intact; Absent motor sensory deficit Psychiatric Psychiatric exam: Present normal affect and normal mood Skin Skin exam: Present warm and dry Medical Decision Making Medical Records Medical records reviewed: Yes I reviewed the patient's medical records. Screening: Per USPSTF and CDC recommendations, given the prevalence of disease in our region, it is our hospital?s policy to screen for HIV and viral Hepatitis for all patients aged 18 and over and those with ongoing risk factors. Tj Inquiry Pt receiving controlled substance: No Vital Signs: 01/19/25 08:56 01/19/25 09:01 01/19/25 09:31 Temperature 98.3 F Temperature Source Oral Pulse Rate 86 70 Pulse Rate [Radial] 78 Respiratory Rate 18 Blood Pressure 109/69 L 90/58 L Blood Pressure [Left Arm] 109/69 L Blood Pressure Mean [Left Arm] 82 Blood Pressure Source Blood Pressure Source [Left Arm] Automatic Cuff Blood Pressure Position Blood Pressure Position [Left Arm] Sitting 02 Sat by Pulse Oximetry 98 98 95 Oxygen Delivery Method Room Air Room Air 01/19/25 10:00 01/19/25 10:31 01/19/25 11:01 Temperature Temperature Source Pulse Rate 65 67 60 Pulse Rate [Radial] Respiratory Rate Blood Pressure 102/53 L 101/58 L 99/48 L Blood Pressure [Left Arm] Blood Pressure Mean [Left Arm] Blood Pressure Source Blood Pressure Source [Left Arm] Blood Pressure Position Blood Pressure Position [Left Arm] 02 Sat by Pulse Oximetry 96 95 96 Oxygen Delivery Method Room Air Room Air Room Air 01/19/25 11:30 01/19/25 11:31 Temperature 98.0 F Temperature Source Oral Pulse Rate 57 L 58 L Pulse Rate [Radial] Respiratory Rate 18 Blood Pressure 109/67 L 109/67 L Blood Pressure [Left Arm] Blood Pressure Mean [Left Arm] Blood Pressure Source Automatic Cuff Blood Pressure Source [Left Arm] Blood Pressure Position Sitting Blood Pressure Position [Left Arm] 02 Sat by Pulse Oximetry 97 Oxygen Delivery Method Room Air Room Air Lab Data Lab results reviewed: Yes I reviewed the patient's lab results. Lab Results 01/19/25 09:12: WBC 9.7, RBC 4.55 L, Hgb 13.6 L, Hct 41.8 L, MCV 91.9, MCH 29.9, MCHC 32.5, RDW 13.6, Plt Count 270, MPV 9.5, Neut % (Auto) 66.5, Lymph % (Auto) 20.5, [place] % (Auto) 9.8 H, Eos % (Auto) 1.9, Baso % (Auto) 1.1, Neut # (Auto) 6.4, Lymph # (Auto) 2.0, [place] # (Auto) 1.0, Eos # (Auto) 0.2, Baso # (Auto) 0.1, Sodium 140, Potassium 4.2, Chloride 110 H, Carbon Dioxide 21 L, Anion Gap 13.2, BUN 27 H, Creatinine 2.10 H, Estimated Creat Clear 39, Estimated GFR 33 L, Est GFR ( Amer) 40 L, Glucose 145 H, Calcium 8.9, Phosphorus 3.2, Magnesium 1.9, Total Bilirubin 2.1 H, AST 26, ALT 29, Alkaline Phosphatase 66, Total Protein 7.5, Albumin 4.1, Globulin 3.4 H, Albumin/Globulin Ratio 1.2, Lipase 123, HCV Ab NICOLAS w/Rflx PCR Qn Negative, HIV Ag/Ab Combo Qual Negative 01/19/25 09:12 01/19/25 09:12 Orders (Tests/Meds): ED MEDICATIONS Discontinued Medications Generic Name Dose Route Start Last Admin Trade Name Freq PRN Reason Stop Dose Admin Lactated Ringer's 1,000 mls @ 999 mls/hr 01/19/25 09:29 01/19/25 09:46 Lactated Ringer's 1000 Ml Bag IV 01/19/25 10:29 999 mls/hr .Q1H1M ONE Administration Ondansetron HCl 4 mg 01/19/25 09:29 01/19/25 09:46 Ondansetron 4mg/2ml Vial IV 01/19/25 09:30 4 mg ONCE ONE Administration ORDERS Category Date Time Status Complete Blood Count Auto Diff Stat Lab 01/19/25 09:12 Completed Comprehensive Metabolic Panel Stat Lab 01/19/25 09:12 Completed HIV Combo Stat Lab 01/19/25 09:12 Completed Hepatitis C Ab Qual. W/ RFX Stat Lab 01/19/25 09:12 Completed Lipase Stat Lab 01/19/25 09:12 Completed MAG [Magnesium] Stat Lab 01/19/25 09:12 Completed PHOS [Phosphorous] Stat Lab 01/19/25 09:12 Completed Medical Decision Narrative: In summary, this patient is a 49-year-old male presenting to the Emergency Department for evaluation of diarrhea for 6 to 7 weeks after increasing Ozempic. Differential diagnoses considered include but are not limited to medication adverse reaction, dehydration, ROXANA, electrolyte derangements, infectious colitis, diverticulitis. Ruling out the most morbid conditions drove assessment. It should be noted patient's history includes morbid obesity, hypertension, hyperlipidemia, atrial fibrillation, type 2 diabetes which may or may not be at goal therapy. This complicates all aspects of care by increasing patient's risk for morbidity. I reviewed patient's past medical records and noted previous cardiology evaluations for A-fib. On exam, the patient is sitting upright in no acute distress. He has no complaints of abdominal pain at this time. Abdominal exam is benign with no localizable tenderness. Vitals are reassuring on cardiac telemetry. Workup included CBC, CMP, lipase, magnesium, phosphorus, diarrhea panel. I considered obtaining abdominal imaging such as CT scan however based on reassuring history and exam I doubt surgical intra-abdominal pathology and feel it likely would not climate change risk assessor. Patient was given a bolus of IV fluids as well as IV Zofran for symptomatic improvement. On reassessment, the patient is resting comfortably. He has no recurrence of vomiting or diarrhea here. Labs are reassuring with no significant leukocytosis, mild anemia without indication for transfusion, creatinine around his baseline. No profound electrolyte derangements. He was not able to provide stool specimen here as he had no recurrence of diarrhea here. He is able to tolerate oral intake. Given this, I feel it is appropriate for discharge home. I feel he is likely having GI side effects of Ozempic and I advised he follow-up closely with his primary care provider for further management. Strict return precautions given Critical Care Critical Care Time Critical Care Time: No
[2025-01-19 09:41] LABS: Basophils # 0.1 K/mm3 (0-0.2); Basophils % 1.1 % (0.1-2.0); Eosinophils # 0.2 K/mm3 (0.0-0.4); Eosinophils % 1.9 % (0.1-12.0); Hematocrit 41.8 % (42.0-52.0); Hemoglobin 13.6 g/dL (14.1-18.0); Lymphocytes % 20.5 % (10-50); Mean Corpuscular HGB Conc 32.5 g/dL (31.8-35.4); Mean Corpuscular Hemoglobin 29.9 pg (27.0-31.2); Mean Corpuscular Volume 91.9 fl (80-94); Mean Platelet Volume 9.5 fl (7.4-10.4); Monocytes % 9.8 % (1.7-9.3); Neutrophils # 6.4 K/mm3 (1.8-7.8); Neutrophils % 66.5 % (37.0-80.0); Platelet Count 270 K/mm3 (142-424); Red Blood Count 4.55 M/mm3 (4.60-6.20); Red Cell Distribution Width 13.6 % (11.5-17.5); White Blood Count 9.7 K/mm3 (4.8-10.8)
[2025-01-19] MEDS: ONDANSETRON 4MG/2ML VIAL 4 MG IV (09:46)
[2025-01-19] MEDS: LACTATED RINGERS 1000ML 1,000 ML 999 ML IV (09:46)
--- NOTE | 2025-01-19 09:47 | PC.NURSE ---
PT MEDICATED PER EMAR, UPDATED ON POC. NO NEEDS AT THIS TIME
[2025-01-19 09:52] LABS: Alanine Aminotransferase 29 U/L (12-78); Albumin Level 4.1 g/dl (3.5-5.0); Albumin/Globulin Ratio 1.2 (1.1-1.8); Alkaline Phosphatase 66 U/L (38-126); Anion Gap 13.2 mEq/L (5-15); Aspartate Amino Transferase 26 U/L (17-59); Bilirubin,Total 2.1 mg/dl (0.2-1.3); Blood Urea Nitrogen 27 mg/dl (9-20); Calcium 8.9 mg/dl (8.4-10.2); Carbon Dioxide 21 mmol/L (22.0-30.0); Chloride 110 mmol/L (98-107); Creatinine Clearance Estimated 39 mL/min (50-200); Estimated Glomerular Filt Rate 33 ml/min (>60); GFR (African American) 40 ML/MIN (>60); Globulin 3.4 g/dL (1.3-3.2); Glucose 145 mg/dl (74-100); Lipase 123 U/L (23-300); Magnesium 1.9 mg/dl (1.6-2.3); Phosphorous 3.2 mg/dl (2.5-4.5); Potassium 4.2 mmoL/L (3.5-5.1); Sodium 140 mmol/L (136-145); Total Protein,Serum 7.5 g/dl (6.3-8.2)
--- NOTE | 2025-01-19 10:18 | PC.NURSE ---
ROUNDED ON PT, UNABLE TO PROVIDE STOOL SAMPLE AT THIS TIME. CALL LIGHT WITHIN REACH. NO NEEDS AT THIS TIME
--- NOTE | 2025-01-19 10:29 | PC.NURSE ---
TOLERATING WATER AND CRACKERS, NO NEEDS AT THIS TIME
[2025-01-19 12:44] LABS: HIV Combo NEGATIVE (Negative)
[2025-01-19 12:51] LABS: Hepatitis C Ab Qual. W/ RFX NEGATIVE (Negative)
== END 2025-01-19 11:30 | disposition home or self-care (01) ==
PROVIDERS: Emergency Provider Emergency Medicine; PCP Family Medicine
DX: R19.7 Diarrhea, unspecified (principal); R10.9 Unspecified abdominal pain; R11.0 Nausea
CPT/HCPCS: 80053; 83690; 83735; 84100; 85025; 86803; 87389; 96361; 96374; 99283; J2405; J7120

== ENCOUNTER 2025-07-24 10:54 | Outpatient (CLI) | payer OTHER, SELFPAY ==
--- OUTSIDE RECORDS SUMMARY | 2024-11-17 05:30 | XMS_ITS ---
[facility] Address [address] [facility] [address] [facility] [address] [place] [id number] Care Team Providers Care Job Placement Counselor Name Role Phone Hilario Argueta Primary Care Provider Allergies No Known Allergies Results Component Value Reference Range Notes Glucose (In-House) Reviewed date:11/20/2024 10:10:42 AM Interpretation:176 Performing Lab: Notes/Report: 176 blood glucose 176 74 - 106 mg/dL Glycohemoglobin A1c (in hous e) Reviewed date:11/20/2024 10:10:42 AM Interpretation:7.6 Performing Lab: Notes/Report: 7.6 glycohemoglobin 7.6% 5 - 6.5 % P-CBC With Platelet No Diffe rential Reviewed date:11/20/2024 10:10:42 AM Interpretation: Normal Performing Lab: Notes/Report: Test performed by [facility], [facility] [address] [place] [address] , [address], [place] [address] Timothy Peck MD, Commercial Electrician CLIA: [id number] WBC 8.9 3.8-11.5 K/uL Red Blood Cell Count (RBC) 4.52 4.20-5.70 M/mm 3 Hemoglobin (Hgb) 13.9 13.1-17.5 gm/dL Hematocrit (HCT) 42.1 39.0-51.0 % MCV 93.1 79.0-99.0 fL MCH 30.8 26.9-35.0 pg MCHC 33.0 30.4-34.8 g/dL RDW 43.7 38.2-53.0 fL Platelet Count 262 137-397 K/cumm P-Comprehensive Metabolic Pa negro (CMP) Reviewed date:11/20/2024 10:10:42 AM Interpretation:gluc 149, bun 23, Cr 1.82, gfr 44 Performing Lab: Notes/Report: Test performed by [facility] [address] [place] [address] , [address], [place] [address] Timothy Peck MD, Commercial Electrician CLIA: [id number] Sodium 144 135-145 mmol/L Potassium 4.5 3.5-5.3 mmol/L Chloride 107 97-108 mmol/L CO2 25 22-32 mmol/L Glucose 149 65-99 mg/dL BUN 23 6-20 mg/dL Creatinine 1.82 0.70-1.30 mg/dL Calcium 9.2 8.6-10.4 mg/dL eGFR by Creatinine 44 >59 mL/min/1.73m2 Protein 7.4 6.0-8.3 g/dL Albumin 3.9 3.5-5.3 g/dL Alkaline Phosphatase 80 40-129 IU/L ALT (SGPT) 13 <5-55 IU/L AST (SGOT) 15 <5-46 IU/L Bilirubin, Total 0.9 <0.2-1.2 mg/dL A/G Ratio 1.1 1.1-2.5 P-Lipid Panel Reviewed date:11/20/2024 10:10:42 AM Interpretation:trigs 195, hdl 36 Performing Lab: Notes/Report: Test performed by [facility] [address] [place] [address] , [address], [place] [address] Timothy Peck MD, Commercial Electrician CLIA: [id number] Cholesterol 151 <200 mg/dL Triglycerides 195 <150 mg/dL HDL Cholesterol 36 >39 mg/dL Cholesterol / HDL Ratio 4.19 0.00-4.99 Ratio Non-HDL Cholesterol 115 <130 mg/dL LDL Cholesterol (Calculation) 76 <130 mg/dL LDL Cholesterol Levels* Less than 100 mg/dL Optimal 100 to 129 mg/dL Near Optimal/ Above Optimal 130 to 159 mg/dL Borderline High 160 to 189 mg/dL High 190 mg/dL and above Very High * Categories as recommended by the 2004 ATPIII guidelines LDL/HDL Ratio 2.1 <3.3 Ratio LDL Cholesterol Patient History Test Date: 12/30/2022 LDL Results: 181 Units: mg/dL % Change: - Test Date: 05/16/2024 LDL Results: 75 Units: mg/dL % Change: -58% Test Date: 11/17/2024 LDL Results: 76 Units: mg/dL % Change: +1% P-Phosphorus Reviewed date:11/20/2024 10:10:42 AM Interpretation: Normal Performing Lab: Notes/Report: Test performed by [facility], [place] [id number] [facility] , [address], [place] [address] Timothy Peck MD, Commercial Electrician CLIA: [id number] Phosphorus 2.5 2.5-4.5 mg/dL REASON FOR VISIT 6 MOS CHECKUP Medications Medication SIG (Take, Route, Frequency, Duration) Notes Start Date End Date Status Uloric 40 MG 1 tablet Orally Once a day Active Xarelto 15 mg TAKE ONE TABLET BY M OUTH EVERY EVENING with a meal Active Rosuvastatin Calcium 10 mg TAKE ONE TABL ET BY MOUTH EVERY DAY Active Jardiance 25 MG 1 tablet Orally Once a day Active Ozempic (0.25 or 0.5 MG/DOSE) 2 MG/3ML 0.5 mg Subcutaneous once weekly 11/17/2024 Active dilTIAZem HCl ER 180 MG 2 caps orally once a day 0 04/14/2022 Active Irbesartan 75 MG 1 tab(s) orally once a day 2021 Active Vital Signs Blood pressure systolic 142 mm Hg 11/17/20 Blood pressure diastolic 80 mm Hg 024 Heart Rate 85 /min 11/17/2024 Weight 000 lbs 11/17/2024 Encounters Encounter Location Date Provider Diagnosis [facility] [address] [facility] [address] [place] [address], [place] [phone] 11/17/2024 Hilario Argueta Essential (primary) hypertension I10 ; Type 2 diabetes mellitus with diabetic chronic kidney disease E11.22 ; Stage 3b chronic kidney disease N18.32 and Hyperlipidemia E78.5 Assessments Encounter Date Diagnosis (ICD Code) Assessment Notes Treatment Notes Treatment Clinical Notes Section Notes 11/17/2024 Essential (primary) hypertension (ICD-10 - I10) 11/17/2024 Type 2 diabetes mellitus with diabetic chronic kidney disease (ICD-10 - E11.22) Improved, not at goal today 11/17/2024 Stage 3b chronic kidney disease (ICD-10 - N18.32) 11/17/2024 Hyperlipidemia (ICD-10 - E78.5) Plan Of Treatment Medication Medication Name Sig Start Date Stop Date Notes Uloric 40 MG 1 tablet Orally Once a day Ozempic (0.25 or 0.5 MG/DOSE ) 2 MG/3ML 0.25 mg Subcutaneous weekly 12/06/2023 Xarelto 15 mg TAKE ONE TABLET BY M OUTH EVERY EVENING with a meal Rosuvastatin Calcium 10 mg TAKE ONE TABL ET BY MOUTH EVERY DAY Jardiance 25 MG 1 tablet Orally Once a day Ozempic (0.25 or 0.5 MG/DOSE ) 2 MG/3ML 0.5 mg Subcutaneous once weekly 11/17/2024 dilTIAZem HCl ER 180 MG 2 caps orally once a day Irbesartan 75 MG 1 tab(s) orally once a day 04/14/2022 Treatment Notes Assessment Notes Type 2 diabetes mellitus wit h diabetic chronic kidney disease Improved, not at goal today Next Appt Details Follow Up: 6 Months, Reason: Provider Name:Hilario Mckeon luz marina, 11/19/2025 10:00:00 AM, [address], [address], [place], [phone], Provider Name:Hilario Mckeon luz marina, 01/21/2026 10:30:00 AM, [address], [address], [place], [place], [id number], Progress Notes * ALTAMIRANO, LEXIEDOB:1975 (50 yo M)Acc No.[id number]:11/17/2024 Progress Notes Patient: LEXIE RIVERA Provider: Aranza Argueta M.D. :1975 A ge:49 Y S ex:Male Date:11/17/2024 Address:[address], [id number] Subjective: * Chief Complaints: * 1 . 6 MOS CHECKUP. * HPI: C ardiology: 49 year old male presents with c/o Blood Pressure Elevated P t here for 6 mo f/u on hypertension, states he is doing well and does not have any concerns. c/o Hyperlipidemia P t is fasting today. E ndocrinology: c/o Recent Blood Sugars P t here to f/u on DM 2, pt states that he does not check blood sugar at home. Pt had home health visit 09/27/2024 and A1C was 7.0%. Pt states he has been out of Ozempic for about a month . * ROS: D ERMATOLOGY: no R gregor. n o H jc. G ASTROENTEROLOGY: no N ausea. n o V omiting. U ROLOGY: no D ifficulty urinating. n o B lood in urine. * Medical History: H ypertension, Arthritis, Atrial Fibrillation, Pneumonia, Chronic kidney disease, Gout, Type 2 diabetes, Sleep apnea, Obesity. * Surgical History: R T Knee Replacement 10/2005. * Hospitalization/Major Diagno stic Procedure: C - [facility] 04/29-10/2023. * Family History: 2 brother(s) . . 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 * Social History: C URRENT TOBACCO USE: No . C affeine: yes, frequency: 1-2 cups per day. Alcohol: no. * Medications: T aking Irbesartan 75 MG Tablet 1 tab(s) orally once a day , Taking dilTIAZem HCl ER 180 MG Capsule Extended Release 24 Hour 2 caps orally once a day , Taking Jardiance 25 MG Tablet 1 tablet Orally Once a day , Taking Xarelto 15 mg Tablet TAKE ONE TABLET BY MOUTH EVERY EVENING with a meal , Taking Rosuvastatin Calcium 10 mg Tablet TAKE ONE TABLET BY MOUTH EVERY DAY , Taking Uloric 40 MG Tablet 1 tablet Orally Once a day , Not-Taking Ozempic (0.25 or 0.5 MG/DOSE) 2 MG/3ML Solution Pen-injector 0.25 mg Subcutaneous weekly , Medication List reviewed and reconciled with the patient * Allergies: N .K.D.A. Objective: * Vitals: W t:000, Temp:98.0, BP:142/80, HR:85, Nurse:nurys. * Examination: C ardiology: General Appearance: p leasant, NAD, sitting in a wheelchair. H eart sounds: R RR. L ungs: c lear, no rales or wheezes. E xtremities: 1 + bilateral lower leg edema. Assessment: * Assessment: 1. E ssential (primary) hypertension - I10 (Primary) 2 . T ype 2 diabetes mellitus with diabetic chronic kidney disease - E11.22 3 . S tage 3b chronic kidney disease - N18.32 4 . H yperlipidemia - E78.5 Plan: * Treatment: Value Reference Range A /G Ratio 1.1 1.1-2.5 - * A lbumin 3.9 3.5-5.3 - g/dL * A lkaline Phosphatase 80 40-129 - IU/L * A LT (SGPT) 13 <5-55 - IU/L * A ST (SGOT) 15 <5-46 - IU/L * B ilirubin, Total 0.9 <0.2-1.2 - mg/dL * B UN 23 H 6-20 - mg/dL * C alcium 9.2 8.6-10.4 - mg/dL * C hloride 107 97-108 - mmol/L * C O2 25 22-32 - mmol/L * C reatinine 1.82 H 0.70-1.30 - mg/dL * G lucose 149 H 65-99 - mg/dL * P otassium 4.5 3.5-5.3 - mmol/L * S odium 144 135-145 - mmol/L * P rotein 7.4 6.0-8.3 - g/dL * e GFR by Creatinine 44 L >59 - mL/min/1.73m2 * Emi Jay 11/20/2024 10:1 0:37 AM >See phone encounter 2.?Type 2 diabetes mellitus with diabetic chronic kidney disease? Stop Ozempic (0.25 or 0.5 MG/DOSE) Solution Pen-injector, 2 MG/3ML, 0.25 mg, Subcutaneous, weekly; Start Ozempic (0.25 or 0.5 MG/DOSE) Solution Pen- injector, 2 MG/3ML, 0.5 mg, Subcutaneous, onceweekly, 3 mL, Refills 5;?Continue Jardiance Tablet, 25 MG, 1 tablet, Orally, Once a day.?LAB: P-Comprehensive Metabolic Panel (CMP) (Collection Date & Time - 11/17/2024 09:01 AM)?gluc 149, bun 23, Cr 1.82, gfr 44* Value Reference Range A /G Ratio 1.1 1.1-2.5 - * A lbumin 3.9 3.5-5.3 - g/dL * A lkaline Phosphatase 80 40-129 - IU/L * A LT (SGPT) 13 <5-55 - IU/L * A ST (SGOT) 15 <5-46 - IU/L * B ilirubin, Total 0.9 <0.2-1.2 - mg/dL * B UN 23 H 6-20 - mg/dL * C alcium 9.2 8.6-10.4 - mg/dL * C hloride 107 97-108 - mmol/L * C O2 25 22-32 - mmol/L * C reatinine 1.82 H 0.70-1.30 - mg/dL * G lucose 149 H 65-99 - mg/dL * P otassium 4.5 3.5-5.3 - mmol/L * S odium 144 135-145 - mmol/L * P rotein 7.4 6.0-8.3 - g/dL * e GFR by Creatinine 44 L >59 - mL/min/1.73m2 * Emi Jay 11/20/2024 10:1 0:37 AM >See phone encounter ?LAB: Glucose (In-House) (Collection Date & Time - 11/17/2024)?176* Value Reference Range b lood glucose 176 74 - 106 mg/dL * Missy Shannon 11/17/2024 10:24: 30 AM > Emi Jay 11/20/2024 10:10:37 AM >See phone encounter ?LAB: Glycohemoglobin A1c (in house) (Collection Date & Time - 11/17/2024)? 7.6* Value Reference Range g lycohemoglobin 7.6% 5 - 6.5 % * Missy Shannon 11/17/2024 10:24: 46 AM > Emi Jay 11/20/2024 10:10:37 AM >See phone encounter Notes: Improved, not at goal today??3.?Stage 3b chronic kidney disease?LAB: P-CBC With Platelet No Differential (Collection Date & Time - 11/17/2024 09:01 AM)?Normal* Value Reference Range H ematocrit (HCT) 42.1 39.0-51.0 - % * H emoglobin (Hgb) 13.9 13.1-17.5 - gm/dL * M CH 30.8 26.9-35.0 - pg * M CHC 33.0 30.4-34.8 - g/dL * M CV 93.1 79.0-99.0 - fL * P latelet Count 262 137-397 - K/cumm * R ed Blood Cell Count (RBC) 4.52 4.20-5.70 - M/ mm3 * R DW 43.7 38.2-53.0 - fL * W BC 8.9 3.8-11.5 - K/uL * PierreEmi carrizales 11/20/2024 10:1 0:37 AM >See phone encounter ?LAB: P-Comprehensive Metabolic Panel (CMP) (Collection Date & Time - 11/17/2024 09:01 AM)?gluc 149, bun 23, Cr 1.82, gfr 44* Value Reference Range A /G Ratio 1.1 1.1-2.5 - * A lbumin 3.9 3.5-5.3 - g/dL * A lkaline Phosphatase 80 40-129 - IU/L * A LT (SGPT) 13 <5-55 - IU/L * A ST (SGOT) 15 <5-46 - IU/L * B ilirubin, Total 0.9 <0.2-1.2 - mg/dL * B UN 23 H 6-20 - mg/dL * C alcium 9.2 8.6-10.4 - mg/dL * C hloride 107 97-108 - mmol/L * C O2 25 22-32 - mmol/L * C reatinine 1.82 H 0.70-1.30 - mg/dL * G lucose 149 H 65-99 - mg/dL * P otassium 4.5 3.5-5.3 - mmol/L * S odium 144 135-145 - mmol/L * P rotein 7.4 6.0-8.3 - g/dL * e GFR by Creatinine 44 L >59 - mL/min/1.73m2 * Emi Jay 11/20/2024 10:1 0:37 AM >See phone encounter ?LAB: P-Phosphorus (Collection Date & Time - 11/17/2024 09:01 AM)?Normal* Value Reference Range P hosphorus 2.5 2.5-4.5 - mg/dL * Emi Jay 11/20/2024 10:1 0:37 AM >See phone encounter 4.?Hyperlipidemia? Continue Rosuvastatin Calcium Tablet, 10 mg, TAKE ONE TABLET BY MOUTH EVERY DAY.?LAB: P-Comprehensive Metabolic Panel (CMP) (Collection Date & Time - 11/17/2024 09:01 AM)?gluc 149, bun 23, Cr 1.82, gfr 44* Value Reference Range A /G Ratio 1.1 1.1-2.5 - * A lbumin 3.9 3.5-5.3 - g/dL * A lkaline Phosphatase 80 40-129 - IU/L * A LT (SGPT) 13 <5-55 - IU/L * A ST (SGOT) 15 <5-46 - IU/L * B ilirubin, Total 0.9 <0.2-1.2 - mg/dL * B UN 23 H 6-20 - mg/dL * C alcium 9.2 8.6-10.4 - mg/dL * C hloride 107 97-108 - mmol/L * C O2 25 22-32 - mmol/L * C reatinine 1.82 H 0.70-1.30 - mg/dL * G lucose 149 H 65-99 - mg/dL * P otassium 4.5 3.5-5.3 - mmol/L * S odium 144 135-145 - mmol/L * P rotein 7.4 6.0-8.3 - g/dL * e GFR by Creatinine 44 L >59 - mL/min/1.73m2 * Emi Jay 11/20/2024 10:1 0:37 AM >See phone encounter ?LAB: P-Lipid Panel (Collection Date & Time - 11/17/2024 09:01 AM)?trigs 195, hdl 36* Value Reference Range C holesterol / HDL Ratio 4.19 0.00-4.99 - Ratio * C holesterol 151 <200 - mg/dL * H DL Cholesterol 36 L >39 - mg/dL * L DL Cholesterol (Calculation) 76 <130 - mg/d L * L DL/HDL Ratio 2.1 <3.3 - Ratio * N on-HDL Cholesterol 115 <130 - mg/dL * T riglycerides 195 H <150 - mg/dL * Emi Jay 11/20/2024 10:1 0:37 AM >See phone encounter 5.?Others? Continue Xarelto Tablet, 15 mg, TAKE ONE TABLET BY MOUTH EVERY EVENING with a meal;?Continue Uloric Tablet, 40 MG, 1 tablet, Orally, Once a day.?? * Procedure Codes: 8 2950 GLUCOSE TEST, 34558 GLYCATED HEMOGLOBIN TEST, Modifiers: QW * Follow Up: 6 Months * Images: Billing Information: * Visit Code: 74547 Office Visit, Est Pt., Level 4. * Procedure Codes: 50260 GLUCOSE TEST. 02100 GLYCATED HEMOGLOBIN TEST. Modifiers: QW * Electronic signature of Zenobia Argueta MD on 07/24/2025 at 11:25 AM EDT Sign off status: Pending * Provider: Aranza Argueta M.D. Date: 1 01/18/2024 Generated for Almas thomas/Isabel/Marina on: 0 07/24/2025 11:25 AM EDT History and Physical Notes * HPI (History of Present Illness) Category Sub-Category Detail Notes Category Not es Endocrinology Recent Blood Sugars Pt here to f /u on DM 2, pt states that he does not check blood sugar at home. Pt had home health visit 09/27/2024 and A1C was 7.0%. Pt states he has been out of Ozempic for about a month Cardiology Blood Pressure Elevated Pt here for 6 mo f/u on hypertension, states he is doing well and does not have any concerns Hyperlipidemia Pt is fasting today Examination Category Sub-Category Detail Notes Category Not es Cardiology Lungs: clear, no rales or wheezes Heart sounds: RRR Extremities: 1+ bilateral lower l eg edema General Appearance: pleasant, NAD, sitti ng in a wheelchair
--- OUTSIDE RECORDS SUMMARY | 2025-07-09 06:15 | XMS_ITS ---
Author Organization [facility] Address [address] [facility] [address] [facility] [address] [place] [id number] Care Team Providers Care Quality Control Technician Name Role Phone Hilario Argueta Primary Care Provider [phone] Allergies No Known Allergies REASON FOR VISIT follow up Encounters Encounter Location Date Provider Diagnosis [facility] [address] [place] [id number] 07/09/2025 Hilario Argueta Plan Of Treatment Next Appt Details Provider Name:Hilario raza, 11/19/2025 10:00:00 AM, [address] [facility], [address], [place], [phone], Provider Name:Hilario Mckeon ry, 01/21/2026 10:30:00 AM, [address] [facility], [address], [place], [id number], Progress Notes * ADARSH LEXIEDOB:1975 (50 yo M)Acc No.[id number]:07/09/2025 Patient: LEXIE RIVERA Provider: Aranza Argueta M.D. :1975 A ge:50 Y S ex:Male Date:07/09/2025 Address:[id number] Subjective: * Chief Complaints: * 1 . Follow up. * ROS: D ERMATOLOGY: no R gregor. [...] * Hospitalization/Major Diagno stic Procedure: C - [facility] 04/29-10/2023. * Family History: 2 brother(s) . . Diabtes, high blood pressure,heart disease, stroke, cancer: Grandparents No living will No power of bankruptcy attorney. * Social History: C URRENT TOBACCO USE: No . C affeine: yes, frequency: 1-2 cups per day. Alcohol: no. * Allergies: N .K.D.A. Objective: * Vitals: Assessment: Plan: * Treatment: * Images: Billing Information: * Visit Code: * Procedure Codes: * Electronic signature of Zenobia Argueta MD on 07/24/2025 at 11:25 AM EDT Sign off status: Pending * Provider: Aranza Argueta M.D. Date: 0 07/09/2025 Generated for Almas thomas/Isabel/Lilyitting on: 0 07/24/2025 11:25 AM EDT
[2025-07-24 11:02] LABS: Microscopic, Urine URINE MICROSCOPIC (MICROSCOPIC)
[2025-07-24 11:22] LABS: Hematocrit 41.4 % (42.0-52.0); Hemoglobin 13.5 g/dL (14.1-18.0); Mean Corpuscular HGB Conc 32.6 g/dL (31.8-35.4); Mean Corpuscular Hemoglobin 30.0 pg (27.0-31.2); Mean Corpuscular Volume 92.0 fl (80-94); Nucleated Red Blood Cells % 0 %; Platelet Count 259 K/mm3 (142-424); Red Blood Count 4.50 M/mm3 (4.60-6.20); Red Cell Distribution Width-SD 45.4 fL; White Blood Count 10.6 K/mm3 (4.8-10.8)
--- OUTSIDE RECORDS SUMMARY | 2025-07-24 11:25 | XMS_ITS | Encounter Summary ---
Author Organization [facility] Address [address] [place] [address] Care Team Providers Care Airplane Cabin Attendant Name Role Phone Hilario Argueta MD Primary Care Provider [phone] Encounter Details Date Type Department Care Team (Latest Contact Info) Description 07/20/2025 Travel Social History Tobacco Use Types Packs/Day Years Used Date Smoking Tobacco: Never Passive Smoke Exposure: Never Smokeless Tobacco: Never Alcohol Use Standard Drinks/Week Comments Never 0 (1 standard drink = 0.6 oz pur e alcohol) Sex and Gender Information Value Date Recorded Sex Assigned at Not on file Legal Sex Male 6:54 PM EDT Gender Identity Not on file Sexual Orientation Not on file documented as of this encounter Plan of Treatment Upcoming Encounters Date Type Department Care Team (Late st Contact Info) Description 07/27/2025 12:40 PM EDT Office Visit [facility] [address] [facility] [address] [place] [phone] Isauro Durán MD [address] [place] [phone] documented as of this encounter Visit Diagnoses Not on filedocumented in this encounter Additional Health Concerns Assessment Noted Time A Body Mass Index follow-up plan has been documented for the patient 09/08/2024 10:40 AM EDT documented as of this encounter Care Teams Airplane Cabin Attendant Relationship Specialty Start Date End Date Hilario Argueta MD [address] [facility] [address] [place] [address] PCP - General 10/29/22 documented as of this encounter
--- OUTSIDE RECORDS SUMMARY | 2025-07-24 11:25 | XMS_ITS | Clinical Summary ---
Author Organization [facility] Address [address] [place] [address] Care Team Providers Care Clinical Ob Name Role Phone Hilario Argueta MD Primary Care Provider [phone] Allergies No known active allergies Medications rivaroxaban (Xarelto) 15 MG tablet Take by mouth. Take with food. Active irbesartan (Avapro) 150 MG tablet Take 1 tablet (150 mg) by mouth 1 (one) time each day. Active dilTIAZem XR (Dilacor XR) 180 MG 24 hr capsule Take 1 capsule (180 mg) by mouth 2 (two) times a day. Active Jardiance 25 MG Take 1 tablet (25 mg) by mouth 1 (one) time each day. 05/19/2024 Active febuxostat (Uloric) 40 MG tablet Take 1 tablet (40 mg) by mouth 1 (one) time each day. Active rosuvastatin (Crestor) 10 MG tablet Take 1 tablet (10 mg) by mouth 1 (one) time each day. Active cholecalciferol (Vitamin D-3) 50 MCG (1999 UT) capsuleIndicati ons:Vitamin D deficiency Take 1 capsule (2,000 Units) by mouth 1 (one) time each day. 90 capsule 3 09/08/2024 Active Active Problems Problem Noted Date Diagnosed Date Hypertensive chronic kidney disease with stage 1 through stage 4 chronic kidney disease, or unspecified chronic kidney disease 09/08/2024 Asymptomatic bacteriuria 09/08/2024 Chronic kidney disease-mineral and bone disorder (CKD-MBD) 09/08/2024 Mixed hyperlipidemia 09/08/2024 CKD stage 3b, GFR 30-44 ml/min 11/01/2023 Vitamin D deficiency 11/02/2022 Acute kidney failure, unspecified 03/25/2022 Cellulitis of other sites 03/25/2022 Dependence on other enabling machines and device s 03/25/2022 Essential (primary) hypertension 03/25/2022 Hyperglycemia, unspecified 03/25/2022 Obesity, morbid, BMI 50 or higher 03/25/2022 Muscle weakness (generalized) 03/25/2022 Obstructive sleep apnea (adult) (pediatric) 02/2022 Unspecified atrial fibrillation 03/25/2022 Encounters Date Type Department Care Team Description 07/20/2025 Travel from Last 3 Months Immunizations Immunization Administration Dates Next Due Influenza, seasonal, injectable 03/30/2022 PPD Skin Test (TB Skin Test) 03/27/2022 Family History Medical History Relation Name Comments No Known Problems Father Hepatitis Mother Relation Name Status Comments Father Mother Alive Social History Tobacco Use Types Packs/Day Years [...] on file Sexual Orientation Not on file Last Filed Vital Signs Vital Sign Reading Time Taken Comments Blood Pressure 127/64 09/08/2024 9:46 AM EDT Pulse 74 09/08/2024 9:46 AM EDT Temperature 36.1 C (96.9 F) 09/08/2024 9:46 AM EDT Respiratory Rate 18 09/08/2024 9:46 AM EDT Oxygen Saturation 97% 09/08/2024 9:46 AM EDT Inhaled Oxygen Concentration - - Weight 159 kg (350 lb) 09/08/2024 9:46 AM EDT Height 167.6 cm (5' 6 ) 09/08/2024 9:46 AM EDT Body Mass Index 56.49 09/08/2024 9:46 AM EDT Plan of Treatment Upcoming Encounters Date Type Department Care Team (Late st Contact Info) Description 07/27/2025 12:40 PM EDT Office Visit [facility] [address] [place] [phone] Isauro Durán MD [address] [place] [phone] Health Maintenance Due Date Last Done Comments [facility]-Depression Screening 1975 [facility]-HIV Screening 1975 [facility]-Hepatitis C Screening 1975 [facility]-/Child/Adol SDOH Screenings 1975 [facility]- SDOH Screenings 1991 [facility]-Adult SDOH Screenings 1991 [facility]-DTaP,Tdap,and Td Vaccine s (1 - Tdap) 02/22/1992 [facility]-Hepatitis B Vaccines (1 of 3 - 19+ 3-dose series) 02/22/1992 CT Colonography 2018 Colonoscopy 2018 FIT-DNA 2018 FIT 2018 FOBT 2018 Sigmoidoscopy 2018 [facility]-Colorectal Cancer Screening 2018 [facility]-Pneumococcal Vaccine: 50 + Years (1 of 1 - PCV) 2023 [facility]-Zoster Vaccines (1 of 2) 2023 [id number] Vaccine (1 - 2023- season) 2024 [facility]-Influenza Vaccine (#1) 2025 03/30/2022 [facility]-Obesity Intervention Completed 024, 05/29/2024, 11/02/2022 HPV Vaccines Aged Out No longer eligi ble based on patient's age to complete this topic [facility]-HIB Vaccines Aged Out No longer e ligible based on patient's age to complete this topic [facility]-Hepatitis A Vaccines Aged Out No longer eligible based on patient's age to complete this topic [facility]-IPV Vaccines Aged Out No longer e ligible based on patient's age to complete this topic [facility]-Rotavirus Vaccines Aged Out No lo nger eligible based on patient's age to complete this topic Insurance [employer] Care Teams Clinical Ob Relationship Specialty Start Date End Date Hilario Argueta MD [address] [place] [address] PCP - General 10/29/22
--- OUTSIDE RECORDS SUMMARY | 2025-07-24 11:26 | XMS_ITS | Patient Health Record ---
Author Organization [facility] Address [address] [facility] [address] [place] [id number] Care Team Providers Care Tower Director Name Role Phone Hilario Argueta Primary Care Provider [phone] Allergies No Known Allergies Results Component Value [...] Normal Performing Lab: Notes/Report: Test performed by [facility], [address] , [address], [place] [address] Timothy Peck MD, Physician Extender CLIA: [id number] WBC 8.9 3.8-11.5 K/uL Red Blood Cell [...] 44 Performing Lab: Notes/Report: Test performed by [facility] [address] [place] [address] [address], [place] [address] Timothy Peck MD, Physician Extender CLIA: [id number] Sodium 144 135-145 mmol/L Potassium 4.5 3.5-5.3 [...] 36 Performing Lab: Notes/Report: Test performed by [facility] [address] [place] [address] [address], [place] [address] Timothy Peck MD, Physician Extender CLIA: [id number] Cholesterol 151 <200 mg/dL Triglycerides 195 <150 [...] Normal Performing Lab: Notes/Report: Test performed by [facility] [address] [facility] , [address], [place] [address] Timothy Peck MD, Physician Extender CLIA: [id number] Phosphorus 2.5 2.5-4.5 mg/dL P-Uric Acid Reviewed date:05/23/2025 04:58:20 PM Interpretation:3.2 Performing Lab: Notes/Report: Test performed by [address] , [address], [place] [address] Timothy Peck MD, Physician Extender CLIA: [id number] Uric Acid 3.2 3.4-8.0 mg/dL P-Microalbumin/Creatinine, R andom Urine Sample Reviewed date:05/23/2025 04:58:20 PM Interpretation:a/c 64 Performing Lab: Notes/Report: Test performed by [address] , [address], [place] [address] Timothy Peck MD, Physician Extender CLIA: [id number] Albumin/Creatinine Ratio, Urine 64 0-30 ug/m g Microalbumin, Urine, Random 5.5 Creatinine, Urine 86.1 P-TSH reflex to FT4 Reviewed date:05/23/2025 04:58:20 PM Interpretation:Normal Performing Lab: Notes/Report: Test performed by [address] , [address], [place] [address] Timothy Peck MD, Physician Extender CLIA: [id number] TSH reflex to FT4 3.14 0.43-5.25 mU/L P-PSA Reviewed date:05/23/2025 04:58:20 PM Interpretation:Normal Performing Lab: Notes/Report: Test performed by [address] , [address], [place] [address] Timothy Peck MD, Physician Extender CLIA: [id number] PSA 0.35 <4.00 ng/mL Please note this is an ultrasensitive PSA assay with a lower limit of detection of 0.014 ng/mL. This test is performed by the Manuel ECLIA methodology. Values obtained with different assay methods or kits cannot be directly compared. P-Phosphorus Reviewed date:05/23/2025 04:58:20 PM Interpretation:Normal Performing Lab: Notes/Report: Test performed by [facility] [employer] , [place] [address] Timothy Peck MD, Physician Extender CLIA: [id number] Phosphorus 3.0 2.5-4.5 mg/dL P-Lipid Panel Reviewed date:05/23/2025 04:58:20 PM Interpretation:trigs 158, hdl 39 Performing Lab: Notes/Report: Test performed by [facility], [address], [place] [address] Timothy Peck MD, Physician Extender CLIA: [id number] Cholesterol 142 <200 mg/dL Triglycerides 158 <150 mg/dL HDL Cholesterol 39 >39 mg/dL Cholesterol / HDL Ratio 3.64 0.00-4.99 Ratio Non-HDL Cholesterol 103 <130 mg/dL LDL Cholesterol (Calculation) 71 <130 mg/dL LDL Cholesterol Levels* Less than 100 mg/dL Optimal 100 to 129 mg/dL Near Optimal/ Above Optimal 130 to 159 mg/dL Borderline High 160 to 189 mg/dL High 190 mg/dL and above Very High * Categories as recommended by the 2004 ATPIII guidelines LDL/HDL Ratio 1.8 <3.3 Ratio LDL Cholesterol Patient History Test Date: 05/16/2024 LDL Results: 75 Units: mg/dL % Change: -58% Test Date: 11/17/2024 LDL Results: 76 Units: mg/dL % Change: +1% Test Date: 05/18/2025 LDL Results: 71 Units: mg/dL % Change: -6% P-Comprehensive Metabolic Pa negro (CMP) Reviewed date:05/23/2025 04:58:20 PM Interpretation:gluc 128, bun 28, Cr 1.8, gfr 45 Performing Lab: Notes/Report: Test performed by [facility] [address] [place] [address] , [address], [place] [address] Timothy Peck MD, Physician Extender CLIA: [id number] Sodium 142 135-145 mmol/L Potassium 4.2 3.5-5.3 mmol/L Chloride 106 97-108 mmol/L CO2 24 20-32 mmol/L Glucose 128 65-99 mg/dL BUN 28 6-20 mg/dL Creatinine 1.80 0.70-1.30 mg/dL Calcium 9.3 8.6-10.4 mg/dL eGFR by Creatinine 45 >59 mL/min/1.73m2 Protein 7.2 6.0-8.3 g/dL Albumin 3.7 3.5-5.3 g/dL Alkaline Phosphatase 79 40-129 IU/L ALT (SGPT) 11 <5-55 IU/L AST (SGOT) 9 <5-46 IU/L Bilirubin, Total 0.9 <0.2-1.2 mg/dL A/G Ratio 1.1 1.1-2.5 Glycohemoglobin A1c (in hous e) Reviewed date:05/23/2025 04:58:20 PM Interpretation:7.1 Performing Lab: Notes/Report: 7.1 glycohemoglobin 7.1% 5 - 6.5 % CBC Venipuncture (in house) Reviewed date:05/23/2025 04:58:20 PM Interpretation:Normal Performing Lab: Notes/Report: Normal wbc 8.6 3.5 - 10 lymph 23.1% 15 - 50 mid 6.3% 2 - 15 gran 70.6% 35 - 80 rbc 5.17 3.5 - 5.5 hgb 15.1 11.5 - 16.5 hct 45.8 35 - 55 mcv 88.6 75 - 100 mch 29.3 25 - 35 mchc 33.0 31 - 38 platlet 219 100 - 400 Glucose (In-House) Reviewed date:05/23/2025 04:58:20 PM Interpretation:152 Performing Lab: Notes/Report: 152 blood glucose 152 74 - 106 mg/dL Reason For Referral No Information Medications Medication SIG (Take, Route, Frequency, Duration) Notes Start Date End Date Status dilTIAZem HCl ER 180 MG 2 caps orally once a day 0 04/14/2022 Active Kerendia 20 MG 1 tablet Orally Once a day; Duration: 30 days 07/24/2025 Active Uloric 40 MG 1 tablet Orally Once a day; Duration: 90 days Active Irbesartan 75 MG 1 tab(s) orally once a day 04/14/2022 Active Xarelto 15 mg 1 tablet in the even ing orally once a day; Duration: 90 days Active Jardiance 25 mg TAKE ONE TABLET BY M OUTH EVERY DAY; Duration: 30 Active Rosuvastatin Calcium 10 mg 1 tablet Oral ly Once a day; Duration: 30 days Active Problems Problem Type SNOMED Code ICD Code Onset Dates Problem Status W/U Status Risk Notes Problem Essential hypertension (43790826) Essential (primary) hypertension (I10) Active confirmed Problem Hyperlipidemia (82918676) Hyperlipidemia (E78.5) Active confirmed Problem Morbid obesity (027213430) Morbid obesity (E66.01) Active confirmed Problem Diabetic renal disease (306878285) Type 2 diabetes mellitus with diabetic chronic kidney disease (E11.22) Active confirmed Problem Chronic respiratory failure (71604847) Chronic respiratory failure with hypercapnia (J96.12) Active confirmed Problem Sleep apnea (25002281) Sleep apnea, unspecified type (G47.30) Active confirmed Problem Obstructive sleep apnea syndrome (27335398) ROBIN (obstructive sleep apnea) (G47.33) Active confirmed Problem Atrial fibrillation (95348642) Atrial fibrillation, unspecified type (I48.91) Active confirmed Problem Atrial fibrillation (69581370) Atrial fibrillation with RVR (I48.91) Active confirmed Problem Chronic gouty arthritis (39393454) Chronic gout without tophus, unspecified cause, unspecified site (M1A.9XX0) Active confirmed Problem Type II diabetes mellitus without complication (560393405) Controlled type 2 diabetes mellitus without complication, without long-term current use of insulin (E11.9) Active confirmed Problem Chronic renal failure syndrome (78928087) Chronic kidney disease, unspecified CKD stage (N18.9) Active confirmed Problem Chronic kidney disease stage 3B (disorder) (857066864) Stage 3b chronic kidney disease (N18.32) Active confirmed Problem Unable to walk (494075806) Unable to walk (R26.2) Active confirmed Vital Signs Heart Rate 65 /min 07/24/2025 Blood pressure diastolic 80 mm Hg 07/24/2025 Blood pressure systolic 134 mm Hg 07/24/2025 Weight 000 lbs 07/24/2025 Encounters Encounter Location Date [facility] [address] [place], [place] [id number] 11/17/2024 Hilario Carr Essential (primary) hypertension I10 ; Type 2 diabetes mellitus with diabetic chronic kidney disease E11.22 ; Stage 3b chronic kidney disease N18.32 and Hyperlipidemia E78.5 [facility] [address] [place], [place] [id number] 05/18/2025 Hilario Carr Essential (primary) hypertension I10 ; Type 2 diabetes mellitus with diabetic chronic kidney disease E11.22 ; Hyperlipidemia E78.5 ; Stage 3b chronic kidney disease N18.32 ; Chronic gout without tophus, unspecified cause, unspecified site M1A.9XX0 ; ROBIN (obstructive sleep apnea) G47.33 and Prostate cancer screening Z12.5 [facility] [address] [facility] [address] [place], [place] [id number] 07/24/2025 Hilario Carr Stage 3b chronic kid stuart disease N18.32 [facility] [address] [facility] [address] [place], [place] [id number] 11/09/2024 Hilario Carr [facility] [address] [place], [place] [id number] 11/20/2024 Hilario Carr [facility] [address] [place], [place] [id number] 01/05/2025 Hilario Carr [facility] [address] [place], [place] [id number] 05/01/2025 Hilario Carr [facility] [address] [place], [place] [id number] 05/23/2025 Hilario Carr [facility] [address] [place], [place] [id number] 05/24/2025 Hilario Carr [facility] [address] [place], [place] [id number] 06/05/2025 Hilario Argueta Assessments Encounter Date Diagnosis (ICD Code) Assessment Notes Treatment Notes Treatment Clinical Notes Section Notes 11/17/2024 Essential (primary) hypertension (ICD-10 - I10) 11/17/2024 Type 2 diabetes mellitus with diabetic chronic kidney disease (ICD-10 - E11.22) Improved, not at goal today 05/18/2025 Essential (primary) hypertension (ICD-10 - I10) 05/18/2025 Type 2 diabetes mellitus with diabetic chronic kidney disease (ICD-10 - E11.22) 07/24/2025 Stage 3b chronic kidney disease (ICD-10 - N18.32) 05/18/2025 Hyperlipidemia (ICD-10 - E78.5) 11/17/2024 Stage 3b chronic kidney disease (ICD-10 - N18.32) 11/17/2024 Hyperlipidemia (ICD-10 - E78.5) 05/18/2025 Stage 3b chronic kidney disease (ICD-10 - N18.32) 05/18/2025 Chronic gout without tophus, unspecified cause, unspecified site (ICD-10 - M1A.9XX0) 05/18/2025 ROBIN (obstructive sleep apnea) (ICD-10 - G47.33) Patient needs to follow up with his 05/18/2025 Prostate cancer screening (ICD-10 - Z12.5) Plan Of Treatment Pending Test Test Name Order Date Cologuard 11/30/2023 H-BMP 07/24/2025 Next Appt Details Provider Name:Hilario Mckeon luz marina, 11/19/2025 10:00:00 AM, [address], [address], [place], [phone], Provider Name:Hilario Mckeon luz marina, 01/21/2026 10:30:00 AM, [address], [address], [place], [id number], Insurance Providers Payer Name Payer Address Payer Phone Subscriber Number Group Number Insured Name Patient Relationship to Insured Coverage Start Date Coverage End Date [employer] [facility] [address] [place], [place] [id number] [phone] [id number] LEXIE ALTAMIRANO Self - patient is the insured Medical (General) History Medical History History ICD Code Hypertension Arthritis Atrial Fibrillation Pneumonia Chronic kidney disease Gout type 2 diabetes sleep apnea obesity Surgical History Surgery Date(Month/Year) RT Knee Replacement 10/2005 Hospitalization History Reason Date(Month/Year) [facility] 04/29-10/2023
[2025-07-24 11:59] LABS: Albumin Level 4.0 g/dl (3.5-5.0); Anion Gap 17.0 mEq/L (5-15); Blood Urea Nitrogen 35 mg/dl (9-20); Calcium 9.0 mg/dl (8.4-10.2); Carbon Dioxide 22 mmol/L (22.0-30.0); Chloride 106 mmol/L (98-107); Creatinine,Serum 2.10 mg/dl (0.66-1.25); Estimated Glomerular Filt Rate 33 ml/min (>60); GFR (African American) 40 ML/MIN (>60); Glucose 128 mg/dl (74-100); Phosphorous 3.9 mg/dl (2.5-4.5); Potassium 4.0 mmoL/L (3.5-5.1); Sodium 141 mmol/L (136-145)
[2025-07-24 11:59] LABS: Anion Gap 16.1 mEq/L (5-15); Blood Urea Nitrogen 35 mg/dl (9-20); Calcium 8.9 mg/dl (8.4-10.2); Carbon Dioxide 23 mmol/L (22.0-30.0); Chloride 106 mmol/L (98-107); Creatinine,Serum 2.00 mg/dl (0.66-1.25); Estimated Glomerular Filt Rate 35 ml/min (>60); GFR (African American) 43 ML/MIN (>60); Glucose 126 mg/dl (74-100); Potassium 4.1 mmoL/L (3.5-5.1); Sodium 141 mmol/L (136-145)
[2025-07-24 12:15] LABS: 25-OH Vitamin D, Total 37.0 ng/mL (30-100)
[2025-07-24 14:26] LABS: Bilirubin,Urine Negative (Negative); Color,Urine YELLOW (Yellow); Glucose,Urine (UA) 3+ (Negative); Ketones,Urine Negative (Negative); Leukocyte Esterase,Urine 1+ (Negative); PH,Urine 5.5 (5.0-8.5); Protein,Urine Negative (Negative); Specific Gravity, Urine 1.015 (1.005-1.030); Urobilinogen,Urine 0.2 EU/dl (0.2)
[2025-07-24 14:57] LABS: Amorphous Sediment,Urine 1+ /lpf; Bacteria,Urine 2+ /lpf; WBC,Urine 20-50 #/hpf (0-3)
== END 2025-07-24 23:59 | disposition home or self-care (01) ==
LOC: LAB 10:56
PROVIDERS: PCP Family Medicine; Visit Provider Student in an Organized Health Care Education/Training Program
DX: N18.32 Chronic kidney disease, stage 3b (principal)
CPT/HCPCS: 36415; 80048; 80069; 81001; 82043; 82306; 82570; 83970; 84156; 85027; 87086; 87088; 87186